=== PATIENT | female | born 1945 | race Caucasian/White ===

== ENCOUNTER 2016-03-15 15:33 | Emergency (ER) | payer MEDICARE, BC, OTHER ==
--- NOTE | 2016-03-15 16:30 | ER Document Report ---
ED Medical Screen (RME) - General Stated Complaint: DIZZY Notes: 70 yo female c/o flu like symptoms x last week, fever, cant walk, feels dizzy. + mid back pain. no chest pain or shortness of breath. + vomiting. Pt was seen by Dr Keller today and sent to ED TRAVEL OUTSIDE OF THE [place] IN LAST 30 DAYS: No - Related Data Allergies/Adverse Reactions: No Known Allergies Allergy (Verified 07/09/12 14:23) Past Medical History - Past Medical History Cardiac Medical History: Reports: Hx Congestive Heart Failure - secondary to "double pneumonia", Hx Hypercholesterolemia, Hx Hypertension Pulmonary Medical History: Reports: Hx Pneumonia - "Double" Musculoskeltal Medical History: Reports Hx Arthritis Past Surgical History: Reports: Hx Breast Surgery - reconstruction, Hx Cholecystectomy, Hx Mastectomy - left, Hx Tubal Ligation - Immunizations Hx Diphtheria, Pertussis, Tetanus Vaccination: No Physical Exam - Vital signs Vitals: Temp Pulse Resp BP Pulse Ox 100.7 F H 99 20 115/69 93 03/15/16 15:56 03/15/16 15:56 03/15/16 15:56 03/15/16 15:56 03/15/16 15:56 Course - Vital Signs Vital signs: Temp Pulse Resp BP Pulse Ox 100.7 F H 99 20 115/69 93 03/15/16 15:56 03/15/16 15:56 03/15/16 15:56 03/15/16 15:56 03/15/16 15:56
[2016-03-15] MEDS ORDERED: ONDANSETRON 4 MG TAB.RAPDIS PO ONE (16:31)
[2016-03-15 17:09] LABS: HEMATOCRIT 43.2 % (36.0-47.0); HEMOGLOBIN 14.8 g/dL (12.0-15.5); HGB HCT DIFFERENCE 1.2; MEAN CORPUSCULAR HEMOGLOBIN 31.5 pg (27.0-33.4); MEAN CORPUSCULAR HGB CONC 34.3 g/dL (32.0-36.0); MEAN CORPUSCULAR VOLUME 92 fl (80-97); RED BLOOD COUNT 4.71 10^6/uL (3.72-5.28); RED CELL DISTRIBUTION WIDTH 14.5 % (11.5-14.0); WHITE BLOOD COUNT 7.7 10^3/uL (4.0-10.5)
[2016-03-15 17:26] LABS: ALANINE AMINOTRANSFERASE 38 U/L (9-52); ALBUMIN 3.8 g/dL (3.5-5.0); ALKALINE PHOSPHATASE 101 U/L (38-126); ANION GAP 12 (5-19); ASPARTATE AMINO TRANSFERASE 31 U/L (14-36); BILIRUBIN,TOTAL 1.1 mg/dL (0.2-1.3); BLOOD UREA NITROGEN 12 mg/dL (7-20); CALCIUM 9.3 mg/dL (8.4-10.2); CARBON DIOXIDE 28 mmol/L (22-30); CHLORIDE 95 mmol/L (98-107); GLUCOSE 126 mg/dL (75-110); POTASSIUM 3.5 mmol/L (3.6-5.0); SODIUM 135.2 mmol/L (137-145); TOTAL PROTEIN 7.2 g/dL (6.3-8.2)
[2016-03-15 17:36] LABS: APPEARANCE,URINE SLIGHTLY-CLOUDY; BILIRUBIN,URINE NEGATIVE (NEGATIVE); GLUCOSE, URINE NEGATIVE (NEGATIVE); KETONES,URINE NEGATIVE (NEGATIVE); LEUKOCYTE ESTERASE,URINE SMALL (NEGATIVE); NITRITE,URINE NEGATIVE (NEGATIVE); PROTEIN,URINE 30 mg/dL (NEGATIVE); URINE SPECIFIC GRAVITY 1.017; UROBILINOGEN,URINE NEGATIVE mg/dL (<2.0)
[2016-03-15 17:39] LABS: BASOPHILS % (MANUAL) 0 % (0-2); EOSINOPHILS % (MANUAL) 1 % (0-6); LYMPHOCYTES % (MANUAL) 4 % (13-45); TOTAL CELLS COUNTED 100
[2016-03-15 17:40] LABS: ANISOCYTOSIS SLIGHT; TOXIC GRANULATION SLIGHT
[2016-03-15] MEDS ORDERED: IBUPROFEN 600 MG TABLET PO ONE (19:34)
[2016-03-15] MEDS ORDERED: NORMAL SALINE 1000 ML 1,000 ML IV ONE (20:10)
[2016-03-15] MEDS ORDERED: DOXYCYCLINE HYCLATE 100 MG TABLET PO ONE (20:40)
[2016-03-15] MEDS ORDERED: LEVOFLOXACIN 750 MG TABLET PO ONE (20:42)
[2016-03-15] MEDS ORDERED: IPRATROPIUM/ALBUTEROL 0.5-2.5 MG/3 ML AMPUL NEB ONE (20:42)
--- NOTE | 2016-03-15 20:43 | ER Document Report ---
ED General - General Chief Complaint: Fever Stated Complaint: DIZZY Notes: Patient is a 70-year-old female, currently active smoker with a history of asthma, who presents with fever, dizziness and cough. States that the symptoms started 2 days ago and have been getting progressively worsen since onset. She was seen by her primary care physician and referred to the emergency department for further evaluation. Denies a history of similar symptoms in the past. No known sick contacts. Nothing improves or worsens or symptoms. She has been able to tolerate oral fluids and has not had any vomiting. Denies any lethargy , dyspnea, chest pain, headache or neck pain. TRAVEL OUTSIDE OF THE [place] IN LAST 30 DAYS: No - Related Data Allergies/Adverse Reactions: No Known Allergies Allergy (Verified 03/15/16 16:26) Past Medical History - General Information source: Patient - Social History Smoking Status: Current Every Day Smoker Chew tobacco use (# tins/day): No Frequency of alcohol use: None Drug Abuse: None Lives with: Family Family History: Reviewed & Not Pertinent, Other Patient has suicidal ideation: No Patient has homicidal ideation: No - Past Medical History Cardiac Medical History: Reports: Hx Congestive Heart Failure - secondary to "double pneumonia", Hx Hypercholesterolemia, Hx Hypertension Pulmonary Medical History: Reports: Hx Pneumonia - "Double" Renal/ Medical History: Denies: Hx Peritoneal Dialysis Musculoskeltal Medical History: Reports Hx Arthritis Past Surgical History: Reports: Hx Breast Surgery - reconstruction, Hx Cholecystectomy, Hx Mastectomy - left, Hx Tubal Ligation - Immunizations Hx Diphtheria, Pertussis, Tetanus Vaccination: No Review of Systems - Review of Systems Notes: Constitutional: Positive for fever. HENT: Negative for sore throat. Eyes: Negative for visual changes. Cardiovascular: Negative for chest pain. Respiratory: Negative for shortness of breath. Positive for cough Gastrointestinal: Negative for abdominal pain, vomiting or diarrhea. Genitourinary: Negative for dysuria. Musculoskeletal: Negative for back pain. Skin: Negative for rash. Neurological: Negative for headaches, weakness or numbness. 10 point ROS negative except as marked above and in HPI. Physical Exam - Vital signs Vitals: Temp Pulse Resp BP Pulse Ox 100.7 F H 99 20 115/69 93 03/15/16 15:56 03/15/16 15:56 03/15/16 15:56 03/15/16 15:56 03/15/16 15:56 Interpretation: Febrile Notes: PHYSICAL EXAMINATION: GENERAL: Well-appearing, well-nourished and in no acute distress. HEAD: Atraumatic, normocephalic. EYES: Pupils equal round and reactive to light, extraocular movements intact, sclera anicteric, conjunctiva are normal. ENT: nares patent, oropharynx clear without exudates. Moist mucous membranes. NECK: Normal range of motion, supple without lymphadenopathy LUNGS: Diminished at the bilateral bases, worse on the left HEART: Regular rate and rhythm without murmurs ABDOMEN: Soft, nontender, normoactive bowel sounds. No guarding, no rebound. No masses appreciated. EXTREMITIES: Normal range of motion, no pitting or edema. No cyanosis. NEUROLOGICAL: No focal neurological deficits. Moves all extremities spontaneously and on command. PSYCH: Normal mood, normal affect. SKIN: Warm, Dry, normal turgor, no rashes or lesions noted. Course - Re-evaluation Re-evalutation: 03/15/16 20:47 Patient presents with symptoms most consistent with a left lower lobe pneumonia. Mild hypoxemia and time of presentation at 93% on room air. Patient is in no acute distress. No respiratory distress. She has mildly diminished breath sounds at the right and left base more prominent than the left. Trace wheezing bilaterally. Patient's initial vital showed a fever with mild tachycardia. She has been given IV fluids, ibuprofen, and started on oral levofloxacin. An ambulatory pulse ox check was within acceptable limits. Her curb 65 score is 1. At this time will discharge with return precautions and follow-up recommendations. Verbal discharge instructions given a the bedside and opportunity for questions given. Medication warnings reviewed. Patient is in agreement with this plan and has verbalized understanding of return precautions and the need for primary care follow-up in the next 24-72 hours. - Vital Signs Vital signs: Temp Pulse Resp BP Pulse Ox 98.5 F 69 69 H 109/62 95 03/15/16 22:26 03/15/16 22:26 03/15/16 22:26 03/15/16 22:26 03/15/16 22:26 - Laboratory Result Diagrams: 03/15/16 16:43 03/15/16 16:43 Laboratory results interpreted by me: 03/15/16 03/15/16 03/15/16 16:43 16:43 16:43 RDW 14.5 H Seg Neuts % (Manual) 87 H Lymphocytes % (Manual) 4 L Abs Lymphs (Manual) 0.3 L Sodium 135.2 L Potassium 3.5 L Chloride 95 L Glucose 126 H Urine Protein 30 H Ur Leukocyte Esterase SMALL H - Diagnostic Test Radiology reviewed: Image reviewed, Reports reviewed Radiology results interpreted by me: 03/15/16 20:47 Patchy infiltrates at the bilateral bases left more than right Discharge - Discharge Clinical Impression: Pneumonia Qualifiers: Pneumonia type: due to unspecified organism Laterality: left Lung location: lower lobe of lung Qualified Code(s): J18.1 - Lobar pneumonia, unspecified organism Condition: Good Disposition: HOME, SELF-CARE Additional Instructions: You have been diagnosed with pneumonia. You need to take the antibiotic exactly as directed. Please avoid smoking. Take ibuprofen or Tylenol per box instructions as needed for fever. Continue to drink plenty of fluids. Take the Zofran that you have been sent home with as needed for nausea or vomiting. Return to the emergency room immediately if you have increasing shortness of breath, become unable to walk the appropriate distances in your house to get from your bedroom to the bathroom or kitchen, pass out, becomes unable to tolerate fluids or your medications for more than 12 hours, become confused, lethargic, or have any other symptoms that are concerning to you. Please follow -up with your primary care physician in the next 1-2 days. Prescriptions: Levofloxacin 750 mg PO DAILY #6 tablet Referrals: LESLY TEJADA MD [Primary Care Provider] - Follow up tomorrow
[2016-03-15 22:48] VITALS: BP 109/62
== END 2016-03-15 22:30 | disposition home or self-care (01) ==
LOC: ER 15:33
DX: J18.1 Lobar pneumonia, unspecified organism (principal); F17.200 Nicotine dependence, unspecified, uncomplicated; J45.909 Unspecified asthma, uncomplicated; R50.9 Fever, unspecified; R00.0 Tachycardia, unspecified; R42 Dizziness and giddiness; R05 Cough; I10 Essential (primary) hypertension; R09.02 Hypoxemia
CPT/HCPCS: 94640; 99284; 96360; 36415; 85025; 80053; 81001; 87804; 71020; A9270 ×4; J7030; J7620; S0119

== ENCOUNTER → 2016-10-13 | Outpatient (CLI) | payer MEDICARE, BC, OTHER ==
[2016-10-13 09:25] LABS: ABSOLUTE EOSINOPHILS # (AUTO) 0.1 10^3/uL (0.0-0.6); ABSOLUTE LYMPHOCYTES (AUTO) 1.5 10^3/uL (0.5-4.7); ABSOLUTE MONOCYTES (AUTO) 0.5 10^3/uL (0.1-1.4); ABSOLUTE NEUT (AUTO) 4.1 10^3/uL (1.7-8.2); BASOPHILS % (AUTO) 0.5 % (0-2); EOSINOPHILS % (AUTO) 1.7 % (0-6); HEMATOCRIT 42.4 % (36.0-47.0); HEMOGLOBIN 14.9 g/dL (12.0-15.5); HGB HCT DIFFERENCE 2.3; LYMPHOCYTES % (AUTO) 24.3 % (13-45); MEAN CORPUSCULAR HEMOGLOBIN 33.1 pg (27.0-33.4); MEAN CORPUSCULAR HGB CONC 35.1 g/dL (32.0-36.0); MEAN CORPUSCULAR VOLUME 94 fl (80-97); MONOCYTES % (AUTO) 7.5 % (3-13); RED CELL DISTRIBUTION WIDTH 14.5 % (11.5-14.0); WHITE BLOOD COUNT 6.2 10^3/uL (4.0-10.5)
[2016-10-13 09:53] LABS: ALANINE AMINOTRANSFERASE 28 U/L (9-52); ALBUMIN 4.2 g/dL (3.5-5.0); ALKALINE PHOSPHATASE 88 U/L (38-126); ANION GAP 9 (5-19); ASPARTATE AMINO TRANSFERASE 18 U/L (14-36); BILIRUBIN,DIRECT 0.4 mg/dL (0.0-0.4); BILIRUBIN,TOTAL 0.9 mg/dL (0.2-1.3); BLOOD UREA NITROGEN 13 mg/dL (7-20); CALCIUM 10.5 mg/dL (8.4-10.2); CARBON DIOXIDE 33 mmol/L (22-30); CHLORIDE 101 mmol/L (98-107); CHOLESTEROL 184.91 mg/dL (0-200); CREATININE RESULT 0.79 mg/dL (0.52-1.25); Direct HDL 49 mg/dL (>40); GLUCOSE 105 mg/dL (75-110); POTASSIUM 4.4 mmol/L (3.6-5.0); SODIUM 143.1 mmol/L (137-145); TOTAL PROTEIN 7.1 g/dL (6.3-8.2); TRIGLYCERIDES 182 mg/dL (<150)
[2016-10-13 10:04] LABS: DIRECT LDL 95 mg/dL (<100)
[2016-10-13 10:09] LABS: FREE T3 4.45 pg/mL (2.77-5.27)
[2016-10-13 10:12] LABS: VLDL CHOLESTEROL 36.4 mg/dL (10-31)
[2016-10-13 10:22] LABS: THYROID STIMULATING HORMONE 2.76 uIU/mL (0.47-4.68)
== END ==
LOC: LAB 09:10
PROVIDERS: ATTEND Internal Medicine
DX: R53.83 Other fatigue (principal); I10 Essential (primary) hypertension; E78.5 Hyperlipidemia, unspecified; K21.9 Gastro-esophageal reflux disease without esophagitis; J44.9 Chronic obstructive pulmonary disease, unspecified
CPT/HCPCS: 36415; 80053; 80061; 84439; 84443; 84481; 85025

== ENCOUNTER → 2016-11-20 | Outpatient (CLI) | payer MEDICARE, BC, OTHER ==
--- NOTE | 2016-11-20 12:36 | RADIOLOGY REPORT (SQ) ---
EXAM DESCRIPTION: CHEST PA/LAT COMPLETED DATE/TIME: 11/20/2016 10:51 am REASON FOR STUDY: PNEUMONIA RLL COMPARISON: 03/15/2016 EXAM PARAMETERS: NUMBER OF VIEWS: two views TECHNIQUE: Digital Frontal and Lateral radiographic views of the chest acquired. RADIATION DOSE: NA LIMITATIONS: none FINDINGS: LUNGS AND PLEURA: There is an 18 mm nodule projected over the left base. This may be seen on the lateral view posteriorly overlying the spine. This is not present on the earlier study. No acute infiltrate or effusion is seen. MEDIASTINUM AND HILAR STRUCTURES: No masses or contour abnormalities. HEART AND VASCULAR STRUCTURES: Heart normal size. No evidence for failure. BONES: No acute findings. HARDWARE: None in the chest. OTHER: No other significant finding. IMPRESSION: No acute pulmonary infiltrate is present. Left pulmonary nodule. This could conceivabl y represent a nipple shadow. TECHNICAL DOCUMENTATION: JOB ID: [id number] [employer]- All Rights Reserved
== END ==
LOC: RAD 10:08
PROVIDERS: ATTEND Internal Medicine
DX: J18.9 Pneumonia, unspecified organism (principal)
CPT/HCPCS: 71020

== ENCOUNTER → 2016-11-24 | Outpatient (CLI) | payer MEDICARE, BC, OTHER ==
[2016-11-24 12:14] LABS: BLOOD UREA NITROGEN 10 mg/dL (7-20); CREATININE RESULT 0.68 mg/dL (0.52-1.25)
== END ==
LOC: OD 10:21
PROVIDERS: ATTEND Internal Medicine
DX: Z01.812 Encounter for preprocedural laboratory examination (principal); R91.8 Other nonspecific abnormal finding of lung field
CPT/HCPCS: 36415; 82565; 84520

== ENCOUNTER → 2016-11-27 | Outpatient (CLI) | payer MEDICARE, BC, OTHER ==
--- NOTE | 2016-11-27 16:51 | RADIOLOGY REPORT (SQ) ---
EXAM DESCRIPTION: CT CHEST WITHOUT COMPLETED DATE/TIME: 11/27/2016 2:33 pm REASON FOR STUDY: LEFT LUNG NODULE (R91.1) R91.1 SOLITARY PULMONARY NODULE COMPARISON: None. TECHNIQUE: CT scan performed of the chest without intravenous contrast. Images reviewed with lung, soft tissue and bone windows. Reconstructed coronal and sagittal MPR images reviewed. All images st ored on PACS. All CT scanners at this facility use dose modulation, iterative reconstruction, and/or weight based d osing when appropriate to reduce radiation dose to as low as reasonably achievable (ALARA). [facility]: Dose Right [facility]: CareDose [facility]: Dose Right [facility]: Teradose 4D [facility]: Smart Solaris Solar Heating RADIATION DOSE: Up-to-date CT equipment and radiation dose reduction techniques were employed. CTDIv ol: 7.2 mGy. DLP: 260 mGy-cm. mGy. LIMITATIONS: No technical limitations. FINDINGS: LUNGS AND PLEURA: Left hilar mass measuring about 3.6 cm in diameter. Collapse of the lef t lower lobe with bronchial cut off sign. Small dependent gas bubble in the left lower lobe. Trace pleural effusions, left greater than right. HILAR AND MEDIASTINAL STRUCTURES: No pathologically enlarged mediastinal nodes. HEART AND VASCULAR STRUCTURES: Cardiomegaly. No aneurysm. No pericardial effusion. UPPER ABDOMEN: Atrophic left kidney. 1 cm left adrenal nodule. THYROID AND OTHER SOFT TISSUES: Breast implants. Status post left mastectomy and axillary node disse ction. BONES: No acute findings. HARDWARE: None in the chest. OTHER: No other significant findings. IMPRESSION: Left hilar mass. Collapse of the left lower lobe. TECHNICAL DOCUMENTATION: JOB ID: [id number] Quality ID # [id number]: Final reports with documentation of one or more dose reduction techniques (e.g., Au tomated exposure control, adjustment of the mA and/or kV according to patient size, use of iterative reconstruction technique) 2010 [employer]- All Rights Reserved
== END ==
LOC: RAD 13:28
PROVIDERS: ATTEND Internal Medicine
DX: R91.1 Solitary pulmonary nodule (principal)
CPT/HCPCS: 71250

== ENCOUNTER → 2016-12-14 | Outpatient (CLI) | payer MEDICARE, BC, OTHER ==
[2016-12-14 09:58] LABS: PARTIAL THROMBOPLASTIN TIME 29.2 SEC (23.5-35.8); PROTHROMBIN TIME 12.5 SEC (11.4-15.4)
[2016-12-14 10:03] LABS: ABSOLUTE LYMPHOCYTES (AUTO) 1.2 10^3/uL (0.5-4.7); ABSOLUTE MONOCYTES (AUTO) 0.5 10^3/uL (0.1-1.4); ABSOLUTE NEUT (AUTO) 5.2 10^3/uL (1.7-8.2); BASOPHILS % (AUTO) 0.2 % (0-2); EOSINOPHILS % (AUTO) 0.6 % (0-6); HEMATOCRIT 43.9 % (36.0-47.0); HEMOGLOBIN 15.5 g/dL (12.0-15.5); HGB HCT DIFFERENCE 2.6; LYMPHOCYTES % (AUTO) 17.1 % (13-45); MEAN CORPUSCULAR HEMOGLOBIN 32.6 pg (27.0-33.4); MEAN CORPUSCULAR HGB CONC 35.3 g/dL (32.0-36.0); MEAN CORPUSCULAR VOLUME 92 fl (80-97); MONOCYTES % (AUTO) 7.6 % (3-13); RED BLOOD COUNT 4.75 10^6/uL (3.72-5.28); RED CELL DISTRIBUTION WIDTH 14.2 % (11.5-14.0); SEGMENTED NEUTROPHILS % (AUTO) 74.5 % (42-78)
[2016-12-14 10:16] LABS: ANION GAP 13 (5-19); BLOOD UREA NITROGEN 10 mg/dL (7-20); CALCIUM 9.7 mg/dL (8.4-10.2); CARBON DIOXIDE 32 mmol/L (22-30); CHLORIDE 97 mmol/L (98-107); CREATININE RESULT 0.73 mg/dL (0.52-1.25); GLUCOSE 116 mg/dL (75-110); POTASSIUM 3.8 mmol/L (3.6-5.0); SODIUM 141.8 mmol/L (137-145)
== END ==
LOC: OD 08:55
PROVIDERS: ATTEND Internal Medicine Pulmonary Disease
DX: J98.4 Other disorders of lung (principal); Z79.01 Long term (current) use of anticoagulants
CPT/HCPCS: 36415; 80048; 85025; 85610; 85730

== ENCOUNTER 2016-12-21 10:02 | Day surgery (SDC) | payer MEDICARE, BC, OTHER ==
--- NOTE | 2016-12-19 15:29 | EKG REPORT ---
SEVERITY:- NORMAL ECG - SINUS RHYTHM : Confirmed by: Miguel Harmon 19-Dec-2016 15:29:10
[~2016-12-21 10:02] MED LIST: ALBUTEROL SULFATE 0.083% NEB 2.5 MG/3 ML AMPUL NEB PRN; LACTATED RINGERS 1000 ML IV PRN; LIDOCAINE 0.5% INJ-PF (5 MG/ML) 50 ML SDV SUBCUT PRN; LIDOCAINE 4% INJ/PF (40 MG/ML) 5 ML AMPUL NEB PRN
[2016-12-21] MEDS ORDERED: FENTANYL CITRATE INJ/PF 100 MCG/2 ML AMPUL ONE (11:21)
[2016-12-21] MEDS ORDERED: PROPOFOL INJ 200 MG/20 ML VIAL IV ONE (11:21)
[2016-12-21] MEDS ORDERED: LIDOCAINE 2% INJ-PF (20 MG/ML) 10 ML AMPUL ONE (11:21)
[2016-12-21] MEDS ORDERED: EPHEDRINE SULFATE INJ 50 MG/1 ML AMPULE ONE (12:10)
[2016-12-21] MEDS ORDERED: LIDOCAINE 2% INJ (20 MG/ML) 20 ML MDV ONE (12:12)
[2016-12-21] MEDS ORDERED: MIDAZOLAM 2 MG/2 ML INJ ONE (12:14)
[2016-12-21] MEDS ORDERED: EPINEPHRINE INJ 1 MG/10 ML DISP.SYRIN ONE (12:39)
[2016-12-21] MEDS ORDERED: ACETAMINOPHEN 325 MG TABLET PO SCH (14:00)
--- NOTE | 2016-12-21 14:01 | Operative Report ---
Operative Report DATE OF SURGERY: 12/21/16 - Left lung mass Operative Report: Patient N.p.o.12 hours prior to procedure came to the preoperative area where given bronchodilator therapy and IV was established. consents were reviewed. patient was taken to the bronchoscopy suite;she was intubated by anesthesiology then using a T size scope tracheobronchial tree was explored and there were no problems with her trachea distally and no splaying of the marcos there were no problems with the right mainstem bronchus right bronchus intermedius right right middle lower lobe or right middle lobe. There was some mucosal swelling in the right upper lobe and multiple a needle biopsies were taken. Then the left main mainstem bronchus was explored at the distal left mainstem bronchus there was a 90-95% occlusion including mass there multiple transbronchial biopsies were taken of this area patient tolerated procedure well post- procedure SaO2 was 99% and post-procedure chest x-ray is in progress at this time. PREOPERATIVE DIAGNOSIS: Left lung mass POSTOPERATIVE DIAGNOSIS: Same OPERATION: Fiberoptic bronchoscopy transbronchial biopsies and Krishnamurthy needle biopsies SURGEON: LEV ANDRADE ANESTHESIA: GA TISSUE REMOVED OR ALTERED: Transbronchial biopsies left upper lobe. right needle biopsies right upper lobe COMPLICATIONS: none ESTIMATED BLOOD LOSS: 0cc
--- NOTE | 2016-12-21 14:06 | RADIOLOGY REPORT (SQ) ---
EXAM DESCRIPTION: CHEST SINGLE VIEW COMPLETED DATE/TIME: 12/21/2016 1:50 pm REASON FOR STUDY: post bronchoscopy COMPARISON: CT chest 11/27/2016 PET-CT 12/10/2016 CT chest 11/20/2016 EXAM PARAMETERS: NUMBER OF VIEWS: One view. TECHNIQUE: Single frontal radiographic view of the chest acquired. RADIATION DOSE: NA LIMITATIONS: None. FINDINGS: LUNGS AND PLEURA: Persistent left hilar mass with left lower lobe collapse, unchanged from PET-CT 12/10/2016 There is minimal airspace disease in the right lower lobe just above the hemidiaphragm, atelectasis f avored over pneumonia. No pleural effusions. No pneumothorax. MEDIASTINUM AND HILAR STRUCTURES: Enlarged left hilum, with a 4 cm lower hilar mass. HEART AND VASCULAR STRUCTURES: Heart normal in size. Normal vasculature. BONES: No acute findings. HARDWARE: Surgical clips left axilla. Left breast implant post mastectomy OTHER: No other significant finding. IMPRESSION: Persistent left hilar mass with postobstructive left lower lobe pneumonia. Minimal right basilar airspace disease atelectasis favored over pneumonia TECHNICAL DOCUMENTATION: JOB ID: [id number]- All Rights Reserved
[2016-12-21] MEDS ORDERED: PHENYLEPHRINE HCL INJ/PF 10 MG/1 ML SDV ONE (14:21)
[2016-12-21] MEDS ORDERED: VECURONIUM BROMIDE INJ 10 MG VIAL IV ONE (14:21)
[2016-12-21] MEDS ORDERED: SUCCINYLCHOLINE CHLORIDE INJ 200 MG/10 ML VIAL ONE (14:21)
[2016-12-21 16:04] VITALS: BP 151/92
--- NOTE | 2016-12-21 16:32 | RADIOLOGY REPORT (SQ) ---
EXAM DESCRIPTION: NO CHG FLUORO; CHEST SINGLE VIEW COMPLETED DATE/TIME: 12/21/2016 3:27 pm REASON FOR STUDY: BRONCHOSCOPY BOTH LUNGS ASSISTED W/ FLUORO IN OR R91.8 OTHER NONSPECIFIC ABNORMA L FINDING OF LUNG FIELD J98.4 OTHER DISORDERS OF LUNG COMPARISON: PET-CT 12/10/2016 CT chest 11/20/2016 FLUOROSCOPY TIME: 0.3 minutes 5 digital C-arm images saved to PACS. TECHNIQUE: Intra-operative images acquired during surgical procedure to evaluate progress. NUMBER OF IMAGES: Cine fluoroscopic images. LIMITATIONS: None. FINDINGS: Intra procedural imaging and fluoro during bronchoscopy performed by Dr. Donaldson. Please see the operative report for further details IMPRESSION: Intra procedural imaging and fluoro COMMENT: Quality ID [id number]: Final reports for procedures using fluoroscopy that document radiation exp osure indices, or exposure time and number of fluorographic images (if radiation exposure indices are not available) Please consult full operative report of the attending physician for description of the procedure. TECHNICAL DOCUMENTATION: JOB ID: [id number] [employer]- All Rights Reserved
== END 2016-12-21 15:30 | disposition home or self-care (01) ==
LOC: OROUT 10:02
PROVIDERS: ATTEND Internal Medicine Pulmonary Disease
PROC: 0BB48ZX Excision of Right Upper Lobe Bronchus, Via Natural or Artificial Opening Endoscopic, Diagnostic (ICD-10-PCS; principal; 2016-12-21 12:00)
PROC: 0BBG8ZX Excision of Left Upper Lung Lobe, Via Natural or Artificial Opening Endoscopic, Diagnostic (ICD-10-PCS; 2016-12-21 12:00)
DX: R91.8 Other nonspecific abnormal finding of lung field (principal); J98.4 Other disorders of lung; J44.9 Chronic obstructive pulmonary disease, unspecified; I10 Essential (primary) hypertension; E78.5 Hyperlipidemia, unspecified; D64.9 Anemia, unspecified; K21.9 Gastro-esophageal reflux disease without esophagitis; G47.33 Obstructive sleep apnea (adult) (pediatric); F17.210 Nicotine dependence, cigarettes, uncomplicated; Z91.040 Latex allergy status; Z79.899 Other long term (current) drug therapy; Z79.82 Long term (current) use of aspirin; Z79.51 Long term (current) use of inhaled steroids; Z85.21 Personal history of malignant neoplasm of larynx; Z79.01 Long term (current) use of anticoagulants
CPT/HCPCS: 31625; 31629; 93005; 36415 ×2; 84132; 88305 ×2; 71010; 93010; 94640; A9270 ×2; J2250; J3490 ×5; J3010; J2370; J0330; J2704; 520; J0171

== ENCOUNTER 2016-12-28 20:24 | Inpatient (IN) | payer MEDICARE, BC, OTHER ==
[2016-12-28 20:53] LABS: ABSOLUTE EOSINOPHILS # (AUTO) 0.1 10^3/uL (0.0-0.6); ABSOLUTE LYMPHOCYTES (AUTO) 2.3 10^3/uL (0.5-4.7); ABSOLUTE MONOCYTES (AUTO) 0.6 10^3/uL (0.1-1.4); ABSOLUTE NEUT (AUTO) 3.2 10^3/uL (1.7-8.2); BASOPHILS % (AUTO) 0.6 % (0-2); EOSINOPHILS % (AUTO) 1.3 % (0-6); HEMATOCRIT 44.6 % (36.0-47.0); HEMOGLOBIN 15.6 g/dL (12.0-15.5); HGB HCT DIFFERENCE 2.2; LYMPHOCYTES % (AUTO) 36.9 % (13-45); MEAN CORPUSCULAR HEMOGLOBIN 31.9 pg (27.0-33.4); MEAN CORPUSCULAR VOLUME 91 fl (80-97); MONOCYTES % (AUTO) 10.3 % (3-13); RED BLOOD COUNT 4.89 10^6/uL (3.72-5.28); RED CELL DISTRIBUTION WIDTH 13.9 % (11.5-14.0); SEGMENTED NEUTROPHILS % (AUTO) 50.9 % (42-78); WHITE BLOOD COUNT 6.2 10^3/uL (4.0-10.5)
[2016-12-28] MEDS: NORMAL SALINE 1000 ML 1,000 ML IV PRN (20:53)
[2016-12-28 20:57] LABS: ALANINE AMINOTRANSFERASE 33 U/L (9-52); ALBUMIN 3.7 g/dL (3.5-5.0); ALKALINE PHOSPHATASE 80 U/L (38-126); ANION GAP 12 (5-19); ASPARTATE AMINO TRANSFERASE 16 U/L (14-36); BILIRUBIN,DIRECT 0.3 mg/dL (0.0-0.4); BILIRUBIN,TOTAL 1.5 mg/dL (0.2-1.3); BLOOD UREA NITROGEN 9 mg/dL (7-20); CALCIUM 9.3 mg/dL (8.4-10.2); CARBON DIOXIDE 27 mmol/L (22-30); CHLORIDE 105 mmol/L (98-107); CREATININE RESULT 0.87 mg/dL (0.52-1.25); GLUCOSE 94 mg/dL (75-110); POTASSIUM 3.5 mmol/L (3.6-5.0); SODIUM 143.5 mmol/L (137-145); TOTAL PROTEIN 6.2 g/dL (6.3-8.2)
[2016-12-28] MEDS ORDERED: MECLIZINE HCL 25 MG TABLET PO ONE (21:06)
[2016-12-28] MEDS ORDERED: AZITHROMYCIN 250 MG TABLET PO ONE (21:06)
--- NOTE | 2016-12-28 21:39 | ER Document Report ---
ED General - General Chief Complaint: Nausea/Vomiting/Diarrhea Stated Complaint: DIZZINESS Time Seen by Provider: 12/28/16 20:27 Mode of Arrival: Ambulatory Information source: Patient Notes: 71-year-old female presents with complaints of nausea vomiting diarrhea dizziness of approximately one half week duration ever since patient had biopsy performed on lung nodule by coffee maker. Patient has had a history of pneumonia in the past denies any fevers or chills admits to shortness of breath , patient was found satting 88% by EMS. Patient is not normally on oxygen TRAVEL OUTSIDE OF THE [place] IN LAST 30 DAYS: No - HPI Onset: Last week Onset/Duration: Persistent Severity: Mild Pain Level: 1 Associated symptoms: Nausea, Vomiting Exacerbated by: Denies Relieved by: Denies Similar symptoms previously: Yes Recently seen / treated by doctor: Yes - Related Data Allergies/Adverse Reactions: No Known Allergies Allergy (Verified 12/15/16 16:00) Past Medical History - Social History Smoking Status: Unknown if Ever Smoked Cigarette use (# per day): No Chew tobacco use (# tins/day): No Smoking Education Provided: No Frequency of alcohol use: None Drug Abuse: None Family History: Reviewed & Not Pertinent, Other Patient has suicidal ideation: No Patient has homicidal ideation: No - Past Medical History Cardiac Medical History: Reports: Hx Congestive Heart Failure - secondary to "double pneumonia", Hx Hypercholesterolemia, Hx Hypertension Denies: Hx Coronary Artery Disease, Hx Heart Attack Pulmonary Medical History: Reports: Hx Asthma - BRONCHIAL ASTHMA, Hx Pneumonia Denies: Hx Bronchitis, Hx COPD Neurological Medical History: Denies: Hx Cerebrovascular Accident, Hx Seizures Renal/ Medical History: Denies: Hx Peritoneal Dialysis Musculoskeltal Medical History: Denies Hx Arthritis Past Surgical History: Reports: Hx Breast Surgery - reconstruction, Hx Cholecystectomy, Hx Mastectomy - left, Hx Tubal Ligation - Immunizations Hx Diphtheria, Pertussis, Tetanus Vaccination: Yes Review of Systems - Review of Systems Notes: REVIEW OF SYSTEMS: CONSTITUTIONAL : Denies fever, chills, or sweats. Denies recent illness. EENT: Admits to ear pain CARDIOVASCULAR: Denies chest pain. Denies palpitations or racing or irregular heart beat. Denies ankle edema. RESPIRATORY: Denies cough, cold, or chest congestion. Denies shortness of breath, difficulty breathing, or wheezing. GASTROINTESTINAL: Admits to nausea vomiting diarrhea GENITOURINARY: Denies difficulty urinating, painful urination, burning, frequency, blood in urine, or discharge. FEMALE GENITOURINARY: Denies vaginal bleeding, heavy or abnormal periods, irregular periods. Denies vaginal discharge or odor. MUSCULOSKELETAL: Denies back or neck pain or stiffness. Denies joint pain or swelling. SKIN: Denies rash, lesions or sores. HEMATOLOGIC : Denies easy bruising or bleeding. LYMPHATIC: Denies swollen, enlarged glands. NEUROLOGICAL: Admits to dizziness PSYCHIATRIC: Denies anxiety or stress. Denies depression, suicidal ideation, or homicidal ideation. ALL OTHER SYSTEMS REVIEWED AND NEGATIVE. PHYSICAL EXAMINATION: GENERAL: Well-appearing, well-nourished and in no acute distress. HEAD: Atraumatic, normocephalic. EYES: Pupils equal round and reactive to light, extraocular movements intact, conjunctiva are normal. ENT: Right otitis media NECK: Normal range of motion, supple without lymphadenopathy LUNGS: Crackles at the bases bilateral HEART: A. fib ABDOMEN: Soft, nontender, nondistended abdomen. No guarding, no rebound. No masses appreciated. Female : deferred Musculoskeletal: Normal range of motion, no pitting or edema. No cyanosis. NEUROLOGICAL: Cranial nerves grossly intact. Normal speech, normal gait. Normal sensory, motor exams PSYCH: Normal mood, normal affect. SKIN: Warm, Dry, normal turgor, no rashes or lesions noted. Dictation was performed using [employer] voice recognition software Physical Exam - Vital signs Vitals: Pulse Ox 95 12/28/16 20:30 Course - Re-evaluation Re-evalutation: 12/28/16 23:33 X-rays consistent with pneumonia, patient was initially treated with oral antibiotics for otitis media given presentation patient has required supplemental oxygen and was admitted to the hospitalist service. She does note that her dizziness has improved significantly - Vital Signs Vital signs: Temp Pulse Resp BP Pulse Ox 21 H 143/100 H 97 12/28/16 21:03 12/28/16 21:03 12/28/16 21:03 - Laboratory Result Diagrams: 12/28/16 20:35 12/28/16 20:35 Laboratory results interpreted by me: 12/28/16 12/28/16 20:35 20:35 Hgb 15.6 H Potassium 3.5 L Total Bilirubin 1.5 H Total Protein 6.2 L - Diagnostic Test Radiology reviewed: Image reviewed, Reports reviewed - EKG Interpretation by Me EKG shows normal: Sinus rhythm, [place], Intervals, QRS Complexes Discharge - Discharge Clinical Impression: Hypoxemia, Vertigo Pneumonia Qualifiers: Pneumonia type: due to unspecified organism Laterality: left Lung location: lower lobe of lung Qualified Code(s): J18.1 - Lobar pneumonia, unspecified organism Condition: Stable Disposition: ADMITTED INPATIENT Admitting Provider: Hospitalist Unit Admitted: Telemetry Referrals: LESLY TEJADA MD [Primary Care Provider] - Follow up as needed
--- NOTE | 2016-12-28 22:48 | RADIOLOGY REPORT (SQ) ---
EXAM DESCRIPTION: CHEST PA/LAT COMPLETED DATE/TIME: 12/28/2016 10:33 pm REASON FOR STUDY: recent biopsy COMPARISON: CT, 11/27/2016. CR, 11/20/2016. EXAM PARAMETERS: NUMBER OF VIEWS: two views TECHNIQUE: Digital Frontal and Lateral radiographic views of the chest acquired. RADIATION DOSE: NA LIMITATIONS: none FINDINGS: LUNGS AND PLEURA: Moderate left lower lobar/ retrocardiac opacity. Moderate left lung vol ume. MEDIASTINUM AND HILAR STRUCTURES: No masses or contour abnormalities. HEART AND VASCULAR STRUCTURES: Heart normal size. No evidence for failure. BONES: No acute findings. HARDWARE: Left axillary clips. OTHER: No other significant finding. IMPRESSION: Moderate left lower lobar pneumonia/atelectasis worsened compared with prior abnormal CT , 11/27/2016. TECHNICAL DOCUMENTATION: JOB ID: [id number] [employer]- All Rights Reserved
[2016-12-28] MEDS ORDERED: CEFTRIAXONE 1 GM/D5W RTU 1 GM/50 ML RTUPB IV ONE (23:04)
[2016-12-28] MEDS ORDERED: SODIUM CHLORIDE NASAL SPRAY 44 ML NAREB PRN (23:07)
[2016-12-28] MEDS ORDERED: IPRATROPIUM/ALBUTEROL 0.5-2.5 MG/3 ML AMPUL NEB PRN (23:09)
[2016-12-28] MEDS ORDERED: ACETAMINOPHEN 325 MG TABLET PO PRN (23:09)
[2016-12-28] MEDS ORDERED: GUAIFENESIN SYRP 200 MG/10 ML UDC PO PRN (23:09)
[2016-12-29] MEDS: NORMAL SALINE 1000 ML 1,000 ML IV PRN (00:24)
--- NOTE | 2016-12-29 02:32 | PDOC H&P ---
History of Present Illness Admission Date/PCP: 12/28/16 23:38 LESLY TEJADA, Patient complains of: Nausea vomiting shortness of breath History of Present Illness: EVE GUILLERMO is a 71 year old female with a past medical history of left- sided breast cancer status post mastectomy, COPD, chronic bronchitis, hypertension, ongoing tobacco dependence and left-sided lung mass. Who presents with progressive shortness of breath following bronchoscopy and biopsy 4 days ago. EMS documents tachypnea and hypoxia of 88% on arrival. She denies recent antibiotics, chest or abdominal pain, infectious contacts, arthralgia or fever. In the emergency room a chest x-ray reveals a left lower lobe infiltrate. She is started on empiric antibiotics and referred to the hospitalist for admission. Past Medical History Cardiac Medical History: Reports: Congestive Heart Failure - secondary to "double pneumonia", Hyperlipidema, Hypertension Denies: Coronary Artery Disease, Myocardial Infarction Pulmonary Medical History: Reports: Asthma - BRONCHIAL ASTHMA, Chronic Obstructive Pulmonary Disease (COPD), Pneumonia Denies: Bronchitis Neurological Medical History: Denies: Seizures Musculoskeltal Medical History: Denies: Arthritis Psychiatric Medical History: Reports: Tobacco Dependency Hematology: Denies: Anemia Past Surgical History Past Surgical History: Reports: Cholecystectomy, Mastectomy - left, Tubal Ligation Social History Smoking Status: Current Every Day Smoker Cigarettes Packs Per Day: 0.5 Number of Years Smokin Last Time Smoked: 67 pack years total Frequency of Alcohol Use: None Hx Recreational Drug Use: No Drugs: None Hx Prescription Drug Abuse: No - Advance Directive Resuscitation Status: Full Code Family History Family History: CAD, Malignancy - Mother with lung cancer Parental Family History Reviewed: Yes Children Family History Reviewed: Yes Sibling(s) Family History Reviewed.: Yes Medication/Allergy Home Medications: Aspirin [Aspirin 81 mg Chewable Tablet] 1 tab PO DAILY 12/19/16 Budesonide/Formoterol Fumarate [Symbicort 160-4.5 Mcg Inhaler] 2 puff PO BID Carvedilol [Coreg 25 mg Tablet] 1 tab PO BID 12/19/16 Cetirizine HCl 1 tab PO DAILY 12/19/16 Cyanocobalamin (Vitamin B-12) [Vitamin B12] 1,000 mcg PO BID 12/19/16 Ferrous Sulfate 1 tab PO DAILY 12/19/16 Fluticasone Propionate [Flovent Diskus] 1 spray NAREB DAILY 12/19/16 Folic Acid 1 tab PO DAILY 12/19/16 Hydrochlorothiazide 1 tab PO DAILY 12/19/16 Ipratropium/Albuterol Sulfate [Combivent Respimat 4 gm Mdi] 1 puff PO QID Montelukast Sodium [Singulair 10 mg Tablet] 1 tab PO QPM 12/19/16 Pantoprazole Sodium [Protonix] 1 tab PO DAILY 12/19/16 Potassium Chloride [Klor-Con 10] 1 tab PO BID 12/19/16 Simvastatin 1 tab PO QPM 12/19/16 Sodium Chloride [[place] Nasal [place] 44 ml Bottle] 1 spray NAREB QID PRN 12/19/16 Solifenacin Succinate [Vesicare] 1 tab PO DAILY 12/19/16 Alprazolam [Alprazolam] 0.25 mg PO TID 12/29/16 Allergies/Adverse Reactions: No Known Allergies Allergy (Verified 12/15/16 16:00) Review of Systems Constitutional: ABSENT: chills, fever(s), headache(s), weight gain, weight loss Eyes: ABSENT: visual disturbances Ears: ABSENT: hearing changes Cardiovascular: ABSENT: chest pain, dyspnea on exertion, edema, orthropnea, palpitations Respiratory: ABSENT: cough, hemoptysis Gastrointestinal: ABSENT: abdominal pain, constipation, diarrhea, hematemesis, hematochezia, nausea, vomiting Genitourinary: ABSENT: dysuria, hematuria Musculoskeletal: ABSENT: joint swelling Integumentary: ABSENT: rash, wounds Neurological: ABSENT: abnormal gait, abnormal speech, confusion, dizziness, focal weakness, syncope Psychiatric: ABSENT: anxiety, depression, homidical ideation, suicidal ideation Endocrine: ABSENT: cold intolerance, heat intolerance, polydipsia, polyuria Hematologic/Lymphatic: ABSENT: easy bleeding, easy bruising Physical Exam Vital Signs: Temp Pulse Resp BP Pulse Ox 19 119/82 96 12/29/16 01:01 12/29/16 01:01 12/29/16 01:01 General appearance: PRESENT: cooperative, mild distress. ABSENT: disheveled, hard of hearing Head exam: PRESENT: atraumatic, normocephalic Eye exam: PRESENT: conjunctiva pink, EOMI, PERRLA. ABSENT: scleral icterus Ear exam: PRESENT: normal external ear exam Mouth exam: PRESENT: moist, tongue midline Neck exam: ABSENT: carotid bruit, JVD, lymphadenopathy, thyromegaly Respiratory exam: PRESENT: accessory muscle use, prolonged expiratory phas, rhonchi, tachypnea. ABSENT: chest wall tenderness, rales, stridor, wheezes Cardiovascular exam: PRESENT: RRR. ABSENT: diastolic murmur, rubs, systolic murmur Pulses: PRESENT: normal dorsalis pedis pul Vascular exam: PRESENT: normal capillary refill GI/Abdominal exam: PRESENT: normal bowel sounds, soft. ABSENT: distended, guarding, mass, organolmegaly, rebound, tenderness Rectal exam: PRESENT: deferred Extremities exam: PRESENT: full ROM. ABSENT: calf tenderness, clubbing, pedal edema Neurological exam: PRESENT: alert, awake, oriented to person, oriented to place , oriented to time, oriented to situation, CN II-XII grossly intact. ABSENT: motor sensory deficit Psychiatric exam: PRESENT: appropriate affect, normal mood. ABSENT: homicidal ideation, suicidal ideation Skin exam: PRESENT: dry, intact, warm. ABSENT: cyanosis, rash Results Impressions: Chest X-Ray 12/28/16 21:07 IMPRESSION: Moderate left lower lobar pneumonia/atelectasis worsened compared with prior abnormal CT, 11/27/2016. Assessment & Plan - Diagnosis (1) Pneumonia Qualifiers: Pneumonia type: due to unspecified organism Laterality: left Lung location: lower lobe of lung Qualified Code(s): J18.1 - Lobar pneumonia, unspecified organism Is this a current diagnosis for this admission?: Yes Plan: Telemetry admission pneumonia care set, postobstructive pneumonia left lower lobe recent bronchoscopy in the same region. Pulmonology consult Dr. Donaldson. (2) Lung mass Is this a current diagnosis for this admission?: Yes Plan: Initial bronchoscopy biopsy is nondiagnostic pulmonology Dr. Donaldson consulted and consideration inpatient bronchoscopy. (3) Tobacco abuse Is this a current diagnosis for this admission?: Yes Plan: Tobacco Dependence patient received tobacco cessation counseling and offered nicotine replacement options (4) Hypoxemia Is this a current diagnosis for this admission?: Yes Plan: Secondary to #1 supplemental oxygen. (5) Acute sinusitis Is this a current diagnosis for this admission?: Yes Plan: Patient complains of several days of facial fullness and pain as well as nasal quality to voice with postnasal drip. Flonase, chlorpheniramine and symptomatic management. - Time Time Spent: 50 to 70 Minutes - Inpatient Certification Medical Necessity: Need Close Monitoring Due to Risk of Patient Decompensation
[2016-12-29] MEDS: HEPARIN SOD (PORCINE) 5,000 UNIT/ML 1 ML SYRINGE SUBCUT SCH ×3 (05:23→22:12)
[2016-12-29] MEDS: LANSOPRAZOLE 15 MG TAB.RAP.DR PO SCH (05:34)
[2016-12-29 06:46] LABS: ABSOLUTE EOSINOPHILS # (AUTO) 0.1 10^3/uL (0.0-0.6); ABSOLUTE LYMPHOCYTES (AUTO) 1.9 10^3/uL (0.5-4.7); ABSOLUTE MONOCYTES (AUTO) 0.6 10^3/uL (0.1-1.4); ABSOLUTE NEUT (AUTO) 3.6 10^3/uL (1.7-8.2); BASOPHILS % (AUTO) 0.4 % (0-2); EOSINOPHILS % (AUTO) 1.5 % (0-6); HEMOGLOBIN 14.6 g/dL (12.0-15.5); HGB HCT DIFFERENCE 1.8; LYMPHOCYTES % (AUTO) 30.9 % (13-45); MEAN CORPUSCULAR HGB CONC 34.9 g/dL (32.0-36.0); MEAN CORPUSCULAR VOLUME 92 fl (80-97); MONOCYTES % (AUTO) 9.9 % (3-13); RED BLOOD COUNT 4.58 10^6/uL (3.72-5.28); RED CELL DISTRIBUTION WIDTH 14.3 % (11.5-14.0); SEGMENTED NEUTROPHILS % (AUTO) 57.3 % (42-78); WHITE BLOOD COUNT 6.3 10^3/uL (4.0-10.5)
[2016-12-29 07:05] LABS: ANION GAP 12 (5-19); BLOOD UREA NITROGEN 9 mg/dL (7-20); CALCIUM 9.3 mg/dL (8.4-10.2); CARBON DIOXIDE 30 mmol/L (22-30); CHLORIDE 102 mmol/L (98-107); CREATININE RESULT 0.89 mg/dL (0.52-1.25); GLUCOSE 88 mg/dL (75-110); POTASSIUM 3.6 mmol/L (3.6-5.0); SODIUM 144.2 mmol/L (137-145)
[2016-12-29] MEDS: HYDROCHLOROTHIAZIDE 25 MG TABLET PO SCH (09:40)
[2016-12-29] MEDS: CARVEDILOL 12.5 MG TABLET PO SCH ×2 (09:41→17:38)
[2016-12-29] MEDS: GUAIFENESIN 600 MG TABLET.SA PO SCH ×2 (09:42→22:12)
[2016-12-29] MEDS: ASPIRIN 81 MG TABLET, CHEWABLE PO SCH (09:42)
[2016-12-29] MEDS: CYANOCOBALAMIN (VITAMIN B-12) 1,000 MCG TABLET PO SCH ×2 (09:43→17:38)
[2016-12-29] MEDS: LORATADINE 10 MG TABLET PO SCH (09:43)
[2016-12-29] MEDS: AZITHROMYCIN 500 MG in DEXTROSE 5%-WATER 250 ML IV SCH (09:44)
[2016-12-29] MEDS: CEFTRIAXONE 1 GM/D5W RTU 1 GM/50 ML RTUPB IV SCH (09:44)
[2016-12-29] MEDS: BUDESONIDE/FORMOTEROL 160-4.5 MCG 60 PUFF/6 GM MDI IH SCH ×2 (09:45→17:37)
[2016-12-29] MEDS: IPRATROPIUM/ALBUTEROL 120 PUFF/4 GM MDI IH SCH ×4 (09:46→22:12)
[2016-12-29] MEDS ORDERED: CETIRIZINE HCL PO SCH (10:00)
[2016-12-29] MEDS ORDERED: (PENDING PHARMACY ID) (Cyanocobalamin (Vitamin B-12) [Vitamin B12] 1,000 MCG) PO SCH (10:00)
[2016-12-29] MEDS ORDERED: (PENDING PHARMACY ID) (Fluticasone Propionate [Flovent Diskus] 1 SPRAY) NAREB SCH (10:00)
[2016-12-29] MEDS ORDERED: (PENDING PHARMACY ID) (Pantoprazole Sodium [Protonix] 1 TAB) PO SCH (10:00)
[2016-12-29] MEDS ORDERED: (PENDING PHARMACY ID) (Carvedilol [Coreg 25 Mg Tablet] 1 TAB) PO SCH (10:00)
--- NOTE | 2016-12-29 12:22 | PDOC CONSULTATION ---
Consultation Consult Date: 12/29/16 Attending physician:: ELISABETH SAENZ Consult reason:: dyspnea/L lung mass History of Present Illness Admission Date/PCP: 12/28/16 23:38 LESLY TEJADA, History of Present Illness: 71-year-old female presented to the emergency room increasing shortness of breath reported borderline SaO2 this patient's had extended history of emphysema breast cancer thyroid cancer and was recently underwent fiberoptic bronchoscopy with bronchoalveolar lavage transbronchial biopsies needle biopsies upon examination in the bronchoscopy patient had a significant sized endobronchial lesion however subsequent biopsies were only positive for necrotic tissue and the patient is scheduled for A repeat bronchoscopy on Monday, January 02, 2017. Patient states on the day of admission she was getting progressively weak weaker and having difficulty getting out of bed she complained of large amounts of dizziness as well as a poor p.o. intake had nothing to eat on Thanksgiving she denies fevers chills runny nose sore throat constipation chest pain or edema she subsequently developed some diarrhea since her hospitalization. Portions of this note were dictated during [employer] natural speaking voice recognition software. Variations in spelling and tvocabulary are possible and unintentional. Please notify the author if any discrepancies are noted. Past Medical History Cardiac Medical History: Reports: Congestive Heart Failure - secondary to "double pneumonia", Hyperlipidema, Hypertension Denies: Coronary Artery Disease, Myocardial Infarction Pulmonary Medical History: Reports: Asthma - BRONCHIAL ASTHMA, Chronic Obstructive Pulmonary Disease (COPD), Pneumonia Denies: Bronchitis Neurological Medical History: Denies: Seizures Musculoskeltal Medical History: Denies: Arthritis Psychiatric Medical History: Reports: Tobacco Dependency Hematology: Denies: Anemia Past Surgical History Past Surgical History: Reports: Cholecystectomy, Mastectomy - left, Tubal Ligation Social History Information Source: Patient, DrMinoo Cheung, [facility] Records Lives with: Family Smoking Status: Current Every Day Smoker Cigarettes Packs Per Day: 0.5 Number of Years Smokin Last Time Smoked: 67 pack years total Passive smoke exposure as: Both Frequency of Alcohol Use: None Hx Recreational Drug Use: No Drugs: None Hx Prescription Drug Abuse: No Do you have pets?: Yes Have you had any respiratory illnesses as a child?: No Have you been exposed to any sick contacts recently?: No - Advance Directive Resuscitation Status: Full Code Family History Family History: CAD, Malignancy - Mother with lung cancer Parental Family History Reviewed: Yes Children Family History Reviewed: Yes Sibling(s) Family History Reviewed.: Yes Medication/Allergy Home Medications: Aspirin [Aspirin 81 mg Chewable Tablet] 81 mg PO DAILY 12/19/16 Budesonide/Formoterol Fumarate [Symbicort 160-4.5 Mcg Inhaler] 2 puff PO Q12 Carvedilol [Coreg 25 mg Tablet] 25 tab PO Q12 12/19/16 Cetirizine HCl 10 mg PO DAILY 12/19/16 Cyanocobalamin (Vitamin B-12) [Vitamin B12] 1,000 mcg PO BID 12/19/16 Ferrous Sulfate 325 mg PO DAILY 12/19/16 Fluticasone Propionate [Flovent Diskus] 1 spray IH DAILY 12/19/16 Folic Acid 1 mg PO DAILY 12/19/16 Hydrochlorothiazide 25 mg PO DAILY 12/19/16 Ipratropium/Albuterol Sulfate [Combivent Respimat 4 gm Mdi] 1 puff PO QID Montelukast Sodium [Singulair 10 mg Tablet] 10 mg PO QPM 12/19/16 Pantoprazole Sodium [Protonix] 20 mg PO DAILY 12/19/16 Potassium Chloride [Klor-Con 10] 10 meq PO BID 12/19/16 Simvastatin 20 mg PO QPM 12/19/16 Sodium Chloride [[place] Nasal [place] 44 ml Bottle] 1 spray NAREB QIDP PRN Solifenacin Succinate [Vesicare] 10 mg PO DAILY 12/19/16 Alprazolam [Alprazolam] 0.25 mg PO Q8HP PRN 12/29/16 Allergies/Adverse Reactions: No Known Allergies Allergy (Verified 12/15/16 16:00) Review of Systems Constitutional: PRESENT: fatigue, weakness. ABSENT: anorexia, night sweats Eyes: ABSENT: visual disturbances Ears: ABSENT: hearing changes Nose, Mouth, and Throat: PRESENT: vertigo. ABSENT: mouth pain, sore throat Cardiovascular: PRESENT: dyspnea on exertion, orthropnea. ABSENT: chest pain, palpitations Respiratory: PRESENT: cough, dyspnea, sputum. ABSENT: hemoptysis Gastrointestinal: PRESENT: nausea. ABSENT: abdominal pain, bloating, coffee ground emesis, hematemesis, hematochezia, melena, vomiting Genitourinary: ABSENT: difficulty urinating, dysuria, hematuria Musculoskeletal: ABSENT: deformity, joint swelling Integumentary: ABSENT: pruritus, rash, wounds Neurological: ABSENT: abnormal gait, abnormal movements, abnormal speech, confusion, convulsions, dizziness, focal weakness, lack of coordination, memory loss, numbness, paresthesias Psychiatric: PRESENT: anxiety, depression. ABSENT: hallucinations, homidical ideation, suicidal ideation Endocrine: ABSENT: cold intolerance, heat intolerance, menstrual abnormalities, polydipsia, polyuria Hematologic/Lymphatic: ABSENT: easy bruising Physical Exam Vital Signs: Temp Pulse Resp BP Pulse Ox 98.7 F 63 16 131/77 H 93 12/29/16 08:06 12/29/16 08:35 12/29/16 08:35 12/29/16 08:06 12/29/16 09:21 Intake & Output 12/28/16 12/29/16 12/30/16 06:59 06:59 06:59 Weight 77.2 kg 77.2 kg General appearance: PRESENT: no acute distress, cooperative, disheveled, well- developed Head exam: PRESENT: atraumatic, normocephalic Eye exam: PRESENT: conjunctiva pale, PERRLA Mouth exam: PRESENT: dry mucosa, neck supple, tongue midline Neck exam: ABSENT: carotid bruit, JVD, lymphadenopathy, thyromegaly Respiratory exam: PRESENT: decreased breath sounds, prolonged expiratory phas, rhonchi, symmetrical, unlabored. ABSENT: accessory muscle use, chest wall tenderness, clear to auscultation stacia, crackles, rales, retraction, stridor, tachypnea Cardiovascular exam: PRESENT: RRR, +S1, +S2. ABSENT: clicks, gallop, irregular rhythm Pulses: PRESENT: normal radial pulses GI/Abdominal exam: PRESENT: normal bowel sounds, soft. ABSENT: distended, guarding, mass, organolmegaly, rebound, tenderness Extremities exam: ABSENT: clubbing, joint swelling, pedal edema Musculoskeletal exam: ABSENT: deformity, dislocation, tenderness Neurological exam: PRESENT: alert, awake Psychiatric exam: PRESENT: normal mood Skin exam: PRESENT: dry, pallor, warm Results Laboratory Results: 12/29/16 06:05 12/29/16 06:05 12/29/16 12/29/16 06:05 06:05 WBC 6.3 RBC 4.58 Hgb 14.6 Hct 42.0 MCV 92 MCH 32.0 MCHC 34.9 RDW 14.3 H Plt Count 151 Seg Neutrophils % 57.3 Lymphocytes % 30.9 Monocytes % 9.9 Eosinophils % 1.5 Basophils % 0.4 Absolute Neutrophils 3.6 Absolute Lymphocytes 1.9 Absolute Monocytes 0.6 Absolute Eosinophils 0.1 Absolute Basophils 0.0 Sodium 144.2 Potassium 3.6 Chloride 102 Carbon Dioxide 30 Anion Gap 12 BUN 9 Creatinine 0.89 Est GFR ( Amer) > 60 Est GFR (Non-Af Amer) > 60 Glucose 88 Calcium 9.3 Impressions: Chest X-Ray 12/28/16 21:07 IMPRESSION: Moderate left lower lobar pneumonia/atelectasis worsened compared with prior abnormal CT, 11/27/2016. Assessment & Plan - Diagnosis (1) Lung mass Is this a current diagnosis for this admission?: Yes Plan: Endobronchial lesion visualized awaiting for repeat bronchoscopy which will be done with [employer] available (2) Pneumonia Qualifiers: Pneumonia type: due to unspecified organism Laterality: left Lung location: lower lobe of lung Qualified Code(s): J18.1 - Lobar pneumonia, unspecified organism Is this a current diagnosis for this admission?: Yes Plan: Postobstructive (3) Tobacco abuse Is this a current diagnosis for this admission?: Yes Plan: Stop smoking consider transdermal nicotine Generic Name Dose Route Start Last Admin Trade Name Freq PRN Reason Stop Dose Admin Budesonide/Formoterol Fumarate 2 puff 12/29/16 10:00 12/29/16 09:45 Symbicort Hfa 160-4.5 Mcg Inhaler 6 Gm 01/28/17 09:59 2 puff BID KYLEIGH Patient Own Medication 1 spray 12/29/16 10:00 Fluticasone Propionate [Flovent Diskus] NAREB 01/28/17 09:59 DAILY KYLEIGH Albuterol/Ipratropium 1 puff 12/29/16 10:00 12/29/16 09:46 Combivent Respimat 4 Gm Mdi 01/28/17 09:59 1 puff QID KYLEIGH Guaifenesin 1,200 mg 12/29/16 10:00 12/29/16 09:42 Mucinex Sr 600 Mg Tablet.Sa PO 01/28/17 09:59 1,200 mg Q12 KYLEIGH Montelukast Sodium 10 mg 12/29/16 18:00 Singulair 10 Mg Tablet PO 01/28/17 17:59 QPM KYLEIGH Loratadine 10 mg 12/29/16 10:00 12/29/16 09:43 Claritin 10 Mg Tablet PO 01/28/17 09:59 10 mg DAILY KYLEIGH - Time Time Spent with patient: 50 minutes
--- NOTE | 2016-12-29 12:29 | PDOC PROGRESS REPORT ---
Subjective Progress Note for:: 12/29/16 Subjective:: Complains of a nonproductive cough. Physical Exam Vital Signs: Temp Pulse Resp BP Pulse Ox 98.7 F 66 16 96/59 L 93 12/29/16 11:05 12/29/16 11:05 12/29/16 11:05 12/29/16 11:05 12/29/16 11:05 Intake & Output 12/28/16 12/29/16 12/30/16 06:59 06:59 06:59 Weight 77.2 kg 77.2 kg General appearance: PRESENT: no acute distress Eye exam: PRESENT: conjunctiva pink. ABSENT: scleral icterus Mouth exam: PRESENT: moist, tongue midline Neck exam: ABSENT: JVD Respiratory exam: PRESENT: rhonchi - Bilateral rhonchi. ABSENT: rales, wheezes Cardiovascular exam: PRESENT: RRR. ABSENT: diastolic murmur, rubs, systolic murmur Vascular exam: PRESENT: normal capillary refill GI/Abdominal exam: PRESENT: normal bowel sounds, soft. ABSENT: distended, guarding, mass, organolmegaly, rebound, tenderness Extremities exam: ABSENT: calf tenderness, clubbing, pedal edema Neurological exam: PRESENT: alert, awake, oriented to person, oriented to place , oriented to time, oriented to situation, CN II-XII grossly intact. ABSENT: motor sensory deficit Psychiatric exam: PRESENT: appropriate affect Skin exam: PRESENT: dry, intact, warm. ABSENT: cyanosis, rash Results Laboratory Results: 12/29/16 06:05 12/29/16 06:05 12/29/16 12/29/16 06:05 06:05 WBC 6.3 RBC 4.58 Hgb 14.6 Hct 42.0 MCV 92 MCH 32.0 MCHC 34.9 RDW 14.3 H Plt Count 151 Seg Neutrophils % 57.3 Lymphocytes % 30.9 Monocytes % 9.9 Eosinophils % 1.5 Basophils % 0.4 Absolute Neutrophils 3.6 Absolute Lymphocytes 1.9 Absolute Monocytes 0.6 Absolute Eosinophils 0.1 Absolute Basophils 0.0 Sodium 144.2 Potassium 3.6 Chloride 102 Carbon Dioxide 30 Anion Gap 12 BUN 9 Creatinine 0.89 Est GFR ( Amer) > 60 Est GFR (Non-Af Amer) > 60 Glucose 88 Calcium 9.3 Impressions: Chest X-Ray 12/28/16 21:07 IMPRESSION: Moderate left lower lobar pneumonia/atelectasis worsened compared with prior abnormal CT, 11/27/2016. Assessment & Plan - Diagnosis (1) Pneumonia Qualifiers: Pneumonia type: due to unspecified organism Laterality: left Lung location: lower lobe of lung Qualified Code(s): J18.1 - Lobar pneumonia, unspecified organism Is this a current diagnosis for this admission?: Yes Plan: Patient has a pneumonia. Will continue with Rocephin and Zithromax. (2) Lung mass Is this a current diagnosis for this admission?: Yes Plan: Patient had a recent bronchoscopy done by pulmonary medicine. They have been consulted. (3) COPD (chronic obstructive pulmonary disease) Is this a current diagnosis for this admission?: Yes Plan: Continue with nebulizers as needed. (4) Hypertension Is this a current diagnosis for this admission?: Yes (5) Acute sinusitis Is this a current diagnosis for this admission?: Yes Plan: Continue with antibiotics as per above. (6) Hypoxemia Is this a current diagnosis for this admission?: Yes Plan: Most likely secondary to the pneumonia. (7) Tobacco abuse Is this a current diagnosis for this admission?: Yes Plan: She is encouraged to quit - Time Time Spent with patient: 25-34 minutes - Inpatient Certification Medical Necessity: Need for IV Antibiotics
[2016-12-29] MEDS: ONDANSETRON HCL INJ/PF 4 MG/2 ML SDV IV PRN (13:32)
--- NOTE | 2016-12-29 14:37 | EKG REPORT ---
SEVERITY:- ABNORMAL ECG - ATRIAL FIBRILLATION PROLONGED QT INTERVAL : Confirmed by: Antionette Aguilera MD 29-Dec-2016 14:37:16
[2016-12-29] MEDS: MONTELUKAST SODIUM 10 MG TABLET PO SCH (17:38)
[2016-12-29] MEDS ORDERED: SIMVASTATIN PO SCH (18:00)
[2016-12-29] MEDS: SIMVASTATIN 10 MG TABLET PO SCH (22:12)
[2016-12-30] MEDS: LANSOPRAZOLE 15 MG TAB.RAP.DR PO SCH (05:07)
[2016-12-30] MEDS: HEPARIN SOD (PORCINE) 5,000 UNIT/ML 1 ML SYRINGE SUBCUT SCH ×3 (05:07→22:53)
[2016-12-30] MEDS: LORATADINE 10 MG TABLET PO SCH (09:53)
[2016-12-30] MEDS: CARVEDILOL 12.5 MG TABLET PO SCH ×2 (09:53→17:29)
[2016-12-30] MEDS: HYDROCHLOROTHIAZIDE 25 MG TABLET PO SCH (09:53)
[2016-12-30] MEDS: BUDESONIDE/FORMOTEROL 160-4.5 MCG 60 PUFF/6 GM MDI IH SCH ×2 (09:53→17:30)
[2016-12-30] MEDS: ASPIRIN 81 MG TABLET, CHEWABLE PO SCH (09:53)
[2016-12-30] MEDS: CYANOCOBALAMIN (VITAMIN B-12) 1,000 MCG TABLET PO SCH ×2 (09:53→17:29)
[2016-12-30] MEDS: GUAIFENESIN 600 MG TABLET.SA PO SCH ×2 (09:53→22:53)
[2016-12-30] MEDS: IPRATROPIUM/ALBUTEROL 120 PUFF/4 GM MDI IH SCH ×4 (09:54→22:53)
[2016-12-30] MEDS: CEFTRIAXONE 1 GM/D5W RTU 1 GM/50 ML RTUPB IV SCH (10:04)
[2016-12-30] MEDS: AZITHROMYCIN 500 MG in DEXTROSE 5%-WATER 250 ML IV SCH (10:48)
--- NOTE | 2016-12-30 11:42 | PDOC PROGRESS REPORT ---
Subjective Progress Note for:: 12/30/16 Subjective:: Denies any complaints Physical Exam Vital Signs: Temp Pulse Resp BP Pulse Ox 98.4 F 63 18 130/86 H 95 12/30/16 08:00 12/30/16 09:27 12/30/16 09:27 12/30/16 08:00 12/30/16 09:27 Intake & Output 12/29/16 12/30/16 12/31/16 06:59 06:59 06:59 Intake Total 1900 Output Total 100 Balance 1800 Weight 77.2 kg 77.7 kg General appearance: PRESENT: no acute distress Eye exam: PRESENT: conjunctiva pink. ABSENT: scleral icterus Mouth exam: PRESENT: moist, tongue midline Neck exam: ABSENT: JVD Respiratory exam: PRESENT: clear to auscultation stacia. ABSENT: rales, rhonchi, wheezes Cardiovascular exam: PRESENT: RRR. ABSENT: diastolic murmur, rubs, systolic murmur GI/Abdominal exam: PRESENT: normal bowel sounds, soft. ABSENT: distended, guarding, mass, organolmegaly, rebound, tenderness Extremities exam: ABSENT: calf tenderness, clubbing, pedal edema Neurological exam: PRESENT: alert, awake, oriented to person, oriented to place , oriented to time, oriented to situation, CN II-XII grossly intact. ABSENT: motor sensory deficit Psychiatric exam: PRESENT: appropriate affect Skin exam: PRESENT: dry, intact, warm. ABSENT: cyanosis, rash Results Laboratory Results: 12/29/16 06:05 12/29/16 06:05 Impressions: Chest X-Ray 12/28/16 21:07 IMPRESSION: Moderate left lower lobar pneumonia/atelectasis worsened compared with prior abnormal CT, 11/27/2016. Assessment & Plan - Diagnosis (1) Pneumonia Qualifiers: Pneumonia type: due to unspecified organism Laterality: left Lung location: lower lobe of lung Qualified Code(s): J18.1 - Lobar pneumonia, unspecified organism Is this a current diagnosis for this admission?: Yes Plan: Patient has a pneumonia. Will continue with Rocephin and Zithromax. (2) Lung mass Is this a current diagnosis for this admission?: Yes Plan: pulmonary medicine has evaluated the patient and her recommending bronchoscopy at the first of the week. (3) COPD (chronic obstructive pulmonary disease) Is this a current diagnosis for this admission?: Yes Plan: Continue with nebulizers as needed. (4) Hypertension Is this a current diagnosis for this admission?: Yes (5) Acute sinusitis Is this a current diagnosis for this admission?: Yes Plan: Continue with antibiotics as per above. (6) Hypoxemia Is this a current diagnosis for this admission?: Yes Plan: Most likely secondary to the pneumonia. (7) Tobacco abuse Is this a current diagnosis for this admission?: Yes Plan: She is encouraged to quit - Time Time Spent with patient: 15-24 minutes - Inpatient Certification Medical Necessity: Need for IV Antibiotics
--- NOTE | 2016-12-30 12:01 | PDOC PROGRESS REPORT ---
Subjective Progress Note for:: 12/30/16 - hypoxia/lung mass Subjective:: I would like to take a shower Physical Exam Vital Signs: Temp Pulse Resp BP Pulse Ox 98.4 F 63 18 130/86 H 95 12/30/16 08:00 12/30/16 09:27 12/30/16 09:27 12/30/16 08:00 12/30/16 09:27 Intake & Output 12/29/16 12/30/16 12/31/16 06:59 06:59 06:59 Intake Total 1900 Output Total 100 Balance 1800 Weight 77.2 kg 77.7 kg General appearance: PRESENT: no acute distress, cooperative, well-developed, well-nourished. ABSENT: mild distress, morbidly obese, severe distress Head exam: PRESENT: atraumatic, normocephalic Eye exam: PRESENT: conjunctiva pale, EOMI. ABSENT: conjunctival injection, nystagmus, periorbital swelling, scleral icterus Mouth exam: PRESENT: dry mucosa, neck supple, tongue midline. ABSENT: laceration Neck exam: ABSENT: carotid bruit, JVD, lymphadenopathy, thyromegaly, tracheostomy Respiratory exam: PRESENT: decreased breath sounds, prolonged expiratory phas, rhonchi, symmetrical, unlabored, wheezes. ABSENT: accessory muscle use, chest wall tenderness, clear to auscultation stacia, crackles, rales, retraction, stridor , tachypnea Cardiovascular exam: PRESENT: RRR, +S1, +S2. ABSENT: clicks, gallop, irregular rhythm, rubs Pulses: PRESENT: normal radial pulses GI/Abdominal exam: PRESENT: normal bowel sounds, soft. ABSENT: distended, guarding, mass, organolmegaly, rebound, tenderness Extremities exam: ABSENT: calf tenderness, clubbing, joint swelling, pedal edema , tenderness Musculoskeletal exam: ABSENT: deformity, dislocation, tenderness Neurological exam: PRESENT: alert, awake Psychiatric exam: PRESENT: normal mood Skin exam: PRESENT: dry, pallor, warm Results Laboratory Results: 12/29/16 06:05 12/29/16 06:05 Impressions: Chest X-Ray 12/28/16 21:07 IMPRESSION: Moderate left lower lobar pneumonia/atelectasis worsened compared with prior abnormal CT, 11/27/2016. Assessment & Plan - Diagnosis (1) Lung mass Is this a current diagnosis for this admission?: Yes Plan: Endobronchial lesion visualized awaiting for repeat bronchoscopy which will be done with [employer] available (2) Pneumonia Qualifiers: Pneumonia type: due to unspecified organism Laterality: left Lung location: lower lobe of lung Qualified Code(s): J18.1 - Lobar pneumonia, unspecified organism Is this a current diagnosis for this admission?: Yes Plan: Postobstructive (3) Tobacco abuse Is this a current diagnosis for this admission?: Yes Plan: Stop smoking consider transdermal nicotine Generic Name Dose Route Start Last Admin Trade Name Freq PRN Reason Stop Dose Admin Budesonide/Formoterol Fumarate 2 puff 12/29/16 10:00 12/29/16 09:45 Symbicort Hfa 160-4.5 Mcg Inhaler 6 Gm IH 01/28/17 09:59 2 puff BID KYLEIGH Patient Own Medication 1 spray 12/29/16 10:00 Fluticasone Propionate [Flovent Diskus] NAREB 01/28/17 09:59 DAILY [facility] Albuterol/Ipratropium 1 puff 12/29/16 10:00 12/29/16 09:46 Combivent Respimat 4 Gm Mdi IH 01/28/17 09:59 1 puff QID KYLEIGH Guaifenesin 1,200 mg 12/29/16 10:00 12/29/16 09:42 Mucinex Sr 600 Mg Tablet.Sa PO 01/28/17 09:59 1,200 mg Q12 KYLEIGH Montelukast Sodium 10 mg 12/29/16 18:00 Singulair 10 Mg Tablet PO 01/28/17 17:59 QPM KYLEIGH Loratadine 10 mg 12/29/16 10:00 12/29/16 09:43 Claritin 10 Mg Tablet PO 01/28/17 09:59 10 mg DAILY KYLEIGH
[2016-12-30] MEDS: MONTELUKAST SODIUM 10 MG TABLET PO SCH (17:29)
[2016-12-30] MEDS: SIMVASTATIN 10 MG TABLET PO SCH (22:53)
[2016-12-31] MEDS: LANSOPRAZOLE 15 MG TAB.RAP.DR PO SCH (05:24)
[2016-12-31] MEDS: HEPARIN SOD (PORCINE) 5,000 UNIT/ML 1 ML SYRINGE SUBCUT SCH ×3 (05:24→22:12)
[2016-12-31] MEDS: CARVEDILOL 12.5 MG TABLET PO SCH ×2 (10:32→17:22)
[2016-12-31] MEDS: GUAIFENESIN 600 MG TABLET.SA PO SCH ×2 (10:32→22:09)
[2016-12-31] MEDS: LORATADINE 10 MG TABLET PO SCH (10:32)
[2016-12-31] MEDS: ASPIRIN 81 MG TABLET, CHEWABLE PO SCH (10:32)
[2016-12-31] MEDS: CYANOCOBALAMIN (VITAMIN B-12) 1,000 MCG TABLET PO SCH ×2 (10:32→17:23)
[2016-12-31] MEDS: AZITHROMYCIN 500 MG in DEXTROSE 5%-WATER 250 ML IV SCH (10:32)
[2016-12-31] MEDS: BUDESONIDE/FORMOTEROL 160-4.5 MCG 60 PUFF/6 GM MDI IH SCH ×2 (10:33→17:23)
[2016-12-31] MEDS: IPRATROPIUM/ALBUTEROL 120 PUFF/4 GM MDI IH SCH ×4 (10:33→22:09)
[2016-12-31] MEDS: HYDROCHLOROTHIAZIDE 25 MG TABLET PO SCH (10:33)
[2016-12-31] MEDS: CEFTRIAXONE 1 GM/D5W RTU 1 GM/50 ML RTUPB IV SCH (10:34)
--- NOTE | 2016-12-31 12:08 | PDOC PROGRESS REPORT ---
Subjective Progress Note for:: 12/31/16 Subjective:: Denies any complaints Physical Exam Vital Signs: Temp Pulse Resp BP Pulse Ox 97.7 F 58 L 16 147/83 H 97 12/31/16 07:56 12/31/16 09:00 12/31/16 09:00 12/31/16 07:56 12/31/16 09:00 Intake & Output 12/30/16 12/31/16 01/01/17 06:59 06:59 06:59 Intake Total 1900 1930 Output Total 100 Balance 1800 193 Weight 77.7 kg 76.8 kg General appearance: PRESENT: no acute distress Eye exam: PRESENT: conjunctiva pink. ABSENT: scleral icterus Mouth exam: PRESENT: moist, tongue midline Neck exam: ABSENT: JVD Respiratory exam: PRESENT: clear to auscultation stacia. ABSENT: rales, rhonchi, wheezes Cardiovascular exam: PRESENT: RRR. ABSENT: diastolic murmur, rubs, systolic murmur GI/Abdominal exam: PRESENT: normal bowel sounds, soft. ABSENT: distended, guarding, mass, organolmegaly, rebound, tenderness Extremities exam: ABSENT: calf tenderness, clubbing, pedal edema Neurological exam: PRESENT: alert, awake, oriented to person, oriented to place , oriented to time, oriented to situation, CN II-XII grossly intact. ABSENT: motor sensory deficit Psychiatric exam: PRESENT: appropriate affect Skin exam: PRESENT: dry, intact, warm. ABSENT: cyanosis, rash Results Laboratory Results: 12/29/16 06:05 12/29/16 06:05 Impressions: Chest X-Ray 12/28/16 21:07 IMPRESSION: Moderate left lower lobar pneumonia/atelectasis worsened compared with prior abnormal CT, 11/27/2016. Assessment & Plan - Diagnosis (1) Pneumonia Qualifiers: Pneumonia type: due to unspecified organism Laterality: left Lung location: lower lobe of lung Qualified Code(s): J18.1 - Lobar pneumonia, unspecified organism Is this a current diagnosis for this admission?: Yes Plan: Patient has a pneumonia. Will continue with Rocephin and Zithromax. (2) Lung mass Is this a current diagnosis for this admission?: Yes Plan: pulmonary medicine has evaluated the patient and her recommending bronchoscopy at the first of the week. (3) COPD (chronic obstructive pulmonary disease) Is this a current diagnosis for this admission?: Yes Plan: Continue with nebulizers as needed. (4) Hypertension Is this a current diagnosis for this admission?: Yes (5) Acute sinusitis Is this a current diagnosis for this admission?: Yes Plan: Continue with antibiotics as per above. (6) Hypoxemia Is this a current diagnosis for this admission?: Yes Plan: Most likely secondary to the pneumonia. (7) Tobacco abuse Is this a current diagnosis for this admission?: Yes Plan: She is encouraged to quit - Time Time Spent with patient: 25-34 minutes - Inpatient Certification Medical Necessity: Need for IV Antibiotics
[2016-12-31] MEDS: MONTELUKAST SODIUM 10 MG TABLET PO SCH (17:22)
[2016-12-31] MEDS: SIMVASTATIN 10 MG TABLET PO SCH (22:10)
[2017-01-01] MEDS: CALCIUM CARBONATE 500 MG TAB.CHEW PO PRN ×2 (02:36→08:16)
[2017-01-01] MEDS: LANSOPRAZOLE 15 MG TAB.RAP.DR PO SCH (05:05)
[2017-01-01] MEDS: HEPARIN SOD (PORCINE) 5,000 UNIT/ML 1 ML SYRINGE SUBCUT SCH ×3 (05:06→21:13)
[2017-01-01] MEDS: ONDANSETRON HCL INJ/PF 4 MG/2 ML SDV IV PRN ×2 (07:36→13:35)
[2017-01-01] MEDS ORDERED: GLYCOPYRROLATE INJ 0.4 MG/2 ML VIAL ONE (07:42)
[2017-01-01] MEDS ORDERED: PHENYLEPHRINE HCL INJ/PF 10 MG/1 ML SDV ONE (07:42)
[2017-01-01] MEDS ORDERED: SUCCINYLCHOLINE CHLORIDE INJ 200 MG/10 ML VIAL ONE (07:42)
[2017-01-01] MEDS ORDERED: ROCURONIUM BROMIDE INJ 50 MG/5 ML VIAL IV ONE (07:42)
[2017-01-01] MEDS ORDERED: NEOSTIGMINE METHYLSULFATE 10 MG/10 ML VIAL ONE (07:42)
[2017-01-01 07:46] LABS: ABSOLUTE EOSINOPHILS # (AUTO) 0.1 10^3/uL (0.0-0.6); ABSOLUTE LYMPHOCYTES (AUTO) 1.6 10^3/uL (0.5-4.7); ABSOLUTE MONOCYTES (AUTO) 0.6 10^3/uL (0.1-1.4); ABSOLUTE NEUT (AUTO) 5.5 10^3/uL (1.7-8.2); BASOPHILS % (AUTO) 0.3 % (0-2); EOSINOPHILS % (AUTO) 1.7 % (0-6); HEMATOCRIT 42.6 % (36.0-47.0); HEMOGLOBIN 14.9 g/dL (12.0-15.5); HGB HCT DIFFERENCE 2.1; LYMPHOCYTES % (AUTO) 20.4 % (13-45); MEAN CORPUSCULAR HEMOGLOBIN 32.2 pg (27.0-33.4); MEAN CORPUSCULAR VOLUME 92 fl (80-97); MONOCYTES % (AUTO) 7.1 % (3-13); RED BLOOD COUNT 4.64 10^6/uL (3.72-5.28); RED CELL DISTRIBUTION WIDTH 14.2 % (11.5-14.0); SEGMENTED NEUTROPHILS % (AUTO) 70.5 % (42-78); WHITE BLOOD COUNT 7.8 10^3/uL (4.0-10.5)
[2017-01-01 07:58] LABS: ANION GAP 14 (5-19); BLOOD UREA NITROGEN 12 mg/dL (7-20); CARBON DIOXIDE 31 mmol/L (22-30); CHLORIDE 96 mmol/L (98-107); CREATININE RESULT 0.78 mg/dL (0.52-1.25); GLUCOSE 101 mg/dL (75-110); POTASSIUM 3.3 mmol/L (3.6-5.0); SODIUM 140.9 mmol/L (137-145)
[2017-01-01] MEDS ORDERED: SODIUM CHLORIDE NASAL SPRAY 44 ML NAREB PRN (08:00)
--- NOTE | 2017-01-01 08:52 | PDOC PROGRESS REPORT ---
Subjective Progress Note for:: 01/01/17 Subjective:: The patient is complaining of severe heartburn. She does not know if it is something that she has eaten last night. She has not slept very well. She does have some cough and sputum. Physical Exam Vital Signs: Temp Pulse Resp BP Pulse Ox 97.7 F 60 19 165/89 H 94 01/01/17 04:39 01/01/17 04:39 01/01/17 04:39 01/01/17 04:39 01/01/17 04:39 Intake & Output 12/31/16 01/01/17 01/02/17 06:59 06:59 06:59 Intake Total 1930 1060 Balance 1930 1060 Weight 76.8 kg 78.9 kg General appearance: PRESENT: mild distress Head exam: PRESENT: atraumatic Eye exam: PRESENT: conjunctiva pink Neck exam: ABSENT: carotid bruit, JVD Respiratory exam: PRESENT: rhonchi, tachypnea Cardiovascular exam: PRESENT: RRR, +S1, +S2 Pulses: PRESENT: +1 pedal pulses bilateral GI/Abdominal exam: PRESENT: soft, tenderness. ABSENT: guarding, rebound Extremities exam: PRESENT: full ROM Neurological exam: PRESENT: alert, awake Results Laboratory Results: 01/01/17 07:07 01/01/17 07:07 01/01/17 01/01/17 07:07 07:07 WBC 7.8 RBC 4.64 Hgb 14.9 Hct 42.6 MCV 92 MCH 32.2 MCHC 35.0 RDW 14.2 H Plt Count 152 Seg Neutrophils % 70.5 Lymphocytes % 20.4 Monocytes % 7.1 Eosinophils % 1.7 Basophils % 0.3 Absolute Neutrophils 5.5 Absolute Lymphocytes 1.6 Absolute Monocytes 0.6 Absolute Eosinophils 0.1 Absolute Basophils 0.0 Sodium 140.9 Potassium 3.3 L Chloride 96 L Carbon Dioxide 31 H Anion Gap 14 BUN 12 Creatinine 0.78 Est GFR ( Amer) > 60 Est GFR (Non-Af Amer) > 60 Glucose 101 Calcium 10.0 Impressions: Chest X-Ray 12/28/16 21:07 IMPRESSION: Moderate left lower lobar pneumonia/atelectasis worsened compared with prior abnormal CT, 11/27/2016. Assessment & Plan - Diagnosis (1) Gastroesophageal reflux Is this a current diagnosis for this admission?: Yes Plan: We will start the GI cocktail (2) Retrosternal discomfort Is this a current diagnosis for this admission?: Yes Plan: We will order cardiac enzymes and an EKG. (3) COPD (chronic obstructive pulmonary disease) Is this a current diagnosis for this admission?: Yes Plan: Continue current treatment (4) Lung mass Is this a current diagnosis for this admission?: Yes Plan: Status post biopsy. Will await pulmonary for possible bronchoscopy (5) Pneumonia Qualifiers: Pneumonia type: due to unspecified organism Laterality: left Lung location: lower lobe of lung Qualified Code(s): J18.1 - Lobar pneumonia, unspecified organism Is this a current diagnosis for this admission?: Yes Plan: Continue current antibiotics
[2017-01-01] MEDS ORDERED: DEXTROSE 40% GEL 15 GM TUBE PO PRN ×2 (09:15)
[2017-01-01] MEDS ORDERED: DEXTROSE 50%-WATER 25 GM/50 ML DISP.SYRIN IV PRN ×2 (09:15)
[2017-01-01] MEDS ORDERED: GLUCAGON,HUMAN RECOMB 1 MG INJ SUBCUT PRN (09:15)
[2017-01-01] MEDS: HYDROCHLOROTHIAZIDE 25 MG TABLET PO SCH (09:21)
[2017-01-01] MEDS: CARVEDILOL 12.5 MG TABLET PO SCH ×2 (09:23→21:09)
[2017-01-01] MEDS: GUAIFENESIN 600 MG TABLET.SA PO SCH ×2 (09:23→21:08)
[2017-01-01] MEDS: ASPIRIN 81 MG TABLET, CHEWABLE PO SCH (09:23)
[2017-01-01] MEDS: LORATADINE 10 MG TABLET PO SCH (09:23)
[2017-01-01] MEDS: CEFTRIAXONE 1 GM/D5W RTU 1 GM/50 ML RTUPB IV SCH (09:24)
[2017-01-01] MEDS: CYANOCOBALAMIN (VITAMIN B-12) 1,000 MCG TABLET PO SCH ×2 (09:24→17:20)
[2017-01-01] MEDS: IPRATROPIUM/ALBUTEROL 120 PUFF/4 GM MDI IH SCH ×4 (09:25→21:08)
[2017-01-01] MEDS: BUDESONIDE/FORMOTEROL 160-4.5 MCG 60 PUFF/6 GM MDI IH SCH ×2 (09:25→17:21)
[2017-01-01] MEDS ORDERED: MAG HYDROX/AL HYDROX/SIMETH SUSP 30 ML UDCUP PO ONE (10:00)
[2017-01-01] MEDS ORDERED: METOCLOPRAMIDE HCL ORAL SOLN 10 MG/10 ML UDCUP PO ONE (10:00)
[2017-01-01] MEDS ORDERED: LIDOCAINE 2% VISCOUS SOLN 20 ML UDCUP PO ONE (10:00)
[2017-01-01 10:12] LABS: CREATINE KINASE MB 0.26 ng/mL (<4.55); TROPONIN I 0.037 ng/mL
[2017-01-01] MEDS: AZITHROMYCIN 500 MG in DEXTROSE 5%-WATER 250 ML IV SCH (10:30)
--- NOTE | 2017-01-01 12:53 | PDOC PROGRESS REPORT ---
Subjective Progress Note for:: 01/01/17 - lung mass/cough Subjective:: C/o heartburn nausea Physical Exam Vital Signs: Temp Pulse Resp BP Pulse Ox 97.7 F 60 19 165/89 H 94 01/01/17 04:39 01/01/17 04:39 01/01/17 04:39 01/01/17 04:39 01/01/17 04:39 Intake & Output 12/31/16 01/01/17 01/02/17 06:59 06:59 06:59 Intake Total 1929 1060 Balance 193 1060 Weight 76.8 kg 78.9 kg General appearance: PRESENT: cooperative, disheveled, mild distress, well- developed. ABSENT: no acute distress, severe distress Head exam: PRESENT: atraumatic, normocephalic Eye exam: PRESENT: conjunctiva pale, EOMI. ABSENT: conjunctival injection, conjunctiva pink, nystagmus, periorbital swelling, scleral icterus Mouth exam: PRESENT: dry mucosa, neck supple, tongue midline Neck exam: ABSENT: carotid bruit, JVD, lymphadenopathy, thyromegaly, tracheal deviation, tracheostomy Respiratory exam: PRESENT: decreased breath sounds, prolonged expiratory phas, rhonchi, symmetrical, unlabored, wheezes. ABSENT: accessory muscle use, chest wall tenderness, clear to auscultation stacia, crackles, rales, retraction, stridor , tachypnea Cardiovascular exam: PRESENT: RRR, +S1, +S2. ABSENT: clicks, gallop, irregular rhythm, rubs GI/Abdominal exam: PRESENT: normal bowel sounds, soft. ABSENT: distended, guarding, mass, organolmegaly, rebound, tenderness Extremities exam: PRESENT: full ROM. ABSENT: clubbing, joint swelling, pedal edema Musculoskeletal exam: PRESENT: ambulatory. ABSENT: deformity, dislocation Neurological exam: PRESENT: alert, awake Psychiatric exam: PRESENT: normal mood Skin exam: PRESENT: dry, warm Results Laboratory Results: 01/01/17 07:07 01/01/17 07:07 01/01/17 01/01/17 07:07 07:07 WBC 7.8 RBC 4.64 Hgb 14.9 Hct 42.6 MCV 92 MCH 32.2 MCHC 35.0 RDW 14.2 H Plt Count 152 Seg Neutrophils % 70.5 Lymphocytes % 20.4 Monocytes % 7.1 Eosinophils % 1.7 Basophils % 0.3 Absolute Neutrophils 5.5 Absolute Lymphocytes 1.6 Absolute Monocytes 0.6 Absolute Eosinophils 0.1 Absolute Basophils 0.0 Sodium 140.9 Potassium 3.3 L Chloride 96 L Carbon Dioxide 31 H Anion Gap 14 BUN 12 Creatinine 0.78 Est GFR ( Amer) > 60 Est GFR (Non-Af Amer) > 60 Glucose 101 Calcium 10.0 Impressions: Chest X-Ray 12/28/16 21:07 IMPRESSION: Moderate left lower lobar pneumonia/atelectasis worsened compared with prior abnormal CT, 11/27/2016. Assessment & Plan - Diagnosis (1) Lung mass Is this a current diagnosis for this admission?: Yes Plan: Fiberoptic bronchoscopy with bronchoalveolar lavage and transbronchial biopsy for Monday, January 02, 2017 (2) Pneumonia Qualifiers: Pneumonia type: due to unspecified organism Laterality: left Lung location: lower lobe of lung Qualified Code(s): J18.1 - Lobar pneumonia, unspecified organism Is this a current diagnosis for this admission?: Yes (3) Tobacco abuse Is this a current diagnosis for this admission?: Yes Plan: Stop smoking consider transdermal nicotine Generic Name Dose Route Start Last Admin Trade Name Freq PRN Reason Stop Dose Admin Budesonide/Formoterol Fumarate 2 puff 12/29/16 10:00 12/29/16 09:45 Symbicort Hfa 160-4.5 Mcg Inhaler 6 Gm 01/28/17 09:59 2 puff BID KYLEIGH Patient Own Medication 1 spray 12/29/16 10:00 Fluticasone Propionate [Flovent Diskus] NAREB 01/28/17 09:59 DAILY [facility] Albuterol/Ipratropium 1 puff 12/29/16 10:00 12/29/16 09:46 Combivent Respimat 4 Gm Mdi IH 01/28/17 09:59 1 puff QID KYLEIGH Guaifenesin 1,200 mg 12/29/16 10:00 12/29/16 09:42 Mucinex Sr 600 Mg Tablet.Sa PO 01/28/17 09:59 1,200 mg Q12 KYLEIGH Montelukast Sodium 10 mg 12/29/16 18:00 Singulair 10 Mg Tablet PO 01/28/17 17:59 QPM KYLEIGH Loratadine 10 mg 12/29/16 10:00 12/29/16 09:43 Claritin 10 Mg Tablet PO 01/28/17 09:59 10 mg DAILY KYLEIGH
--- NOTE | 2017-01-01 13:10 | EKG REPORT ---
SEVERITY:- BORDERLINE ECG - SINUS RHYTHM BORDERLINE PROLONGED QT INTERVAL : Confirmed by: Mirza Mejia MD 01-Jan-2017 13:09:21
[2017-01-01] MEDS ORDERED: METOCLOPRAMIDE HCL ORAL SOLN 10 MG/10 ML UDCUP PO PRN (14:01)
[2017-01-01] MEDS ORDERED: LIDOCAINE 2% VISCOUS SOLN 20 ML UDCUP PO PRN (14:01)
[2017-01-01] MEDS ORDERED: MAG HYDROX/AL HYDROX/SIMETH SUSP 30 ML UDCUP PO PRN (14:01)
[2017-01-01] MEDS ORDERED: LORAZEPAM 1 MG TABLET PO PRN (15:03)
[2017-01-01 15:57] LABS: TROPONIN I 0.026 ng/mL
[2017-01-01 16:02] LABS: CREATINE KINASE MB < 0.22 ng/mL (<4.55)
[2017-01-01] MEDS: SIMVASTATIN 10 MG TABLET PO SCH (21:09)
[2017-01-01 21:39] LABS: CREATINE KINASE MB 0.29 ng/mL (<4.55); TROPONIN I 0.04 ng/mL
[2017-01-02] MEDS: HEPARIN SOD (PORCINE) 5,000 UNIT/ML 1 ML SYRINGE SUBCUT SCH ×3 (05:11→22:53)
[2017-01-02] MEDS: LANSOPRAZOLE 15 MG TAB.RAP.DR PO SCH (05:11)
[2017-01-02 05:30] LABS: ABSOLUTE EOSINOPHILS # (AUTO) 0.1 10^3/uL (0.0-0.6); ABSOLUTE LYMPHOCYTES (AUTO) 1.7 10^3/uL (0.5-4.7); ABSOLUTE MONOCYTES (AUTO) 0.6 10^3/uL (0.1-1.4); ABSOLUTE NEUT (AUTO) 4.3 10^3/uL (1.7-8.2); BASOPHILS % (AUTO) 0.5 % (0-2); EOSINOPHILS % (AUTO) 1.6 % (0-6); HEMOGLOBIN 14.9 g/dL (12.0-15.5); HGB HCT DIFFERENCE 1.7; LYMPHOCYTES % (AUTO) 25.3 % (13-45); MEAN CORPUSCULAR HEMOGLOBIN 31.9 pg (27.0-33.4); MEAN CORPUSCULAR HGB CONC 34.6 g/dL (32.0-36.0); MEAN CORPUSCULAR VOLUME 92 fl (80-97); MONOCYTES % (AUTO) 8.7 % (3-13); RED BLOOD COUNT 4.66 10^6/uL (3.72-5.28); RED CELL DISTRIBUTION WIDTH 13.9 % (11.5-14.0); SEGMENTED NEUTROPHILS % (AUTO) 63.9 % (42-78); WHITE BLOOD COUNT 6.7 10^3/uL (4.0-10.5)
[2017-01-02 05:51] LABS: ALANINE AMINOTRANSFERASE 30 U/L (9-52); ALBUMIN 4.1 g/dL (3.5-5.0); ALKALINE PHOSPHATASE 96 U/L (38-126); ANION GAP 15 (5-19); ASPARTATE AMINO TRANSFERASE 21 U/L (14-36); BILIRUBIN,DIRECT 0.5 mg/dL (0.0-0.4); BILIRUBIN,TOTAL 1.6 mg/dL (0.2-1.3); BLOOD UREA NITROGEN 11 mg/dL (7-20); CALCIUM 9.7 mg/dL (8.4-10.2); CARBON DIOXIDE 30 mmol/L (22-30); CHLORIDE 94 mmol/L (98-107); CREATININE RESULT 0.79 mg/dL (0.52-1.25); GLUCOSE 103 mg/dL (75-110); POTASSIUM 3.3 mmol/L (3.6-5.0); SODIUM 138.6 mmol/L (137-145); TOTAL PROTEIN 6.8 g/dL (6.3-8.2)
--- NOTE | 2017-01-02 08:27 | PDOC PROGRESS REPORT ---
Subjective Progress Note for:: 01/02/17 Subjective:: The patient states to feel better. Her heartburn and retrosternal discomfort has resolved. She had a good night sleep. She denies any shortness of breath. Her cough has improved. She is presently scheduled for a bronchoscopy. Reason For Visit: LLL PNA Physical Exam Vital Signs: Temp Pulse Resp BP Pulse Ox 98.1 F 56 L 17 165/87 H 95 01/01/17 20:23 01/02/17 02:00 01/01/17 20:23 01/01/17 20:23 01/02/17 00:53 Intake & Output 01/01/17 01/02/17 01/03/17 06:59 06:59 06:59 Intake Total 1060 972 Balance 1060 972 Weight 78.9 kg General appearance: PRESENT: mild distress Head exam: PRESENT: atraumatic Eye exam: PRESENT: conjunctiva pink Neck exam: ABSENT: carotid bruit, JVD Respiratory exam: PRESENT: rhonchi. ABSENT: rales, wheezes Cardiovascular exam: PRESENT: RRR, +S1, +S2 Pulses: PRESENT: +1 pedal pulses bilateral GI/Abdominal exam: PRESENT: normal bowel sounds, soft Extremities exam: PRESENT: full ROM Musculoskeletal exam: PRESENT: ambulatory Neurological exam: PRESENT: alert, awake Results Laboratory Results: 01/02/17 04:24 01/02/17 04:24 01/02/17 01/02/17 04:24 04:24 WBC 6.7 RBC 4.66 Hgb 14.9 Hct 43.0 MCV 92 MCH 31.9 MCHC 34.6 RDW 13.9 Plt Count 163 Seg Neutrophils % 63.9 Lymphocytes % 25.3 Monocytes % 8.7 Eosinophils % 1.6 Basophils % 0.5 Absolute Neutrophils 4.3 Absolute Lymphocytes 1.7 Absolute Monocytes 0.6 Absolute Eosinophils 0.1 Absolute Basophils 0.0 Sodium 138.6 Potassium 3.3 L Chloride 94 L Carbon Dioxide 30 Anion Gap 15 BUN 11 Creatinine 0.79 Est GFR ( Amer) > 60 Est GFR (Non-Af Amer) > 60 Glucose 103 Calcium 9.7 Total Bilirubin 1.6 H AST 21 ALT 30 Alkaline Phosphatase 96 Total Protein 6.8 Albumin 4.1 01/01/17 01/01/17 01/01/17 09:33 09:33 15:07 Creatine Kinase 27 L 21 L CK-MB (CK-2) 0.26 Troponin I 0.037 01/01/17 01/01/17 01/01/17 15:07 20:49 20:49 Creatine Kinase 20 L CK-MB (CK-2) < 0.22 0.29 Troponin I 0.026 0.040 Impressions: Chest X-Ray 12/28/16 21:07 IMPRESSION: Moderate left lower lobar pneumonia/atelectasis worsened compared with prior abnormal CT, 11/27/2016. Assessment & Plan - Diagnosis (1) Gastroesophageal reflux Is this a current diagnosis for this admission?: Yes Plan: Improved. We will continue with current treatment (2) Retrosternal discomfort Is this a current diagnosis for this admission?: Yes Plan: Resolved. No acute ST-T changes noted on EKG. Borderline troponins most probably due to pneumonia and COPD exacerbation (3) COPD (chronic obstructive pulmonary disease) Is this a current diagnosis for this admission?: Yes Plan: Continue current treatment (4) Lung mass Is this a current diagnosis for this admission?: Yes Plan: Bronchoscopy with biopsy today (5) Pneumonia Qualifiers: Pneumonia type: due to unspecified organism Laterality: left Lung location: lower lobe of lung Qualified Code(s): J18.1 - Lobar pneumonia, unspecified organism Is this a current diagnosis for this admission?: Yes Plan: Continue current antibiotics
[2017-01-02] MEDS ORDERED: LANSOPRAZOLE 30 MG TAB.RAP.DR PO ONE (09:00)
[2017-01-02] MEDS: CARVEDILOL 12.5 MG TABLET PO SCH ×2 (09:12→22:52)
[2017-01-02] MEDS: HYDROCHLOROTHIAZIDE 25 MG TABLET PO SCH (09:13)
[2017-01-02] MEDS: ASPIRIN 81 MG TABLET, CHEWABLE PO SCH (09:13)
[2017-01-02] MEDS: LORATADINE 10 MG TABLET PO SCH (09:13)
[2017-01-02] MEDS: GUAIFENESIN 600 MG TABLET.SA PO SCH ×2 (09:13→22:53)
[2017-01-02] MEDS: IPRATROPIUM/ALBUTEROL 120 PUFF/4 GM MDI IH SCH ×4 (09:14→23:21)
[2017-01-02] MEDS: CYANOCOBALAMIN (VITAMIN B-12) 1,000 MCG TABLET PO SCH ×2 (09:14→17:18)
[2017-01-02] MEDS: BUDESONIDE/FORMOTEROL 160-4.5 MCG 60 PUFF/6 GM MDI IH SCH ×3 (09:14→23:08)
[2017-01-02] MEDS: CEFTRIAXONE 1 GM/D5W RTU 1 GM/50 ML RTUPB IV SCH (09:15)
[2017-01-02] MEDS: AZITHROMYCIN 250 MG TABLET PO SCH (10:18)
[2017-01-02] MEDS ORDERED: LIDOCAINE 4% INJ/PF (40 MG/ML) 5 ML AMPUL ONE (12:09)
[2017-01-02] MEDS ORDERED: FENTANYL CITRATE INJ/PF 100 MCG/2 ML AMPUL ONE (12:15)
[2017-01-02] MEDS ORDERED: MIDAZOLAM 2 MG/2 ML INJ ONE (12:16)
[2017-01-02] MEDS ORDERED: PROPOFOL INJ 200 MG/20 ML VIAL IV ONE (12:16)
[2017-01-02] MEDS ORDERED: DEXAMETHASONE SOD PHOSPHATE INJ 4 MG/1 ML VIAL ONE (12:16)
[2017-01-02] MEDS ORDERED: ONDANSETRON HCL INJ/PF 4 MG/2 ML SDV ONE (12:16)
[2017-01-02] MEDS ORDERED: EPINEPHRINE INJ 1 MG/10 ML DISP.SYRIN ONE (13:06)
[2017-01-02] MEDS ORDERED: EPHEDRINE SULFATE INJ 50 MG/1 ML AMPULE ONE (13:11)
[2017-01-02] MEDS ORDERED: IPRATROPIUM/ALBUTEROL 0.5-2.5 MG/3 ML AMPUL NEB ONE (13:30)
--- NOTE | 2017-01-02 14:16 | RADIOLOGY REPORT (SQ) ---
EXAM DESCRIPTION: CHEST SINGLE VIEW COMPLETED DATE/TIME: 01/02/2017 2:03 pm REASON FOR STUDY: S/P Lung Biospy COMPARISON: PET-CT 12/10/2016 Fluoro from bronchoscopy 12/21/2016 Chest films 12/21/2016, 12/28/2016 EXAM PARAMETERS: NUMBER OF VIEWS: One view. TECHNIQUE: Single frontal radiographic view of the chest acquired. RADIATION DOSE: NA LIMITATIONS: None. FINDINGS: LUNGS AND PLEURA: Since the prior films, patient has developed left upper lobe collapse. There is complete collapse left lower lobe. Near complete opacification of the left hemithorax. Suzette ft of mediastinal structures into the left hemithorax. No gross pneumothorax. Right lung clear. This result was discussed with Dr. Donaldson MEDIASTINUM AND HILAR STRUCTURES: Left hilar mass not apparent due to adjacent lung collapse HEART AND VASCULAR STRUCTURES: Mediastinal structures shifted into the left chest. Heart border diff icult to visualize BONES: No acute findings. HARDWARE: Left axillary clips post mastectomy. OTHER: No other significant finding. IMPRESSION: Complete collapse of the left lung with shift of mediastinal structures into the left he mithorax. Results called to the patient's social work coordinator TECHNICAL DOCUMENTATION: JOB ID: [id number] [employer]- All Rights Reserved
[2017-01-02] MEDS ORDERED: FENTANYL CITRATE INJ/PF 100 MCG/2 ML AMPUL IV PRN ×3 (14:49)
[2017-01-02] MEDS ORDERED: MORPHINE SULFATE 10 MG/ML INJ IV PRN (14:49)
[2017-01-02] MEDS ORDERED: DIPHENHYDRAMINE HCL 50 MG/ML VIAL IV PRN (14:49)
[2017-01-02] MEDS ORDERED: MEPERIDINE HCL/PF INJ 25 MG/1 ML DISP.SYRIN IV PRN (14:49)
[2017-01-02] MEDS ORDERED: OXYCODONE-ACETAMINOPHEN 5-325 MG TABLET PO PRN ×2 (14:49)
--- NOTE | 2017-01-02 15:04 | RADIOLOGY REPORT (SQ) ---
EXAM DESCRIPTION: CHEST SINGLE VIEW; NO CHG FLUORO COMPLETED DATE/TIME: 01/02/2017 2:51 pm REASON FOR STUDY: LUNG BX COMPARISON: Two-view chest 12/28/2016 FLUOROSCOPY TIME: Less than 10 seconds 1 digital C-arm image saved to PACS. TECHNIQUE: Intra-operative images acquired during surgical procedure to evaluate progress. NUMBER OF IMAGES: 1 digital C-arm image LIMITATIONS: None. FINDINGS: Intra procedural fluoro and C-arm imaging during bronchoscopy. Please see the procedure n ote for further details IMPRESSION: Intra procedural imaging fluoro COMMENT: Quality ID [id number]: Final reports for procedures using fluoroscopy that document radiation exp osure indices, or exposure time and number of fluorographic images (if radiation exposure indices are not available) Please consult full operative report of the attending physician for description of the procedure. TECHNICAL DOCUMENTATION: JOB ID: [id number] [employer]- All Rights Reserved
--- NOTE | 2017-01-02 15:04 | RADIOLOGY REPORT (SQ) ---
EXAM DESCRIPTION: CHEST SINGLE VIEW; NO CHG FLUORO COMPLETED DATE/TIME: 01/02/2017 2:51 pm REASON FOR STUDY: LUNG BX COMPARISON: Two-view chest 12/28/2016 FLUOROSCOPY TIME: Less than 10 seconds 1 digital C-arm image saved to PACS. TECHNIQUE: Intra-operative images acquired during surgical procedure to evaluate progress. NUMBER OF IMAGES: 1 digital C-arm image LIMITATIONS: None. FINDINGS: Intra procedural fluoro and C-arm imaging during bronchoscopy. Please see the procedure n ote for further details IMPRESSION: Intra procedural imaging fluoro COMMENT: Quality ID [id number]: Final reports for procedures using fluoroscopy that document radiation exp osure indices, or exposure time and number of fluorographic images (if radiation exposure indices are not available) Please consult full operative report of the attending physician for description of the procedure. TECHNICAL DOCUMENTATION: JOB ID: [id number] [employer]- All Rights Reserved
[2017-01-02] MEDS: LANSOPRAZOLE 30 MG TAB.RAP.DR PO SCH (16:02)
--- NOTE | 2017-01-02 18:15 | Operative Report ---
Operative Report DATE OF SURGERY: 01/02/17 Operative Report: Patient was n.p.o. approximately 12 hours prior to procedure.She was taken to the preop area and consents were reviewed. she was subsequently taken to the bronchoscopy suite.Upon arrival rapid induction and intubation was performed by anesthesiology. Then using a T size [employer] bronchoscope her tracheobronchial tree was explored. Her distal trachea was within normal limits and there was no splaying of the Cassia. there were no abnormalities of the right mainstem bronchus, right upper lobe, right bronchus intermedius,right middle lobe or right lower lobe. The proximal left mainstem bronchus was within normal limits but at the junction of the left mainstem bronchus and left lower lobe there was a large obstructing lesion 85-95% obstructing the airway. this lesion was oozing some blood from both caudal and cephalad aspects. Several 2 cc aliquots of epinephrine were administered to the area in question. Then using transbronchial biopsy multiple biopsies taken.Several were given to [employer] who advises that we did have samples that were adequate for interpretation. The patient tolerated the procedure fairly well and postprocedure SaO2 was 94% on 2 L it had been 95% on 2 L prior to the procedure. Postprocedure chest x- ray showed significant amount of atelectasis in the left hemithorax. The left lower lobe had been atelectatic prior to the procedure but additional areas of the left lung now were atelectatic. I discussed this with Saul Perales MD using an abundance of caution the patient was placed in ICU to be observed overnight PREOPERATIVE DIAGNOSIS: LUNG MASS POSTOPERATIVE DIAGNOSIS: SAME OPERATION: Fiberoptic bronchoscopy with bronchoalveolar lavage and transbronchial biopsy SURGEON: LEV ANDRADE ANESTHESIA: GA COMPLICATIONS: Postprocedure chest x-ray shows a large amount of atelectasis in the left hemithorax considering size of the lesion with subsequent oozing of blood did not find this particularly surprising but we will follow very closely ESTIMATED BLOOD LOSS: 10 CC INTRAOPERATIVE FINDINGS: Large lesion 85-95% obstructing at the distal left main near the left lower lobe
[2017-01-02] MEDS: SIMVASTATIN 10 MG TABLET PO SCH (22:52)
[2017-01-03 04:37] LABS: ANION GAP 13 (5-19); BLOOD UREA NITROGEN 15 mg/dL (7-20); CALCIUM 9.6 mg/dL (8.4-10.2); CARBON DIOXIDE 28 mmol/L (22-30); CHLORIDE 97 mmol/L (98-107); CREATININE RESULT 0.72 mg/dL (0.52-1.25); GLUCOSE 109 mg/dL (75-110); MAGNESIUM 1.8 mg/dL (1.6-2.3); POTASSIUM 3.9 mmol/L (3.6-5.0); SODIUM 137.5 mmol/L (137-145)
[2017-01-03 05:00] LABS: ABSOLUTE LYMPHOCYTES (AUTO) 1.2 10^3/uL (0.5-4.7); ABSOLUTE MONOCYTES (AUTO) 0.3 10^3/uL (0.1-1.4); ABSOLUTE NEUT (AUTO) 5.3 10^3/uL (1.7-8.2); BASOPHILS % (AUTO) 0.1 % (0-2); HEMATOCRIT 40.8 % (36.0-47.0); HEMOGLOBIN 14.4 g/dL (12.0-15.5); HGB HCT DIFFERENCE 2.4; LYMPHOCYTES % (AUTO) 17.5 % (13-45); MEAN CORPUSCULAR HGB CONC 35.2 g/dL (32.0-36.0); MEAN CORPUSCULAR VOLUME 91 fl (80-97); MONOCYTES % (AUTO) 4.5 % (3-13); RED BLOOD COUNT 4.49 10^6/uL (3.72-5.28); RED CELL DISTRIBUTION WIDTH 13.9 % (11.5-14.0); SEGMENTED NEUTROPHILS % (AUTO) 77.9 % (42-78); WHITE BLOOD COUNT 6.8 10^3/uL (4.0-10.5)
[2017-01-03] MEDS: HEPARIN SOD (PORCINE) 5,000 UNIT/ML 1 ML SYRINGE SUBCUT SCH ×3 (05:50→21:14)
[2017-01-03] MEDS: LANSOPRAZOLE 30 MG TAB.RAP.DR PO SCH ×2 (05:50→17:36)
[2017-01-03 05:52] LABS: ARTERIAL BLOOD BASE EXCESS 5.2 mmol/L; ARTERIAL BLOOD O2 SATURATION 94.4 % (94-98)
--- NOTE | 2017-01-03 06:51 | RADIOLOGY REPORT (SQ) ---
EXAM DESCRIPTION: CHEST SINGLE VIEW COMPLETED DATE/TIME: 01/03/2017 6:13 am REASON FOR STUDY: l lung atelectasias COMPARISON: Chest x-ray 01/02/2017. EXAM PARAMETERS: NUMBER OF VIEWS: One view. TECHNIQUE: Single frontal radiographic view of the chest acquired. RADIATION DOSE: NA LIMITATIONS: None. FINDINGS: LUNGS AND PLEURA: Persistent opacification of the left hemithorax with a small area of aer ation at the left lung apex. The right lung is clear. MEDIASTINUM AND HILAR STRUCTURES: There is mediastinal shift to the left. HEART AND VASCULAR STRUCTURES: The cardiac silhouette is obscured. No overt vascular congestion in t he right lung. BONES: No acute findings. HARDWARE: Multiple surgical clips at the left axilla. IMPRESSION: Persistent opacification of the left hemithorax with a small area of aeration at the lef t lung apex, may represent a combination of pleural effusion and collapse of the left lung. There is mediastinal shift to the left. TECHNICAL DOCUMENTATION: JOB ID: [id number] [employer]- All Rights Reserved
--- NOTE | 2017-01-03 07:55 | PDOC PROGRESS REPORT ---
Subjective Progress Note for:: 01/03/17 Subjective:: The patient states to feel better. She denies any shortness of breath or cough. Unfortunately her saturation has dropped when she got out of bed to use the bedside commode without oxygen Reason For Visit: LLL PNA Physical Exam Vital Signs: Temp Pulse Resp BP Pulse Ox 97.8 F 62 17 122/75 94 01/02/17 18:00 01/03/17 02:00 01/03/17 06:00 01/03/17 05:20 01/03/17 06:00 Intake & Output 01/02/17 01/03/17 01/04/17 06:59 06:59 06:59 Intake Total 972 1300 Output Total 675 Balance 972 625 Weight 75.1 kg General appearance: PRESENT: mild distress Head exam: PRESENT: atraumatic Eye exam: PRESENT: conjunctiva pink Neck exam: ABSENT: carotid bruit, JVD Respiratory exam: PRESENT: decreased breath sounds, rhonchi Additional comments: Decreased breath sounds and decreased air movement on the left Cardiovascular exam: PRESENT: RRR, +S2 Pulses: PRESENT: +1 pedal pulses bilateral GI/Abdominal exam: PRESENT: normal bowel sounds, soft Extremities exam: PRESENT: full ROM Musculoskeletal exam: PRESENT: ambulatory Results Laboratory Results: 01/03/17 03:35 01/03/17 03:35 01/03/17 01/03/17 01/03/17 03:35 03:35 05:35 WBC 6.8 RBC 4.49 Hgb 14.4 Hct 40.8 MCV 91 MCH 32.0 MCHC 35.2 RDW 13.9 Plt Count 175 Seg Neutrophils % 77.9 Lymphocytes % 17.5 Monocytes % 4.5 Eosinophils % 0.0 Basophils % 0.1 Absolute Neutrophils 5.3 Absolute Lymphocytes 1.2 Absolute Monocytes 0.3 Absolute Eosinophils 0.0 Absolute Basophils 0.0 Carbonic Acid 1.28 HCO3/H2CO3 Ratio 23:1 ABG pH 7.46 H ABG pCO2 42.4 ABG pO2 67.7 L ABG HCO3 29.6 H ABG O2 Saturation 94.4 ABG Base Excess 5.2 FiO2 2L Sodium 137.5 Potassium 3.9 Chloride 97 L Carbon Dioxide 28 Anion Gap 13 BUN 15 Creatinine 0.72 Est GFR ( Amer) > 60 Est GFR (Non-Af Amer) > 60 Glucose 109 Calcium 9.6 Magnesium 1.8 12/29/16 00:32 Blood Blood Culture - Final NO GROWTH IN 5 DAYS 01/01/17 01/01/17 01/01/17 09:33 09:33 15:07 Creatine Kinase 27 L 21 L CK-MB (CK-2) 0.26 Troponin I 0.037 01/01/17 01/01/17 01/01/17 15:07 20:49 20:49 Creatine Kinase 20 L CK-MB (CK-2) < 0.22 0.29 Troponin I 0.026 0.040 Impressions: Fluoroscopy 01/02/17 00:00 IMPRESSION: Intra procedural imaging fluoro Chest X-Ray 01/03/17 06:00 IMPRESSION: Persistent opacification of the left hemithorax with a small area of aeration at the left lung apex, may represent a combination of pleural effusion and collapse of the left lung. There is mediastinal shift to the left. Assessment & Plan - Diagnosis (1) Gastroesophageal reflux Is this a current diagnosis for this admission?: Yes (2) Retrosternal discomfort Is this a current diagnosis for this admission?: Yes (3) COPD (chronic obstructive pulmonary disease) Is this a current diagnosis for this admission?: Yes Plan: Continue nebulization treatments and incentive spirometry (4) Lung mass Is this a current diagnosis for this admission?: Yes Plan: Status post bronchoscopy and biopsy with lavage (5) Pneumonia Qualifiers: Pneumonia type: due to unspecified organism Laterality: left Lung location: lower lobe of lung Qualified Code(s): J18.1 - Lobar pneumonia, unspecified organism Is this a current diagnosis for this admission?: Yes Plan: Continue current antibiotics
[2017-01-03] MEDS: ASPIRIN 81 MG TABLET, CHEWABLE PO SCH (10:52)
[2017-01-03] MEDS: HYDROCHLOROTHIAZIDE 25 MG TABLET PO SCH (10:53)
[2017-01-03] MEDS: AZITHROMYCIN 250 MG TABLET PO SCH (10:53)
[2017-01-03] MEDS: CARVEDILOL 12.5 MG TABLET PO SCH ×2 (10:54→21:15)
[2017-01-03] MEDS: CEFTRIAXONE 1 GM/D5W RTU 1 GM/50 ML RTUPB IV SCH (10:54)
[2017-01-03] MEDS: LORATADINE 10 MG TABLET PO SCH (10:55)
[2017-01-03] MEDS: CYANOCOBALAMIN (VITAMIN B-12) 1,000 MCG TABLET PO SCH ×2 (10:55→17:36)
[2017-01-03] MEDS: GUAIFENESIN 600 MG TABLET.SA PO SCH ×2 (10:55→21:14)
[2017-01-03] MEDS: IPRATROPIUM/ALBUTEROL 120 PUFF/4 GM MDI IH SCH ×4 (10:56→21:17)
[2017-01-03] MEDS: BUDESONIDE/FORMOTEROL 160-4.5 MCG 60 PUFF/6 GM MDI IH SCH (17:37)
[2017-01-03] MEDS: HYDROCODONE/ACETAMINOPHEN 5-325 MG TABLET PO PRN (21:12)
[2017-01-03] MEDS: SIMVASTATIN 10 MG TABLET PO SCH (21:12)
[2017-01-03] MEDS: CALCIUM CARBONATE 500 MG TAB.CHEW PO PRN (21:14)
[2017-01-04] MEDS: HYDROCODONE/ACETAMINOPHEN 5-325 MG TABLET PO PRN ×2 (00:58→21:51)
[2017-01-04 05:22] LABS: ABSOLUTE EOSINOPHILS # (AUTO) 0.1 10^3/uL (0.0-0.6); ABSOLUTE LYMPHOCYTES (AUTO) 2.1 10^3/uL (0.5-4.7); ABSOLUTE MONOCYTES (AUTO) 0.6 10^3/uL (0.1-1.4); ABSOLUTE NEUT (AUTO) 4.3 10^3/uL (1.7-8.2); BASOPHILS % (AUTO) 0.6 % (0-2); EOSINOPHILS % (AUTO) 1.2 % (0-6); HEMATOCRIT 39.9 % (36.0-47.0); HEMOGLOBIN 14.1 g/dL (12.0-15.5); HGB HCT DIFFERENCE 2.4; MEAN CORPUSCULAR HEMOGLOBIN 31.8 pg (27.0-33.4); MEAN CORPUSCULAR HGB CONC 35.4 g/dL (32.0-36.0); MEAN CORPUSCULAR VOLUME 90 fl (80-97); MONOCYTES % (AUTO) 8.7 % (3-13); RED BLOOD COUNT 4.44 10^6/uL (3.72-5.28); SEGMENTED NEUTROPHILS % (AUTO) 59.5 % (42-78); WHITE BLOOD COUNT 7.1 10^3/uL (4.0-10.5)
[2017-01-04 05:41] LABS: ANION GAP 10 (5-19); BLOOD UREA NITROGEN 20 mg/dL (7-20); CALCIUM 9.5 mg/dL (8.4-10.2); CARBON DIOXIDE 30 mmol/L (22-30); CHLORIDE 99 mmol/L (98-107); CREATININE RESULT 0.78 mg/dL (0.52-1.25); GLUCOSE 85 mg/dL (75-110); POTASSIUM 3.4 mmol/L (3.6-5.0); SODIUM 138.5 mmol/L (137-145)
[2017-01-04 05:54] LABS: ARTERIAL BLOOD BASE EXCESS 7.1 mmol/L; ARTERIAL BLOOD O2 SATURATION 92.6 % (94-98)
[2017-01-04] MEDS: HEPARIN SOD (PORCINE) 5,000 UNIT/ML 1 ML SYRINGE SUBCUT SCH ×3 (06:31→21:51)
[2017-01-04] MEDS: LANSOPRAZOLE 30 MG TAB.RAP.DR PO SCH ×2 (06:31→17:42)
[2017-01-04] MEDS: ONDANSETRON HCL INJ/PF 4 MG/2 ML SDV IV PRN (06:32)
--- NOTE | 2017-01-04 06:36 | PDOC PROGRESS REPORT ---
Subjective Progress Note for:: 01/03/17 Subjective:: c/o heartburn nausea Reason For Visit: LLL PNA Physical Exam Vital Signs: Temp Pulse Resp BP Pulse Ox 97.8 F 62 19 150/91 H 94 01/02/17 18:00 01/03/17 02:00 01/03/17 07:20 01/03/17 07:20 01/03/17 07:20 Intake & Output 01/02/17 01/03/17 01/04/17 06:59 06:59 06:59 Intake Total 972 1300 Output Total 675 Balance 972 625 Weight 75.1 kg General appearance: PRESENT: no acute distress, cooperative, disheveled, severe distress, well-developed, well-nourished. ABSENT: mild distress, morbidly obese , obese Head exam: PRESENT: atraumatic, normocephalic Eye exam: PRESENT: conjunctiva pale, EOMI. ABSENT: conjunctival injection, conjunctiva pink, nystagmus, periorbital swelling, scleral icterus Mouth exam: PRESENT: dry mucosa, neck supple, tongue midline. ABSENT: laceration Neck exam: PRESENT: tracheal deviation. ABSENT: carotid bruit, JVD, lymphadenopathy, thyromegaly, tracheostomy Respiratory exam: PRESENT: crackles, decreased breath sounds, prolonged expiratory phas, rhonchi, unlabored, wheezes. ABSENT: accessory muscle use, chest wall tenderness, clear to auscultation stacia, rales, retraction, stridor, symmetrical - L lateral and post chest figueroa, tachypnea Cardiovascular exam: PRESENT: RRR, +S1, +S2. ABSENT: rubs Pulses: PRESENT: normal radial pulses GI/Abdominal exam: PRESENT: normal bowel sounds, soft. ABSENT: distended, guarding, mass, organolmegaly, rebound, tenderness Gentrourinary exam: PRESENT: indwelling catheter Extremities exam: ABSENT: calf tenderness, clubbing, joint swelling Musculoskeletal exam: ABSENT: deformity, dislocation, tenderness Neurological exam: PRESENT: alert, awake Psychiatric exam: PRESENT: normal mood Skin exam: PRESENT: dry, warm Results Laboratory Results: 01/03/17 03:35 01/03/17 03:35 01/03/17 01/03/17 01/03/17 03:35 03:35 05:35 WBC 6.8 RBC 4.49 Hgb 14.4 Hct 40.8 MCV 91 MCH 32.0 MCHC 35.2 RDW 13.9 Plt Count 175 Seg Neutrophils % 77.9 Lymphocytes % 17.5 Monocytes % 4.5 Eosinophils % 0.0 Basophils % 0.1 Absolute Neutrophils 5.3 Absolute Lymphocytes 1.2 Absolute Monocytes 0.3 Absolute Eosinophils 0.0 Absolute Basophils 0.0 Carbonic Acid 1.28 HCO3/H2CO3 Ratio 23:1 ABG pH 7.46 H ABG pCO2 42.4 ABG pO2 67.7 L ABG HCO3 29.6 H ABG O2 Saturation 94.4 ABG Base Excess 5.2 FiO2 2L Sodium 137.5 Potassium 3.9 Chloride 97 L Carbon Dioxide 28 Anion Gap 13 BUN 15 Creatinine 0.72 Est GFR ( Amer) > 60 Est GFR (Non-Af Amer) > 60 Glucose 109 Calcium 9.6 Magnesium 1.8 12/29/16 00:32 Blood Blood Culture - Final NO GROWTH IN 5 DAYS 01/01/17 01/01/17 01/01/17 09:33 09:33 15:07 Creatine Kinase 27 L 21 L CK-MB (CK-2) 0.26 Troponin I 0.037 01/01/17 01/01/17 01/01/17 15:07 20:49 20:49 Creatine Kinase 20 L CK-MB (CK-2) < 0.22 0.29 Troponin I 0.026 0.040 Impressions: Fluoroscopy 01/02/17 00:00 IMPRESSION: Intra procedural imaging fluoro Chest X-Ray 01/03/17 06:00 IMPRESSION: Persistent opacification of the left hemithorax with a small area of aeration at the left lung apex, may represent a combination of pleural effusion and collapse of the left lung. There is mediastinal shift to the left. Assessment & Plan - Diagnosis (1) Lung mass Is this a current diagnosis for this admission?: Yes Plan: awaiting pathology postproceedur L lung atelectasis as lesion distal L main near occlusive (2) Pneumonia Qualifiers: Pneumonia type: due to unspecified organism Laterality: left Lung location: lower lobe of lung Qualified Code(s): J18.1 - Lobar pneumonia, unspecified organism Is this a current diagnosis for this admission?: Yes Plan: post obstuctive (3) Tobacco abuse Is this a current diagnosis for this admission?: Yes - Time Total Critical Time (Minutes): 40
--- NOTE | 2017-01-04 08:59 | PDOC PROGRESS REPORT ---
Subjective Progress Note for:: 01/04/17 Subjective:: The patient states to feel slightly better. Her breathing has improved. He was seen by the oncology. Reason For Visit: LLL PNA Physical Exam Vital Signs: Temp Pulse Resp BP Pulse Ox 97.8 F 46 L 18 118/74 97 01/04/17 08:05 01/04/17 08:05 01/04/17 08:05 01/04/17 08:05 01/04/17 08:05 Intake & Output 01/03/17 01/04/17 01/05/17 06:59 06:59 06:59 Intake Total 1300 360 Output Total 675 Balance 625 360 Weight 75.1 kg 75 kg General appearance: PRESENT: mild distress Head exam: PRESENT: atraumatic Eye exam: PRESENT: conjunctiva pink Neck exam: ABSENT: carotid bruit, JVD Respiratory exam: PRESENT: decreased breath sounds Cardiovascular exam: PRESENT: RRR, +S1, +S2 Pulses: PRESENT: +1 pedal pulses bilateral GI/Abdominal exam: PRESENT: normal bowel sounds, soft Extremities exam: PRESENT: full ROM Musculoskeletal exam: PRESENT: ambulatory Neurological exam: PRESENT: alert, awake Results Laboratory Results: 01/04/17 04:31 01/04/17 04:31 01/04/17 01/04/17 01/04/17 04:31 04:31 05:35 WBC 7.1 RBC 4.44 Hgb 14.1 Hct 39.9 MCV 90 MCH 31.8 MCHC 35.4 RDW 14.0 Plt Count 164 Seg Neutrophils % 59.5 Lymphocytes % 30.0 Monocytes % 8.7 Eosinophils % 1.2 Basophils % 0.6 Absolute Neutrophils 4.3 Absolute Lymphocytes 2.1 Absolute Monocytes 0.6 Absolute Eosinophils 0.1 Absolute Basophils 0.0 Carbonic Acid 1.05 HCO3/H2CO3 Ratio 28:1 ABG pH 7.55 H ABG pCO2 34.9 L ABG pO2 55.9 L ABG HCO3 29.6 H ABG O2 Saturation 92.6 L ABG Base Excess 7.1 FiO2 21% Sodium 138.5 Potassium 3.4 L Chloride 99 Carbon Dioxide 30 Anion Gap 10 BUN 20 Creatinine 0.78 Est GFR ( Amer) > 60 Est GFR (Non-Af Amer) > 60 Glucose 85 Calcium 9.5 01/01/17 01/01/17 01/01/17 09:33 09:33 15:07 Creatine Kinase 27 L 21 L CK-MB (CK-2) 0.26 Troponin I 0.037 01/01/17 01/01/17 01/01/17 15:07 20:49 20:49 Creatine Kinase 20 L CK-MB (CK-2) < 0.22 0.29 Troponin I 0.026 0.040 Impressions: Fluoroscopy 01/02/17 00:00 IMPRESSION: Intra procedural imaging fluoro Assessment & Plan - Diagnosis (1) Gastroesophageal reflux Is this a current diagnosis for this admission?: Yes Plan: Improved. We will continue with current treatment (2) Retrosternal discomfort Is this a current diagnosis for this admission?: Yes (3) COPD (chronic obstructive pulmonary disease) Is this a current diagnosis for this admission?: Yes Plan: Continue nebulization treatments and incentive spirometry (4) Lung mass Is this a current diagnosis for this admission?: Yes Plan: Awaiting pathology report after the bronchoscopy and BAL (5) Pneumonia Qualifiers: Pneumonia type: due to unspecified organism Laterality: left Lung location: lower lobe of lung Qualified Code(s): J18.1 - Lobar pneumonia, unspecified organism Is this a current diagnosis for this admission?: Yes Plan: Continue current antibiotics
--- NOTE | 2017-01-04 09:14 | PDOC CONSULTATION ---
Consultation Consult Date: 01/04/17 Attending physician:: LESLY TEJADA Consult reason:: L hilar mass, likely LLL lung lesion also History of Present Illness Admission Date/PCP: 12/28/16 23:38 LESLY TEJADA, Patient complains of: SOB History of Present Illness: 71-year-old female with previous known history of breast cancer as well as larynx cancer, presents with a 3-4 month history of increasing shortness of breath, recently was found to have a 3.7 cm left hilar mass, as well as left lower lobe collapse, ultimately she had evaluation by pulmonology, PET/CT was done earlier this month, that indicated a 3.7 cm mass at the left hilum with SUV in the 8 range, and there was also within the left lower lobe collapsed area , a 2 cm focus with an SUV of 11. That was concerning for the primary lesion. There was no other uptake anywhere else. She is a lifelong smoker continues to smoke until coming in, [id number] history of tobacco, she also has history of [place] water exposure. 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 She also had laryngeal cancer diagnosed in 1997, she was treated at [facility] for that, was followed closely for over 5 years. From both of these issues she has been disease free until now. Past Medical History Cardiac Medical History: Reports: Congestive Heart Failure - secondary to "double pneumonia", Hyperlipidema, Hypertension Denies: Coronary Artery Disease, Myocardial Infarction Pulmonary Medical History: Reports: Asthma - BRONCHIAL ASTHMA, Chronic Obstructive Pulmonary Disease (COPD), Pneumonia Denies: Bronchitis Neurological Medical History: Denies: Seizures Malignancy Medical History: Reports: Other - Other cancers as above Musculoskeltal Medical History: Denies: Arthritis Psychiatric Medical History: Reports: Tobacco Dependency Hematology: Denies: Anemia Past Surgical History Past Surgical History: Reports: Cholecystectomy, Mastectomy - left, Tubal Ligation Social History Lives with: Family Smoking Status: Current Every Day Smoker Cigarettes Packs Per Day: 0.5 Number of Years Smokin Last Time Smoked: 67 pack years total Frequency of Alcohol Use: None Hx Recreational Drug Use: No Drugs: None Hx Prescription Drug Abuse: No - Advance Directive Resuscitation Status: Full Code Family History Family History: CAD, Malignancy - Mother with lung cancer Parental Family History Reviewed: Yes Children Family History Reviewed: Yes Sibling(s) Family History Reviewed.: Yes Medication/Allergy Home Medications: Aspirin [Aspirin 81 mg Chewable Tablet] 81 mg PO DAILY 12/19/16 Budesonide/Formoterol Fumarate [Symbicort 160-4.5 Mcg Inhaler] 2 puff PO Q12 Carvedilol [Coreg 25 mg Tablet] 25 tab PO Q12 12/19/16 Cetirizine HCl 10 mg PO DAILY 12/19/16 Cyanocobalamin (Vitamin B-12) [Vitamin B12] 1,000 mcg PO BID 12/19/16 Ferrous Sulfate 325 mg PO DAILY 12/19/16 Fluticasone Propionate [Flovent Diskus] 1 spray IH DAILY 12/19/16 Folic Acid 1 mg PO DAILY 12/19/16 Hydrochlorothiazide 25 mg PO DAILY 12/19/16 Ipratropium/Albuterol Sulfate [Combivent Respimat 4 gm Mdi] 1 puff PO QID Montelukast Sodium [Singulair 10 mg Tablet] 10 mg PO QPM 12/19/16 Pantoprazole Sodium [Protonix] 20 mg PO DAILY 12/19/16 Potassium Chloride [Klor-Con 10] 10 meq PO BID 12/19/16 Simvastatin 20 mg PO QPM 12/19/16 Sodium Chloride [Center Nasal [place] 44 ml Bottle] 1 spray NAREB QIDP PRN Solifenacin Succinate [Vesicare] 10 mg PO DAILY 12/19/16 Alprazolam [Alprazolam] 0.25 mg PO Q8HP PRN 12/29/16 Allergies/Adverse Reactions: No Known Allergies Allergy (Verified 12/15/16 16:00) Review of Systems Constitutional: ABSENT: chills, fever(s), headache(s), weight gain, weight loss Eyes: ABSENT: visual disturbances Ears: ABSENT: hearing changes Cardiovascular: ABSENT: chest pain, dyspnea on exertion, edema, orthropnea, palpitations Respiratory: ABSENT: cough, hemoptysis Gastrointestinal: ABSENT: abdominal pain, constipation, diarrhea, hematemesis, hematochezia, nausea, vomiting Genitourinary: ABSENT: dysuria, hematuria Musculoskeletal: ABSENT: joint swelling Integumentary: ABSENT: rash, wounds Neurological: ABSENT: abnormal gait, abnormal speech, confusion, dizziness, focal weakness, syncope Psychiatric: ABSENT: anxiety, depression, homidical ideation, suicidal ideation Endocrine: ABSENT: cold intolerance, heat intolerance, polydipsia, polyuria Hematologic/Lymphatic: ABSENT: easy bleeding, easy bruising Physical Exam Vital Signs: Temp Pulse Resp BP Pulse Ox 97.8 F 46 L 18 118/74 97 01/04/17 08:05 01/04/17 08:05 01/04/17 08:05 01/04/17 08:05 01/04/17 08:05 Intake & Output 01/03/17 01/04/17 01/05/17 06:59 06:59 06:59 Intake Total 1300 360 Output Total 675 Balance 625 360 Weight 75.1 kg 75 kg General appearance: PRESENT: no acute distress, well-developed, well-nourished Head exam: PRESENT: atraumatic, normocephalic Eye exam: PRESENT: conjunctiva pink, EOMI, PERRLA. ABSENT: scleral icterus Ear exam: PRESENT: normal external ear exam Mouth exam: PRESENT: moist, tongue midline Neck exam: ABSENT: carotid bruit, JVD, lymphadenopathy, thyromegaly Respiratory exam: PRESENT: clear to auscultation stacia. ABSENT: rales, rhonchi, wheezes Cardiovascular exam: PRESENT: RRR. ABSENT: diastolic murmur, rubs, systolic murmur Pulses: PRESENT: normal dorsalis pedis pul Vascular exam: PRESENT: normal capillary refill GI/Abdominal exam: PRESENT: normal bowel sounds, soft. ABSENT: distended, guarding, mass, organolmegaly, rebound, tenderness Rectal exam: PRESENT: deferred Extremities exam: PRESENT: full ROM. ABSENT: calf tenderness, clubbing, pedal edema Neurological exam: PRESENT: alert, awake, oriented to person, oriented to place , oriented to time, oriented to situation, CN II-XII grossly intact. ABSENT: motor sensory deficit Psychiatric exam: PRESENT: appropriate affect, normal mood. ABSENT: homicidal ideation, suicidal ideation Skin exam: PRESENT: dry, intact, warm. ABSENT: cyanosis, rash Results Laboratory Results: 01/04/17 04:31 01/04/17 04:31 01/04/17 01/04/1701/04/17 04:31 04:31 05:35 WBC 7.1 RBC 4.44 Hgb 14.1 Hct 39.9 MCV 90 MCH 31.8 MCHC 35.4 RDW 14.0 Plt Count 164 Seg Neutrophils % 59.5 Lymphocytes % 30.0 Monocytes % 8.7 Eosinophils % 1.2 Basophils % 0.6 Absolute Neutrophils 4.3 Absolute Lymphocytes 2.1 Absolute Monocytes 0.6 Absolute Eosinophils 0.1 Absolute Basophils 0.0 Carbonic Acid 1.05 HCO3/H2CO3 Ratio 28:1 ABG pH 7.55 H ABG pCO2 34.9 L ABG pO2 55.9 L ABG HCO3 29.6 H ABG O2 Saturation 92.6 L ABG Base Excess 7.1 FiO2 21% Sodium 138.5 Potassium 3.4 L Chloride 99 Carbon Dioxide 30 Anion Gap 10 BUN 20 Creatinine 0.78 Est GFR ( Amer) > 60 Est GFR (Non-Af Amer) > 60 Glucose 85 Calcium 9.5 01/01/17 01/01/17 01/01/17 09:33 09:33 15:07 Creatine Kinase 27 L 21 L CK-MB (CK-2) 0.26 Troponin I 0.037 01/01/17 01/01/17 01/01/17 15:07 20:49 20:49 Creatine Kinase 20 L CK-MB (CK-2) < 0.22 0.29 Troponin I 0.026 0.040 Impressions: Fluoroscopy 01/02/17 00:00 IMPRESSION: Intra procedural imaging fluoro Status: Image reviewed by me - And reviewed with patient Assessment & Plan - Diagnosis (1) Lung mass Is this a current diagnosis for this admission?: Yes Plan: 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 I will also let pathology know that there is a previous breast specimen here from 1999, so there is staining patterns consistent with breast, that is a possibility, although much less likely. Also will plan for MRI of the brain - Time Time Spent: Greater than 70 Minutes - Inpatient Certification Based on my medical assessment, after consideration of the patient's comorbidities, presenting symptoms, or acuity I expect that the services needed warrant INPATIENT care.: Yes I certify that my determination is in accordance with my understanding of Medicare's requirements for reasonable and necessary INPATIENT services [42 CFR 412.3e].: Yes Medical Necessity: Need Close Monitoring Due to Risk of Patient Decompensation, Need For Continuous Telemetry Monitoring
--- NOTE | 2017-01-04 09:24 | RADIOLOGY REPORT (SQ) ---
EXAM DESCRIPTION: CHEST SINGLE VIEW COMPLETED DATE/TIME: 01/04/2017 8:36 am REASON FOR STUDY: L lung mass/atelectasis COMPARISON: CT chest 11/27/2016, PET-CT 11/09/2016 Fluoro for bronchoscopy 12/21/2016, 01/02/2017 Chest films 12/21/2016, 12/28/2016, 01/02/2017 EXAM PARAMETERS: NUMBER OF VIEWS: One view. TECHNIQUE: Single frontal radiographic view of the chest acquired. RADIATION DOSE: NA LIMITATIONS: None. FINDINGS: LUNGS AND PLEURA: Since the prior film 12/28/2016, the patient has developed complete jimmie apse of the left lower lobe and partial collapse of left upper lobe. Only a small amount of aerated left lung apex is seen. Suspect a small left pleural effusion. Right lung is hyperinflated and hyperlucent. No right-sided infiltrates. No right pleural effusion or pneumothorax. MEDIASTINUM AND HILAR STRUCTURES: Shifted into the left hemithorax HEART AND VASCULAR STRUCTURES: Not well seen due to diffuse and lower lobe and partial upper lobe col lapse left lung BONES: No acute findings. HARDWARE: None in the chest. OTHER: No other significant finding. IMPRESSION: Volume loss and consolidation left lung, increased compared to 12/28/2016. TECHNICAL DOCUMENTATION: JOB ID: [id number] [employer]- All Rights Reserved
[2017-01-04] MEDS: IPRATROPIUM/ALBUTEROL 120 PUFF/4 GM MDI IH SCH ×3 (11:31→17:42)
[2017-01-04] MEDS: BUDESONIDE/FORMOTEROL 160-4.5 MCG 60 PUFF/6 GM MDI IH SCH ×2 (11:32→17:41)
[2017-01-04] MEDS: AZITHROMYCIN 250 MG TABLET PO SCH (11:33)
[2017-01-04] MEDS: HYDROCHLOROTHIAZIDE 25 MG TABLET PO SCH (11:35)
[2017-01-04] MEDS: GUAIFENESIN 600 MG TABLET.SA PO SCH ×2 (11:35→21:52)
[2017-01-04] MEDS: CYANOCOBALAMIN (VITAMIN B-12) 1,000 MCG TABLET PO SCH ×2 (11:35→17:42)
[2017-01-04] MEDS: LORATADINE 10 MG TABLET PO SCH (11:36)
[2017-01-04] MEDS: ASPIRIN 81 MG TABLET, CHEWABLE PO SCH (11:36)
[2017-01-04] MEDS: CEFTRIAXONE 1 GM/D5W RTU 1 GM/50 ML RTUPB IV SCH (11:37)
[2017-01-04] MEDS: CARVEDILOL 12.5 MG TABLET PO SCH (11:40)
--- NOTE | 2017-01-04 13:30 | RADIOLOGY REPORT (SQ) ---
EXAM DESCRIPTION: MRI HEAD COMBO COMPLETED DATE/TIME: 01/04/2017 1:04 pm REASON FOR STUDY: Lung Cancer COMPARISON: PET-CT 12/10/2016, CT chest 11/27/2016 TECHNIQUE: Multiplanar imaging includes noncontrasted T1, T2, FLAIR, diffusion with ADC map and post gadolinium contrast T1 sequences. Images stored on PACS. CONTRAST TYPE AND DOSE: 10 mL Multihance. RENAL FUNCTION: Creatinine 0.78 LIMITATIONS: None. FINDINGS: ANATOMY: No congenital anomalies. Normal vascular flow voids. Pituitary fossa normal. CSF SPACES: Normal in size and contour. No hemorrhage. CEREBRUM: Sulci and gyri normal in size and contour. Moderate spotty increased white matter signal o n FLAIR imaging from chronic small vessel disease. No evidence of hemorrhage, mass, or extraaxial flu id collection. No abnormal enhancement post contrast. POSTERIOR FOSSA: Mild pontine increased T2/FLAIR signal from chronic small vessel ischemic change. No hemorrhage. No edema, masses, or mass effect. Internal auditory canals, cerebellopontine angles, mas toids normal. No enhancing lesions. No abnormal enhancement post contrast. DIFFUSION IMAGING: Negative for acute or subacute infarction. ORBITS: No masses. Globes normal. PARANASAL SINUSES: No fluid levels. Mucosa normal. OTHER: Decreased marrow fat content in the calvarium and clivus. Question red marrow conversion from anemia or flow. Patient passing marrow space lesions worrisome for bony metastatic disease IMPRESSION: No MRI evidence of brain parenchymal metastatic disease EVIDENCE OF ACUTE STROKE: NO. TECHNICAL DOCUMENTATION: JOB ID: [id number]- All Rights Reserved
--- NOTE | 2017-01-04 15:01 | PDOC PROGRESS REPORT ---
Subjective Progress Note for:: 01/04/17 Subjective:: c/o heartburn nausea Reason For Visit: LLL PNA Physical Exam Vital Signs: Temp Pulse Resp BP Pulse Ox 97.8 F 46 L 18 118/74 97 01/04/17 08:05 01/04/17 08:05 01/04/17 08:05 01/04/17 08:05 01/04/17 08:05 Intake & Output 01/03/17 01/04/17 01/05/17 06:59 06:59 06:59 Intake Total 1300 360 Output Total 675 Balance 625 360 Weight 75.1 kg 75 kg General appearance: PRESENT: no acute distress, cooperative, disheveled, well- developed, well-nourished. ABSENT: hard of hearing, mild distress, morbidly obese, obese, severe distress Head exam: PRESENT: atraumatic, normocephalic Eye exam: PRESENT: conjunctiva pale, EOMI. ABSENT: conjunctival injection, conjunctiva pink, nystagmus, periorbital swelling Mouth exam: PRESENT: dry mucosa, neck supple, tongue midline Neck exam: ABSENT: carotid bruit, JVD, lymphadenopathy, thyromegaly Respiratory exam: PRESENT: decreased breath sounds, prolonged expiratory phas, rales, rhonchi, symmetrical, unlabored, wheezes. ABSENT: accessory muscle use, chest wall tenderness, clear to auscultation stacia, crackles, stridor, tachypnea Cardiovascular exam: PRESENT: RRR, +S1, +S2. ABSENT: rubs Pulses: PRESENT: normal radial pulses GI/Abdominal exam: PRESENT: normal bowel sounds, soft. ABSENT: distended, guarding, mass, organolmegaly, rebound, tenderness Extremities exam: ABSENT: clubbing, joint swelling, pedal edema, +1 edema, +2 edema Musculoskeletal exam: ABSENT: deformity, dislocation, tenderness Neurological exam: PRESENT: alert, awake Psychiatric exam: PRESENT: normal mood Skin exam: PRESENT: dry, warm Results Laboratory Results: 01/04/17 04:31 01/04/17 04:31 01/04/17 01/04/17 01/04/17 04:31 04:31 05:35 WBC 7.1 RBC 4.44 Hgb 14.1 Hct 39.9 MCV 90 MCH 31.8 MCHC 35.4 RDW 14.0 Plt Count 164 Seg Neutrophils % 59.5 Lymphocytes % 30.0 Monocytes % 8.7 Eosinophils % 1.2 Basophils % 0.6 Absolute Neutrophils 4.3 Absolute Lymphocytes 2.1 Absolute Monocytes 0.6 Absolute Eosinophils 0.1 Absolute Basophils 0.0 Carbonic Acid 1.05 HCO3/H2CO3 Ratio 28:1 ABG pH 7.55 H ABG pCO2 34.9 L ABG pO2 55.9 L ABG HCO3 29.6 H ABG O2 Saturation 92.6 L ABG Base Excess 7.1 FiO2 21% Sodium 138.5 Potassium 3.4 L Chloride 99 Carbon Dioxide 30 Anion Gap 10 BUN 20 Creatinine 0.78 Est GFR ( Amer) > 60 Est GFR (Non-Af Amer) > 60 Glucose 85 Calcium 9.5 01/01/17 01/01/17 01/01/17 09:33 09:33 15:07 Creatine Kinase 27 L 21 L CK-MB (CK-2) 0.26 Troponin I 0.037 01/01/17 01/01/17 01/01/17 15:07 20:49 20:49 Creatine Kinase 20 L CK-MB (CK-2) < 0.22 0.29 Troponin I 0.026 0.040 Impressions: Fluoroscopy 01/02/17 00:00 IMPRESSION: Intra procedural imaging fluoro Chest X-Ray 01/04/17 06:00 IMPRESSION: Volume loss and consolidation left lung, increased compared to . Assessment & Plan - Diagnosis (1) Lung mass Is this a current diagnosis for this admission?: Yes Plan: per path malignacy cell type neuroendocrine (2) Pneumonia Qualifiers: Pneumonia type: due to unspecified organism Laterality: left Lung location: lower lobe of lung Qualified Code(s): J18.1 - Lobar pneumonia, unspecified organism Is this a current diagnosis for this admission?: Yes Plan: post obstuctive (3) Tobacco abuse Is this a current diagnosis for this admission?: Yes Plan: Stop smoking consider transdermal nicotine Generic Name Dose Route Start Last Admin Trade Name Freq PRN Reason Stop Dose Admin Budesonide/Formoterol Fumarate 2 puff 12/29/16 10:00 12/29/16 09:45 Symbicort Hfa 160-4.5 Mcg Inhaler 6 Gm IH 01/28/17 09:59 2 puff BID KYLEIGH Patient Own Medication 1 spray 12/29/16 10:00 Fluticasone Propionate [Flovent Diskus] NAREB 01/28/17 09:59 DAILY KYLEIGH Albuterol/Ipratropium 1 puff 12/29/16 10:00 12/29/16 09:46 Combivent Respimat 4 Gm Mdi IH 01/28/17 09:59 1 puff QID KYLEIGH Guaifenesin 1,200 mg 12/29/16 10:00 12/29/16 09:42 Mucinex Sr 600 Mg Tablet.Sa PO 01/28/17 09:59 1,200 mg Q12 KYLEIGH Montelukast Sodium 10 mg 12/29/16 18:00 Singulair 10 Mg Tablet PO 01/28/17 17:59 QPM KYLEIGH Loratadine 10 mg 12/29/16 10:00 12/29/16 09:43 Claritin 10 Mg Tablet PO 01/28/17 09:59 10 mg DAILY KYLEIGH
[2017-01-04] MEDS: CALCIUM CARBONATE 500 MG TAB.CHEW PO PRN (21:51)
[2017-01-04] MEDS: SIMVASTATIN 10 MG TABLET PO SCH (21:52)
[2017-01-05] MEDS: CARVEDILOL 12.5 MG TABLET PO SCH (00:06)
[2017-01-05] MEDS: IPRATROPIUM/ALBUTEROL 120 PUFF/4 GM MDI IH SCH (00:08)
[2017-01-05 05:29] LABS: ABSOLUTE EOSINOPHILS # (AUTO) 0.1 10^3/uL (0.0-0.6); ABSOLUTE LYMPHOCYTES (AUTO) 2.1 10^3/uL (0.5-4.7); ABSOLUTE MONOCYTES (AUTO) 0.6 10^3/uL (0.1-1.4); ABSOLUTE NEUT (AUTO) 2.6 10^3/uL (1.7-8.2); BASOPHILS % (AUTO) 0.8 % (0-2); EOSINOPHILS % (AUTO) 1.9 % (0-6); HEMATOCRIT 41.3 % (36.0-47.0); HEMOGLOBIN 14.5 g/dL (12.0-15.5); HGB HCT DIFFERENCE 2.2; LYMPHOCYTES % (AUTO) 39.1 % (13-45); MEAN CORPUSCULAR HEMOGLOBIN 32.1 pg (27.0-33.4); MEAN CORPUSCULAR HGB CONC 35.2 g/dL (32.0-36.0); MEAN CORPUSCULAR VOLUME 91 fl (80-97); MONOCYTES % (AUTO) 10.3 % (3-13); RED BLOOD COUNT 4.53 10^6/uL (3.72-5.28); RED CELL DISTRIBUTION WIDTH 14.2 % (11.5-14.0); SEGMENTED NEUTROPHILS % (AUTO) 47.9 % (42-78); WHITE BLOOD COUNT 5.4 10^3/uL (4.0-10.5)
[2017-01-05 05:52] LABS: ANION GAP 13 (5-19); BLOOD UREA NITROGEN 18 mg/dL (7-20); CALCIUM 9.3 mg/dL (8.4-10.2); CARBON DIOXIDE 30 mmol/L (22-30); CHLORIDE 95 mmol/L (98-107); CREATININE RESULT 0.81 mg/dL (0.52-1.25); GLUCOSE 82 mg/dL (75-110); POTASSIUM 3.1 mmol/L (3.6-5.0); SODIUM 137.9 mmol/L (137-145)
[2017-01-05] MEDS: LANSOPRAZOLE 30 MG TAB.RAP.DR PO SCH (06:50)
[2017-01-05] MEDS: HEPARIN SOD (PORCINE) 5,000 UNIT/ML 1 ML SYRINGE SUBCUT SCH (06:50)
[2017-01-05] MEDS ORDERED: POTASSIUM CHLORIDE 10 MEQ TABLET.SA PO ONE (07:30)
[2017-01-05] MEDS: ONDANSETRON HCL INJ/PF 4 MG/2 ML SDV IV PRN (08:06)
--- NOTE | 2017-01-05 08:10 | PDOC DISCHARGE SUMMARY ---
General - Admit/Disc Date/PCP Admission Date/Primary Care Provider: 12/28/16 23:38 LESYL TEJADA, Discharge Date: 01/05/17 - Discharge Diagnosis (1) Gastroesophageal reflux Is this a current diagnosis for this admission?: Yes Summary: Continue current medications (2) Retrosternal discomfort Is this a current diagnosis for this admission?: Yes (3) COPD (chronic obstructive pulmonary disease) Is this a current diagnosis for this admission?: Yes (4) Lung mass Is this a current diagnosis for this admission?: Yes Summary: Status post bronchoscopy. 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 (5) Pneumonia Is this a current diagnosis for this admission?: Yes Summary: Continue antibiotics for 5 more days. - Additional Information Resuscitation Status: Full Code Home Medications: Budesonide/Formoterol Fumarate [Symbicort 160-4.5 Mcg Inhaler] 2 puff PO Q12 Carvedilol [Coreg 25 mg Tablet] 25 tab PO Q12 12/19/16 Cetirizine HCl 10 mg PO DAILY 12/19/16 Cyanocobalamin (Vitamin B-12) [Vitamin B12] 1,000 mcg PO BID 12/19/16 Ferrous Sulfate 325 mg PO DAILY 12/19/16 Fluticasone Propionate [Flovent Diskus] 1 spray IH DAILY 12/19/16 Folic Acid 1 mg PO DAILY 12/19/16 Hydrochlorothiazide 25 mg PO DAILY 12/19/16 Ipratropium/Albuterol Sulfate [Combivent Respimat 4 gm Mdi] 1 puff PO QID Montelukast Sodium [Singulair 10 mg Tablet] 10 mg PO QPM 12/19/16 Pantoprazole Sodium [Protonix] 20 mg PO DAILY 12/19/16 Potassium Chloride [Klor-Con 10] 10 meq PO BID 12/19/16 Simvastatin 20 mg PO QPM 12/19/16 Sodium Chloride [[place] Nasal [place] 44 ml Bottle] 1 spray NAREB QIDP PRN Solifenacin Succinate [Vesicare] 10 mg PO DAILY 12/19/16 Alprazolam 0.25 mg PO Q8HP PRN 12/29/16 Acetaminophen [Tylenol 325 mg Tablet] 650 mg PO Q4HP PRN tablet 12/01/17 Levofloxacin [Levaquin 500 mg Tablet] 500 mg PO DAILY #5 tablet 01/05/17 History of Present Illness History of Present Illness: EVE GUILLERMO is a 71 year old female Hospital Course Hospital Course: The patient was admitted because of upper respiratory tract symptoms. She underwent bronchoscopy with BAL and biopsy. The diagnosis of small cell lung cancer has been established. She did have some white out of her left long at the site of where the mass is but it was improving after couple of days post bronchoscopy most probably secondary to BAL and lavage Physical Exam Vital Signs: Temp Pulse Resp BP Pulse Ox 97.7 F 62 12 122/63 95 01/05/17 01:00 01/05/17 02:00 01/05/17 01:00 01/05/17 01:00 01/05/17 01:00 Intake & Output 01/04/17 01/05/17 01/06/17 06:59 06:59 06:59 Intake Total 360 1360 Balance 360 1360 Weight 75 kg 75.2 kg General appearance: PRESENT: no acute distress Head exam: PRESENT: atraumatic Eye exam: PRESENT: conjunctival injection Neck exam: ABSENT: carotid bruit, JVD Respiratory exam: PRESENT: decreased breath sounds, rhonchi Cardiovascular exam: PRESENT: RRR, +S1, +S2 Pulses: PRESENT: +1 pedal pulses bilateral GI/Abdominal exam: PRESENT: normal bowel sounds, soft Extremities exam: PRESENT: full ROM Musculoskeletal exam: PRESENT: ambulatory Neurological exam: PRESENT: alert, awake Results Laboratory Results: 01/05/17 04:28 01/05/17 04:28 01/05/17 01/05/17 04:28 04:28 WBC 5.4 RBC 4.53 Hgb 14.5 Hct 41.3 MCV 91 MCH 32.1 MCHC 35.2 RDW 14.2 H Plt Count 169 Seg Neutrophils % 47.9 Lymphocytes % 39.1 Monocytes % 10.3 Eosinophils % 1.9 Basophils % 0.8 Absolute Neutrophils 2.6 Absolute Lymphocytes 2.1 Absolute Monocytes 0.6 Absolute Eosinophils 0.1 Absolute Basophils 0.0 Sodium 137.9 Potassium 3.1 L Chloride 95 L Carbon Dioxide 30 Anion Gap 13 BUN 18 Creatinine 0.81 Est GFR ( Amer) > 60 Est GFR (Non-Af Amer) > 60 Glucose 82 Calcium 9.3 01/01/17 01/01/17 01/01/17 09:33 09:33 15:07 Creatine Kinase 27 L 21 L CK-MB (CK-2) 0.26 Troponin I 0.037 01/01/17 01/01/17 01/01/17 15:07 20:49 20:49 Creatine Kinase 20 L CK-MB (CK-2) < 0.22 0.29 Troponin I 0.026 0.040 Impressions: Fluoroscopy 01/02/17 00:00 IMPRESSION: Intra procedural imaging fluoro Chest X-Ray 01/04/17 06:00 IMPRESSION: Volume loss and consolidation left lung, increased compared to . Head MRI 01/04/17 10:37 IMPRESSION: No MRI evidence of brain parenchymal metastatic disease EVIDENCE OF ACUTE STROKE: NO.
[2017-01-05 09:18] VITALS: BP 117/63
[2017-01-05] MEDS ORDERED: LEVOFLOXACIN 500 MG TABLET PO SCH (10:00)
--- NOTE | 2017-01-05 11:34 | PDOC PROGRESS REPORT ---
Subjective Progress Note for:: 01/05/17 Subjective:: Doing better this am. Today had long discussion w/ pt, path back as small cell ca, thus far limited stage, will need to start chemo/rx next week if possible, discussed prognosis and next steps of care, 2 daughters at bedside w/ pt, spent 45 min in discussion w/ family Reason For Visit: LLL PNA Physical Exam Vital Signs: Temp Pulse Resp BP Pulse Ox 97.8 F 71 18 117/63 92 01/05/17 09:16 01/05/17 09:16 01/05/17 09:16 01/05/17 09:16 01/05/17 09:16 Intake & Output 01/04/17 01/05/17 01/06/17 06:59 06:59 06:59 Intake Total 360 1360 Balance 360 1360 Weight 75 kg 75.2 kg General appearance: PRESENT: no acute distress, well-developed, well-nourished Head exam: PRESENT: atraumatic, normocephalic Eye exam: PRESENT: conjunctiva pink, EOMI, PERRLA. ABSENT: scleral icterus Ear exam: PRESENT: normal external ear exam Mouth exam: PRESENT: moist, tongue midline Neck exam: ABSENT: carotid bruit, JVD, lymphadenopathy, thyromegaly Respiratory exam: PRESENT: clear to auscultation stacia. ABSENT: rales, rhonchi, wheezes Cardiovascular exam: PRESENT: RRR. ABSENT: diastolic murmur, rubs, systolic murmur Pulses: PRESENT: normal dorsalis pedis pul Vascular exam: PRESENT: normal capillary refill GI/Abdominal exam: PRESENT: normal bowel sounds, soft. ABSENT: distended, guarding, mass, organolmegaly, rebound, tenderness Rectal exam: PRESENT: deferred Extremities exam: PRESENT: full ROM. ABSENT: calf tenderness, clubbing, pedal edema Neurological exam: PRESENT: alert, awake, oriented to person, oriented to place , oriented to time, oriented to situation, CN II-XII grossly intact. ABSENT: motor sensory deficit Psychiatric exam: PRESENT: appropriate affect, normal mood. ABSENT: homicidal ideation, suicidal ideation Skin exam: PRESENT: dry, intact, warm. ABSENT: cyanosis, rash Results Laboratory Results: 01/05/17 04:28 01/05/17 04:28 01/05/17 01/05/17 04:28 04:28 WBC 5.4 RBC 4.53 Hgb 14.5 Hct 41.3 MCV 91 MCH 32.1 MCHC 35.2 RDW 14.2 H Plt Count 169 Seg Neutrophils % 47.9 Lymphocytes % 39.1 Monocytes % 10.3 Eosinophils % 1.9 Basophils % 0.8 Absolute Neutrophils 2.6 Absolute Lymphocytes 2.1 Absolute Monocytes 0.6 Absolute Eosinophils 0.1 Absolute Basophils 0.0 Sodium 137.9 Potassium 3.1 L Chloride 95 L Carbon Dioxide 30 Anion Gap 13 BUN 18 Creatinine 0.81 Est GFR ( Amer) > 60 Est GFR (Non-Af Amer) > 60 Glucose 82 Calcium 9.3 01/01/17 01/01/17 01/01/17 09:33 09:33 15:07 Creatine Kinase 27 L 21 L CK-MB (CK-2) 0.26 Troponin I 0.037 01/01/17 01/01/17 01/01/17 15:07 20:49 20:49 Creatine Kinase 20 L CK-MB (CK-2) < 0.22 0.29 Troponin I 0.026 0.040 Impressions: Fluoroscopy 01/02/17 00:00 IMPRESSION: Intra procedural imaging fluoro Chest X-Ray 01/04/17 06:00 IMPRESSION: Volume loss and consolidation left lung, increased compared to . Head MRI 01/04/17 10:37 IMPRESSION: No MRI evidence of brain parenchymal metastatic disease EVIDENCE OF ACUTE STROKE: NO. Assessment & Plan - Diagnosis (1) Lung mass Is this a current diagnosis for this admission?: Yes Plan: Lung ca confirmed, d/c home today, f/u in office - Time Time Spent with patient: 35 or more minutes Anticipated discharge: Home
== END 2017-01-05 09:57 | disposition home or self-care (01) | DRG 166 ==
LOC: ER 20:24 → OBSVTOIN 23:38 → INTOOBSV 23:38 → EH 23:38 → 5 12-29 01:35 → ICU 01-02 15:41 → 3W 01-03 20:06
PROVIDERS: ADMIT Internal Medicine; ATTEND Internal Medicine
PROC: 0BBJ8ZX Excision of Left Lower Lung Lobe, Via Natural or Artificial Opening Endoscopic, Diagnostic (ICD-10-PCS; 2017-01-02)
PROC: 0B9J8ZX Drainage of Left Lower Lung Lobe, Via Natural or Artificial Opening Endoscopic, Diagnostic (ICD-10-PCS; principal; 2017-01-02 12:30)
DX: C34.32 Malignant neoplasm of lower lobe, left bronchus or lung (principal); J18.1 Lobar pneumonia, unspecified organism; J44.0 Chronic obstructive pulmonary disease with (acute) lower respiratory infection; K21.9 Gastro-esophageal reflux disease without esophagitis; E78.5 Hyperlipidemia, unspecified; I10 Essential (primary) hypertension; R19.7 Diarrhea, unspecified; Z79.82 Long term (current) use of aspirin; Z79.899 Other long term (current) drug therapy; Z85.3 Personal history of malignant neoplasm of breast; Z85.21 Personal history of malignant neoplasm of larynx; F17.210 Nicotine dependence, cigarettes, uncomplicated; Z90.12 Acquired absence of left breast and nipple; Z90.49 Acquired absence of other specified parts of digestive tract; Z80.1 Family history of malignant neoplasm of trachea, bronchus and lung; Z77.111 Contact with and (suspected) exposure to water pollution
CPT/HCPCS: 31628; 36415; 520; 70553; 71010; 71020; 80048; 80053; 82550; 82553; 82803; 83735; 84443; 84484; 85025; 87040; 87804; 88305; 88341; 88342; 93005; 93010; 94667; 94668; 94799; 99285; A9577; G0378; J0171; J0330; J0456; J0696; J1100; J1644; J2250; J2370; J2405; J2704; J3010; J3490; J7060

== ENCOUNTER 2017-01-10 12:13 | Outpatient (CLI) | payer MEDICARE, BC, OTHER ==
[~2017-01-10 12:13] MED LIST changes: -ALBUTEROL SULFATE 0.083% NEB 2.5 MG/3 ML AMPUL NEB PRN; -LACTATED RINGERS 1000 ML IV PRN; -LIDOCAINE 0.5% INJ-PF (5 MG/ML) 50 ML SDV SUBCUT PRN; -LIDOCAINE 4% INJ/PF (40 MG/ML) 5 ML AMPUL NEB PRN; +NORMAL SALINE 1000 ML 1,000 ML IV PRN
[2017-01-10 14:03] VITALS: BP 120/66
== END 2017-01-10 14:31 | disposition home or self-care (01) ==
LOC: II 12:13 → 5TH 12:16 → II 14:31
PROVIDERS: ATTEND Internal Medicine
PROC: 3E0337Z Introduction of Electrolytic and Water Balance Substance into Peripheral Vein, Percutaneous Approach (ICD-10-PCS; principal; 2017-01-10)
DX: E86.0 Dehydration (principal); C34.12 Malignant neoplasm of upper lobe, left bronchus or lung
CPT/HCPCS: 96360

== ENCOUNTER 2017-01-12 10:58 | Outpatient (CLI) | payer MEDICARE, BC, OTHER ==
[2017-01-12 11:16] VITALS: BP 120/83
[2017-01-12] MEDS ORDERED: NORMAL SALINE 1000 ML 1,000 ML IV PRN (11:27)
== END 2017-01-12 12:39 | disposition home or self-care (01) ==
LOC: II 10:58 → 5TH 10:59 → II 12:39
PROVIDERS: ATTEND Internal Medicine
PROC: 3E0337Z Introduction of Electrolytic and Water Balance Substance into Peripheral Vein, Percutaneous Approach (ICD-10-PCS; principal; 2017-01-12)
DX: E86.0 Dehydration (principal); C34.12 Malignant neoplasm of upper lobe, left bronchus or lung
CPT/HCPCS: 96360

== ENCOUNTER 2017-01-16 10:01 | Day surgery (SDC) | payer MEDICARE, BC, OTHER ==
[~2017-01-16 10:01] MED LIST changes: +CEFAZOLIN 1 GM/D5W RTU 1 GM/50 ML RTUPB IV PRN; +DEXTROSE 5%-1/2 NORMAL SALINE 500 ML IV PRN; +DIAZEPAM 5 MG TABLET PO PRN; -NORMAL SALINE 1000 ML 1,000 ML IV PRN; +OXYCODONE-ACETAMINOPHEN 5-325 MG TABLET PO PRN
[2017-01-16 10:59] LABS: HEMATOCRIT 40.2 % (36.0-47.0); HGB HCT DIFFERENCE 1.8; MEAN CORPUSCULAR HEMOGLOBIN 31.7 pg (27.0-33.4); MEAN CORPUSCULAR HGB CONC 34.8 g/dL (32.0-36.0); MEAN CORPUSCULAR VOLUME 91 fl (80-97); RED CELL DISTRIBUTION WIDTH 14.3 % (11.5-14.0); WHITE BLOOD COUNT 7.8 10^3/uL (4.0-10.5)
--- NOTE | 2017-01-16 11:08 | RADIOLOGY REPORT (SQ) ---
EXAM DESCRIPTION: CHEST SINGLE VIEW COMPLETED DATE/TIME: 01/16/2017 10:54 am REASON FOR STUDY: PREOP COMPARISON: 01/04/2017 EXAM PARAMETERS: NUMBER OF VIEWS: One view. TECHNIQUE: Single frontal radiographic view of the chest acquired. RADIATION DOSE: NA LIMITATIONS: None. FINDINGS: LUNGS AND PLEURA: There is complete opacification of the left hemithorax with shift of mid line structures to the left. The left hemidiaphragm is elevated. MEDIASTINUM AND HILAR STRUCTURES: No masses. Contour normal. HEART AND VASCULAR STRUCTURES: Heart size is indeterminate. BONES: No acute findings. HARDWARE: None in the chest. OTHER: No other significant finding. IMPRESSION: There appear to be pneumonectomy changes on the left. The right lung is clear and free of infiltrates. TECHNICAL DOCUMENTATION: JOB ID: [id number] [employer]- All Rights Reserved
[2017-01-16 11:28] LABS: ANION GAP 11 (5-19); BLOOD UREA NITROGEN 8 mg/dL (7-20); CALCIUM 9.5 mg/dL (8.4-10.2); CARBON DIOXIDE 30 mmol/L (22-30); CHLORIDE 99 mmol/L (98-107); CREATININE RESULT 0.86 mg/dL (0.52-1.25); GLUCOSE 113 mg/dL (75-110); POTASSIUM 3.8 mmol/L (3.6-5.0); SODIUM 140.4 mmol/L (137-145)
[2017-01-16] MEDS ORDERED: LIDOCAINE 0.5% INJ-PF (5 MG/ML) 50 ML SDV ONE (12:44)
[2017-01-16] MEDS ORDERED: MIDAZOLAM 2 MG/2 ML INJ ONE (12:44)
[2017-01-16] MEDS ORDERED: FENTANYL CITRATE INJ/PF 100 MCG/2 ML AMPUL ONE (12:44)
[2017-01-16] MEDS ORDERED: BACITRACIN INJ 50,000 UNIT VIAL ONE (12:46)
--- NOTE | 2017-01-16 13:51 | PDOC DISCHARGE SUMMARY ---
Discharge Summary (SDC) - Discharge Final Diagnosis: 1. Lung cancer. 2. Tobacco use. 3. History of cancer. 4. Hypertension Date of Surgery: 01/16/17 Discharge Date: 01/16/17 Condition: Fair Treatment or Instructions: Discharge home [after recovery per ASU criteria]. Diet ,,as tolerated, when fully awake advance as tolerated. Activities within moderation encouraged. Follow up in my office by appointment in about [1 week]. Call for appointment. Leave wounds [covered], [keep clean and dry, until office visit in 1 week]. Hold of on school/work [until evaluation in office]. Meds per med rec. Percocet May shower [in 48 hrs], [try to keep operated area as dry as possible]. Prescriptions: Oxycodone HCl/Acetaminophen [Percocet 5-325 mg Tablet] 1 tab PO ASDIR PRN #15 tab PRN Reason: Referrals: LESLY TEJADA MD [Primary Care Provider] - Discharge Diet: As Tolerated Respiratory Treatments at Home: Deep Breathing/Coughing Discharge Activity: Activity As Tolerated Report the Following to Your Physician Immediately: Shortness of Breath, Unusual Bleeding
--- NOTE | 2017-01-16 13:54 | Operative Report ---
Operative Report DATE OF SURGERY: 01/16/17 PREOPERATIVE DIAGNOSIS: 1. Lung cancer. 2. Tobacco use. 3. History of cancer. 4. Hypertension POSTOPERATIVE DIAGNOSIS: 1. Lung cancer. Post Port-A-Cath insertion. 2. Tobacco use. 3. History of cancer. 4. Hypertension OPERATION: 1. Ultrasound evaluation of right internal jugular vein. 2. Insertion of Port-A-Cath via real-time ultrasound-guided access in the right internal jugular vein. 3. Angiogram and interpretation. SURGEON: [employer]: None ANESTHESIA: Moderate Sedation TISSUE REMOVED OR ALTERED: Not applicable. COMPLICATIONS: None. ESTIMATED BLOOD LOSS: 5 mL. INTRAOPERATIVE FINDINGS: Of a satisfactory right internal jugular vein to support catheter. Somewhat deeply placed, ultrasound of considerable value. Satisfactory position of the catheter with the tip just down in the right atrium. Easy egress of blood and ingress of heparinized solution. Contrast study showed smooth flow through the right atrium, ventricle and pulmonary outflow tract. PROCEDURE: After obtaining informed consent, the patient was taken to the [operating room] and positioned supine. The [right] neck and chest were prepared with chlorhexidine and draped out with sterile linen. After the " universal timeout ", in which it was verified that the patient continued to receive antibiotic, the procedure commenced. A steriley sheathed ultrasound probe was used to evaluate the [right] internal jugular vein. Local anesthesia was infiltrated adjacent to the probe. Access into the [right] internal jugular vein was obtained using a micropuncture needle, followed by micropuncture wire and then a micropuncture catheter. This was followed by introduction of a 0.035 guidewire the tip of which was placed down into the inferior vena cava . The port sites was marked , locally anesthetized and incision made. Dissection now proceeded to the deep subcutaneous subcutaneous tissues so that a pocket for the port was made. Meticulous hemostasis was secured and the catheter was tunneled between the 2 incisions. Proximally, the catheter was now positioned using a peel-away sheath. Distally the catheter was tailored to an appropriate length and then mated to the port using the contained fixating device. The port was now placed in the pocket and the catheter optimally positioned. The port was accessed with a Hook needle and an angiogram done under digital subtraction. The findings as dictated. With adequate and satisfactory positioning, both lumens of the chamber were irrigated with heparinized solution. The wounds were now closed using interrupted 3-0 PDS to the subcutaneous tissues and a continuous subcuticular suture of 4-0 Monocryl to the skin. These are reinforced with Steri-Strips over benzoin and then dressings applied. Time: 0.1 minute. Dose: 12.25 m Gy Contrast: 5 mls. Isovue 300. Copies of the dictated operative report for Dr. Val Byrd MD.
[2017-01-16 15:12] VITALS: BP 137/73
--- NOTE | 2017-01-16 16:21 | RADIOLOGY REPORT (SQ) ---
EXAM DESCRIPTION: PORTACATH INSERTION COMPLETED DATE/TIME: 01/16/2017 2:22 pm REASON FOR STUDY: C34.12 LUNG CA C34.12 MALIGNANT NEOPLASM OF UPPER LOBE, LEFT BRONCHUS OR ANTONIA COMPARISON: None. FLUOROSCOPY TIME: 0.1 minute 5 images saved to PACS. TECHNIQUE: Intra-operative images acquired during surgical procedure to evaluate progress. NUMBER OF IMAGES: 5 LIMITATIONS: None. FINDINGS: Selected images from right Port-A-Cath placement. Tip overlies the SVC. IMPRESSION: IMAGE(S) OBTAINED DURING PROCEDURE. COMMENT: Quality ID [id number]: Final reports for procedures using fluoroscopy that document radiation exp osure indices, or exposure time and number of fluorographic images (if radiation exposure indices are not available) Please consult full operative report of the attending physician for description of the procedure. TECHNICAL DOCUMENTATION: JOB ID: [id number] [employer]- All Rights Reserved
== END 2017-01-16 15:12 | disposition home or self-care (01) ==
LOC: CCL 10:01
PROVIDERS: ATTEND Surgery
PROC: 05HM33Z Insertion of Infusion Device into Right Internal Jugular Vein, Percutaneous Approach (ICD-10-PCS; principal; 2017-01-16)
DX: C34.12 Malignant neoplasm of upper lobe, left bronchus or lung (principal); E78.00 Pure hypercholesterolemia, unspecified; I10 Essential (primary) hypertension; M19.90 Unspecified osteoarthritis, unspecified site; Z86.79 Personal history of other diseases of the circulatory system; Z85.3 Personal history of malignant neoplasm of breast; Z85.828 Personal history of other malignant neoplasm of skin; Z87.891 Personal history of nicotine dependence; Z79.899 Other long term (current) drug therapy; Z79.82 Long term (current) use of aspirin
CPT/HCPCS: 36415; 85027; 80048; 36561; 76937; 77001; 71010; C1752; C1788; J2250; J3490 ×2; J0690; A9270 ×2; J3010; J1644

== ENCOUNTER 2017-01-24 00:53 | Inpatient (IN) | payer MEDICARE, BC, OTHER ==
[2017-01-24] MEDS ORDERED: ONDANSETRON HCL INJ/PF 4 MG/2 ML SDV IV ONE (01:46)
[2017-01-24] MEDS ORDERED: NORMAL SALINE 1000 ML 1,000 ML IV ONE (01:46)
--- NOTE | 2017-01-24 01:59 | ER Document Report ---
ED General <MAYLIN VILCHIS - Last Filed: 01/24/17 05:48> <JENNIFER MELTON - Last Filed: 01/24/17 07:07> - General TRAVEL OUTSIDE OF THE [place] IN LAST 30 DAYS: No <MAYLIN HAMEED - Last Filed: 01/25/17 04:25> - General Chief Complaint: Abdominal Pain Stated Complaint: ABDOMINAL PAIN Time Seen by Provider: 01/24/17 01:02 Notes: Patient is a 71-year-old female with a past medical history of stage III small cell lung cancer currently on chemotherapy who received induction therapy on Sunday through Sunday of last week who presents with generalized abdominal pain, nausea, dry heaving, diarrhea, and per the family altered mental status and repeated episodes of syncope. The history provided by the patient is very difficult to obtain as she does seem somewhat confused although is alert and oriented. The family reports that since receiving chemotherapy patient has been complaining of a generalized, constant abdominal pain. Nothing seemed to improve or worsen her symptoms. She has had dry heaving but no vomiting is. They had not noticed diarrhea at all but the patient herself had initially reported to me that she had diarrhea since this morning. The family states that tonight the patient had 2 episodes of syncope and it seemed like for. Time she had almost stopped breathing. History is otherwise unable to be obtained as the patient has difficulty characterizing what is going on, spends most the time moaning (MAYLIN HAMEED) - Related Data Allergies/Adverse Reactions: No Known Allergies Allergy (Verified 12/15/16 16:00) Home Medications: Current Home Medications Budesonide/Formoterol Fumarate [Symbicort HFA 160-4.5 mcg Inhaler 6 gm] 2 puff IH Q12 01/24/17 [History] Lorazepam [Ativan 0.5 mg Tablet] 0.5 mg PO Q8HP PRN 01/24/17 [History] Metoclopramide HCl [Reglan 10 mg Tablet] 10 mg PO Q4HP PRN 01/24/17 [History] Ondansetron HCl [Zofran 8 mg Tablet] 8 mg PO Q8HP PRN 01/24/17 [History] Promethazine HCl [Phenergan 25 mg Tablet] 25 mg PO Q4HP PRN 01/24/17 [History] Past Medical History - General Information source: Patient, Relative - Social History Smoking Status: Former Smoker Frequency of alcohol use: None Drug Abuse: None Lives with: Family Family History: CAD, Malignancy - Mother with lung cancer Patient has suicidal ideation: No Patient has homicidal ideation: No - Past Medical History Cardiac Medical History: Reports: Hx Congestive Heart Failure - secondary to "double pneumonia", Hx Coronary Artery Disease, Hx Hypercholesterolemia, Hx Hypertension Denies: Hx Heart Attack Pulmonary Medical History: Reports: Hx COPD, Hx Pneumonia Denies: Hx Asthma, Hx Bronchitis Neurological Medical History: Denies: Hx Cerebrovascular Accident, Hx Seizures Renal/ Medical History: Denies: Hx Peritoneal Dialysis Musculoskeltal Medical History: Denies Hx Arthritis Past Surgical History: Reports: Hx Breast Surgery - reconstruction, Hx Cholecystectomy, Hx Mastectomy - left, Hx Tubal Ligation - Immunizations Hx Diphtheria, Pertussis, Tetanus Vaccination: No <MAYLIN HAMEED - Last Filed: 01/25/17 04:25> Review of Systems <MAYLIN VILCHIS - Last Filed: 01/24/17 05:48> <JENNIFER MELTON - Last Filed: 01/24/17 07:07> <MAYLIN HAMEED - Last Filed: 01/25/17 04:25> - Review of Systems Notes: Constitutional: Negative for fever. HENT: Negative for sore throat. Eyes: Negative for visual changes. Cardiovascular: Negative for chest pain. Respiratory: Negative for shortness of breath. Gastrointestinal: Positive for abdominal pain, nausea, diarrhea Genitourinary: Negative for dysuria. Musculoskeletal: Negative for back pain. Skin: Negative for rash. Neurological: Negative for headaches, weakness or numbness. 10 point ROS negative except as marked above and in HPI. (MAYLIN HAMEED) Physical Exam <MAYLIN VILCHIS - Last Filed: 01/24/17 05:48> <JENNIFER MELTON - Last Filed: 01/24/17 07:07> - Vital signs Interpretation: Normal <MAYLIN HAMEED - Last Filed: 01/25/17 04:25> - Vital signs Vitals: Pulse Resp BP Pulse Ox 87 22 H 110/67 97 01/24/17 00:58 01/24/17 00:58 01/24/17 00:58 01/24/17 00:58 Notes: PHYSICAL EXAMINATION: GENERAL: Appears pale, uncomfortable but no acute distress HEAD: Atraumatic, normocephalic. EYES: Pupils equal round and reactive to light, extraocular movements intact, sclera anicteric, conjunctiva are normal. ENT: nares patent, oropharynx clear without exudates. Dry mucous membranes. NECK: Normal range of motion, supple without lymphadenopathy LUNGS: Breath sounds clear to auscultation bilaterally and equal. No wheezes rales or rhonchi. HEART: Regular rate and rhythm without murmurs ABDOMEN: Soft, no focal abdominal tenderness. Bowel sounds present. No rebound or guarding. EXTREMITIES: no pitting or edema. No cyanosis. NEUROLOGICAL: No focal neurological deficits. Moves all extremities spontaneously and on command. PSYCH: Somewhat lethargic, slow to respond to questions but alert and oriented SKIN: Warm, Dry, normal turgor, there is a 2 x 2 circular area of erythema on the right tricep area (MAYLIN HAMEED) Course - Laboratory Result Diagrams: 01/24/17 03:15 01/24/17 01:35 <MAYLIN VILCHIS - Last Filed: 01/24/17 05:48> - Laboratory Result Diagrams: 01/24/17 03:15 01/24/17 01:35 <JENNIFER MELTON - Last Filed: 01/24/17 07:07> - Laboratory Result Diagrams: 01/24/17 03:15 01/24/17 01:35 - Diagnostic Test Radiology reviewed: Image reviewed, Reports reviewed <MAYLIN HAMEED - Last Filed: 01/25/17 04:25> - Re-evaluation Re-evalutation: 01/24/17 05:50 Mrs. Brown was checked out to me to follow-up on a troponin and then call back hospitalist with results. Troponin remains stable. I did speak with the hospitalist, Dr. Padgett, agrees to accept the patient. He recommends that we also give the patient vancomycin. I have ordered the vancomycin. Patient will be admitted. Dictation of this chart was performed using voice recognition software; therefore, there may be some unintended grammatical errors. 01/24/17 05:51 (MAYLIN VILCHIS) 01/24/17 01:57 Patient presents with vomiting, diarrhea, and generalized abdominal cramping for the past 24 hours. Her last dose of chemotherapy for metastatic lung cancer was 3 days ago. Patient reports he has had similar symptoms with prior to the chemotherapy but never to this degree of severity. On examination she has no focal abdominal tenderness, but is clutching her abdomen and moaning. No rebound or guarding. She does appear clinically somewhat dehydrated and does appear quite uncomfortable. She also appears somewhat confused although is alert and oriented. Given her age, generalized nature of her symptoms, and patient's very difficult historian status, will proceed with a more aggressive workup including labs and CT abdomen pelvis to evaluate for any acute intra- abdominal pathology including an acute appendicitis, bowel obstruction, less likely mesenteric ischemia, or bowel perforation. 01/24/17 02:39 Continues to be ill in appearance and family is not at the bedside and provides a much more helpful history. They report the patient actually had 2 episodes of syncope prior to arrival today and has been lethargic over the weekend. They state that she has been complaining of abdominal pain actually for 3 days and having repeat dry heaving but has not had diarrhea as reported. Patient has an elevated troponin at 0.110 of which she does not have a history based on prior medical review. Her EKG does not show any ST changes. She denies chest pain. However the context of syncope this is certainly a worrisome finding. Patient is also noted on reexamination to have a cellulitis of her right upper extremity where an erythropoietin injection was given. Vitals continue to show no distinct abnormalities. I spent an additional 25-30 minutes at the bedside with the family going over the care plan. I anticipate the patient may require transfer to an alternative facility given her elevated troponin although it does remain below our AMI cut off. 01/24/17 03:33 I have reviewed the CT scan and very worried the patient is having an aortic dissection based on my review of the CT may also have pneumoperitoneum. It took approximately 10 minutes to get a hold of the radiologist and he states he has not yet received the CT images. I have asked him for an emergent read given my concerns awaiting a call back 01/24/17 03:42 I have spoke with radiologist on-call Dr. Pop regarding CT findings. He notes that she has an aortic aneurysm that is increased from 4-4.6 cm but there is no active dissection. He notes that there is a localized colitis to the left transverse colon going into the descending colon with associated colonic distention which may account for the patient's symptoms and is likely secondary to her recent chemotherapy given clinical history. However I have also empirically initiated IV Zosyn for coverage of the colitis as well as her cellulitis on the right upper extremity. Patient's vitals at this point remain within normal limits. Head CT is unremarkable. Chest x-ray without any evidence of a recurrent pneumonia. Will discuss with hospitalist for admission (MAYLIN HAMEED) - Vital Signs Vital signs: Temp Pulse Resp BP Pulse Ox 98.3 F 72 18 128/73 H 93 01/25/17 00:19 01/25/17 02:00 01/25/17 00:19 01/25/17 00:19 01/25/17 00:19 - Laboratory Laboratory results interpreted by me: 01/24/17 01/24/17 01/24/17 01:35 01:35 03:15 WBC 3.3 L Hct 34.6 L RDW 14.1 H Plt Count 59 L Monocytes % (Manual) 0 L Abs Monocytes (Manual) 0.0 L Sodium 136.4 L Chloride 95 L BUN 29 H Est GFR (Non-Af Amer) 55 L Glucose 148 H Total Bilirubin 3.2 H Urine Protein 30 H - Diagnostic Test Radiology results interpreted by me: 01/24/17 03:43 CT head: No acute intracranial bleed or mass (MAYLIN HAMEED) - EKG Interpretation by Me Additional EKG results interpreted by me: 01/24/17 03:44 Normal sinus rhythm. Rate 76. No ST elevations or depressions. QTC is 439. ( MAYLIN HAMEED) Critical Care Note <MAYLIN VILCHIS - Last Filed: 01/24/17 05:48> <JENNIFER MELTON - Last Filed: 01/24/17 07:07> - Critical Care Note Total time excluding time spent on procedures (mins): 40 <MAYLIN HAMEED - Last Filed: 01/25/17 04:25> - Critical Care Note Comments: Critical care time spent obtaining history from patient or surrogate, discussions with consultants, development of treatment plan with patient or surrogate, evaluation of patient's response to treatment, examination of patient , ordering and performing treatments and interventions, ordering and review of laboratory studies, re-evaluation of patient's condition, ordering and review of radiographic studies and review of old charts (MAYLIN HAMEED) Discharge <MAYLIN VILCHIS - Last Filed: 01/24/17 05:48> - Discharge Admitting Provider: Hospitalist Unit Admitted: IMCU <JENNIFER MELTON - Last Filed: 01/24/17 07:07> <MAYLIN HAMEED - Last Filed: 01/25/17 04:25> - Discharge Clinical Impression: Colitis, History of breast cancer Abdominal pain Qualifiers: Abdominal location: unspecified location Qualified Code(s): R10.9 - Unspecified abdominal pain Cellulitis Qualifiers: Site of cellulitis: unspecified site Qualified Code(s): L03.90 - Cellulitis, unspecified Lung cancer Qualifiers: Laterality: unspecified laterality Lung location: unspecified part of lung Qualified Code(s): C34.90 - Malignant neoplasm of unspecified part of unspecified bronchus or lung Condition: Stable Disposition: ADMITTED INPATIENT
[2017-01-24 02:01] LABS: ALANINE AMINOTRANSFERASE 34 U/L (9-52); ALBUMIN 3.8 g/dL (3.5-5.0); ALKALINE PHOSPHATASE 94 U/L (38-126); ANION GAP 14 (5-19); ASPARTATE AMINO TRANSFERASE 21 U/L (14-36); BILIRUBIN,DIRECT 0.1 mg/dL (0.0-0.4); BILIRUBIN,TOTAL 3.2 mg/dL (0.2-1.3); BLOOD UREA NITROGEN 29 mg/dL (7-20); CALCIUM 8.9 mg/dL (8.4-10.2); CARBON DIOXIDE 27 mmol/L (22-30); CHLORIDE 95 mmol/L (98-107); GLUCOSE 148 mg/dL (75-110); LIPASE 105.8 U/L (23-300); POTASSIUM 3.7 mmol/L (3.6-5.0); SODIUM 136.4 mmol/L (137-145); TOTAL PROTEIN 6.3 g/dL (6.3-8.2)
[2017-01-24 02:28] LABS: APPEARANCE,URINE CLEAR; BILIRUBIN,URINE NEGATIVE (NEGATIVE); COLOR,URINE YELLOW; GLUCOSE, URINE NEGATIVE (NEGATIVE); KETONES,URINE NEGATIVE (NEGATIVE); LEUKOCYTE ESTERASE,URINE NEGATIVE (NEGATIVE); NITRITE,URINE NEGATIVE (NEGATIVE); PROTEIN,URINE 30 mg/dL (NEGATIVE); URINE SPECIFIC GRAVITY 1.011; UROBILINOGEN,URINE NEGATIVE mg/dL (<2.0)
[2017-01-24] MEDS ORDERED: PIPERACILLIN/TAZOBACTAM 3.375 GM VIAL IV ONE (03:25)
--- NOTE | 2017-01-24 03:29 | RADIOLOGY REPORT (SQ) ---
EXAM DESCRIPTION: CT HEAD WITHOUT CLINICAL HISTORY: 71 years Female, ams COMPARISON: 05/31/2010. TECHNIQUE: This exam was performed according to our departmental dose-optimization program, which includes automated exposure control, adjustment of the mA and/or kV according to patient size and/or use of iterative reconstruction technique. FINDINGS: Mild white matter microangiopathy. No hemorrhage or infarct. No mass, mass effect, or midline shift. Extra-axial structures appear grossly intact. IMPRESSION: No acute findings.
[2017-01-24 03:37] LABS: HEMATOCRIT 34.6 % (36.0-47.0); HEMOGLOBIN 12.2 g/dL (12.0-15.5); MEAN CORPUSCULAR HEMOGLOBIN 32.2 pg (27.0-33.4); MEAN CORPUSCULAR HGB CONC 35.3 g/dL (32.0-36.0); MEAN CORPUSCULAR VOLUME 91 fl (80-97); RED BLOOD COUNT 3.79 10^6/uL (3.72-5.28); RED CELL DISTRIBUTION WIDTH 14.1 % (11.5-14.0); WHITE BLOOD COUNT 3.3 10^3/uL (4.0-10.5)
[2017-01-24] MEDS ORDERED: MORPHINE SULFATE 10 MG/ML INJ IV PRN (03:42)
--- NOTE | 2017-01-24 03:48 | RADIOLOGY REPORT (SQ) ---
EXAM DESCRIPTION: CT ABD/PELVIS WITH IV ONLY CLINICAL HISTORY: 71 years Female, abdominal pain COMPARISON: 02/12/2014. TECHNIQUE: IV contrast. This exam was performed according to our departmental dose-optimization program, which includes automated exposure control, adjustment of the mA and/or kV according to patient size and/or use of iterative reconstruction technique. FINDINGS: 4.7 x 4.5 cm infrarenal abdominal aortic aneurysm with peripheral hyperdensity anteriorly likely related to calcification of the anterior wall; increased compared with prior exam from February 12, 2014. Moderate diffuse bowel wall thickening of the transverse colon and left colon. Moderate consolidation of the left lower lobe and small moderate left pleural effusion. Bilateral mammary prostheses. Atrophic left kidney. Liver, spleen, right kidney including a small cyst/calyceal diverticulum, adrenals, pancreas, and pelvic organs appear otherwise unremarkable. Small L5-S1 disc bulge. IMPRESSION: 1. Increased 4.7 cm abdominal aortic aneurysm. Vascular surgery consultation and CT surveillance every six months recommended. 2. Left lower lobar pneumonia. 3. Moderate nonspecific colitis pattern. Critical results reporting: The results of the examination have been personally discussed with the referring health care provider, MAYLIN HAMEED, immediately following interpretation of the examination on 01/24/2017 2:34 AM [facility].
--- NOTE | 2017-01-24 04:10 | RADIOLOGY REPORT (SQ) ---
EXAM DESCRIPTION: CHEST SINGLE VIEW CLINICAL HISTORY: 71 years, Female, ams, sob COMPARISON: 01/16/2017. NUMBER OF VIEWS: 1 LIMITATIONS: None. FINDINGS: Moderate left lower lobar opacity, moderate haziness layered effusion of the left lower hemithorax, moderate lung volumes, surgical clips of the left lateral thorax, right internal jugular miniport tip at the cavoatrial junction, normal cardiac silhouette, and intact bony thorax. IMPRESSION: Moderate left lower lobar opacity-layered effusion. Interval improvement. 2010 [employer]- All Rights Reserved
[2017-01-24 04:14] LABS: PLATELET COUNT 59 10^3/uL (150-450)
[2017-01-24 04:15] LABS: ABSOLUTE LYMPHOCYTES# (MANUAL) 0.8 10^3/uL (0.5-4.7); ABSOLUTE NEUTROPHILS# (MANUAL) 2.5 10^3/uL (1.7-8.2); BAND NEUTROPHILS % (MANUAL) 3 % (3-5); BASOPHILS % (MANUAL) 1 % (0-2); EOSINOPHILS % (MANUAL) 0 % (0-6); LYMPHOCYTES % (MANUAL) 23 % (13-45); MONOCYTES % (MANUAL) 0 % (3-13); SEGMENTED NEUTROPHILS % (MAN) 73 % (42-78); TOTAL CELLS COUNTED 100; TOXIC GRANULATION SLIGHT; TOXIC VACUOLATION PRESENT
[2017-01-24 04:16] LABS: ANISOCYTOSIS SLIGHT; PLATELET COMMENT DECREASED; PLATELET LARGE PRESENT; POIKILOCYTOSIS SLIGHT; ROULEAUX SLIGHT
[2017-01-24] MEDS ORDERED: VANCOMYCIN HCL INJ 1000 MG VIAL IV ONE (05:47)
--- NOTE | 2017-01-24 06:45 | PDOC H&P ---
History of Present Illness Admission Date/PCP: LESLY TEJADA, Patient complains of: Generalized weakness History of Present Illness: EVE GUILLERMO is a 71 year old female with a past medical history of left- sided breast cancer, status post mastectomy, COPD tobacco dependence, chronic bronchitis, hypertension and recently diagnosed left-sided small cell lung cancer with postobstructive pneumonia 3 weeks ago. Patient has subsequently undergone unknown chemotherapy and has subsequently developed severe generalized weakness, confusion, constipation, nonproductive cough and right upper extremity erythema and induration. In the emergency room she is found to have; indeterminate troponin, a left lower lobe infiltrate suggestive of pneumonia, CT abdomen pelvis suggestive of colitis, and a physical exam notable for right upper extremity cellulitis. She started on empiric antibiotics of vancomycin and Zosyn and referred to the hospitalist for admission. She denies fever chills or palpitations. She does abdominal pain and nausea following severe constipation resolved with Dulcolax. The area of induration and erythema is the site of recent intramuscular injection. Past Medical History Cardiac Medical History: Reports: Congestive Heart Failure - secondary to "double pneumonia", Coronary Artery Disease, Hyperlipidema, Hypertension Denies: Myocardial Infarction Pulmonary Medical History: Reports: Chronic Obstructive Pulmonary Disease (COPD) , Pneumonia Denies: Asthma, Bronchitis Neurological Medical History: Denies: Seizures Malignancy Medical History: Reports: Breast Cancer, Lung Cancer Musculoskeltal Medical History: Denies: Arthritis Hematology: Reports: Anemia Past Surgical History Past Surgical History: Reports: Cholecystectomy, Mastectomy - left, Tubal Ligation Social History Information Source: Patient, Relative, [facility] Records Lives with: Family Smoking Status: Former Smoker Frequency of Alcohol Use: None Hx Recreational Drug Use: No Drugs: None Hx Prescription Drug Abuse: No - Advance Directive Resuscitation Status: Full Code Family History Family History: CAD, Malignancy - Mother with lung cancer Parental Family History Reviewed: Yes Children Family History Reviewed: Yes Sibling(s) Family History Reviewed.: Yes Medication/Allergy Home Medications: Budesonide/Formoterol Fumarate [Symbicort 160-4.5 Mcg Inhaler] 2 puff PO Q12 Carvedilol [Coreg 25 mg Tablet] 25 tab PO Q12 12/19/16 Cetirizine HCl 10 mg PO DAILY 12/19/16 Cyanocobalamin (Vitamin B-12) [Vitamin B12] 1,000 mcg PO BID 12/19/16 Ferrous Sulfate 325 mg PO DAILY 12/19/16 Fluticasone Propionate [Flovent Diskus] 1 spray IH DAILY 12/19/16 Folic Acid 1 mg PO DAILY 12/19/16 Hydrochlorothiazide 25 mg PO DAILY 12/19/16 Ipratropium/Albuterol Sulfate [Combivent Respimat 4 gm Mdi] 1 puff PO QID Montelukast Sodium [Singulair 10 mg Tablet] 10 mg PO QPM 12/19/16 Pantoprazole Sodium [Protonix] 20 mg PO DAILY 12/19/16 Potassium Chloride [Klor-Con 10] 10 meq PO BID 12/19/16 Simvastatin 20 mg PO QPM 12/19/16 Sodium Chloride [Walker Nasal [place] 44 ml Bottle] 1 spray NAREB QIDP PRN Solifenacin Succinate [Vesicare] 10 mg PO DAILY 12/19/16 Acetaminophen [Tylenol 325 mg Tablet] 650 mg PO Q4HP PRN tablet 01/05/17 Oxycodone HCl/Acetaminophen [Percocet 5-325 mg Tablet] 1 tab PO ASDIR PRN #15 tab 01/16/17 Allergies/Adverse Reactions: No Known Allergies Allergy (Verified 12/15/16 16:00) Review of Systems Constitutional: PRESENT: as per HPI, anorexia, fatigue, weakness. ABSENT: fever (s), night sweats Eyes: ABSENT: visual disturbances Ears: ABSENT: hearing changes Cardiovascular: ABSENT: chest pain, dyspnea on exertion, edema, orthropnea, palpitations Respiratory: PRESENT: as per HPI, cough, dyspnea. ABSENT: hemoptysis, sputum Gastrointestinal: PRESENT: as per HPI, bloating, constipation, nausea. ABSENT: vomiting Genitourinary: ABSENT: dysuria, hematuria Musculoskeletal: ABSENT: joint swelling Integumentary: ABSENT: rash, wounds Neurological: ABSENT: abnormal gait, abnormal speech, confusion, dizziness, focal weakness, syncope Psychiatric: ABSENT: anxiety, depression, homidical ideation, suicidal ideation Endocrine: ABSENT: cold intolerance, heat intolerance, polydipsia, polyuria Hematologic/Lymphatic: ABSENT: easy bleeding, easy bruising Physical Exam Vital Signs: Temp Pulse Resp BP Pulse Ox 87 11 L 106/75 94 01/24/17 00:58 01/24/17 05:16 01/24/17 05:16 01/24/17 05:16 Intake & Output 01/22/17 01/23/17 01/24/17 11:59 11:59 11:59 Weight 74 kg General appearance: PRESENT: cooperative, mild distress Head exam: PRESENT: atraumatic, normocephalic Eye exam: PRESENT: conjunctiva pink, EOMI, PERRLA. ABSENT: scleral icterus Ear exam: PRESENT: normal external ear exam Mouth exam: PRESENT: moist, tongue midline Neck exam: ABSENT: carotid bruit, JVD, lymphadenopathy, thyromegaly Respiratory exam: PRESENT: crackles, decreased breath sounds, prolonged expiratory phas, tachypnea. ABSENT: rhonchi Cardiovascular exam: PRESENT: RRR. ABSENT: diastolic murmur, rubs, systolic murmur Pulses: PRESENT: normal dorsalis pedis pul Vascular exam: PRESENT: normal capillary refill GI/Abdominal exam: PRESENT: distended, hyperactive bowel sounds, soft, tenderness. ABSENT: ascites, firm, guarding, rebound Rectal exam: PRESENT: deferred Extremities exam: PRESENT: full ROM, other - Posterior right upper extremity with 3 x 3 cm erythema, induration and tenderness. No open ulcer or exudate. ABSENT: calf tenderness, clubbing, pedal edema Neurological exam: PRESENT: alert, altered, oriented to person, oriented to place, CN II-XII grossly intact Psychiatric exam: PRESENT: appropriate affect, normal mood. ABSENT: homicidal ideation, suicidal ideation Skin exam: PRESENT: dry, intact, warm. ABSENT: cyanosis, rash Results Laboratory Results: 01/24/17 03:15 01/24/17 01:35 01/24/17 01/24/17 01/24/17 01:35 01:35 01:35 WBC Cancelled RBC Cancelled Hgb Cancelled Hct Cancelled MCV Cancelled MCH Cancelled MCHC Cancelled RDW Cancelled Plt Count Cancelled Seg Neutrophils % Cancelled Lymphocytes % Cancelled Monocytes % Cancelled Eosinophils % Cancelled Basophils % Cancelled Absolute Neutrophils Cancelled Absolute Lymphocytes Cancelled Absolute Monocytes Cancelled Absolute Eosinophils Cancelled Absolute Basophils Cancelled Sodium 136.4 L Potassium 3.7 Chloride 95 L Carbon Dioxide 27 Anion Gap 14 BUN 29 H Creatinine 0.99 Est GFR ( Amer) > 60 Est GFR (Non-Af Amer) 55 L Glucose 148 H Lactic Acid Calcium 8.9 Total Bilirubin 3.2 H AST 21 ALT 34 Alkaline Phosphatase 94 Total Protein 6.3 Albumin 3.8 Lipase 105.8 Urine Color YELLOW Urine Appearance CLEAR Urine pH 7.0 Ur Specific [place] 1.011 Urine Protein 30 H Urine Glucose (UA) NEGATIVE Urine Ketones NEGATIVE Urine Blood NEGATIVE Urine Nitrite NEGATIVE Ur Leukocyte Esterase NEGATIVE Urine WBC (Auto) 2 Urine RBC (Auto) 0 01/24/17 01/24/17 03:15 04:04 WBC 3.3 L RBC 3.79 Hgb 12.2 Hct 34.6 L MCV 91 MCH 32.2 MCHC 35.3 RDW 14.1 H Plt Count 59 L Seg Neutrophils % Not Reportable Lymphocytes % Not Reportable Monocytes % Not Reportable Eosinophils % Not Reportable Basophils % Not Reportable Absolute Neutrophils Not Reportable Absolute Lymphocytes Not Reportable Absolute Monocytes Not Reportable Absolute Eosinophils Not Reportable Absolute Basophils Not Reportable Sodium Potassium Chloride Carbon Dioxide Anion Gap BUN Creatinine Est GFR ( Amer) Est GFR (Non-Af Amer) Glucose Lactic Acid 1.9 Calcium Total Bilirubin AST ALT Alkaline Phosphatase Total Protein Albumin Lipase Urine Color Urine Appearance Urine pH Ur Specific [place] Urine Protein Urine Glucose (UA) Urine Ketones Urine Blood Urine Nitrite Ur Leukocyte Esterase Urine WBC (Auto) Urine RBC (Auto) 01/24/17 01/24/17 01:35 04:50 Troponin I 0.110 0.106 Impressions: Abdomen/Pelvis CT 01/24/17 01:11 IMPRESSION: 1. Increased 4.7 cm abdominal aortic aneurysm. Vascular surgery consultation and CT surveillance every six months recommended. 2. Left lower lobar pneumonia. 3. Moderate nonspecific colitis pattern. Critical results reporting: The results of the examination have been personally discussed with the referring health care provider, MAYLIN HAMEED, immediately following interpretation of the examination on 01/24/2017 2:34 AM [facility]. Chest X-Ray 01/24/17 02:38 IMPRESSION: Moderate left lower lobar opacity-layered effusion. Interval improvement. 2010 [employer]- All Rights Reserved Head CT 01/24/17 02:38 IMPRESSION: No acute findings. Assessment & Plan - Diagnosis (1) Pneumonia Qualifiers: Pneumonia type: due to unspecified organism Laterality: left Lung location: lower lobe of lung Qualified Code(s): J18.1 - Lobar pneumonia, unspecified organism Is this a current diagnosis for this admission?: Yes Plan: Complicated by small cell lung cancer, no evidence of atelectasis, empiric antibiotics, albuterol and Atrovent, incentive spirometry, follow-up CBC and consider additional imaging (2) Lung cancer Qualifiers: Laterality: unspecified laterality Lung location: unspecified part of lung Qualified Code(s): C34.90 - Malignant neoplasm of unspecified part of unspecified bronchus or lung Is this a current diagnosis for this admission?: Yes Plan: Patient considering discontinuation of chemotherapy, oncology consult as needed (3) Cellulitis Qualifiers: Site of cellulitis: unspecified site Qualified Code(s): L03.90 - Cellulitis , unspecified Is this a current diagnosis for this admission?: Yes Plan: Cellulitis versus hypersensitivity reaction from Neupogen, symptomatic management, vancomycin and Zosyn ordered follow-up CBC (4) Colitis Is this a current diagnosis for this admission?: Yes Plan: Patient gives history of severe constipation just resolved with Dulcolax. Resume clear liquid diet reevaluate with physical exam. - Time Time Spent: 50 to 70 Minutes - Inpatient Certification Medical Necessity: Need Close Monitoring Due to Risk of Patient Decompensation
--- NOTE | 2017-01-24 07:57 | EKG REPORT ---
SEVERITY:- ABNORMAL ECG - SINUS TACHYCARDIA NONSPECIFIC T ABNORMALITIES, LATERAL LEADS : Confirmed by: Mirza Mejia MD 24-Jan-2017 07:56:15
[2017-01-24] MEDS ORDERED: IPRATROPIUM/ALBUTEROL 0.5-2.5 MG/3 ML AMPUL NEB PRN (09:20)
[2017-01-24] MEDS ORDERED: ENOXAPARIN SODIUM INJ 40 MG/0.4 ML DISP.SYRIN SUBCUT SCH (10:00)
[2017-01-24] MEDS: NORMAL SALINE 1000 ML 1,000 ML IV PRN ×2 (10:35→22:27)
[2017-01-24] MEDS: CEFEPIME 2 GM/D5W RTU 2 GM/50 ML RTUPB IV SCH ×2 (10:39→22:27)
[2017-01-24] MEDS ORDERED: METOCLOPRAMIDE HCL 10 MG TABLET PO PRN (11:14)
[2017-01-24] MEDS ORDERED: LORAZEPAM 0.5 MG TABLET PO PRN (11:14)
[2017-01-24] MEDS: LEVOFLOXACIN 500 MG/D5W RTU 500 MG/100 ML RTUPB IV SCH (11:40)
[2017-01-24] MEDS ORDERED: ACETAMINOPHEN 325 MG TABLET PO PRN (12:04)
[2017-01-24] MEDS ORDERED: LANSOPRAZOLE 30 MG TAB.RAP.DR PO ONE (13:00)
[2017-01-24] MEDS: LANSOPRAZOLE 30 MG TAB.RAP.DR PO SCH (17:22)
[2017-01-24] MEDS: BUDESONIDE/FORMOTEROL 160-4.5 MCG 60 PUFF/6 GM MDI IH SCH (22:24)
[2017-01-25] MEDS: LANSOPRAZOLE 30 MG TAB.RAP.DR PO SCH ×2 (05:24→17:21)
[2017-01-25 06:42] LABS: HEMATOCRIT 31.2 % (36.0-47.0); HEMOGLOBIN 11.3 g/dL (12.0-15.5); MEAN CORPUSCULAR HEMOGLOBIN 32.3 pg (27.0-33.4); MEAN CORPUSCULAR HGB CONC 36.1 g/dL (32.0-36.0); MEAN CORPUSCULAR VOLUME 90 fl (80-97); RED BLOOD COUNT 3.48 10^6/uL (3.72-5.28); RED CELL DISTRIBUTION WIDTH 13.9 % (11.5-14.0)
[2017-01-25 06:47] LABS: ALANINE AMINOTRANSFERASE 26 U/L (9-52); ALKALINE PHOSPHATASE 70 U/L (38-126); ANION GAP 7 (5-19); ASPARTATE AMINO TRANSFERASE 17 U/L (14-36); BILIRUBIN,DIRECT 0.2 mg/dL (0.0-0.4); BILIRUBIN,TOTAL 1.4 mg/dL (0.2-1.3); BLOOD UREA NITROGEN 14 mg/dL (7-20); CALCIUM 8.5 mg/dL (8.4-10.2); CARBON DIOXIDE 28 mmol/L (22-30); CHLORIDE 103 mmol/L (98-107); GLUCOSE 90 mg/dL (75-110); SODIUM 138.1 mmol/L (137-145); TOTAL PROTEIN 5.6 g/dL (6.3-8.2)
[2017-01-25 06:50] LABS: POTASSIUM 2.8 mmol/L (3.6-5.0)
[2017-01-25] MEDS ORDERED: POTASSIUM CHLORIDE 10 MEQ TABLET.SA PO ONE (07:20)
[2017-01-25 07:21] LABS: ABSOLUTE LYMPHOCYTES# (MANUAL) 0.8 10^3/uL (0.5-4.7); ABSOLUTE MONOCYTES # (MANUAL) 0.1 10^3/uL (0.1-1.4); ABSOLUTE NEUTROPHILS# (MANUAL) 0.4 10^3/uL (1.7-8.2); BAND NEUTROPHILS % (MANUAL) 2 % (3-5); BASOPHILS % (MANUAL) 0 % (0-2); EOSINOPHILS % (MANUAL) 2 % (0-6); LYMPHOCYTES % (MANUAL) 58 % (13-45); MONOCYTES % (MANUAL) 8 % (3-13); SEGMENTED NEUTROPHILS % (MAN) 30 % (42-78); TOTAL CELLS COUNTED 50
[2017-01-25 07:25] LABS: OVALOCYTES SLIGHT; PLATELET COMMENT DECREASED; POIKILOCYTOSIS SLIGHT; ROULEAUX SLIGHT; TEAR DROP CELLS SLIGHT; TOXIC VACUOLATION PRESENT
[2017-01-25 07:28] LABS: PLATELET COUNT 40 10^3/uL (150-450); WHITE BLOOD COUNT 1.3 10^3/uL (4.0-10.5)
[2017-01-25] MEDS ORDERED: IPRATROPIUM/ALBUTEROL 0.5-2.5 MG/3 ML AMPUL NEB PRN (07:30)
[2017-01-25] MEDS ORDERED: ACETAMINOPHEN 325 MG TABLET PO PRN (07:30)
--- NOTE | 2017-01-25 08:45 | PDOC PROGRESS REPORT ---
Subjective Progress Note for:: 01/25/17 Subjective:: The patient states to feel better. She denies any further nausea vomiting or diarrhea. She is still short of breath. The right arm erythema seem to be improving Reason For Visit: PNEUMONIA Physical Exam Vital Signs: Temp Pulse Resp BP Pulse Ox 98.3 F 68 18 135/77 H 97 01/25/17 07:34 01/25/17 07:34 01/25/17 07:34 01/25/17 07:34 01/25/17 07:34 Intake & Output 01/24/17 01/25/17 01/26/17 06:59 06:59 06:59 Intake Total 3074 Balance 3074 Weight 73.7 kg General appearance: PRESENT: mild distress Head exam: PRESENT: atraumatic Eye exam: PRESENT: conjunctiva pink Neck exam: ABSENT: carotid bruit, JVD Respiratory exam: PRESENT: rhonchi. ABSENT: rales Cardiovascular exam: PRESENT: RRR, +S1, +S2 Pulses: PRESENT: +1 pedal pulses bilateral GI/Abdominal exam: PRESENT: normal bowel sounds, soft Extremities exam: PRESENT: tenderness Musculoskeletal exam: PRESENT: ambulatory Results Laboratory Results: 01/25/17 06:09 01/25/17 06:09 01/25/17 01/25/17 06:09 06:09 WBC 1.3 L* D RBC 3.48 L Hgb 11.3 L Hct 31.2 L MCV 90 MCH 32.3 MCHC 36.1 H RDW 13.9 Plt Count 40 L Seg Neutrophils % Not Reportable Lymphocytes % Not Reportable Monocytes % Not Reportable Eosinophils % Not Reportable Basophils % Not Reportable Absolute Neutrophils Not Reportable Absolute Lymphocytes Not Reportable Absolute Monocytes Not Reportable Absolute Eosinophils Not Reportable Absolute Basophils Not Reportable Sodium 138.1 Potassium 2.8 L* Chloride 103 Carbon Dioxide 28 Anion Gap 7 BUN 14 Creatinine 0.70 Est GFR ( Amer) > 60 Est GFR (Non-Af Amer) > 60 Glucose 90 Calcium 8.5 Total Bilirubin 1.4 H AST 17 ALT 26 Alkaline Phosphatase 70 Total Protein 5.6 L Albumin 3.0 L Impressions: Abdomen/Pelvis CT 01/24/17 01:11 IMPRESSION: 1. Increased 4.7 cm abdominal aortic aneurysm. Vascular surgery consultation and CT surveillance every six months recommended. 2. Left lower lobar pneumonia. 3. Moderate nonspecific colitis pattern. Critical results reporting: The results of the examination have been personally discussed with the referring health care provider, MAYLIN HAMEED, immediately following interpretation of the examination on 01/24/2017 2:34 AM DRIVER EXAMINER. Chest X-Ray 01/24/17 02:38 IMPRESSION: Moderate left lower lobar opacity-layered effusion. Interval improvement. 2010 [employer]- All Rights Reserved Head CT 01/24/17 02:38 IMPRESSION: No acute findings. Assessment & Plan - Diagnosis (1) Hypokalemia Is this a current diagnosis for this admission?: Yes Plan: We will supplement with p.o. potassium (2) Abdominal pain Qualifiers: Abdominal location: unspecified location Qualified Code(s): R10.9 - Unspecified abdominal pain Plan: Resolved we will advance the diet (3) Cellulitis Qualifiers: Site of cellulitis: unspecified site Qualified Code(s): L03.90 - Cellulitis , unspecified Is this a current diagnosis for this admission?: Yes Plan: Continue antibiotics (4) Lung cancer Qualifiers: Laterality: unspecified laterality Lung location: unspecified part of lung Qualified Code(s): C34.90 - Malignant neoplasm of unspecified part of unspecified bronchus or lung Is this a current diagnosis for this admission?: Yes Plan: Continue current treatment follow-up with oncology (5) COPD (chronic obstructive pulmonary disease) Is this a current diagnosis for this admission?: Yes Plan: Continue inhaled steroids and nebulization treatments (6) Pneumonia Qualifiers: Pneumonia type: due to unspecified organism Laterality: left Lung location: lower lobe of lung Qualified Code(s): J18.1 - Lobar pneumonia, unspecified organism Is this a current diagnosis for this admission?: Yes Plan: Continue antibiotics (7) Tobacco abuse Is this a current diagnosis for this admission?: Yes Plan: Smoking cessation provided (8) Leukopenia due to antineoplastic chemotherapy Is this a current diagnosis for this admission?: Yes Plan: Continue with reverse isolation and antibiotics
[2017-01-25] MEDS: POTASSIUM CHLORIDE 10 MEQ TABLET.SA PO SCH ×4 (09:30→21:49)
[2017-01-25] MEDS: BUDESONIDE/FORMOTEROL 160-4.5 MCG 60 PUFF/6 GM MDI IH SCH ×2 (09:31→22:34)
--- NOTE | 2017-01-25 09:31 | PDOC CONSULTATION ---
Consultation Consult Date: 01/25/17 Consult reason:: Hematology [place] Consultation was requested for Lung Cancer History of Present Illness Admission Date/PCP: 01/24/17 07:11 LESLY TEJADA, History of Present Illness: EVE GUILLERMO is a 71 year old female with a past medical history of left- sided breast cancer, status post mastectomy, COPD tobacco dependence, chronic bronchitis, hypertension and recently diagnosed left-sided small cell lung cancer with postobstructive pneumonia 3 weeks ago. She was started on her first cycle of chemotherapy with Carboplatin and Etoposide from - with Neulasta Onpro . Patient states that since the Neulasta injection was given, she started feeling sick. She has had nausea, bone pain, diarrhea. No dyspnea or chest pain. No fever. In the emergency room she is found to have indeterminate troponin, a left lower lobe infiltrate suggestive of pneumonia, CT abdomen pelvis suggestive of colitis, and a physical exam notable for right upper extremity cellulitis. She started on empiric antibiotics of vancomycin and Zosyn. Today, she states that she is feeling much better. Past Medical History Cardiac Medical History: Reports: Congestive Heart Failure - secondary to "double pneumonia", Coronary Artery Disease, Hyperlipidema, Hypertension Denies: Myocardial Infarction Pulmonary Medical History: Reports: Chronic Obstructive Pulmonary Disease (COPD) , Pneumonia Denies: Asthma, Bronchitis Neurological Medical History: Denies: Seizures Malignancy Medical History: Reports: Breast Cancer, Lung Cancer, Other - Laryngeal cancer 1997. Breast cancer was in 2000. Musculoskeltal Medical History: Denies: Arthritis Hematology: Reports: Anemia Past Surgical History Past Surgical History: Reports: Cholecystectomy, Mastectomy - left, Tubal Ligation Social History Information Source: Patient Lives with: Family Smoking Status: Current Every Day Smoker Number of Years Smokin Last Time Smoked: 01/23/17 Frequency of Alcohol Use: None Hx Recreational Drug Use: No Drugs: None Hx Prescription Drug Abuse: No Past Social History Note: She has 3 daughters and 12 grandchildren. - Advance Directive Resuscitation Status: Full Code Family History Family History: CAD, Malignancy - Mother from CAD. Father from Lung cancer. Brother who from lung cancer. Sister living with breast cancer. Parental Family History Reviewed: Yes Children Family History Reviewed: Yes Sibling(s) Family History Reviewed.: Yes Medication/Allergy Home Medications: Budesonide/Formoterol Fumarate [Symbicort HFA 160-4.5 mcg Inhaler 6 gm] 2 puff IH Q12 01/24/17 Lorazepam [Ativan 0.5 mg Tablet] 0.5 mg PO Q8HP PRN 01/24/17 Metoclopramide HCl [Reglan 10 mg Tablet] 10 mg PO Q4HP PRN 01/24/17 Ondansetron HCl [Zofran 8 mg Tablet] 8 mg PO Q8HP PRN 01/24/17 Promethazine HCl [Phenergan 25 mg Tablet] 25 mg PO Q4HP PRN 01/24/17 Allergies/Adverse Reactions: No Known Allergies Allergy (Verified 12/15/16 16:00) Review of Systems Constitutional: ABSENT: fever(s), headache(s) Eyes: ABSENT: visual disturbances Ears: ABSENT: hearing changes Nose, Mouth, and Throat: ABSENT: sore throat Cardiovascular: ABSENT: chest pain Respiratory: ABSENT: dyspnea Gastrointestinal: PRESENT: constipation, diarrhea, nausea Musculoskeletal: PRESENT: other - Bone pain Integumentary: PRESENT: pruritus, rash Neurological: PRESENT: confusion Physical Exam Vital Signs: Temp Pulse Resp BP Pulse Ox 98.3 F 68 18 135/77 H 97 01/25/17 07:34 01/25/17 07:34 01/25/17 07:34 01/25/17 07:34 01/25/17 07:34 Intake & Output 01/24/17 01/25/17 01/26/17 06:59 06:59 06:59 Intake Total 3074 Balance 3074 Weight 73.7 kg General appearance: PRESENT: no acute distress, well-developed, well-nourished Head exam: PRESENT: atraumatic Eye exam: PRESENT: EOMI, PERRLA Mouth exam: PRESENT: moist, tongue midline Neck exam: ABSENT: lymphadenopathy, tenderness Respiratory exam: PRESENT: clear to auscultation stacia, unlabored Cardiovascular exam: PRESENT: RRR. ABSENT: systolic murmur Pulses: PRESENT: normal dorsalis pedis pul GI/Abdominal exam: PRESENT: soft. ABSENT: tenderness Extremities exam: ABSENT: pedal edema Neurological exam: PRESENT: alert, awake, oriented to person, oriented to place , oriented to time, oriented to situation Psychiatric exam: PRESENT: appropriate affect Skin exam: PRESENT: rash - Erythema at ONPRO site with edema as well. Results Laboratory Results: 01/25/17 06:09 01/25/17 06:09 01/25/17 01/25/17 06:09 06:09 WBC 1.3 L* D RBC 3.48 L Hgb 11.3 L Hct 31.2 L MCV 90 MCH 32.3 MCHC 36.1 H RDW 13.9 Plt Count 40 L Seg Neutrophils % Not Reportable Lymphocytes % Not Reportable Monocytes % Not Reportable Eosinophils % Not Reportable Basophils % Not Reportable Absolute Neutrophils Not Reportable Absolute Lymphocytes Not Reportable Absolute Monocytes Not Reportable Absolute Eosinophils Not Reportable Absolute Basophils Not Reportable Sodium 138.1 Potassium 2.8 L* Chloride 103 Carbon Dioxide 28 Anion Gap 7 BUN 14 Creatinine 0.70 Est GFR ( Amer) > 60 Est GFR (Non-Af Amer) > 60 Glucose 90 Calcium 8.5 Total Bilirubin 1.4 H AST 17 ALT 26 Alkaline Phosphatase 70 Total Protein 5.6 L Albumin 3.0 L Impressions: Abdomen/Pelvis CT 01/24/17 01:11 IMPRESSION: 1. Increased 4.7 cm abdominal aortic aneurysm. Vascular surgery consultation and CT surveillance every six months recommended. 2. Left lower lobar pneumonia. 3. Moderate nonspecific colitis pattern. Critical results reporting: The results of the examination have been personally discussed with the referring health care provider, MAYLIN HAMEED, immediately following interpretation of the examination on 01/24/2017 2:34 AM MICROWAVE REMOTE SENSING SCIENTIST. Chest X-Ray 01/24/17 02:38 IMPRESSION: Moderate left lower lobar opacity-layered effusion. Interval improvement. 2010 [employer]- All Rights Reserved Head CT 01/24/17 02:38 IMPRESSION: No acute findings. Assessment & Plan - Diagnosis (1) Lung cancer Qualifiers: Laterality: unspecified laterality Lung location: unspecified part of lung Qualified Code(s): C34.90 - Malignant neoplasm of unspecified part of unspecified bronchus or lung Is this a current diagnosis for this admission?: Yes Plan: She is currently 8 days into her first cycle of chemotherapy. She did receive Neulasta, but her counts have still nadered in the neutropenic range. Expect all her blood counts to improve over the next 7 days. Further treatment to be determined in the future, after she has recovered from her immediate illness. (2) Pneumonia Qualifiers: Pneumonia type: due to unspecified organism Laterality: left Lung location: lower lobe of lung Qualified Code(s): J18.1 - Lobar pneumonia, unspecified organism Is this a current diagnosis for this admission?: Yes Plan: Currently receiving antibiotics. Difficult to say how much of the lung abnormality is cancer and how much is acute infection. No clinical symptoms of pneumonia. (3) Cellulitis Qualifiers: Site of cellulitis: unspecified site Qualified Code(s): L03.90 - Cellulitis , unspecified Is this a current diagnosis for this admission?: Yes Plan: Reaction may be cellulitis but may also be an acute allergic reaction to the ONPRO system injector. This is improving. I will recommend that she not receive this in the future. (4) Colitis Is this a current diagnosis for this admission?: Yes Plan: Continue antibiotics and conservative treatment. Will follow closely. Currently improving. Advancing diet today. - Plan Summary Plan Summary: Thank you for the consultation. I will continue to follow her with you. Please feel free to call with any questions or concerns.
[2017-01-25] MEDS: LEVOFLOXACIN 500 MG/D5W RTU 500 MG/100 ML RTUPB IV SCH (09:45)
[2017-01-25 09:52] LABS: PATH REVIEW PATHOLOGIST REVIEWED
[2017-01-25] MEDS: MORPHINE SULFATE 10 MG/ML INJ IV PRN (13:54)
[2017-01-25] MEDS: ONDANSETRON HCL 8 MG TABLET PO PRN (13:57)
[2017-01-25] MEDS: PROMETHAZINE HCL 25 MG TABLET PO PRN (18:10)
[2017-01-25] MEDS: CEFEPIME 2 GM/D5W RTU 2 GM/50 ML RTUPB IV SCH (21:48)
[2017-01-26 05:04] LABS: HEMOGLOBIN 10.8 g/dL (12.0-15.5); MEAN CORPUSCULAR HEMOGLOBIN 32.2 pg (27.0-33.4); MEAN CORPUSCULAR VOLUME 90 fl (80-97); RED BLOOD COUNT 3.35 10^6/uL (3.72-5.28); RED CELL DISTRIBUTION WIDTH 13.8 % (11.5-14.0)
[2017-01-26 05:21] LABS: ANION GAP 8 (5-19); BLOOD UREA NITROGEN 10 mg/dL (7-20); CARBON DIOXIDE 27 mmol/L (22-30); CHLORIDE 106 mmol/L (98-107); GLUCOSE 78 mg/dL (75-110); PLATELET COUNT 41 10^3/uL (150-450); SODIUM 141.2 mmol/L (137-145)
[2017-01-26 05:33] LABS: POTASSIUM 4.3 mmol/L (3.6-5.0)
[2017-01-26 05:42] LABS: ABSOLUTE LYMPHOCYTES# (MANUAL) 0.9 10^3/uL (0.5-4.7); ABSOLUTE MONOCYTES # (MANUAL) 0.2 10^3/uL (0.1-1.4); ABSOLUTE NEUTROPHILS# (MANUAL) 0.3 10^3/uL (1.7-8.2); BAND NEUTROPHILS % (MANUAL) 2 % (3-5); BASOPHILS % (MANUAL) 0 % (0-2); EOSINOPHILS % (MANUAL) 4 % (0-6); LYMPHOCYTES % (MANUAL) 62 % (13-45); MONOCYTES % (MANUAL) 12 % (3-13); SEGMENTED NEUTROPHILS % (MAN) 16 % (42-78); TOTAL CELLS COUNTED 50
[2017-01-26 05:44] LABS: PLATELET COMMENT DECREASED; RBC MORPHOLOGY COMMENT NORMO-CYTIC/CHROMIC
[2017-01-26 05:46] LABS: WHITE BLOOD COUNT 1.4 10^3/uL (4.0-10.5)
[2017-01-26] MEDS: LANSOPRAZOLE 30 MG TAB.RAP.DR PO SCH ×2 (06:40→17:28)
--- NOTE | 2017-01-26 08:24 | PDOC PROGRESS REPORT ---
Subjective Progress Note for:: 01/26/17 Subjective:: Patient feels much better and is anxious to go home. She has not been out of her room to walk. is at bedside and reports that her arm is increasing in redness. ROS: No nausea/diarrhea/dyspnea. Still fatigued. Reason For Visit: PNEUMONIA Physical Exam Vital Signs: Temp Pulse Resp BP Pulse Ox 98.2 F 79 16 135/85 H 98 01/26/17 07:18 01/26/17 07:18 01/26/17 07:18 01/26/17 07:18 01/26/17 07:18 Intake & Output 01/25/17 01/26/17 01/27/17 06:59 06:59 06:59 Intake Total 3074 1669 Balance 3074 1669 Weight 73.7 kg 73.5 kg General appearance: PRESENT: no acute distress Head exam: PRESENT: atraumatic Respiratory exam: PRESENT: clear to auscultation stacia Cardiovascular exam: PRESENT: RRR Pulses: PRESENT: normal dorsalis pedis pul Extremities exam: ABSENT: pedal edema Neurological exam: PRESENT: alert, awake, oriented to person, oriented to place , oriented to time, oriented to situation Psychiatric exam: PRESENT: appropriate affect Results Laboratory Results: 01/26/17 04:07 01/26/17 04:07 01/26/17 01/26/17 04:07 04:07 WBC 1.4 L* RBC 3.35 L Hgb 10.8 L Hct 30.0 L MCV 90 MCH 32.2 MCHC 36.0 RDW 13.8 Plt Count 41 L Seg Neutrophils % Not Reportable Lymphocytes % Not Reportable Monocytes % Not Reportable Eosinophils % Not Reportable Basophils % Not Reportable Absolute Neutrophils Not Reportable Absolute Lymphocytes Not Reportable Absolute Monocytes Not Reportable Absolute Eosinophils Not Reportable Absolute Basophils Not Reportable Sodium 141.2 Potassium 4.3 D Chloride 106 Carbon Dioxide 27 Anion Gap 8 BUN 10 Creatinine 0.69 Est GFR ( Amer) > 60 Est GFR (Non-Af Amer) > 60 Glucose 78 Calcium 9.0 Impressions: Abdomen/Pelvis CT 01/24/17 01:11 IMPRESSION: 1. Increased 4.7 cm abdominal aortic aneurysm. Vascular surgery consultation and CT surveillance every six months recommended. 2. Left lower lobar pneumonia. 3. Moderate nonspecific colitis pattern. Critical results reporting: The results of the examination have been personally discussed with the referring health care provider, MAYLIN HAMEED, immediately following interpretation of the examination on 01/24/2017 2:34 AM SALES CONTRACTOR. Chest X-Ray 01/24/17 02:38 IMPRESSION: Moderate left lower lobar opacity-layered effusion. Interval improvement. 2010 [employer]- All Rights Reserved Head CT 01/24/17 02:38 IMPRESSION: No acute findings. Assessment & Plan - Diagnosis (1) Lung cancer Qualifiers: Laterality: unspecified laterality Lung location: unspecified part of lung Qualified Code(s): C34.90 - Malignant neoplasm of unspecified part of unspecified bronchus or lung Is this a current diagnosis for this admission?: Yes (2) Pneumonia Qualifiers: Pneumonia type: due to unspecified organism Laterality: left Lung location: lower lobe of lung Qualified Code(s): J18.1 - Lobar pneumonia, unspecified organism Is this a current diagnosis for this admission?: Yes Plan: She has remained afebrile x 48 hours. No clinical evidence of pneumonia. Consider repeat CXR in AM. Continue antibiotics for now, although cultures have remained negative. (3) Cellulitis Qualifiers: Site of cellulitis: unspecified site Qualified Code(s): L03.90 - Cellulitis , unspecified Is this a current diagnosis for this admission?: Yes Plan: Again, difficult to say if this is cellulitis vs. acute allergic type reaction to the ONPRO system. I will add zyrtec q 24 hours to see if this helps. (4) Colitis Is this a current diagnosis for this admission?: Yes Plan: Appears to have resolved. (5) Leukopenia due to antineoplastic chemotherapy Is this a current diagnosis for this admission?: Yes Plan: Although patient would like to go home, I believe it would be safer to wait until ANC >1.0. Today it is 0.3. I have explained this to patient and . - Plan Summary Plan Summary: I have encouraged her to walk in the hallway with a mask on and to continue good nutrition. I will be available over the weekend if needed. Please feel free to call.
[2017-01-26] MEDS: CEFEPIME 2 GM/D5W RTU 2 GM/50 ML RTUPB IV SCH ×2 (08:36→21:46)
[2017-01-26] MEDS: LEVOFLOXACIN 500 MG TABLET PO SCH (08:37)
[2017-01-26] MEDS: ONDANSETRON HCL 8 MG TABLET PO PRN (08:38)
[2017-01-26] MEDS: CETIRIZINE 10 MG TABLET PO SCH (08:39)
[2017-01-26] MEDS: BUDESONIDE/FORMOTEROL 160-4.5 MCG 60 PUFF/6 GM MDI IH SCH ×2 (08:40→21:46)
--- NOTE | 2017-01-26 09:20 | PDOC PROGRESS REPORT ---
Subjective Progress Note for:: 01/26/17 Subjective:: The patient states to feel better. She denies any cough or shortness of breath. Her right triceps area seems to be stable. The oncologist believe that it might be an allergic reaction to the injection for her chemotherapy. Reason For Visit: PNEUMONIA Physical Exam Vital Signs: Temp Pulse Resp BP Pulse Ox 98.2 F 79 16 135/85 H 98 01/26/17 07:18 01/26/17 07:18 01/26/17 07:18 01/26/17 07:18 01/26/17 07:18 Intake & Output 01/25/17 01/26/17 01/27/17 06:59 06:59 06:59 Intake Total 3074 1669 Balance 3074 1669 Weight 73.7 kg 73.5 kg General appearance: PRESENT: mild distress Head exam: PRESENT: atraumatic Eye exam: PRESENT: conjunctiva pink Neck exam: ABSENT: carotid bruit, JVD Respiratory exam: PRESENT: decreased breath sounds, rhonchi Additional comments: Decreased breath sounds at the left base Cardiovascular exam: PRESENT: RRR, +S1, +S2 Pulses: PRESENT: +1 pedal pulses bilateral GI/Abdominal exam: PRESENT: normal bowel sounds, soft Extremities exam: PRESENT: full ROM Musculoskeletal exam: PRESENT: ambulatory Results Laboratory Results: 01/26/17 04:07 01/26/17 04:07 01/26/17 01/26/17 04:07 04:07 WBC 1.4 L* RBC 3.35 L Hgb 10.8 L Hct 30.0 L MCV 90 MCH 32.2 MCHC 36.0 RDW 13.8 Plt Count 41 L Seg Neutrophils % Not Reportable Lymphocytes % Not Reportable Monocytes % Not Reportable Eosinophils % Not Reportable Basophils % Not Reportable Absolute Neutrophils Not Reportable Absolute Lymphocytes Not Reportable Absolute Monocytes Not Reportable Absolute Eosinophils Not Reportable Absolute Basophils Not Reportable Sodium 141.2 Potassium 4.3 D Chloride 106 Carbon Dioxide 27 Anion Gap 8 BUN 10 Creatinine 0.69 Est GFR ( Amer) > 60 Est GFR (Non-Af Amer) > 60 Glucose 78 Calcium 9.0 Impressions: Abdomen/Pelvis CT 01/24/17 01:11 IMPRESSION: 1. Increased 4.7 cm abdominal aortic aneurysm. Vascular surgery consultation and CT surveillance every six months recommended. 2. Left lower lobar pneumonia. 3. Moderate nonspecific colitis pattern. 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 Chest X-Ray 01/24/17 02:38 IMPRESSION: Moderate left lower lobar opacity-layered effusion. Interval improvement. 2010 [employer]- All Rights Reserved Head CT 01/24/17 02:38 IMPRESSION: No acute findings. Assessment & Plan - Diagnosis (1) Hypokalemia Is this a current diagnosis for this admission?: Yes (2) Abdominal pain Qualifiers: Abdominal location: unspecified location Qualified Code(s): R10.9 - Unspecified abdominal pain (3) Cellulitis Qualifiers: Site of cellulitis: unspecified site Qualified Code(s): L03.90 - Cellulitis , unspecified Is this a current diagnosis for this admission?: Yes Plan: Slight improvement right tricep. We can we will continue with the antibiotics. The oncologist has added Zyrtec as a possible allergic reaction to the chemotherapy injections (4) Lung cancer Qualifiers: Laterality: unspecified laterality Lung location: unspecified part of lung Qualified Code(s): C34.90 - Malignant neoplasm of unspecified part of unspecified bronchus or lung Is this a current diagnosis for this admission?: Yes Plan: We will continue with chemotherapy. Unfortunately the patient is presently in the severe neutropenic state. Her absolute neutrophils are 0.3. The oncologist would like to see at least 1.0 before she wants to discharge her home. (5) COPD (chronic obstructive pulmonary disease) Is this a current diagnosis for this admission?: Yes Plan: Continue inhaled steroids and nebulization treatments (6) Pneumonia Qualifiers: Pneumonia type: due to unspecified organism Laterality: left Lung location: lower lobe of lung Qualified Code(s): J18.1 - Lobar pneumonia, unspecified organism Is this a current diagnosis for this admission?: Yes Plan: Continue antibiotics (7) Tobacco abuse Is this a current diagnosis for this admission?: Yes (8) Leukopenia due to antineoplastic chemotherapy Is this a current diagnosis for this admission?: Yes Plan: We will continue to monitor leukopenia due to antineoplastic chemotherapy.
--- NOTE | 2017-01-26 11:31 | PDOC CONSULTATION ---
Consultation Consult Date: 01/25/17 Attending physician:: LESLY TEJADA Consult reason:: dyspnea History of Present Illness Admission Date/PCP: 01/24/17 07:11 LESLY TEJADA, History of Present Illness: EVE GUILLERMO is a 71 year old female with a past medical history of left- sided breast cancer, status post mastectomy, COPD tobacco dependence, chronic bronchitis, hypertension and recently diagnosed left-sided small cell lung cancer with postobstructive pneumonia 3 weeks ago. She presented to emergency room with cough weakness shortness of breath some inspiratory chest pain she denied any hemoptysis admits to some nausea but no vomiting no diarrhea, no rhinorrhea or sore throat. Past Medical History Cardiac Medical History: Reports: Congestive Heart Failure - secondary to "double pneumonia", Coronary Artery Disease, Hyperlipidema, Hypertension Denies: Myocardial Infarction Pulmonary Medical History: Reports: Chronic Obstructive Pulmonary Disease (COPD) , Pneumonia Denies: Asthma, Bronchitis Neurological Medical History: Denies: Seizures Malignancy Medical History: Reports: Breast Cancer, Lung Cancer, Other - Laryngeal cancer 1997. Breast cancer was in 2000. Musculoskeltal Medical History: Denies: Arthritis Hematology: Reports: Anemia Past Surgical History Past Surgical History: Reports: Cholecystectomy, Mastectomy - left, Tubal Ligation Social History Information Source: Patient, [facility] Records Lives with: Family Smoking Status: Current Every Day Smoker Number of Years Smokin Last Time Smoked: 01/23/17 Frequency of Alcohol Use: None Hx Recreational Drug Use: No Drugs: None Hx Prescription Drug Abuse: No Have you had any respiratory illnesses as a child?: No Have you been exposed to any sick contacts recently?: No Have you had any recent respiratory illnesses?: No Have you travelled outside of [place] in the past 12 months?: No - Advance Directive Resuscitation Status: Full Code Family History Family History: CAD, Malignancy - Mother from CAD. Father from Lung cancer. Brother who from lung cancer. Sister living with breast cancer. Parental Family History Reviewed: Yes Children Family History Reviewed: Yes Sibling(s) Family History Reviewed.: Yes Medication/Allergy Home Medications: Budesonide/Formoterol Fumarate [Symbicort HFA 160-4.5 mcg Inhaler 6 gm] 2 puff IH Q12 01/24/17 Lorazepam [Ativan 0.5 mg Tablet] 0.5 mg PO Q8HP PRN 01/24/17 Metoclopramide HCl [Reglan 10 mg Tablet] 10 mg PO Q4HP PRN 01/24/17 Ondansetron HCl [Zofran 8 mg Tablet] 8 mg PO Q8HP PRN 01/24/17 Promethazine HCl [Phenergan 25 mg Tablet] 25 mg PO Q4HP PRN 01/24/17 Allergies/Adverse Reactions: No Known Allergies Allergy (Verified 12/15/16 16:00) Review of Systems Constitutional: PRESENT: chills, fatigue. ABSENT: night sweats Eyes: ABSENT: visual disturbances Ears: ABSENT: hearing changes Nose, Mouth, and Throat: PRESENT: mouth pain. ABSENT: sore throat Gastrointestinal: PRESENT: abdominal pain, bloating. ABSENT: dysphagia, hematemesis, hematochezia, melena Genitourinary: ABSENT: dysuria, hematuria Integumentary: ABSENT: pruritus, rash Neurological: ABSENT: abnormal speech, confusion, convulsions, lack of coordination, memory loss Psychiatric: PRESENT: anxiety Endocrine: ABSENT: cold intolerance, heat intolerance, menstrual abnormalities Hematologic/Lymphatic: PRESENT: easy bruising Physical Exam Vital Signs: Temp Pulse Resp BP Pulse Ox 98.2 F 79 16 135/85 H 98 01/26/17 07:18 01/26/17 07:18 01/26/17 07:18 01/26/17 07:18 01/26/17 07:18 Intake & Output 01/25/17 01/26/17 01/27/17 06:59 06:59 06:59 Intake Total 3074 1669 Balance 3074 1669 Weight 73.7 kg 73.5 kg General appearance: PRESENT: no acute distress, cooperative, mild distress, morbidly obese, obese, severe distress, well-developed. ABSENT: disheveled, hard of hearing Head exam: PRESENT: atraumatic, normocephalic Eye exam: PRESENT: conjunctiva pale, EOMI. ABSENT: conjunctival injection, conjunctiva pink, nystagmus, periorbital swelling, scleral icterus Mouth exam: PRESENT: dry mucosa Neck exam: PRESENT: full ROM. ABSENT: carotid bruit, lymphadenopathy, thyromegaly, tracheal deviation, tracheostomy Respiratory exam: PRESENT: decreased breath sounds, prolonged expiratory phas, rhonchi, symmetrical, unlabored. ABSENT: accessory muscle use, chest wall tenderness, clear to auscultation stacia, crackles, rales, retraction, stridor, tachypnea Cardiovascular exam: PRESENT: RRR, +S1, +S2. ABSENT: irregular rhythm, rubs Pulses: PRESENT: normal radial pulses GI/Abdominal exam: PRESENT: normal bowel sounds, soft. ABSENT: distended, guarding, mass, organolmegaly, rebound, tenderness Extremities exam: ABSENT: clubbing, joint swelling Musculoskeletal exam: ABSENT: deformity, dislocation Neurological exam: PRESENT: alert, awake Skin exam: PRESENT: dry, warm Results Laboratory Results: 01/26/17 04:07 01/26/17 04:07 01/26/17 01/26/17 04:07 04:07 WBC 1.4 L* RBC 3.35 L Hgb 10.8 L Hct 30.0 L MCV 90 MCH 32.2 MCHC 36.0 RDW 13.8 Plt Count 41 L Seg Neutrophils % Not Reportable Lymphocytes % Not Reportable Monocytes % Not Reportable Eosinophils % Not Reportable Basophils % Not Reportable Absolute Neutrophils Not Reportable Absolute Lymphocytes Not Reportable Absolute Monocytes Not Reportable Absolute Eosinophils Not Reportable Absolute Basophils Not Reportable Sodium 141.2 Potassium 4.3 D Chloride 106 Carbon Dioxide 27 Anion Gap 8 BUN 10 Creatinine 0.69 Est GFR ( Amer) > 60 Est GFR (Non-Af Amer) > 60 Glucose 78 Calcium 9.0 Impressions: Abdomen/Pelvis CT 01/24/17 01:11 IMPRESSION: 1. Increased 4.7 cm abdominal aortic aneurysm. Vascular surgery consultation and CT surveillance every six months recommended. 2. Left lower lobar pneumonia. 3. Moderate nonspecific colitis pattern. Critical results reporting: The results of the examination have been personally discussed with the referring health care provider, MAYLIN HAMEED, immediately following interpretation of the examination on 01/24/2017 2:34 AM ANESTHETIC ASSISTANT. Chest X-Ray 01/24/17 02:38 IMPRESSION: Moderate left lower lobar opacity-layered effusion. Interval improvement. 2010 [employer]- All Rights Reserved Head CT 01/24/17 02:38 IMPRESSION: No acute findings. Assessment & Plan - Diagnosis (1) History of breast cancer Is this a current diagnosis for this admission?: Yes Plan: History of does not currently appear to be issue (2) Leukopenia due to antineoplastic chemotherapy Is this a current diagnosis for this admission?: Yes Plan: chemo therapy (3) Lung cancer Qualifiers: Laterality: unspecified laterality Lung location: unspecified part of lung Qualified Code(s): C34.90 - Malignant neoplasm of unspecified part of unspecified bronchus or lung Is this a current diagnosis for this admission?: Yes Plan: Chemotherapy per oncology (4) COPD (chronic obstructive pulmonary disease) Qualifiers: Emphysema type: centrilobular Is this a current diagnosis for this admission?: Yes Plan: Generic Name Dose Route Start Last Admin Trade Name Freq PRN Reason Stop Dose Admin Budesonide/Formoterol Fumarate 2 puff 01/24/17 22:00 01/26/17 08:40 Symbicort Hfa 160-4.5 Mcg Inhaler 6 Gm IH 02/23/17 21:59 2 puff Q12 KYLEIGH Albuterol/Ipratropium 3 ml 01/25/17 07:30 Duoneb 3 Ml Ampul NEB 02/23/17 09:19 RTQ4HP PRN WHEEZING/DYSPNEA
[2017-01-26] MEDS: PROMETHAZINE HCL 25 MG TABLET PO PRN (21:45)
[2017-01-27 05:14] LABS: MEAN CORPUSCULAR HEMOGLOBIN 31.5 pg (27.0-33.4); MEAN CORPUSCULAR HGB CONC 35.4 g/dL (32.0-36.0); MEAN CORPUSCULAR VOLUME 89 fl (80-97); RED BLOOD COUNT 3.48 10^6/uL (3.72-5.28); RED CELL DISTRIBUTION WIDTH 14.1 % (11.5-14.0); WHITE BLOOD COUNT 1.9 10^3/uL (4.0-10.5)
[2017-01-27 05:26] LABS: ANION GAP 9 (5-19); BLOOD UREA NITROGEN 9 mg/dL (7-20); CALCIUM 8.9 mg/dL (8.4-10.2); CARBON DIOXIDE 27 mmol/L (22-30); CHLORIDE 103 mmol/L (98-107); GLUCOSE 86 mg/dL (75-110); POTASSIUM 3.4 mmol/L (3.6-5.0); SODIUM 139.4 mmol/L (137-145)
[2017-01-27 05:36] LABS: PLATELET COUNT 38 10^3/uL (150-450)
[2017-01-27 06:22] LABS: ABSOLUTE MONOCYTES # (MANUAL) 0.2 10^3/uL (0.1-1.4); ABSOLUTE NEUTROPHILS# (MANUAL) 0.6 10^3/uL (1.7-8.2); BAND NEUTROPHILS % (MANUAL) 9 % (3-5); BASOPHILS % (MANUAL) 0 % (0-2); EOSINOPHILS % (MANUAL) 1 % (0-6); LYMPHOCYTES % (MANUAL) 52 % (13-45); MONOCYTES % (MANUAL) 13 % (3-13); SEGMENTED NEUTROPHILS % (MAN) 25 % (42-78); TOTAL CELLS COUNTED 100
[2017-01-27 06:23] LABS: ANISOCYTOSIS SLIGHT; PLATELET COMMENT ADEQUATE
[2017-01-27] MEDS: LANSOPRAZOLE 30 MG TAB.RAP.DR PO SCH ×2 (06:29→18:13)
[2017-01-27] MEDS: MORPHINE SULFATE 10 MG/ML INJ IV PRN ×2 (06:29→20:46)
[2017-01-27] MEDS: CEFEPIME 2 GM/D5W RTU 2 GM/50 ML RTUPB IV SCH ×2 (09:48→21:33)
[2017-01-27] MEDS: CETIRIZINE 10 MG TABLET PO SCH (09:51)
[2017-01-27] MEDS: BUDESONIDE/FORMOTEROL 160-4.5 MCG 60 PUFF/6 GM MDI IH SCH ×2 (09:51→21:33)
[2017-01-27] MEDS: PROMETHAZINE HCL 25 MG TABLET PO PRN ×2 (09:51→20:46)
[2017-01-27] MEDS: LEVOFLOXACIN 500 MG TABLET PO SCH (09:51)
--- NOTE | 2017-01-27 10:45 | PDOC PROGRESS REPORT ---
Subjective Progress Note for:: 01/27/17 Subjective:: Complains of nausea this morning. Reason For Visit: PNEUMONIA Physical Exam Vital Signs: Temp Pulse Resp BP Pulse Ox 97.3 F 73 12 135/76 H 98 01/27/17 08:26 01/27/17 08:26 01/27/17 08:26 01/27/17 08:26 01/27/17 08:26 Intake & Output 01/26/17 01/27/17 01/28/17 06:59 06:59 06:59 Intake Total 1669 1149 Balance 1669 1149 Weight 73.5 kg 72.1 kg General appearance: PRESENT: no acute distress Eye exam: PRESENT: conjunctiva pink. ABSENT: scleral icterus Mouth exam: PRESENT: moist, tongue midline Neck exam: ABSENT: JVD Respiratory exam: PRESENT: clear to auscultation stacia. ABSENT: rales, rhonchi, wheezes Cardiovascular exam: PRESENT: RRR. ABSENT: diastolic murmur, rubs, systolic murmur GI/Abdominal exam: PRESENT: normal bowel sounds, soft. ABSENT: distended, guarding, mass, organolmegaly, rebound, tenderness Extremities exam: ABSENT: calf tenderness, clubbing, pedal edema Neurological exam: PRESENT: alert, awake, oriented to person, oriented to place , oriented to time, oriented to situation, CN II-XII grossly intact. ABSENT: motor sensory deficit Psychiatric exam: PRESENT: appropriate affect Skin exam: PRESENT: other - Erythematous area on the right triceps. Slightly improved from yesterday in regards to the inked lines from yesterday Results Laboratory Results: 01/27/17 04:22 01/27/17 04:22 01/27/17 01/27/17 04:22 04:22 WBC 1.9 L RBC 3.48 L Hgb 11.0 L Hct 31.0 L MCV 89 MCH 31.5 MCHC 35.4 RDW 14.1 H Plt Count 38 L Seg Neutrophils % Not Reportable Lymphocytes % Not Reportable Monocytes % Not Reportable Eosinophils % Not Reportable Basophils % Not Reportable Absolute Neutrophils Not Reportable Absolute Lymphocytes Not Reportable Absolute Monocytes Not Reportable Absolute Eosinophils Not Reportable Absolute Basophils Not Reportable Sodium 139.4 Potassium 3.4 L Chloride 103 Carbon Dioxide 27 Anion Gap 9 BUN 9 Creatinine 0.65 Est GFR ( Amer) > 60 Est GFR (Non-Af Amer) > 60 Glucose 86 Calcium 8.9 Impressions: Abdomen/Pelvis CT 01/24/17 01:11 IMPRESSION: 1. Increased 4.7 cm abdominal aortic aneurysm. Vascular surgery consultation and CT surveillance every six months recommended. 2. Left lower lobar pneumonia. 3. Moderate nonspecific colitis pattern. 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 Chest X-Ray 01/24/17 02:38 IMPRESSION: Moderate left lower lobar opacity-layered effusion. Interval improvement. 2010 [employer]- All Rights Reserved Head CT 01/24/17 02:38 IMPRESSION: No acute findings. Assessment & Plan - Diagnosis (1) Cellulitis Qualifiers: Site of cellulitis: unspecified site Qualified Code(s): L03.90 - Cellulitis , unspecified Is this a current diagnosis for this admission?: Yes Plan: Is not clear whether this is cellulitis or whether this is allergic reaction to chemotherapy injection. Will continue with antibiotics and antihistamines. (2) Hypokalemia Is this a current diagnosis for this admission?: Yes Plan: We will continue to replace and monitor. (3) Leukopenia due to antineoplastic chemotherapy Is this a current diagnosis for this admission?: Yes Plan: Patient is in neutropenic precautions. Continue with meropenem and Levaquin. (4) Lung cancer Qualifiers: Laterality: unspecified laterality Lung location: unspecified part of lung Qualified Code(s): C34.90 - Malignant neoplasm of unspecified part of unspecified bronchus or lung Is this a current diagnosis for this admission?: Yes Plan: Patient is being followed by oncology. (5) COPD (chronic obstructive pulmonary disease) Qualifiers: Emphysema type: centrilobular Is this a current diagnosis for this admission?: Yes Plan: No evidence for wheezing on exam today. (6) Gastroesophageal reflux Is this a current diagnosis for this admission?: Yes (7) Hypertension Is this a current diagnosis for this admission?: Yes Plan: Blood pressures are stable. (8) Pneumonia Qualifiers: Pneumonia type: due to unspecified organism Laterality: left Lung location: lower lobe of lung Qualified Code(s): J18.1 - Lobar pneumonia, unspecified organism Is this a current diagnosis for this admission?: Yes Plan: Continue with Levaquin and meropenem (9) Tobacco abuse Is this a current diagnosis for this admission?: Yes - Time Time Spent with patient: 25-34 minutes - Inpatient Certification Medical Necessity: Need Close Monitoring Due to Risk of Patient Decompensation, Need for IV Antibiotics
[2017-01-27] MEDS: ONDANSETRON HCL INJ/PF 4 MG/2 ML SDV IV PRN (18:13)
[2017-01-27] MEDS: KETOROLAC TROMETHAMINE INJ/PF 30 MG/1 ML SDV IV PRN (21:33)
[2017-01-27] MEDS: POTASSIUM CHLORIDE 10 MEQ TABLET.SA PO SCH (21:33)
[2017-01-28] MEDS: LANSOPRAZOLE 30 MG TAB.RAP.DR PO SCH ×2 (05:12→17:03)
[2017-01-28] MEDS: KETOROLAC TROMETHAMINE INJ/PF 30 MG/1 ML SDV IV PRN (05:12)
[2017-01-28 06:47] LABS: HEMOGLOBIN 11.6 g/dL (12.0-15.5); MEAN CORPUSCULAR HEMOGLOBIN 31.5 pg (27.0-33.4); MEAN CORPUSCULAR HGB CONC 35.1 g/dL (32.0-36.0); MEAN CORPUSCULAR VOLUME 90 fl (80-97); RED BLOOD COUNT 3.68 10^6/uL (3.72-5.28); RED CELL DISTRIBUTION WIDTH 14.1 % (11.5-14.0)
[2017-01-28 07:12] LABS: ANION GAP 10 (5-19); BLOOD UREA NITROGEN 8 mg/dL (7-20); CALCIUM 8.8 mg/dL (8.4-10.2); CARBON DIOXIDE 27 mmol/L (22-30); CHLORIDE 101 mmol/L (98-107); GLUCOSE 79 mg/dL (75-110); POTASSIUM 3.5 mmol/L (3.6-5.0)
[2017-01-28 07:42] LABS: PLATELET COUNT 39 10^3/uL (150-450); WHITE BLOOD COUNT 4.4 10^3/uL (4.0-10.5)
[2017-01-28 07:52] LABS: ABSOLUTE LYMPHOCYTES# (MANUAL) 1.7 10^3/uL (0.5-4.7); ABSOLUTE MONOCYTES # (MANUAL) 0.5 10^3/uL (0.1-1.4); ABSOLUTE NEUTROPHILS# (MANUAL) 2.2 10^3/uL (1.7-8.2); BAND NEUTROPHILS % (MANUAL) 10 % (3-5); BASOPHILS % (MANUAL) 0 % (0-2); EOSINOPHILS % (MANUAL) 0 % (0-6); LYMPHOCYTES % (MANUAL) 39 % (13-45); MONOCYTES % (MANUAL) 11 % (3-13); NUCLEATED RED BLOOD CELLS 1 /100 WBC (0); SEGMENTED NEUTROPHILS % (MAN) 40 % (42-78); TOTAL CELLS COUNTED 100
[2017-01-28 08:01] LABS: ANISOCYTOSIS SLIGHT; PLATELET COMMENT DECREASED; TOXIC GRANULATION SLIGHT
[2017-01-28] MEDS: ONDANSETRON HCL INJ/PF 4 MG/2 ML SDV IV PRN ×2 (08:26→16:49)
[2017-01-28] MEDS: LEVOFLOXACIN 500 MG TABLET PO SCH (10:43)
[2017-01-28] MEDS: POTASSIUM CHLORIDE 10 MEQ TABLET.SA PO SCH ×2 (10:43→21:17)
[2017-01-28] MEDS: CEFEPIME 2 GM/D5W RTU 2 GM/50 ML RTUPB IV SCH ×2 (10:44→21:17)
[2017-01-28] MEDS: BUDESONIDE/FORMOTEROL 160-4.5 MCG 60 PUFF/6 GM MDI IH SCH ×2 (10:44→21:17)
[2017-01-28] MEDS: CETIRIZINE 10 MG TABLET PO SCH (10:44)
[2017-01-28] MEDS: BUTALB/ACETAMINOPHEN/CAFFEINE 1 TAB EACH PO PRN (17:04)
[2017-01-28] MEDS: ONDANSETRON HCL 8 MG TABLET PO PRN (22:10)
[2017-01-29] MEDS: ONDANSETRON HCL INJ/PF 4 MG/2 ML SDV IV PRN ×2 (01:00→07:29)
[2017-01-29] MEDS: LANSOPRAZOLE 30 MG TAB.RAP.DR PO SCH ×2 (05:03→16:09)
[2017-01-29] MEDS: PROMETHAZINE HCL 25 MG TABLET PO PRN (05:18)
[2017-01-29] MEDS: BUTALB/ACETAMINOPHEN/CAFFEINE 1 TAB EACH PO PRN (05:18)
[2017-01-29] MEDS ORDERED: DILTIAZEM HCL INJ 25 MG/5 ML VIAL ONE (07:47)
[2017-01-29] MEDS ORDERED: DILTIAZEM HCL/D5W 125 MG/125 ML RTUINJ IV ONE (07:48)
[2017-01-29] MEDS ORDERED: DILTIAZEM HCL/D5W 125 MG/125 ML RTUINJ IV PRN (07:49)
[2017-01-29] MEDS ORDERED: DILTIAZEM HCL INJ 25 MG/5 ML VIAL IV ONE (08:00)
[2017-01-29 09:04] LABS: MEAN CORPUSCULAR HEMOGLOBIN 31.6 pg (27.0-33.4); MEAN CORPUSCULAR HGB CONC 35.2 g/dL (32.0-36.0); MEAN CORPUSCULAR VOLUME 90 fl (80-97); RED BLOOD COUNT 3.79 10^6/uL (3.72-5.28); RED CELL DISTRIBUTION WIDTH 14.2 % (11.5-14.0)
[2017-01-29] MEDS: LEVOFLOXACIN 500 MG TABLET PO SCH (09:17)
[2017-01-29] MEDS: POTASSIUM CHLORIDE 10 MEQ TABLET.SA PO SCH ×2 (09:17→21:36)
[2017-01-29] MEDS: CETIRIZINE 10 MG TABLET PO SCH (09:17)
[2017-01-29] MEDS: BUDESONIDE/FORMOTEROL 160-4.5 MCG 60 PUFF/6 GM MDI IH SCH ×2 (09:18→21:36)
[2017-01-29 09:30] LABS: ABSOLUTE LYMPHOCYTES# (MANUAL) 2.4 10^3/uL (0.5-4.7); ABSOLUTE MONOCYTES # (MANUAL) 0.6 10^3/uL (0.1-1.4); ABSOLUTE NEUTROPHILS# (MANUAL) 7.7 10^3/uL (1.7-8.2); BAND NEUTROPHILS % (MANUAL) 6 % (3-5); BASOPHILS % (MANUAL) 0 % (0-2); EOSINOPHILS % (MANUAL) 1 % (0-6); LYMPHOCYTES % (MANUAL) 20 % (13-45); MONOCYTES % (MANUAL) 6 % (3-13); SEGMENTED NEUTROPHILS % (MAN) 54 % (42-78); TOTAL CELLS COUNTED 100
[2017-01-29 09:32] LABS: METAMYELOCYTES % (MANUAL) 4 % (0); MYELOCYTES % (MANUAL) 4 % (0); PROMYELOCYTES % (MANUAL) 3 % (0)
[2017-01-29 09:33] LABS: ANISOCYTOSIS SLIGHT; PLATELET COMMENT DECREASED; TOXIC GRANULATION 1+; WHITE BLOOD COUNT 10.8 10^3/uL (4.0-10.5)
[2017-01-29 09:34] LABS: PLATELET COUNT 35 10^3/uL (150-450)
--- NOTE | 2017-01-29 10:17 | EKG REPORT ---
SEVERITY:- ABNORMAL ECG - A-FIB VENTRICULAR PREMATURE COMPLEX ST DEPRESSION, PROBABLY RATE RELATED BORDERLINE PROLONGED QT INTERVAL : Confirmed by: Miguel Harmon 29-Jan-2017 10:16:56
--- NOTE | 2017-01-29 10:38 | PDOC PROGRESS REPORT ---
Subjective Progress Note for:: 01/29/17 Subjective:: 71-year-old female who has a history of breast cancer in the past who was recently diagnosed with lung cancer. She was recently treated with chemotherapy and a Neulasta injection. Patient presented with swelling and erythema on her right arm where she had her Neulasta injection and neutropenic fevers. Patient was found to have a pneumonia and was started on cefepime and Levaquin. Her neutropenia has resolved, And would have been ready for discharge today however this morning she developed atrial fibrillation with a rapid ventricular rate. She was instructed on diltiazem drip but has since converted to normal sinus rhythm. We will restart her on her outpatient dose of Coreg and then DC the diltiazem drip. If she remains in a normal sinus rhythm she can hopefully be discharged home tomorrow. Reason For Visit: PNEUMONIA Physical Exam Vital Signs: Temp Pulse Resp BP Pulse Ox 98.0 F 141 H 16 117/76 98 01/29/17 07:09 01/29/17 08:12 01/29/17 07:09 01/29/17 08:12 01/29/17 07:09 Intake & Output 01/28/17 01/29/17 01/30/17 06:59 06:59 06:59 Intake Total 310 1293 Balance 310 1293 Weight 74.9 kg 63.6 kg Results Laboratory Results: 01/29/17 08:23 01/28/17 05:00 01/29/17 08:23 WBC 10.8 H D RBC 3.79 Hgb 12.0 Hct 34.0 L MCV 90 MCH 31.6 MCHC 35.2 RDW 14.2 H Plt Count 35 L Seg Neutrophils % Not Reportable Lymphocytes % Not Reportable Monocytes % Not Reportable Eosinophils % Not Reportable Basophils % Not Reportable Absolute Neutrophils Not Reportable Absolute Lymphocytes Not Reportable Absolute Monocytes Not Reportable Absolute Eosinophils Not Reportable Absolute Basophils Not Reportable Impressions: Abdomen/Pelvis CT 01/24/17 01:11 IMPRESSION: 1. Increased 4.7 cm abdominal aortic aneurysm. Vascular surgery consultation and CT surveillance every six months recommended. 2. Left lower lobar pneumonia. 3. Moderate nonspecific colitis pattern. Critical results reporting: The results of the examination have been personally discussed with the referring health care provider, MAYLIN HAMEED, immediately following interpretation of the examination on 01/24/2017 2:34 AM TOWEL SORTER. Chest X-Ray 01/24/17 02:38 IMPRESSION: Moderate left lower lobar opacity-layered effusion. Interval improvement. 2010 [employer]- All Rights Reserved Head CT 01/24/17 02:38 IMPRESSION: No acute findings. Assessment & Plan - Diagnosis (1) Cellulitis Qualifiers: Site of cellulitis: unspecified site Qualified Code(s): L03.90 - Cellulitis , unspecified Is this a current diagnosis for this admission?: Yes Plan: Is not clear whether this is cellulitis or whether this is allergic reaction to chemotherapy injection. Will continue with antibiotics and antihistamines. (2) Hypokalemia Is this a current diagnosis for this admission?: Yes Plan: We will continue to replace and monitor. (3) Leukopenia due to antineoplastic chemotherapy Is this a current diagnosis for this admission?: Yes Plan: will dc the cefepime and continue levaquin. (4) Lung cancer Qualifiers: Laterality: unspecified laterality Lung location: unspecified part of lung Qualified Code(s): C34.90 - Malignant neoplasm of unspecified part of unspecified bronchus or lung Is this a current diagnosis for this admission?: Yes Plan: Patient is being followed by oncology. (5) COPD (chronic obstructive pulmonary disease) Qualifiers: Emphysema type: centrilobular Is this a current diagnosis for this admission?: Yes Plan: No evidence for wheezing on exam today. (6) Gastroesophageal reflux Is this a current diagnosis for this admission?: Yes (7) Hypertension Is this a current diagnosis for this admission?: Yes Plan: Blood pressures are stable. (8) Pneumonia Qualifiers: Pneumonia type: due to unspecified organism Laterality: left Lung location: lower lobe of lung Qualified Code(s): J18.1 - Lobar pneumonia, unspecified organism Is this a current diagnosis for this admission?: Yes Plan: Continue with Levaquin (9) Tobacco abuse Is this a current diagnosis for this admission?: Yes (10) Atrial fibrillation Is this a current diagnosis for this admission?: Yes Plan: has converted to normal sinus. Will restart her home dose of Coreg and then DC the diltiazem drip. She remains in normal sinus rhythm overnight she could be discharged home tomorrow. - Time Time Spent with patient: 25-34 minutes - Inpatient Certification Medical Necessity: Need Close Monitoring Due to Risk of Patient Decompensation
[2017-01-29] MEDS ORDERED: CARVEDILOL 12.5 MG TABLET PO ONE (12:00)
[2017-01-29] MEDS ORDERED: NORMAL SALINE 500 ML IV ONE (13:45)
[2017-01-29] MEDS ORDERED: NORMAL SALINE 1000 ML 1,000 ML IV ONE (13:45)
--- NOTE | 2017-01-29 14:08 | PDOC PROGRESS REPORT ---
Subjective Progress Note for:: 01/29/17 Subjective:: Today, patient still feels weak, but is feeling better. Over 10 family members are at bedside. Patient is anxious to go home. Reason For Visit: Neutropenia Physical Exam Vital Signs: Temp Pulse Resp BP Pulse Ox 98.0 F 93 20 99/54 L 94 01/29/17 12:00 01/29/17 12:00 01/29/17 12:00 01/29/17 12:00 01/29/17 12:00 Intake & Output 01/28/17 01/29/17 01/30/17 06:59 06:59 06:59 Intake Total 310 1293 459 Balance 310 1293 459 Weight 74.9 kg 63.6 kg General appearance: PRESENT: no acute distress Respiratory exam: PRESENT: unlabored Musculoskeletal exam: PRESENT: full ROM Psychiatric exam: PRESENT: flat affect Skin exam: PRESENT: normal color Results Laboratory Results: 01/29/17 08:23 01/28/17 05:00 01/29/17 08:23 WBC 10.8 H D RBC 3.79 Hgb 12.0 Hct 34.0 L MCV 90 MCH 31.6 MCHC 35.2 RDW 14.2 H Plt Count 35 L Seg Neutrophils % Not Reportable Lymphocytes % Not Reportable Monocytes % Not Reportable Eosinophils % Not Reportable Basophils % Not Reportable Absolute Neutrophils Not Reportable Absolute Lymphocytes Not Reportable Absolute Monocytes Not Reportable Absolute Eosinophils Not Reportable Absolute Basophils Not Reportable Impressions: Abdomen/Pelvis CT 01/24/17 01:11 IMPRESSION: 1. Increased 4.7 cm abdominal aortic aneurysm. Vascular surgery consultation and CT surveillance every six months recommended. 2. Left lower lobar pneumonia. 3. Moderate nonspecific colitis pattern. Critical results reporting: The results of the examination have been personally discussed with the referring health care provider, MAYLIN HAMEED, immediately following interpretation of the examination on 01/24/2017 2:34 AM METAPHYSICIST. Chest X-Ray 01/24/17 02:38 IMPRESSION: Moderate left lower lobar opacity-layered effusion. Interval improvement. 2010 [employer]- All Rights Reserved Head CT 01/24/17 02:38 IMPRESSION: No acute findings. Assessment & Plan - Diagnosis (1) Lung cancer Qualifiers: Laterality: unspecified laterality Lung location: unspecified part of lung Qualified Code(s): C34.90 - Malignant neoplasm of unspecified part of unspecified bronchus or lung Is this a current diagnosis for this admission?: Yes (2) Pneumonia Qualifiers: Pneumonia type: due to unspecified organism Laterality: left Lung location: lower lobe of lung Qualified Code(s): J18.1 - Lobar pneumonia, unspecified organism Is this a current diagnosis for this admission?: Yes (3) Cellulitis Qualifiers: Site of cellulitis: unspecified site Qualified Code(s): L03.90 - Cellulitis , unspecified Is this a current diagnosis for this admission?: Yes (4) Colitis Is this a current diagnosis for this admission?: Yes (5) Leukopenia due to antineoplastic chemotherapy Is this a current diagnosis for this admission?: Yes Plan: Now resolved. OK for discharge from our standpoint. Will follow-up as outpatient.
[2017-01-29] MEDS: KETOROLAC TROMETHAMINE INJ/PF 30 MG/1 ML SDV IV PRN (16:09)
[2017-01-29] MEDS: NORMAL SALINE 1000 ML 1,000 ML IV PRN ×2 (16:10→22:25)
[2017-01-29] MEDS: CARVEDILOL 12.5 MG TABLET PO SCH (21:37)
[2017-01-30 05:02] LABS: HEMATOCRIT 27.4 % (36.0-47.0); MEAN CORPUSCULAR HEMOGLOBIN 31.8 pg (27.0-33.4); MEAN CORPUSCULAR HGB CONC 35.4 g/dL (32.0-36.0); MEAN CORPUSCULAR VOLUME 90 fl (80-97); RED BLOOD COUNT 3.05 10^6/uL (3.72-5.28); RED CELL DISTRIBUTION WIDTH 14.2 % (11.5-14.0); WHITE BLOOD COUNT 12.4 10^3/uL (4.0-10.5)
[2017-01-30 05:16] LABS: PLATELET COUNT 33 10^3/uL (150-450)
[2017-01-30 05:17] LABS: ANION GAP 9 (5-19); BLOOD UREA NITROGEN 8 mg/dL (7-20); CARBON DIOXIDE 25 mmol/L (22-30); CHLORIDE 109 mmol/L (98-107); GLUCOSE 78 mg/dL (75-110); HEMOGLOBIN 9.7 g/dL (12.0-15.5); POTASSIUM 3.2 mmol/L (3.6-5.0); SODIUM 142.6 mmol/L (137-145)
[2017-01-30 05:48] LABS: ABSOLUTE LYMPHOCYTES# (MANUAL) 3.7 10^3/uL (0.5-4.7); ABSOLUTE NEUTROPHILS# (MANUAL) 7.7 10^3/uL (1.7-8.2); BAND NEUTROPHILS % (MANUAL) 5 % (3-5); BASOPHILS % (MANUAL) 0 % (0-2); EOSINOPHILS % (MANUAL) 0 % (0-6); LYMPHOCYTES % (MANUAL) 27 % (13-45); METAMYELOCYTES % (MANUAL) 5 % (0); MONOCYTES % (MANUAL) 8 % (3-13); MYELOCYTES % (MANUAL) 3 % (0); PROMYELOCYTES % (MANUAL) 2 % (0); SEGMENTED NEUTROPHILS % (MAN) 47 % (42-78); TOTAL CELLS COUNTED 100
[2017-01-30 05:49] LABS: TOXIC GRANULATION 1+
[2017-01-30 05:52] LABS: ANISOCYTOSIS SLIGHT; PLATELET COMMENT DECREASED; PLATELET LARGE PRESENT; POLYCHROMASIA SLIGHT
[2017-01-30] MEDS: NORMAL SALINE 1000 ML 1,000 ML IV PRN (06:25)
[2017-01-30] MEDS: LANSOPRAZOLE 30 MG TAB.RAP.DR PO SCH (06:26)
--- NOTE | 2017-01-30 08:16 | PDOC PROGRESS REPORT ---
Subjective Progress Note for:: 01/30/17 Subjective:: The patient states to feel much better. She denies any recent palpitations. She is anxious about going home. Discussed the need to stop the IV and get her up and get him moving so we can see what her heart rate does when she is exercising. Reason For Visit: PNEUMONIA Physical Exam Vital Signs: Temp Pulse Resp BP Pulse Ox 97.9 F 87 20 125/70 94 01/30/17 03:51 01/30/17 07:00 01/30/17 03:51 01/30/17 03:51 01/30/17 03:51 Intake & Output 01/29/17 01/30/17 01/31/17 06:59 06:59 06:59 Intake Total 1293 4097 Balance 1293 4097 Weight 63.6 kg 75.7 kg General appearance: PRESENT: mild distress Head exam: PRESENT: atraumatic Eye exam: PRESENT: conjunctiva pink Neck exam: ABSENT: carotid bruit, JVD Respiratory exam: PRESENT: rhonchi Cardiovascular exam: PRESENT: RRR, +S1, +S2 Pulses: PRESENT: +1 pedal pulses bilateral GI/Abdominal exam: PRESENT: normal bowel sounds, soft Extremities exam: PRESENT: full ROM Musculoskeletal exam: PRESENT: ambulatory Results Laboratory Results: 01/30/17 04:07 01/30/17 04:07 01/29/17 01/30/17 01/30/17 08:23 04:07 04:07 WBC 10.8 H D 12.4 H RBC 3.79 3.05 L Hgb 12.0 9.7 L D Hct 34.0 L 27.4 L MCV 90 90 MCH 31.6 31.8 MCHC 35.2 35.4 RDW 14.2 H 14.2 H Plt Count 35 L 33 L Seg Neutrophils % Not Reportable Not Reportable Lymphocytes % Not Reportable Not Reportable Monocytes % Not Reportable Not Reportable Eosinophils % Not Reportable Not Reportable Basophils % Not Reportable Not Reportable Absolute Neutrophils Not Reportable Not Reportable Absolute Lymphocytes Not Reportable Not Reportable Absolute Monocytes Not Reportable Not Reportable Absolute Eosinophils Not Reportable Not Reportable Absolute Basophils Not Reportable Not Reportable Sodium 142.6 Potassium 3.2 L Chloride 109 H Carbon Dioxide 25 Anion Gap 9 BUN 8 Creatinine 0.82 Est GFR ( Amer) > 60 Est GFR (Non-Af Amer) > 60 Glucose 78 Calcium 8.0 L 01/24/17 16:45 Blood Blood Culture - Final NO GROWTH IN 5 DAYS Impressions: Abdomen/Pelvis CT 01/24/17 01:11 IMPRESSION: 1. Increased 4.7 cm abdominal aortic aneurysm. Vascular surgery consultation and CT surveillance every six months recommended. 2. Left lower lobar pneumonia. 3. Moderate nonspecific colitis pattern. 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 Chest X-Ray 01/24/17 02:38 IMPRESSION: Moderate left lower lobar opacity-layered effusion. Interval improvement. 2010 [employer]- All Rights Reserved Head CT 01/24/17 02:38 IMPRESSION: No acute findings. Assessment & Plan - Diagnosis (1) Hypokalemia Is this a current diagnosis for this admission?: Yes Plan: We will increase potassium to 20 every 12 (2) Abdominal pain Qualifiers: Abdominal location: unspecified location Qualified Code(s): R10.9 - Unspecified abdominal pain (3) Cellulitis Qualifiers: Site of cellulitis: unspecified site Qualified Code(s): L03.90 - Cellulitis , unspecified Is this a current diagnosis for this admission?: Yes (4) Lung cancer Qualifiers: Laterality: unspecified laterality Lung location: unspecified part of lung Qualified Code(s): C34.90 - Malignant neoplasm of unspecified part of unspecified bronchus or lung Is this a current diagnosis for this admission?: Yes Plan: We will continue with chemotherapy. Unfortunately the patient is presently in the severe neutropenic state. Her absolute neutrophils are 0.3. The oncologist would like to see at least 1.0 before she wants to discharge her home. (5) COPD (chronic obstructive pulmonary disease) Qualifiers: Emphysema type: centrilobular Is this a current diagnosis for this admission?: Yes Plan: Continue inhaled steroids and nebulization treatments (6) Pneumonia Qualifiers: Pneumonia type: due to unspecified organism Laterality: left Lung location: lower lobe of lung Qualified Code(s): J18.1 - Lobar pneumonia, unspecified organism Is this a current diagnosis for this admission?: Yes Plan: Presently on antibiotic (7) Tobacco abuse Is this a current diagnosis for this admission?: Yes (8) Leukopenia due to antineoplastic chemotherapy Is this a current diagnosis for this admission?: Yes Plan: Postchemotherapy. The leukopenia has resolved (9) Atrial fibrillation Is this a current diagnosis for this admission?: Yes Plan: Presently normal sinus rhythm. Will DC the IV and evaluate what the heart rate does when she patient's up and ambulating postchemotherapy
--- NOTE | 2017-01-30 08:30 | PDOC PROGRESS REPORT ---
Subjective Progress Note for:: 01/30/17 Subjective:: Pt did well overnight, did not go back into AFIB, was getting around yesterday, eating a bit more over last 24 hours Reason For Visit: PNEUMONIA Physical Exam Vital Signs: Temp Pulse Resp BP Pulse Ox 98.0 F 77 22 H 131/75 H 97 01/30/17 07:38 01/30/17 07:38 01/30/17 07:38 01/30/17 07:38 01/30/17 07:38 Intake & Output 01/29/17 01/30/17 01/31/17 06:59 06:59 06:59 Intake Total 1293 4097 Balance 1293 4097 Weight 63.6 kg 75.7 kg General appearance: PRESENT: no acute distress, well-developed, well-nourished Head exam: PRESENT: atraumatic, normocephalic Eye exam: PRESENT: conjunctiva pink, EOMI, PERRLA. ABSENT: scleral icterus Ear exam: PRESENT: normal external ear exam Mouth exam: PRESENT: moist, tongue midline Neck exam: ABSENT: carotid bruit, JVD, lymphadenopathy, thyromegaly Respiratory exam: PRESENT: clear to auscultation stacia. ABSENT: rales, rhonchi, wheezes Cardiovascular exam: PRESENT: RRR. ABSENT: diastolic murmur, rubs, systolic murmur Pulses: PRESENT: normal dorsalis pedis pul Vascular exam: PRESENT: normal capillary refill GI/Abdominal exam: PRESENT: normal bowel sounds, soft. ABSENT: distended, guarding, mass, organolmegaly, rebound, tenderness Rectal exam: PRESENT: deferred Extremities exam: PRESENT: full ROM. ABSENT: calf tenderness, clubbing, pedal edema Neurological exam: PRESENT: alert, awake, oriented to person, oriented to place , oriented to time, oriented to situation, CN II-XII grossly intact. ABSENT: motor sensory deficit Psychiatric exam: PRESENT: appropriate affect, normal mood. ABSENT: homicidal ideation, suicidal ideation Skin exam: PRESENT: dry, intact, warm. ABSENT: cyanosis, rash Results Laboratory Results: 01/30/17 04:07 01/30/17 04:07 01/29/17 01/30/17 01/30/17 08:23 04:07 04:07 WBC 10.8 H D 12.4 H RBC 3.79 3.05 L Hgb 12.0 9.7 L D Hct 34.0 L 27.4 L MCV 90 90 MCH 31.6 31.8 MCHC 35.2 35.4 RDW 14.2 H 14.2 H Plt Count 35 L 33 L Seg Neutrophils % Not Reportable Not Reportable Lymphocytes % Not Reportable Not Reportable Monocytes % Not Reportable Not Reportable Eosinophils % Not Reportable Not Reportable Basophils % Not Reportable Not Reportable Absolute Neutrophils Not Reportable Not Reportable Absolute Lymphocytes Not Reportable Not Reportable Absolute Monocytes Not Reportable Not Reportable Absolute Eosinophils Not Reportable Not Reportable Absolute Basophils Not Reportable Not Reportable Sodium 142.6 Potassium 3.2 L Chloride 109 H Carbon Dioxide 25 Anion Gap 9 BUN 8 Creatinine 0.82 Est GFR ( Amer) > 60 Est GFR (Non-Af Amer) > 60 Glucose 78 Calcium 8.0 L 01/24/17 16:45 Blood Blood Culture - Final NO GROWTH IN 5 DAYS Impressions: Abdomen/Pelvis CT 01/24/17 01:11 IMPRESSION: 1. Increased 4.7 cm abdominal aortic aneurysm. Vascular surgery consultation and CT surveillance every six months recommended. 2. Left lower lobar pneumonia. 3. Moderate nonspecific colitis pattern. 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 Chest X-Ray 01/24/17 02:38 IMPRESSION: Moderate left lower lobar opacity-layered effusion. Interval improvement. 2010 [employer]- All Rights Reserved Head CT 01/24/17 02:38 IMPRESSION: No acute findings. Assessment & Plan - Diagnosis (1) Lung cancer Qualifiers: Laterality: unspecified laterality Lung location: unspecified part of lung Qualified Code(s): C34.90 - Malignant neoplasm of unspecified part of unspecified bronchus or lung Is this a current diagnosis for this admission?: Yes Plan: Ok from onc standpoint to d/c home today but plt ct 30K so will need cbc on to ensure no need for blood products, next chemo planned next week but will hold until all counts fully recover
[2017-01-30] MEDS ORDERED: POTASSIUM CHLORIDE 10 MEQ TABLET.SA PO SCH (10:00)
[2017-01-30] MEDS: LEVOFLOXACIN 500 MG TABLET PO SCH (10:15)
[2017-01-30] MEDS: CETIRIZINE 10 MG TABLET PO SCH (10:15)
[2017-01-30] MEDS: CARVEDILOL 12.5 MG TABLET PO SCH (10:15)
[2017-01-30] MEDS: BUDESONIDE/FORMOTEROL 160-4.5 MCG 60 PUFF/6 GM MDI IH SCH (10:17)
[2017-01-30 11:02] LABS: PATH REVIEW PATHOLOGIST REVIEWED
--- NOTE | 2017-01-30 12:32 | PDOC DISCHARGE SUMMARY ---
General - Admit/Disc Date/PCP Admission Date/Primary Care Provider: 01/24/17 07:11 LESLY TEJADA, Discharge Date: 01/30/17 - Discharge Diagnosis (1) Hypokalemia Is this a current diagnosis for this admission?: Yes (2) Abdominal pain Is this a current diagnosis for this admission?: Yes (3) Cellulitis Is this a current diagnosis for this admission?: Yes (4) Lung cancer Is this a current diagnosis for this admission?: Yes (5) COPD (chronic obstructive pulmonary disease) Is this a current diagnosis for this admission?: Yes (6) Pneumonia Is this a current diagnosis for this admission?: Yes (7) Tobacco abuse Is this a current diagnosis for this admission?: Yes (8) Leukopenia due to antineoplastic chemotherapy Is this a current diagnosis for this admission?: Yes (9) Atrial fibrillation Is this a current diagnosis for this admission?: Yes - Additional Information Resuscitation Status: Full Code Discharge Activity: Activity As Tolerated Prescriptions: Levofloxacin [Levaquin 500 mg Tablet] 500 mg PO DAILY #5 tablet Potassium Chloride [Klor-Con 10 Meq Tablet.sa] 20 meq PO Q12 #60 tablet.sa Home Medications: Budesonide/Formoterol Fumarate [Symbicort HFA 160-4.5 mcg Inhaler 6 gm] 2 puff IH Q12 01/24/17 Lorazepam [Ativan 0.5 mg Tablet] 0.5 mg PO Q8HP PRN 01/24/17 Metoclopramide HCl [Reglan 10 mg Tablet] 10 mg PO Q4HP PRN 01/24/17 Ondansetron HCl [Zofran 8 mg Tablet] 8 mg PO Q8HP PRN 01/24/17 Promethazine HCl [Phenergan 25 mg Tablet] 25 mg PO Q4HP PRN 01/24/17 Carvedilol [Coreg 25 mg Tablet] 25 mg PO Q12 01/29/17 Cetirizine HCl [Zyrtec 10 mg Tablet] 10 mg PO DAILY 01/29/17 Cyanocobalamin (Vitamin B-12) [B-12] 1,000 mcg PO DAILY 01/29/17 Ferrous Sulfate [Feosol 325 mg Tablet] 325 mg PO BID 01/29/17 Folic Acid [Folvite 1 mg Tablet] 1 mg PO DAILY 01/29/17 Hydrochlorothiazide [Hydrodiuril 25 mg Tablet] 25 mg PO DAILY 01/29/17 Montelukast Sodium [Singulair 10 mg Tablet] 10 mg PO QPM 01/29/17 Pantoprazole Sodium [Protonix] 20 mg PO DAILY 01/29/17 Simvastatin [Zocor 20 mg Tablet] 20 mg PO QPM 01/29/17 Solifenacin Succinate [Vesicare] 10 mg PO DAILY 01/29/17 Levofloxacin [Levaquin 500 mg Tablet] 500 mg PO DAILY #5 tablet 01/30/17 Potassium Chloride [Klor-Con 10 Meq Tablet.sa] 20 meq PO Q12 #60 tablet.sa 01/30 History of Present Illness History of Present Illness: EVE GUILLERMO is a 71 year old female Hospital Course Hospital Course: The patient did well during hospitalization she was treated for pneumonia her white count has normalized after the several days post chemotherapy. She had an episode of atrial fibrillation which was controlled with IV fluids and adjustment in medications. On the day of discharge she appeared comfortable in no acute distress no signs of atrial fibrillation. Physical Exam Vital Signs: Temp Pulse Resp BP Pulse Ox 98.0 F 77 22 H 131/75 H 97 01/30/17 07:38 01/30/17 07:38 01/30/17 07:38 01/30/17 07:38 01/30/17 07:38 Intake & Output 01/29/17 01/30/17 01/31/17 06:59 06:59 06:59 Intake Total 1293 4097 Balance 1293 4097 Weight 63.6 kg 75.7 kg General appearance: PRESENT: no acute distress Head exam: PRESENT: atraumatic Eye exam: PRESENT: conjunctiva pink Neck exam: ABSENT: carotid bruit Respiratory exam: PRESENT: rhonchi Cardiovascular exam: PRESENT: RRR, +S1, +S2 Pulses: PRESENT: +1 pedal pulses bilateral GI/Abdominal exam: PRESENT: soft Results Laboratory Results: 01/30/17 04:07 01/30/17 04:07 01/30/17 01/30/17 04:07 04:07 WBC 12.4 H RBC 3.05 L Hgb 9.7 L D Hct 27.4 L MCV 90 MCH 31.8 MCHC 35.4 RDW 14.2 H Plt Count 33 L Seg Neutrophils % Not Reportable Lymphocytes % Not Reportable Monocytes % Not Reportable Eosinophils % Not Reportable Basophils % Not Reportable Absolute Neutrophils Not Reportable Absolute Lymphocytes Not Reportable Absolute Monocytes Not Reportable Absolute Eosinophils Not Reportable Absolute Basophils Not Reportable Sodium 142.6 Potassium 3.2 L Chloride 109 H Carbon Dioxide 25 Anion Gap 9 BUN 8 Creatinine 0.82 Est GFR ( Amer) > 60 Est GFR (Non-Af Amer) > 60 Glucose 78 Calcium 8.0 L 01/24/17 16:45 Blood Blood Culture - Final NO GROWTH IN 5 DAYS Impressions: Abdomen/Pelvis CT 01/24/17 01:11 IMPRESSION: 1. Increased 4.7 cm abdominal aortic aneurysm. Vascular surgery consultation and CT surveillance every six months recommended. 2. Left lower lobar pneumonia. 3. Moderate nonspecific colitis pattern. 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 Chest X-Ray 01/24/17 02:38 IMPRESSION: Moderate left lower lobar opacity-layered effusion. Interval improvement. 2010 [employer]- All Rights Reserved Head CT 01/24/17 02:38 IMPRESSION: No acute findings. Plan Discharge Plan: Discharge home to continue present medications follow-up with Dr. Luna
[2017-01-30 14:04] VITALS: BP 99/54
--- NOTE | 2017-01-30 17:51 | PDOC PROGRESS REPORT ---
Subjective Progress Note for:: 01/26/17 Subjective:: i am ok Reason For Visit: PNEUMONIA Physical Exam Vital Signs: Temp Pulse Resp BP Pulse Ox 97.3 F 73 12 135/76 H 98 01/27/17 08:26 01/27/17 08:26 01/27/17 08:26 01/27/17 08:26 01/27/17 08:26 Intake & Output 01/26/17 01/27/17 01/28/17 06:59 06:59 06:59 Intake Total 1669 1149 Balance 1669 1149 Weight 73.5 kg 72.1 kg General appearance: PRESENT: no acute distress, cooperative, well-developed. ABSENT: disheveled, hard of hearing, mild distress, morbidly obese, obese, severe distress, thin Head exam: PRESENT: atraumatic, normocephalic Eye exam: PRESENT: conjunctiva pale, EOMI. ABSENT: conjunctival injection, conjunctiva pink, nystagmus, periorbital swelling, scleral icterus Mouth exam: PRESENT: moist, neck supple, tongue midline. ABSENT: dry mucosa, laceration Neck exam: ABSENT: carotid bruit, JVD, lymphadenopathy, thyromegaly, tracheal deviation, tracheostomy Respiratory exam: PRESENT: crackles, decreased breath sounds, prolonged expiratory phas, rhonchi, symmetrical, unlabored. ABSENT: accessory muscle use , chest wall tenderness, clear to auscultation stacia, retraction, stridor, tachypnea Cardiovascular exam: PRESENT: RRR, +S1, +S2. ABSENT: irregular rhythm Pulses: PRESENT: normal radial pulses GI/Abdominal exam: PRESENT: normal bowel sounds, soft. ABSENT: distended, guarding, mass, organolmegaly, rebound, tenderness Extremities exam: ABSENT: clubbing, joint swelling Musculoskeletal exam: ABSENT: deformity, dislocation Neurological exam: PRESENT: alert, awake Psychiatric exam: PRESENT: normal mood Focused psych exam: ABSENT: catatonic, delusional, euphoric, flight of ideas, internal stimuli, paranoid, pressured speech, psychomotor agitation, restlessness, other Skin exam: PRESENT: dry, warm Results Laboratory Results: 01/27/17 04:22 01/27/17 04:22 01/27/17 01/27/17 04:22 04:22 WBC 1.9 L RBC 3.48 L Hgb 11.0 L Hct 31.0 L MCV 89 MCH 31.5 MCHC 35.4 RDW 14.1 H Plt Count 38 L Seg Neutrophils % Not Reportable Lymphocytes % Not Reportable Monocytes % Not Reportable Eosinophils % Not Reportable Basophils % Not Reportable Absolute Neutrophils Not Reportable Absolute Lymphocytes Not Reportable Absolute Monocytes Not Reportable Absolute Eosinophils Not Reportable Absolute Basophils Not Reportable Sodium 139.4 Potassium 3.4 L Chloride 103 Carbon Dioxide 27 Anion Gap 9 BUN 9 Creatinine 0.65 Est GFR ( Amer) > 60 Est GFR (Non-Af Amer) > 60 Glucose 86 Calcium 8.9 Impressions: Abdomen/Pelvis CT 01/24/17 01:11 IMPRESSION: 1. Increased 4.7 cm abdominal aortic aneurysm. Vascular surgery consultation and CT surveillance every six months recommended. 2. Left lower lobar pneumonia. 3. Moderate nonspecific colitis pattern. 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 Chest X-Ray 01/24/17 02:38 IMPRESSION: Moderate left lower lobar opacity-layered effusion. Interval improvement. 2010 [employer]- All Rights Reserved Head CT 01/24/17 02:38 IMPRESSION: No acute findings. Assessment & Plan - Diagnosis (1) History of breast cancer Is this a current diagnosis for this admission?: Yes Plan: History of does not currently appear to be issue (2) Leukopenia due to antineoplastic chemotherapy Is this a current diagnosis for this admission?: Yes Plan: Labs- All tests 24 hr 01/25/17 01/30/17 06:09 04:07 WBC 1.3 L* D 12.4 H (3) Lung cancer Qualifiers: Laterality: unspecified laterality Lung location: unspecified part of lung Qualified Code(s): C34.90 - Malignant neoplasm of unspecified part of unspecified bronchus or lung Is this a current diagnosis for this admission?: Yes Plan: Chemotherapy per oncology (4) COPD (chronic obstructive pulmonary disease) Qualifiers: Emphysema type: centrilobular Is this a current diagnosis for this admission?: Yes Plan: Generic Name Dose Route Start Last Admin Trade Name Freq PRN Reason Stop Dose Admin Budesonide/Formoterol Fumarate 2 puff 01/24/17 22:00 01/26/17 08:40 Symbicort Hfa 160-4.5 Mcg Inhaler 6 Gm IH 02/23/17 21:59 2 puff Q12 KYLEIGH Albuterol/Ipratropium 3 ml 01/25/17 07:30 Duoneb 3 Ml Ampul NEB 02/23/17 09:19 [id number] PRN WHEEZING/DYSPNEA continue current tx
--- NOTE | 2017-01-30 17:56 | PDOC PROGRESS REPORT ---
Subjective Progress Note for:: 01/30/17 Subjective:: i am better want to go home Reason For Visit: PNEUMONIA Physical Exam Vital Signs: Temp Pulse Resp BP Pulse Ox 98.0 F 77 22 H 131/75 H 97 01/30/17 07:38 01/30/17 07:38 01/30/17 07:38 01/30/17 07:38 01/30/17 07:38 Intake & Output 01/29/17 01/30/17 01/31/17 06:59 06:59 06:59 Intake Total 1293 4097 Balance 1293 4097 Weight 63.6 kg 75.7 kg General appearance: PRESENT: no acute distress, cooperative, well-developed, well-nourished. ABSENT: disheveled Head exam: PRESENT: atraumatic, normocephalic Eye exam: PRESENT: conjunctiva pale, EOMI. ABSENT: conjunctival injection, conjunctiva pink, nystagmus, periorbital swelling, scleral icterus Mouth exam: PRESENT: moist, neck supple, tongue midline. ABSENT: dry mucosa, laceration Neck exam: ABSENT: carotid bruit, JVD, lymphadenopathy, thyromegaly, tracheal deviation, tracheostomy Respiratory exam: PRESENT: crackles, decreased breath sounds, prolonged expiratory phas, rhonchi, symmetrical, unlabored. ABSENT: accessory muscle use , chest wall tenderness, clear to auscultation stacia, rales, retraction, stridor, tachypnea Cardiovascular exam: PRESENT: RRR, +S1, +S2. ABSENT: irregular rhythm, rubs Pulses: PRESENT: normal radial pulses GI/Abdominal exam: PRESENT: normal bowel sounds, soft. ABSENT: distended, guarding, mass, organolmegaly, rebound, tenderness Extremities exam: ABSENT: clubbing, joint swelling Musculoskeletal exam: ABSENT: deformity, dislocation Neurological exam: PRESENT: alert, awake Psychiatric exam: PRESENT: normal mood Skin exam: PRESENT: dry, warm Results Laboratory Results: 01/30/17 04:07 01/30/17 04:07 01/30/17 01/30/17 04:07 04:07 WBC 12.4 H RBC 3.05 L Hgb 9.7 L D Hct 27.4 L MCV 90 MCH 31.8 MCHC 35.4 RDW 14.2 H Plt Count 33 L Seg Neutrophils % Not Reportable Lymphocytes % Not Reportable Monocytes % Not Reportable Eosinophils % Not Reportable Basophils % Not Reportable Absolute Neutrophils Not Reportable Absolute Lymphocytes Not Reportable Absolute Monocytes Not Reportable Absolute Eosinophils Not Reportable Absolute Basophils Not Reportable Sodium 142.6 Potassium 3.2 L Chloride 109 H Carbon Dioxide 25 Anion Gap 9 BUN 8 Creatinine 0.82 Est GFR ( Amer) > 60 Est GFR (Non-Af Amer) > 60 Glucose 78 Calcium 8.0 L 01/24/17 16:45 Blood Blood Culture - Final NO GROWTH IN 5 DAYS Impressions: Abdomen/Pelvis CT 01/24/17 01:11 IMPRESSION: 1. Increased 4.7 cm abdominal aortic aneurysm. Vascular surgery consultation and CT surveillance every six months recommended. 2. Left lower lobar pneumonia. 3. Moderate nonspecific colitis pattern. 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 Chest X-Ray 01/24/17 02:38 IMPRESSION: Moderate left lower lobar opacity-layered effusion. Interval improvement. 2010 [employer]- All Rights Reserved Head CT 01/24/17 02:38 IMPRESSION: No acute findings. Assessment & Plan - Diagnosis (1) History of breast cancer Is this a current diagnosis for this admission?: Yes Plan: History of does not currently appear to be issue (2) Leukopenia due to antineoplastic chemotherapy Is this a current diagnosis for this admission?: Yes Plan: Labs- All tests 24 hr 01/25/17 01/30/17 06:09 04:07 WBC 1.3 L* D 12.4 H (3) Lung cancer Qualifiers: Laterality: unspecified laterality Lung location: unspecified part of lung Qualified Code(s): C34.90 - Malignant neoplasm of unspecified part of unspecified bronchus or lung Is this a current diagnosis for this admission?: Yes Plan: Chemotherapy per oncology (4) COPD (chronic obstructive pulmonary disease) Qualifiers: Emphysema type: centrilobular Is this a current diagnosis for this admission?: Yes Plan: Generic Name Dose Route Start Last Admin Trade Name Freq PRN Reason Stop Dose Admin Budesonide/Formoterol Fumarate 2 puff 01/24/17 22:00 01/26/17 08:40 Symbicort Hfa 160-4.5 Mcg Inhaler 6 Gm IH 02/23/17 21:59 2 puff Q12 KYLEIGH Albuterol/Ipratropium 3 ml 01/25/17 07:30 Duoneb 3 Ml Ampul NEB 02/23/17 09:19 [id number] PRN WHEEZING/DYSPNEA continue current tx
== END 2017-01-30 14:26 | disposition home or self-care (01) | DRG 194 ==
LOC: ER 00:53 → EH 07:11 → 3N 09:52
PROVIDERS: ADMIT Internal Medicine; ATTEND Internal Medicine
PROC: 3E0F73Z Introduction of Anti-inflammatory into Respiratory Tract, Via Natural or Artificial Opening (ICD-10-PCS; principal; 2017-01-25)
DX: J18.1 Lobar pneumonia, unspecified organism (principal); L03.90 Cellulitis, unspecified; C34.90 Malignant neoplasm of unspecified part of unspecified bronchus or lung; E87.6 Hypokalemia; C80.1 Malignant (primary) neoplasm, unspecified; J44.9 Chronic obstructive pulmonary disease, unspecified; D70.1 Agranulocytosis secondary to cancer chemotherapy; T45.1X5A Adverse effect of antineoplastic and immunosuppressive drugs, initial encounter; I48.91 Unspecified atrial fibrillation; I71.4 Abdominal aortic aneurysm, without rupture; K52.9 Noninfective gastroenteritis and colitis, unspecified; I25.10 Atherosclerotic heart disease of native coronary artery without angina pectoris; E78.5 Hyperlipidemia, unspecified; I10 Essential (primary) hypertension; I50.9 Heart failure, unspecified; D64.9 Anemia, unspecified; J43.2 Centrilobular emphysema; F41.9 Anxiety disorder, unspecified; F17.210 Nicotine dependence, cigarettes, uncomplicated; L29.9 Pruritus, unspecified; Z79.899 Other long term (current) drug therapy; Z85.3 Personal history of malignant neoplasm of breast; Z90.12 Acquired absence of left breast and nipple; Z85.21 Personal history of malignant neoplasm of larynx; Z90.49 Acquired absence of other specified parts of digestive tract; Z82.49 Family history of ischemic heart disease and other diseases of the circulatory system; Z80.1 Family history of malignant neoplasm of trachea, bronchus and lung; Z80.3 Family history of malignant neoplasm of breast
CPT/HCPCS: 36415; 70450; 71010; 74177; 80048; 80053; 81001; 83605; 83690; 84484; 85025; 87040; 93005; 93010; 94761; 96361; 96365; 96367; 96375; 99285; G8978-GP; G8979-GP; J0692; J1885; J1956; J2270; J2405; J2543; J3370; J3490; J7030; J7040; S0119

== ENCOUNTER 2017-01-31 15:39 | Outpatient (CLI) | payer MEDICARE, BC, OTHER ==
[2017-01-31 16:09] VITALS: BP 131/86
[2017-01-31] MEDS ORDERED: NORMAL SALINE 1000 ML 1,000 ML IV ONE (17:00)
== END 2017-01-31 17:23 | disposition home or self-care (01) ==
LOC: II 15:39 → 5TH 15:42 → II 17:23
PROVIDERS: ATTEND Internal Medicine
PROC: 3E0437Z Introduction of Electrolytic and Water Balance Substance into Central Vein, Percutaneous Approach (ICD-10-PCS; principal; 2017-01-31)
DX: E86.0 Dehydration (principal); C34.12 Malignant neoplasm of upper lobe, left bronchus or lung
CPT/HCPCS: 96375; 96360; J1642

== ENCOUNTER 2017-02-06 13:19 | Outpatient (CLI) | payer MEDICARE, BC, OTHER ==
[~2017-02-06 13:19] MED LIST changes: -CEFAZOLIN 1 GM/D5W RTU 1 GM/50 ML RTUPB IV PRN; -DEXTROSE 5%-1/2 NORMAL SALINE 500 ML IV PRN; -DIAZEPAM 5 MG TABLET PO PRN; +NORMAL SALINE 1000 ML 1,000 ML IV PRN; -OXYCODONE-ACETAMINOPHEN 5-325 MG TABLET PO PRN
[2017-02-06 13:41] VITALS: BP 113/70
== END 2017-02-06 14:36 | disposition home or self-care (01) ==
LOC: II 13:19 → 5TH 13:21 → II 14:36
PROVIDERS: ATTEND Internal Medicine
PROC: 3E0437Z Introduction of Electrolytic and Water Balance Substance into Central Vein, Percutaneous Approach (ICD-10-PCS; principal; 2017-02-06)
DX: E86.0 Dehydration (principal); C34.12 Malignant neoplasm of upper lobe, left bronchus or lung
CPT/HCPCS: 96360; 96523

== ENCOUNTER 2017-02-07 10:51 | Outpatient (CLI) | payer MEDICARE, BC, OTHER ==
[2017-02-07 11:05] VITALS: BP 103/61
== END 2017-02-07 12:39 | disposition home or self-care (01) ==
LOC: II 10:51 → 5TH 10:58 → II 12:39
PROVIDERS: ATTEND Internal Medicine
PROC: 3E0437Z Introduction of Electrolytic and Water Balance Substance into Central Vein, Percutaneous Approach (ICD-10-PCS; principal; 2017-02-07)
DX: E86.0 Dehydration (principal); C34.12 Malignant neoplasm of upper lobe, left bronchus or lung
CPT/HCPCS: 96360; 96523

== ENCOUNTER 2017-02-09 10:04 | Outpatient (CLI) | payer MEDICARE, BC, OTHER ==
[2017-02-09 10:20] VITALS: BP 88/59
== END 2017-02-09 11:20 | disposition home or self-care (01) ==
LOC: II 10:04 → 5TH 10:08 → II 11:20
PROVIDERS: ATTEND Internal Medicine
PROC: 3E0437Z Introduction of Electrolytic and Water Balance Substance into Central Vein, Percutaneous Approach (ICD-10-PCS; principal; 2017-02-09)
DX: E86.0 Dehydration (principal); C34.12 Malignant neoplasm of upper lobe, left bronchus or lung
CPT/HCPCS: 96360; 96375

== ENCOUNTER 2017-02-10 11:46 | Inpatient (IN) | payer MEDICARE, BC, OTHER ==
--- NOTE | 2017-02-10 12:29 | RADIOLOGY REPORT (SQ) ---
EXAM DESCRIPTION: CT HEAD WITHOUT COMPLETED DATE/TIME: 02/10/2017 12:16 pm REASON FOR STUDY: confusion, hx brain ca COMPARISON: 01/24/2017 TECHNIQUE: Axial images acquired through the brain without intravenous contrast. Images reviewed wi th bone, brain and subdural windows. Images stored on PACS. All CT scanners at this facility use dose modulation, iterative reconstruction, and/or weight based d osing when appropriate to reduce radiation dose to as low as reasonably achievable (ALARA). [facility]: Dose Right [facility]: CareDose [facility]: Dose Right [facility]: Teradose 4D [facility]: Smart [place] [employer] RADIATION DOSE: CT Rad equipment meets quality standard of care and radiation dose reduction techniq ues were employed. CTDIvol: 64.6 mGy. DLP: 1034 mGy-cm. mGy. LIMITATIONS: None. FINDINGS: VENTRICLES: Prominent. CEREBRUM: No masses. No hemorrhage. No midline shift. Areas of low density in the white matter mos t likely due to chronic micro-vascular ischemic change. No evidence for acute infarction. CEREBELLUM: No masses. No hemorrhage. No alteration of density. No evidence for acute infarction. EXTRAAXIAL SPACES: Mild age-related involutional change. No fluid collections. No masses. ORBITS AND GLOBE: No intra- or extraconal masses. Normal contour of globe without masses. CALVARIUM: No fracture. PARANASAL SINUSES: No fluid or mucosal thickening. SOFT TISSUES: No mass or hematoma. OTHER: No other significant finding. IMPRESSION: NO ACUTE INTRACRANIAL PROCESS. NO SIGNIFICANT CHANGE FROM PRIOR STUDY. EVIDENCE OF ACUTE STROKE: NO. TECHNICAL DOCUMENTATION: JOB ID: [id number] Quality ID # [id number]: Final reports with documentation of one or more dose reduction techniques (e.g., Au tomated exposure control, adjustment of the mA and/or kV according to patient size, use of iterative reconstruction technique) 2010 [employer]- All Rights Reserved
[2017-02-10 12:54] LABS: ABSOLUTE LYMPHOCYTES (AUTO) 1.1 10^3/uL (0.5-4.7); ABSOLUTE MONOCYTES (AUTO) 0.9 10^3/uL (0.1-1.4); ABSOLUTE NEUT (AUTO) 7.1 10^3/uL (1.7-8.2); BASOPHILS % (AUTO) 0.3 % (0-2); EOSINOPHILS % (AUTO) 0.1 % (0-6); HEMATOCRIT 29.7 % (36.0-47.0); HEMOGLOBIN 10.2 g/dL (12.0-15.5); LYMPHOCYTES % (AUTO) 12.6 % (13-45); MEAN CORPUSCULAR HEMOGLOBIN 31.1 pg (27.0-33.4); MEAN CORPUSCULAR HGB CONC 34.2 g/dL (32.0-36.0); MEAN CORPUSCULAR VOLUME 91 fl (80-97); MONOCYTES % (AUTO) 9.7 % (3-13); PLATELET COUNT 261 10^3/uL (150-450); RED BLOOD COUNT 3.26 10^6/uL (3.72-5.28); SEGMENTED NEUTROPHILS % (AUTO) 77.3 % (42-78); TOTAL CELLS COUNTED % (AUTO) 100 %; WHITE BLOOD COUNT 9.1 10^3/uL (4.0-10.5)
[2017-02-10 13:12] LABS: ALANINE AMINOTRANSFERASE 23 U/L (9-52); ALBUMIN 3.6 g/dL (3.5-5.0); ALKALINE PHOSPHATASE 91 U/L (38-126); ANION GAP 9 (5-19); ASPARTATE AMINO TRANSFERASE 16 U/L (14-36); BILIRUBIN,DIRECT 0.1 mg/dL (0.0-0.4); BILIRUBIN,TOTAL 0.6 mg/dL (0.2-1.3); BLOOD UREA NITROGEN 6 mg/dL (7-20); CALCIUM 8.5 mg/dL (8.4-10.2); CARBON DIOXIDE 30 mmol/L (22-30); CHLORIDE 103 mmol/L (98-107); GLUCOSE 99 mg/dL (75-110); POTASSIUM 3.7 mmol/L (3.6-5.0); TOTAL PROTEIN 6.1 g/dL (6.3-8.2)
[2017-02-10] MEDS ORDERED: ACETAMINOPHEN 325 MG TABLET PO ONE (13:17)
[2017-02-10] MEDS ORDERED: DEXAMETHASONE SOD PHOS INJ 10 MG/1 ML VIAL IV ONE (13:20)
[2017-02-10] MEDS ORDERED: LEVETIRACETAM 500 MG TABLET PO ONE (13:21)
--- NOTE | 2017-02-10 13:44 | ER Document Report ---
ED General - General Chief Complaint: possible seizure Stated Complaint: POSSIBLE SEIZURE Time Seen by Provider: 02/10/17 11:52 Mode of Arrival: Ambulatory Information source: Patient, Relative, Dr. Office Notes: 71-year-old female history of lung CA presents with family with concerns of altered mental status over the past few days confusion and then today there was 30 sec episode of seizure generalized tonic-clonic of the right side as well as foaming at the mouth. Family notes the patient over the past few days has been unable to wipe herself has been inappropriately following commands TRAVEL OUTSIDE OF THE [place] IN LAST 30 DAYS: No - HPI Onset: Other - 4 day duration Onset/Duration: Worse Quality of pain: No pain Severity: Moderate Pain Level: Denies Associated symptoms: Weakness, Other Exacerbated by: Denies Relieved by: Denies Similar symptoms previously: No Recently seen / treated by doctor: Yes - Related Data Allergies/Adverse Reactions: No Known Allergies Allergy (Verified 12/15/16 16:00) Home Medications: Current Home Medications Budesonide/Formoterol Fumarate [Symbicort Hfa 160-4.5 Mcg Inhaler 6 gm] 2 puff IH Q12 02/10/17 [History] Carvedilol [Coreg 25 mg Tablet] 1 tab PO Q12 02/10/17 [History] Cetirizine HCl [Zyrtec 10 mg Tablet] 1 tab PO DAILY 02/10/17 [History] Cyanocobalamin (Vitamin B-12) [Vitamin B-12 1000 mcg Tablet] 1,000 mcg PO DAILY 02/10/17 [History] Ferrous Sulfate [Feosol 325 mg Tablet] 325 mg PO DAILY 02/10/17 [History] Folic Acid [Folvite 1 mg Tablet] 1 mg PO DAILY 02/10/17 [History] Hydrochlorothiazide [Hydrodiuril 25 mg Tablet] 25 mg PO QAM 02/10/17 [History] Ipratropium/Albuterol Sulfate [Combivent Respimat 4 gm Mdi] 1 puff IH BID [History] Lorazepam [Ativan 0.5 mg Tablet] 0.5 mg PO BID@0800,1400 02/10/17 [History] Montelukast Sodium [Singulair 10 mg Tablet] 10 mg PO QHS 02/10/17 [History] Ondansetron HCl [Zofran 8 mg Tablet] 8 mg PO Q8HP PRN 02/10/17 [History] Pantoprazole Sodium [Protonix] 20 mg PO Q6AM 02/10/17 [History] Potassium Chloride [K-Tab ER] 20 meq PO Q12 02/10/17 [History] Promethazine HCl [Phenergan 25 mg Tablet] 25 mg PO QHS 02/10/17 [History] Simvastatin [Zocor 20 mg Tablet] 20 mg PO QHS 02/10/17 [History] Solifenacin Succinate [Vesicare] 10 mg PO DAILY 02/10/17 [History] Past Medical History - Social History Smoking Status: Never Smoker Cigarette use (# per day): No Chew tobacco use (# tins/day): No Smoking Education Provided: No Family History: CAD, Malignancy - Mother from CAD. Father from Lung cancer. Brother who from lung cancer. Sister living with breast cancer. - Past Medical History Cardiac Medical History: Reports: Hx Congestive Heart Failure - secondary to "double pneumonia", Hx Coronary Artery Disease, Hx Hypercholesterolemia, Hx Hypertension Denies: Hx Heart Attack Pulmonary Medical History: Reports: Hx COPD, Hx Pneumonia Denies: Hx Asthma, Hx Bronchitis Neurological Medical History: Denies: Hx Cerebrovascular Accident, Hx Seizures Renal/ Medical History: Denies: Hx Peritoneal Dialysis Malignancy Medical History: Reports: Hx Breast Cancer, Hx Lung Cancer Musculoskeltal Medical History: Denies Hx Arthritis Past Surgical History: Reports: Hx Breast Surgery - reconstruction, Hx Cholecystectomy, Hx Mastectomy - left, Hx Tubal Ligation - Immunizations Hx Diphtheria, Pertussis, Tetanus Vaccination: No Review of Systems - Review of Systems Notes: REVIEW OF SYSTEMS: CONSTITUTIONAL : Denies fever, chills, or sweats. Denies recent illness. EENT: Denies eye, ear, throat, or mouth pain or symptoms. Denies nasal or sinus congestion or discharge. Denies throat, tongue, or mouth swelling or difficulty swallowing. CARDIOVASCULAR: Denies chest pain. Denies palpitations or racing or irregular heart beat. Denies ankle edema. RESPIRATORY: Admits to cough GASTROINTESTINAL: Denies abdominal pain or distention. Denies nausea, vomiting , or diarrhea. Denies blood in vomitus, stools, or per rectum. Denies black, tarry stools. Denies constipation. GENITOURINARY: Denies difficulty urinating, painful urination, burning, frequency, blood in urine, or discharge. FEMALE GENITOURINARY: Denies vaginal bleeding, heavy or abnormal periods, irregular periods. Denies vaginal discharge or odor. MUSCULOSKELETAL: Denies back or neck pain or stiffness. Denies joint pain or swelling. SKIN: Denies rash, lesions or sores. HEMATOLOGIC : Denies easy bruising or bleeding. LYMPHATIC: Denies swollen, enlarged glands. NEUROLOGICAL: Confusion per family unable to follow commands appropriately PSYCHIATRIC: Denies anxiety or stress. Denies depression, suicidal ideation, or homicidal ideation. ALL OTHER SYSTEMS REVIEWED AND NEGATIVE. PHYSICAL EXAMINATION: GENERAL: Chronically ill-appearing HEAD: Atraumatic, normocephalic. EYES: Pupils equal round and reactive to light, extraocular movements intact, conjunctiva are normal. ENT: Nares patent, oropharynx clear without exudates. Moist mucous membranes. NECK: Normal range of motion, supple without lymphadenopathy LUNGS: Breath sounds clear to auscultation bilaterally and equal. No wheezes rales or rhonchi. HEART: Regular rate and rhythm without murmurs ABDOMEN: Soft, nontender, nondistended abdomen. No guarding, no rebound. No masses appreciated. Female : deferred Musculoskeletal: Normal range of motion, no pitting or edema. No cyanosis. NEUROLOGICAL: Patient is able to follow most commands appropriately has good strength in her extremities PSYCH: Normal mood, normal affect. SKIN: Warm, Dry, normal turgor, no rashes or lesions noted. 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 The symptoms have been going on for a few days therefore I have very low suspicion for a new onset episode today but I did order an MRI with and without contrast to further evaluate the brain, it is noted on the MRI that the patient does in fact have multiple infarcts which I believe is secondary to her history of cancer. Patient was given full dose aspirin she does not meet criteria for thrombolytics and symptoms have been ongoing for at least 4 days if not longer Patient has been admitted to the hospitalist service - Vital Signs Vital signs: Temp Pulse Resp BP Pulse Ox 98.3 F 72 16 139/73 H 93 02/10/17 12:21 02/10/17 12:21 02/10/17 12:21 02/10/17 12:21 02/10/17 12:21 - Laboratory Result Diagrams: 02/10/17 12:37 02/10/17 12:37 Laboratory results interpreted by me: 02/10/17 02/10/17 02/10/17 12:37 12:37 12:37 RBC 3.26 L Hgb 10.2 L Hct 29.7 L RDW 15.0 H Lymphocytes % 12.6 L BUN 6 L Magnesium 1.0 L* Total Protein 6.1 L - Diagnostic Test Radiology reviewed: Image reviewed, Reports reviewed Critical Care Note - Critical Care Note Total time excluding time spent on procedures (mins): 35 Comments: 35 Discharge - Discharge Clinical Impression: New onset seizure Lung cancer Qualifiers: Laterality: unspecified laterality Lung location: unspecified part of lung Qualified Code(s): C34.90 - Malignant neoplasm of unspecified part of unspecified bronchus or lung CVA (cerebral vascular accident) Qualifiers: CVA mechanism: unspecified Qualified Code(s): I63.9 - Cerebral infarction, unspecified Condition: Fair Disposition: ADMITTED INPATIENT Admitting Provider: Hospitalist Unit Admitted: [facility]
[2017-02-10] MEDS ORDERED: LEVALBUTEROL HCL NEB 1.25 MG/3 ML AMPUL NEB PRN (13:48)
[2017-02-10 13:54] LABS: APPEARANCE,URINE SLIGHTLY-CLOUDY; BILIRUBIN,URINE NEGATIVE (NEGATIVE); COLOR,URINE YELLOW; GLUCOSE, URINE NEGATIVE (NEGATIVE); KETONES,URINE NEGATIVE (NEGATIVE); LEUKOCYTE ESTERASE,URINE NEGATIVE (NEGATIVE); NITRITE,URINE NEGATIVE (NEGATIVE); PROTEIN,URINE NEGATIVE (NEGATIVE); URINE SPECIFIC GRAVITY 1.006; UROBILINOGEN,URINE NEGATIVE mg/dL (<2.0)
--- NOTE | 2017-02-10 13:58 | RADIOLOGY REPORT (SQ) ---
EXAM DESCRIPTION: CHEST PA/LAT COMPLETED DATE/TIME: 02/10/2017 1:50 pm REASON FOR STUDY: cough, altered COMPARISON: 12/28/2016 EXAM PARAMETERS: NUMBER OF VIEWS: two views TECHNIQUE: Digital Frontal and Lateral radiographic views of the chest acquired. RADIATION DOSE: NA LIMITATIONS: none FINDINGS: LUNGS AND PLEURA: Left lower lobe consolidation. Right lung is grossly clear. No pneumot horax. MEDIASTINUM AND HILAR STRUCTURES: No masses or contour abnormalities. HEART AND VASCULAR STRUCTURES: Heart normal size. No evidence for failure. BONES: No acute findings. HARDWARE: Stable. OTHER: No other significant finding. IMPRESSION: LEFT LOWER LOBE CONSOLIDATION PRESUMABLY REPRESENTING PNEUMONIA. RECOMMEND FOLLOWUP RAD IOGRAPHS 4 TO 6 WEEKS TO ENSURE RESOLUTION. TECHNICAL DOCUMENTATION: JOB ID: [id number] [employer]- All Rights Reserved
[2017-02-10] MEDS: ONDANSETRON HCL INJ/PF 4 MG/2 ML SDV IV PRN (14:02)
[2017-02-10 14:15] LABS: PHOSPHORUS 2.6 mg/dL (2.5-4.5)
[2017-02-10] MEDS ORDERED: MAGNESIUM SULFATE 4 GM/100 ML RTUPB IV ONE (15:30)
[2017-02-10] MEDS ORDERED: MAGNESIUM OXIDE 400 MG TABLET PO ONE (15:30)
--- NOTE | 2017-02-10 15:30 | RADIOLOGY REPORT (SQ) ---
EXAM DESCRIPTION: MRI HEAD COMBO COMPLETED DATE/TIME: 02/10/2017 3:09 pm REASON FOR STUDY: hx ca, seizure COMPARISON: Head CT from 02/10/2017 MRI from 01/04/2017 TECHNIQUE: Multiplanar imaging includes noncontrasted T1, T2, FLAIR, Diffusion with ADC map and post gadolinium contrast T1 sequences. Images stored on PACS. CONTRAST TYPE AND DOSE: 15 mL Multihance. RENAL FUNCTION: GFR > 60. LIMITATIONS: None. FINDINGS: ANATOMY: No anomalies. Normal vascular flow voids. Pituitary fossa normal. CSF SPACES: Atrophy-induced prominence of CSF spaces and ventricles. CEREBRUM: High-signal intensity lesions scattered throughout the white matter on FLAIR imaging with d istribution suggesting chronic micro-vascular ischemic change. No evidence of hemorrhage, mass, extra axial fluid collection or acute ischemic change. No enhancing lesions. POSTERIOR FOSSA: No signal alteration. No hemorrhage. No edema, masses, or mass effect. Internal jason tory canals, cerebello-pontine angles, mastoids normal. No enhancing lesions. ORBITS: No masses. Globes normal. PARANASAL SINUSES: No fluid levels. Mucosa normal. DIFFUSION: Ribbon like restricted diffusion involving the subcortical white matter of the left occipi sinai and posterior parietal lobes with additional scattered tiny foci of restricted diffusion involvin g the bilateral post fill frontal lobes compatible an with acute infarction presumably representing w atershed distribution. No large territory infarct identified. OTHER: No other significant finding. IMPRESSION: ACUTE INFARCT INVOLVING THE LEFT POSTERIOR PARIETAL AND OCCIPITAL LOBES WITH ADDITIONAL SCATTERED FOCI OF RESTRICTED DIFFUSION INVOLVING THE BILATERAL FRONTAL LOBES FAVORING WATERSHED TYPE INFARCTION. NO LARGE TERRITORY INFARCTION IDENTIFIED. NO HEMORRHAGE OR ENHANCING LESIONS. EVIDENCE OF ACUTE STROKE: YES. WATERSHED ABOVE. TECHNICAL DOCUMENTATION: JOB ID: [id number] All Rights Reserved
[2017-02-10] MEDS ORDERED: ASPIRIN 325 MG TABLET PO ONE (15:54)
--- NOTE | 2017-02-10 16:39 | ER Document Report ---
ED NIH Stroke Scale - NIH Stroke Scale *: 1. NIH scale should be completed with appropriate accompanying assessment tools. *: 2. The NIH should reflect what the patient is capable of doing and should not be coached by the clinician. 1a. Level of Consciousness: 0=Alert;keenly responsive -: 1=Drowsy -: 2=Obtunded -: 3=Coma/unresponsive or reflex to noxious stimuli. 1a. Responses: 0 1b. Orientation Questions: a. What month is it? -: b. How old are you? -: 0=Answers both questions correctly. -: 1=Answers one question correctly or patient is intubated or has orotracheal trauma. -: 2=Answers neither question correctly. 1b. Responses: 1 1c. Response to commands: a. Open and close eyes? -: b. Director Traffic And Planning and release hand? -: Credit is given despite weakness. Demonstration of task is permitted. Substitute command if hands cannot be used. -: 0=Performs both tasks correctly -: 1=Performs one task correctly -: 2=Performs neither task correctly 1c. Responses: 1 2. Gaze: Establish eye contact and instruct patient to "Follow my finger" -: 0=Normal -: 1=Partial gaze palsy. Gaze is abnormal in one or both eyes, but where forced deviation or total gaze paresis is not present. -: 2=Forced deviation or total gaze paresis. 2. Responses: 0 3. Visual Somers: Sees fingers in all four quadrants. -: 0=No visual loss. -: 1=Partial hemianopsia. -: 2=Complete hemianopsia. -: 3=Bilateral hemianopsia (including Cortical blindness) 3. Responses: 0 4. Facial Movement: Instruct patient to: -: a. Show me your teeth -: b. Raise your eyebrows -: c. Close your eyes -: d. Smile -: 0=Normal symmetrical movement -: 1=Minor paralysis (flattened nasolabial fold, asymmetry on smiling). -: 2=Partial paralysis (total or near total paralysis of lower face). -: 3=Complete paralysis of upper and lower face 4. Responses: 0 5. Motor functions (left arm): Alternate sides and extend each arm with palms down (90 degrees if sitting or 45 degrees for supine). -: 0=No drift;limb holds for full 10 seconds. -: 1=Drift; limb holds but drifts down before full 10 seconds, but does not hit bed. -: 2=Some effort against gravity; limb cannot get to or maintain position. -: 3=No effort against gravity; limb falls. -: 4=No movement. -: UN=Amputation, joint fusion, explain in comments. 5. Responses (left arm): 0 5. Motor Functions (right arm): Alternate sides and extend each arm with palms down (90 degrees if sitting or 45 degrees for supine). -: 0=No drift;limb holds for full 10 seconds. -: 1=Drift; limb holds but drifts down before full 10 seconds, but does not hit bed. -: 2=Some effort against gravity; limb cannot get to or maintain position. -: 3=No effort against gravity; limb falls. -: 4=No movement. -: UN=Amputation, joint fusion, explain in comments. 5. Responses (right arm): 0 6. Motor Functions (left leg): With patient lying supine, alternate sides and extend each leg (30 degrees always while supine). -: 0=No drift, leg holds position for full 5 seconds -: 1=Drift; leg falls before full 5 seconds but does not hit bed. -: 2=Some effort against gravity, leg falls to bed but some effort against gravity. -: 3=No effort against gravity, leg falls to bed immediately. -: 4=No movement. -: UN=Amputation, joint fusion; explain in comments. 6. Responses (left leg): 0 6. Motor Functions (right leg): With patient lying supine, alternate sides and extend each leg (30 degrees always while supine). -: 0=No drift, leg holds position for full 5 seconds -: 1=Drift; leg falls before full 5 seconds but does not hit bed. -: 2=Some effort against gravity, leg falls to bed but some effort against gravity. -: 3=No effort against gravity, leg falls to bed immediately. -: 4=No movement. -: UN=Amputation, joint fusion; explain in comments. 6. Responses (right leg): 0 7. Limb Ataxia: With eyes open instruct patient to: -: a. "Touch your finger to your nose". -: b. "Touch your heel to your chavez" -: 0=Absent -: 1=Present in one limb. -: 2=Present in two limbs. -: UN=Amputation or joint fusion; explain in comments. 7. Responses: 0 8. Sensory: Test sensation using pinprick or noxious stimuli. Test as many body parts as possible. -: 0=Normal;no sensory loss -: 1=Mile to moderate sensory loss (patient feels pin prick but is less sharp on affected side). -: 2=Severe or total sensory loss. 8. Responses: 0 9. Best Language: Instruct patient to: -: a. "Describe what you see in this picture." -: b. "Name the items in this picture." -: c. "Read these sentences." -: 0=No aphasia, normal -: 1=Mild to moderate aphasia. -: 2=Severe aphasia -: 3=Mute, global aphasia, no usable speech or auditory comprehension. 9. Responses: 1 10. Articulation, Dysarthia: Instruct patient to: -: "Read these words" or "Repeat these words" -: 0=Normal -: 1=Mild to moderate; patient may slur some words but can be understood without difficulty. -: 2=Severe; patients speech so slurred as to be unintelligible in the absence of dysphasia. -: UN=Intubated or other physical barrier, explain in comments. 10. Responses: 0 11. Extinction or inattention: 0=No abnormality -: 1= Visual, tactile, auditory, spatial, or personal inattention or extinction to bilateral simulation in one or the sensory modalities. -: 2=Profound rene-inattention or rene-inattention to more than one modality; does not recognize own hand. 11. Responses: 0 Total Score: 3
[2017-02-10] MEDS ORDERED: ONDANSETRON HCL 8 MG TABLET PO PRN (16:59)
--- NOTE | 2017-02-10 17:53 | PDOC H&P ---
History of Present Illness Admission Date/PCP: 02/10/17 LESLY TEJADA, History of Present Illness: EVE GUILLERMO is a 71 year old female with past medical history of Stage III small cell lung cancer diagnosed in December 2016 Anemia History of breast cancer COPD Coronary artery disease Hypertension Hyperlipidemia Atrial fibrillation Outpatient medications Symbicort Lorazepam 0.5 mg every 8 hours as needed Reglan as needed Zofran as needed Phenergan as needed Coreg 25 mg twice a day Zyrtec 10 mg daily Vitamin B12 1000 mcg daily Ferrous sulfate 325 mg twice a day Folic acid 1 mg daily Hydrochlorothiazide 25 mg daily Singulair 10 mg daily Pantoprazole 20 mg daily Simvastatin 20 mg daily Vesicare 10 mg daily Coreg 25 mg PO BID She reports feeling weak and not well for the past 2 days. Family reports 2 episodes of passing out in the past 2 weeks where she was weak and EMS was called and she possibly had a left-sided facial droop which was transient. Her daughter states that her blood pressure has been low recently at home with systolic in the 80s. Her p.o. intake has been poor. Earlier today she felt nauseated and had a headache and there was 30 sec episode of shaking of the right upper extremity with no loss of consciousness. There was no tongue biting or incontinence. Had one episode of vomiting. Denies fevers chills cough shortness of breath chest pain abdominal pain. The emergency room CAT scan of the head was unremarkable. She was loaded with Keppra and was given IV dexamethasone due to concerns for possible metastatic disease to the brain with edema. MRI of the brain with and without contrast showed ribbonlike restricted diffusion involving the subcortical white matter of the left occipital and posterior hips with additional scattered tiny foci of restricted diffusion involving the bilateral posterior frontal lobes compatible with acute infarction presumably watershed distribution. No large territory infarct identified. No hemorrhage or mass lesions identified. The ER physician ordered aspirin. Past Medical History Cardiac Medical History: Reports: Congestive Heart Failure - secondary to "double pneumonia", Coronary Artery Disease, Hyperlipidema, Hypertension Denies: Myocardial Infarction Pulmonary Medical History: Reports: Chronic Obstructive Pulmonary Disease (COPD) , Pneumonia Denies: Asthma, Bronchitis Neurological Medical History: Denies: Seizures Endocrine Medical History: Denies: Diabetes Mellitus Type 2, Hypothyroidism Renal/ Medical History: Denies: Chronic Kidney Disease Malignancy Medical History: Reports: Breast Cancer, Lung Cancer Musculoskeltal Medical History: Denies: Arthritis Hematology: Reports: Anemia Past Surgical History Past Surgical History: Reports: Cholecystectomy, Mastectomy - left, Tubal Ligation Social History Information Source: Relative Lives with: Family Smoking Status: Former Smoker Frequency of Alcohol Use: None Hx Recreational Drug Use: No Drugs: None Hx Prescription Drug Abuse: No - Advance Directive Resuscitation Status: Full Code Family History Family History: CAD, Malignancy - Mother from CAD. Father from Lung cancer. Brother who from lung cancer. Sister living with breast cancer. Parental Family History Reviewed: Yes Children Family History Reviewed: Yes Sibling(s) Family History Reviewed.: Yes Medication/Allergy Home Medications: Budesonide/Formoterol Fumarate [Symbicort Hfa 160-4.5 Mcg Inhaler 6 gm] 2 puff IH Q12 02/10/17 Carvedilol [Coreg 25 mg Tablet] 1 tab PO Q12 02/10/17 Cetirizine HCl [Zyrtec 10 mg Tablet] 1 tab PO DAILY 02/10/17 Cyanocobalamin (Vitamin B-12) [Vitamin B-12 1000 mcg Tablet] 1,000 mcg PO DAILY 02/10/17 Ferrous Sulfate [Feosol 325 mg Tablet] 325 mg PO DAILY 02/10/17 Folic Acid [Folvite 1 mg Tablet] 1 mg PO DAILY 02/10/17 Hydrochlorothiazide [Hydrodiuril 25 mg Tablet] 25 mg PO QAM 02/10/17 Ipratropium/Albuterol Sulfate [Combivent Respimat 4 gm Mdi] 1 puff IH BID Lorazepam [Ativan 0.5 mg Tablet] 0.5 mg PO BID@0800,1400 02/10/17 Montelukast Sodium [Singulair 10 mg Tablet] 10 mg PO QHS 02/10/17 Ondansetron HCl [Zofran 8 mg Tablet] 8 mg PO Q8HP PRN 02/10/17 Pantoprazole Sodium [Protonix] 20 mg PO Q6AM 02/10/17 Potassium Chloride [K-Tab ER] 20 meq PO Q12 02/10/17 Promethazine HCl [Phenergan 25 mg Tablet] 25 mg PO QHS 02/10/17 Simvastatin [Zocor 20 mg Tablet] 20 mg PO QHS 02/10/17 Solifenacin Succinate [Vesicare] 10 mg PO DAILY 02/10/17 Allergies/Adverse Reactions: No Known Allergies Allergy (Verified 12/15/16 16:00) Review of Systems All systems: reviewed and no additional remarkable complaints except as stated Constitutional: PRESENT: anorexia, fatigue, headache(s). ABSENT: fever(s) Ears: ABSENT: hearing changes Nose, Mouth, and Throat: ABSENT: sore throat Cardiovascular: ABSENT: chest pain, dyspnea on exertion, edema, orthropnea, palpitations Respiratory: ABSENT: cough, dyspnea Gastrointestinal: PRESENT: nausea, vomiting. ABSENT: abdominal pain, diarrhea Genitourinary: ABSENT: difficulty urinating, dysuria Integumentary: ABSENT: rash Neurological: PRESENT: abnormal movements, confusion, convulsions. ABSENT: focal weakness Psychiatric: PRESENT: anxiety. ABSENT: hallucinations Hematologic/Lymphatic: ABSENT: easy bleeding Physical Exam Vital Signs: Temp Pulse Resp BP Pulse Ox 98.3 F 72 16 139/73 H 93 02/10/17 12:21 02/10/17 12:21 02/10/17 12:21 02/10/17 12:21 02/10/17 12:21 Additional comments: Elderly female lying in bed. Appears uncomfortable. Not in acute respiratory distress HEENT: Pupils equal reactive to light normal extraocular muscle movements no pallor no icterus no discharge normal external ears and nose No facial droop Awake and alert oriented 3 Motor strength 5+ out of 5 bilateral upper and lower extremities sensation equal and intact bilaterally no tremor no cerebellar signs Cardiac: S1-S2 regular no murmurs heard no peripheral edema no calf tenderness no cyanosis Respiratory: Normal effort, clear to auscultation bilaterally Abdomen: Soft, obese, no focal tenderness, normal bowel sounds Skin: Warm and dry Results Laboratory Results: 02/10/17 12:37 02/10/17 12:37 02/10/17 02/10/17 12:37 12:37 WBC 9.1 RBC 3.26 L Hgb 10.2 L Hct 29.7 L MCV 91 MCH 31.1 MCHC 34.2 RDW 15.0 H Plt Count 261 Seg Neutrophils % 77.3 Lymphocytes % 12.6 L Monocytes % 9.7 Eosinophils % 0.1 Basophils % 0.3 Absolute Neutrophils 7.1 Absolute Lymphocytes 1.1 Absolute Monocytes 0.9 Absolute Eosinophils 0.0 Absolute Basophils 0.0 Sodium 142.0 Potassium 3.7 Chloride 103 Carbon Dioxide 30 Anion Gap 9 BUN 6 L Creatinine 0.72 Est GFR ( Amer) > 60 Est GFR (Non-Af Amer) > 60 Glucose 99 Calcium 8.5 Total Bilirubin 0.6 AST 16 ALT 23 Alkaline Phosphatase 91 Total Protein 6.1 L Albumin 3.6 Impressions: Head CT 02/10/17 11:52 IMPRESSION: NO ACUTE INTRACRANIAL PROCESS. NO SIGNIFICANT CHANGE FROM PRIOR STUDY. EVIDENCE OF ACUTE STROKE: NO. Assessment & Plan - Diagnosis (1) CVA (cerebral vascular accident) Qualifiers: CVA mechanism: unspecified Qualified Code(s): I63.9 - Cerebral infarction, unspecified Is this a current diagnosis for this admission?: Yes Plan: I discussed the case with Dr. Luciano, the Neurologist instructional design consultant at [facility], who recommended CTA head and neck to r/o focal stenosis. If that is normal then there is a higher likelihood of an embolic CVA, and she would need anticoagulation. Continue aspirin and statin. Frequent neuro checks. PT OT and speech therapy evaluation. MRA of the head and neck. Check fasting lipid panel and hemoglobin A1c. To be due to hypotension due to watershed distribution. We will allow for permissive hypertension. (2) Hypomagnesemia Is this a current diagnosis for this admission?: Yes Plan: Replete and monitor (3) Lung cancer Qualifiers: Laterality: unspecified laterality Lung location: unspecified part of lung Qualified Code(s): C34.90 - Malignant neoplasm of unspecified part of unspecified bronchus or lung Is this a current diagnosis for this admission?: Yes Plan: I discussed the case with Dr. Luna who will be seeing her in consultation. (4) New onset seizure Is this a current diagnosis for this admission?: Yes Plan: Secondary to CVA. Dr. Luciano recommended 3 months of Keppra. (5) History of breast cancer Is this a current diagnosis for this admission?: No (6) Hypertension Is this a current diagnosis for this admission?: Yes Plan: Old hydrochlorothiazide and metoprolol. Permissive hypertension. Do not treat unless systolic greater than 210 or diastolic greater than 105. - Time Time Spent: Greater than 70 Minutes - Plan Summary Plan Summary: The patient is a full code.
[2017-02-10] MEDS ORDERED: BUDESONIDE/FORMOTEROL 160-4.5 MCG 60 PUFF/6 GM MDI IH ONE ×2 (18:00→19:43)
[2017-02-10] MEDS ORDERED: LANSOPRAZOLE 15 MG TAB.RAP.DR PO ONE (18:00)
--- NOTE | 2017-02-10 19:40 | RADIOLOGY REPORT (SQ) ---
EXAM DESCRIPTION: CTA NECK COMPLETED DATE/TIME: 02/10/2017 7:14 pm REASON FOR STUDY: CVA COMPARISON: None. TECHNIQUE: Axial dynamic scanning technique with dynamic contrast enhancement through the extra-aircraft metalsmith nial carotid and vertebral arteries. Multiplanar reconstruction. 3-D MIPS and Volume-rendered imag es acquired at the workstation and saved to PACS. Images are reviewed in soft tissue, bone, lung w indows. All CT scanners at this facility use dose modulation, iterative reconstruction, and/or weight based d osing when appropriate to reduce radiation dose to as low as reasonably achievable (ALARA). [facility]: Dose Right [facility]: CareDose [facility]: Dose Right [facility]: Teradose 4D [facility]: [email or web address] CONTRAST TYPE AND DOSE: contrast/concentration: Isovue 370.00 mg/ml; Total Contrast Delivered: 70.0 ml; Total Saline Delivered: 75.1 ml RENAL FUNCTION: BUN 6; creatinine 0.72 LIMITATIONS: None. FINDINGS: AORTIC ARCH: Normal three-vessel origin. Bilateral subclavian arteries are patent. No d issection. RIGHT CAROTIDS: Scattered calcified atherosclerotic plaques. Patent common, internal and external ca rotid arteries without suggestion of significant stenosis or irregular plaque. No dissection. RIGHT VERTEBRAL: Patent. No dissection. LEFT CAROTIDS: Scattered calcified atherosclerotic plaques. Patent common, internal and external car otid arteries without suggestion of significant stenosis or irregular plaque. No dissection. LEFT VERTEBRAL: Patent. No dissection. OTHER: Degenerative changes are seen of the visualized spine. OTHER: 3-D reconstructions confirm findings. IMPRESSION: NORMAL CTA OF THE EXTRA-CRANIAL CAROTID AND VERTEBRAL ARTERIES. COMMENT: Quality ID #[id number]: Measurements of distal internal carotid diameter were used as the denomina tor for stenosis measurement. TECHNICAL DOCUMENTATION: JOB ID: [id number] Quality ID # [id number]: Final reports with documentation of one or more dose reduction techniques (e.g., Au tomated exposure control, adjustment of the mA and/or kV according to patient size, use of iterative reconstruction technique) 2010 [employer]- All Rights Reserved
[2017-02-10] MEDS ORDERED: IPRATROPIUM/ALBUTEROL 120 PUFF/4 GM MDI IH ONE (19:42)
--- NOTE | 2017-02-10 19:43 | RADIOLOGY REPORT (SQ) ---
EXAM DESCRIPTION: CTA HEAD COMPLETED DATE/TIME: 02/10/2017 7:14 pm REASON FOR STUDY: CVA COMPARISON: None. TECHNIQUE: Post IV contrast scanning, thin section axial imaging through the brain to evaluate the a rterial structures. Source and MIP images are saved and reviewed on PACS. Advanced 3D imaging as volume-rendering, MIPs, SSD performed? yes All CT scanners at this facility use dose modulation, iterative reconstruction, and/or weight based d osing when appropriate to reduce radiation dose to as low as reasonably achievable (ALARA). [facility]: Dose Right [facility]: CareDose [facility]: Dose Right [facility]: Teradose 4D [facility]: Smart [employer] RENAL FUNCTION: BUN 6; creatinine 0.72 LIMITATIONS: None. FINDINGS: [place]: The anterior, middle, posterior cerebral arteries are all patent. No ev idence of aneurysm or focal stenosis. POSTERIOR CIRCULATION: The distal vertebral arteries are patent as is the basilar artery. No aneurysm . BRAIN: No gross enhancing lesions as visualized. Background of chronic microvascular ischemic change s. BONES: Intact as visualized. SINUSES: No fluid or mucosal thickening. OTHER: No other significant finding. IMPRESSION: NO CTA EVIDENCE OF STENOSIS OR ANEURYSM OF THE [place]. TECHNICAL DOCUMENTATION: JOB ID: [id number] Quality ID # [id number]: Final reports with documentation of one or more dose reduction techniques (e.g., Au tomated exposure control, adjustment of the mA and/or kV according to patient size, use of iterative reconstruction technique) 2010 [employer]- All Rights Reserved
[2017-02-10] MEDS: BUDESONIDE/FORMOTEROL 160-4.5 MCG 60 PUFF/6 GM MDI IH SCH (20:26)
[2017-02-10] MEDS: IPRATROPIUM/ALBUTEROL 120 PUFF/4 GM MDI IH SCH (20:27)
[2017-02-10] MEDS ORDERED: NORMAL SALINE 1000 ML 1,000 ML IV ONE (22:42)
[2017-02-10] MEDS: LEVETIRACETAM 1000 MG/NACL-ISO 1,000 MG/100 ML RTUPB IV SCH (22:43)
[2017-02-10] MEDS: PROMETHAZINE HCL 25 MG TABLET PO SCH (22:47)
[2017-02-10] MEDS: MAGNESIUM OXIDE 400 MG TABLET PO SCH (22:48)
[2017-02-10] MEDS: MONTELUKAST SODIUM 10 MG TABLET PO SCH (22:48)
[2017-02-11] MEDS ORDERED: MORPHINE SULFATE 10 MG/ML INJ IV PRN (02:03)
[2017-02-11 05:48] LABS: ABSOLUTE LYMPHOCYTES (AUTO) 0.7 10^3/uL (0.5-4.7); ABSOLUTE MONOCYTES (AUTO) 0.3 10^3/uL (0.1-1.4); ABSOLUTE NEUT (AUTO) 5.4 10^3/uL (1.7-8.2); BASOPHILS % (AUTO) 0.1 % (0-2); HEMATOCRIT 29.6 % (36.0-47.0); HEMOGLOBIN 10.5 g/dL (12.0-15.5); LYMPHOCYTES % (AUTO) 11.2 % (13-45); MEAN CORPUSCULAR HEMOGLOBIN 32.2 pg (27.0-33.4); MEAN CORPUSCULAR HGB CONC 35.5 g/dL (32.0-36.0); MEAN CORPUSCULAR VOLUME 91 fl (80-97); MONOCYTES % (AUTO) 4.4 % (3-13); PLATELET COUNT 266 10^3/uL (150-450); RED BLOOD COUNT 3.27 10^6/uL (3.72-5.28); RED CELL DISTRIBUTION WIDTH 15.4 % (11.5-14.0); SEGMENTED NEUTROPHILS % (AUTO) 84.3 % (42-78); TOTAL CELLS COUNTED % (AUTO) 100 %; WHITE BLOOD COUNT 6.5 10^3/uL (4.0-10.5)
[2017-02-11 06:18] LABS: ALANINE AMINOTRANSFERASE 25 U/L (9-52); ALBUMIN 3.3 g/dL (3.5-5.0); ALKALINE PHOSPHATASE 91 U/L (38-126); ANION GAP 8 (5-19); ASPARTATE AMINO TRANSFERASE 17 U/L (14-36); BILIRUBIN,DIRECT 0.2 mg/dL (0.0-0.4); BILIRUBIN,TOTAL 0.6 mg/dL (0.2-1.3); BLOOD UREA NITROGEN 6 mg/dL (7-20); CALCIUM 8.6 mg/dL (8.4-10.2); CARBON DIOXIDE 28 mmol/L (22-30); CHLORIDE 105 mmol/L (98-107); CHOLESTEROL 153.61 mg/dL (0-200); GLUCOSE 111 mg/dL (75-110); PHOSPHORUS 3.6 mg/dL (2.5-4.5); POTASSIUM 3.8 mmol/L (3.6-5.0); SODIUM 140.5 mmol/L (137-145); TOTAL PROTEIN 5.8 g/dL (6.3-8.2); TRIGLYCERIDES 101 mg/dL (<150)
[2017-02-11] MEDS: LANSOPRAZOLE 15 MG TAB.RAP.DR PO SCH (06:27)
[2017-02-11 06:29] LABS: DIRECT LDL 90 mg/dL (<100)
[2017-02-11 07:11] LABS: MAGNESIUM 2.2 mg/dL (1.6-2.3)
[2017-02-11] MEDS: ENOXAPARIN SODIUM INJ 80 MG/0.8 ML DISP.SYRIN SUBCUT SCH ×2 (08:51→20:15)
[2017-02-11] MEDS: LORAZEPAM 0.5 MG TABLET PO SCH ×2 (08:53→14:20)
[2017-02-11] MEDS: NORMAL SALINE 1000 ML 1,000 ML IV PRN ×2 (08:53→18:19)
[2017-02-11] MEDS: DOCUSATE SODIUM 100 MG CAPSULE PO SCH (11:11)
[2017-02-11] MEDS: MAGNESIUM OXIDE 400 MG TABLET PO SCH ×2 (11:16→21:24)
[2017-02-11] MEDS: TOLTERODINE TARTRATE 1 MG TABLET PO SCH ×2 (11:16→21:25)
[2017-02-11] MEDS: FOLIC ACID 1 MG TABLET PO SCH (11:17)
[2017-02-11] MEDS: LEVETIRACETAM 1000 MG/NACL-ISO 1,000 MG/100 ML RTUPB IV SCH ×2 (11:18→21:22)
[2017-02-11] MEDS: IPRATROPIUM/ALBUTEROL 120 PUFF/4 GM MDI IH SCH ×2 (12:20→18:20)
[2017-02-11] MEDS: BUDESONIDE/FORMOTEROL 160-4.5 MCG 60 PUFF/6 GM MDI IH SCH ×2 (12:22→21:24)
[2017-02-11] MEDS ORDERED: ACETAMINOPHEN 325 MG TABLET ONE (16:36)
--- NOTE | 2017-02-11 17:28 | EKG REPORT ---
SEVERITY:- BORDERLINE ECG - SINUS RHYTHM LOW VOLTAGE IN FRONTAL LEADS BORDERLINE PROLONGED QT INTERVAL : Confirmed by: Miguel Harmon 11-Feb-2017 12:10:58
--- NOTE | 2017-02-11 17:28 | HISTORY AND PHYSICAL E ---
History and Physical NAME: EVE GUILLERMO : 1945 AGE: 71Y ADMITTED: 02/10/2017 ROOM: 331 ONCOLOGY CONSULTATION REASON FOR CONSULTATION: Asked by hospitalist team to consult on patient, well known to our Oncology service with extensive stage small cell lung cancer, here with confusion, dehydration, weakness. CHIEF COMPLAINT: Confusion, weakness. HISTORY OF PRESENT ILLNESS: This is a very pleasant 71-year-old female, well known to Oncology Clinic with a history of extensive stage small cell lung cancer. Initially she had a primary lung mass, but she did have some satellite nodules. She had disease that was outside of irradiation field so we decided on initiating systemic chemotherapy. About 4 weeks ago she received cycle #1 of carboplatin plus etoposide. She received a Neulasta shot. About 2 days after receiving the Neulasta shot, she had an acute local reaction with a lot of redness in the arm and she became neutropenic thereafter, and she came into the hospital right around Oniel time with severe weakness, dehydration, nausea and vomiting, and confusion at that time. She was found to be pancytopenic. Her platelet count went as low as 20. Ultimately she improved and her counts recovered and she was discharged home. However, she has been home now for about 2 weeks and she has been having bouts of confusion. We had planned for an MRI this past Sunday but, unfortunately, because of the weather, that could not be done. I was discussing her case with her daughter through the weekend, as she still continued to have bouts of confusion. Ultimately, she appeared to have a small seizure at home, so we instructed her to be brought here to [facility]. She was brought here. Initial CT of the head without contrast was negative. CT of the neck indicated bilateral carotid artery disease with atherosclerotic plaques, and she was able to get an MRI of the brain. MRI of the brain actually indicates a large area of watershed infarct. Unfortunately, because of the medical record system being down, I cannot dictate the actual report into this note, but there definitely was an area in the parietooccipital area of infarct that was new. There is also microvascular disease that seemed chronic. She is currently on stroke protocol now, being fully anticoagulated. She has echocardiogram pending. PAST MEDICAL HISTORY: 1. Hypertension. 2. Hyperlipidemia. 3. Small cell lung cancer as above. PAST SURGICAL HISTORY: 1. Port placement. 2. Lung biopsy. FAMILY HISTORY: No known history of cancer in the family. SOCIAL HISTORY: History of smoking in the past, has about a 99-afkt-itbi history of tobacco but quit. No heavy EtOH, no illicit drugs. Lives here in town. Her also is involved with her care but does have early signs of dementia. Both daughters are at bedside now and are very involved with her care. REVIEW OF SYSTEMS: Unobtainable because of patient's mental status. PHYSICAL EXAMINATION: VITAL SIGNS: Reviewed. GENERAL: Alert and oriented to person and place at times. HEENT: EOM dry. CHEST: Clear to auscultation bilaterally. CARDIOVASCULAR: RRR. No MRG. ABDOMEN: Soft, nontender. EXTREMITIES: No CCE. LABORATORY DATA: Reviewed. Counts are stable. Platelet count is normal. Hemoglobin is stable, above 10. IMAGING: As above, reviewed by myself. ASSESSMENT: This is a 71-year-old female here with acute stroke in the setting of extensive stage small cell lung cancer. PLAN: 1. Acute stroke. She is currently on stroke protocol and full anticoagulation. She has echocardiogram pending and she is being monitored appropriately for this. Physical therapy is going to be seeing her. We will have to see whether she needs to go to a rehab setting or can she do home rehab ultimately. 2. Extensive stage small cell lung cancer. Treatment will have to be on hold until she improves from a functional standpoint and a mental status standpoint, but if she does improve, we would consider further chemotherapy. 3. Will follow. Thank you for the opportunity to participate in patient's care. Please call if there are any questions. DICTATING PHYSICIAN: ROZINA CHOWDHURY M.D. [id number] PHY#: [id number] ID: [id number] JOB#: [id number] ACCT: [id number] cc: > MTDD
--- NOTE | 2017-02-11 20:18 | PROGRESS NOTE E ---
Progress Note NAME: EVE GUILLERMO : 1945 AGE: 71Y DATE: 02/11/2017 ROOM: 331 SUBJECTIVE: The patient is a 71-year-old female who was diagnosed with small cell lung cancer in 12/2016 and has been undergoing chemotherapy with Dr. Luna. She presented with 1 episode of seizures on 02/10. MRI of the brain showed multiple bilateral infarcts. She was started on Lovenox. CT of the head and neck was unremarkable. She was also started on Keppra. No complaints at present. OBJECTIVE: VITAL SIGNS: Stable. LUNGS: Clear to auscultation bilaterally. Normal respiratory effort. CARDIAC: S1, S2 regular. No murmurs heard. No peripheral edema. No cyanosis. No calf tenderness. ABDOMEN: Soft, nontender, nondistended. Bowel sounds heard. NEUROLOGIC: She is awake and alert. She is oriented to self only. She has trouble following some commands. Motor strength is 4+/5 bilateral upper and lower extremities. Sensation is intact and equal bilaterally. No facial droop. Extraocular movement intact. SKIN: Warm and dry. ASSESSMENT AND PLAN: 1. Continue current medical management for stroke. 2. Continue full anticoagulation with Lovenox. Echocardiogram is pending. 3. Continue Keppra for seizures. TIME SPENT: Thirty minutes. DICTATING PHYSICIAN: ANTWON MCKEE M.D. [id number] PHY#: [id number] ID: [id number] JOB#: [id number] ACCT: [id number] cc: >
[2017-02-11] MEDS: LORAZEPAM INJ 2 MG/1 ML VIAL IV PRN (21:24)
[2017-02-11] MEDS: PROMETHAZINE HCL 25 MG TABLET PO SCH (21:25)
[2017-02-11] MEDS: MONTELUKAST SODIUM 10 MG TABLET PO SCH (21:25)
[2017-02-11] MEDS ORDERED: ACETAMINOPHEN 325 MG TABLET PO PRN (23:24)
[2017-02-12 06:26] LABS: HEMATOCRIT 25.3 % (36.0-47.0); HEMOGLOBIN 8.7 g/dL (12.0-15.5); MEAN CORPUSCULAR HEMOGLOBIN 31.9 pg (27.0-33.4); MEAN CORPUSCULAR HGB CONC 34.5 g/dL (32.0-36.0); MEAN CORPUSCULAR VOLUME 92 fl (80-97); PLATELET COUNT 212 10^3/uL (150-450); RED BLOOD COUNT 2.74 10^6/uL (3.72-5.28); RED CELL DISTRIBUTION WIDTH 15.6 % (11.5-14.0); WHITE BLOOD COUNT 5.7 10^3/uL (4.0-10.5)
[2017-02-12] MEDS: ENOXAPARIN SODIUM INJ 80 MG/0.8 ML DISP.SYRIN SUBCUT SCH ×2 (07:37→18:51)
[2017-02-12] MEDS: LANSOPRAZOLE 15 MG TAB.RAP.DR PO SCH (07:37)
--- NOTE | 2017-02-12 08:13 | PDOC PROGRESS REPORT ---
Subjective Progress Note for:: 02/12/17 Subjective:: Patient still with same level of confusion, was able to get up with 1 person assist to the restroom 3 times yesterday, family felt overnight that there may have been seizure activity, apparently one side of the body was shaking more than the other, but this was not witnessed by any medical Staff. Reason For Visit: SEIZURES Physical Exam Vital Signs: Temp Pulse Resp BP Pulse Ox 97.8 F 40 L 18 121/61 97 02/12/17 04:41 02/12/17 04:41 02/12/17 04:41 02/12/17 04:41 02/12/17 04:41 Intake & Output 02/11/17 02/12/17 02/13/17 06:59 06:59 06:59 Intake Total 937 1850 Output Total 800 Balance 137 1850 Weight 67.7 kg 107.2 kg General appearance: PRESENT: no acute distress, well-developed, well-nourished Head exam: PRESENT: atraumatic, normocephalic Eye exam: PRESENT: conjunctiva pink, EOMI, PERRLA. ABSENT: scleral icterus Ear exam: PRESENT: normal external ear exam Mouth exam: PRESENT: moist, tongue midline Neck exam: ABSENT: carotid bruit, JVD, lymphadenopathy, thyromegaly Respiratory exam: PRESENT: clear to auscultation stacia. ABSENT: rales, rhonchi, wheezes Cardiovascular exam: PRESENT: RRR. ABSENT: diastolic murmur, rubs, systolic murmur Pulses: PRESENT: normal dorsalis pedis pul Vascular exam: PRESENT: normal capillary refill GI/Abdominal exam: PRESENT: normal bowel sounds, soft. ABSENT: distended, guarding, mass, organolmegaly, rebound, tenderness Rectal exam: PRESENT: deferred Extremities exam: PRESENT: full ROM. ABSENT: calf tenderness, clubbing, pedal edema Neurological exam: PRESENT: alert, awake, oriented to person, oriented to place , oriented to time, oriented to situation, CN II-XII grossly intact. ABSENT: motor sensory deficit Psychiatric exam: PRESENT: appropriate affect, normal mood. ABSENT: homicidal ideation, suicidal ideation Skin exam: PRESENT: dry, intact, warm. ABSENT: cyanosis, rash Results Laboratory Results: 02/12/17 04:40 02/11/17 05:22 02/12/17 04:40 WBC 5.7 RBC 2.74 L Hgb 8.7 L Hct 25.3 L MCV 92 MCH 31.9 MCHC 34.5 RDW 15.6 H Plt Count 212 Impressions: Head CTA 02/10/17 00:00 IMPRESSION: NO CTA EVIDENCE OF STENOSIS OR ANEURYSM OF THE [place]. Neck CTA 02/10/17 00:00 IMPRESSION: NORMAL CTA OF THE EXTRA-CRANIAL CAROTID AND VERTEBRAL ARTERIES. Head CT 02/10/17 11:52 IMPRESSION: NO ACUTE INTRACRANIAL PROCESS. NO SIGNIFICANT CHANGE FROM PRIOR STUDY. EVIDENCE OF ACUTE STROKE: NO. Chest X-Ray 02/10/17 13:08 IMPRESSION: LEFT LOWER LOBE CONSOLIDATION PRESUMABLY REPRESENTING PNEUMONIA. RECOMMEND FOLLOWUP RADIOGRAPHS 4 TO 6 WEEKS TO ENSURE RESOLUTION. Head MRI 02/10/17 13:21 IMPRESSION: ACUTE INFARCT INVOLVING THE LEFT POSTERIOR PARIETAL AND OCCIPITAL LOBES WITH ADDITIONAL SCATTERED FOCI OF RESTRICTED DIFFUSION INVOLVING THE BILATERAL FRONTAL LOBES FAVORING WATERSHED TYPE INFARCTION. NO LARGE TERRITORY INFARCTION IDENTIFIED. NO HEMORRHAGE OR ENHANCING LESIONS. EVIDENCE OF ACUTE STROKE: YES. WATERSHED ABOVE. Assessment & Plan - Diagnosis (1) CVA (cerebral vascular accident) Qualifiers: CVA mechanism: unspecified Qualified Code(s): I63.9 - Cerebral infarction, unspecified Is this a current diagnosis for this admission?: Yes Plan: Awaiting echocardiogram results, continue anticoagulation current management. (2) Lung cancer Qualifiers: Laterality: left Lung location: hilum of lung Qualified Code(s): C34.02 - Malignant neoplasm of left main bronchus Is this a current diagnosis for this admission?: Yes Plan: Extensive stage small cell lung cancer, 25 we were planning on further therapy as an outpatient, will continue to discuss this with family. - Time Time Spent with patient: 25-34 minutes - Inpatient Certification Based on my medical assessment, after consideration of the patient's comorbidities, presenting symptoms, or acuity I expect that the services needed warrant INPATIENT care.: Yes I certify that my determination is in accordance with my understanding of Medicare's requirements for reasonable and necessary INPATIENT services [42 CFR 412.3e].: Yes Medical Necessity: Failure to Improve With Outpatient Therapy, Need For Continuous Telemetry Monitoring, Risk of Complication if Not Cared For in Hospital
--- NOTE | 2017-02-12 08:55 | PDOC PROGRESS REPORT ---
Subjective Progress Note for:: 02/12/17 Subjective:: The patient appears to be slightly better. She is more awake and alert. She is oriented 2. There is no family members present. Reason For Visit: SEIZURES Physical Exam Vital Signs: Temp Pulse Resp BP Pulse Ox 97.8 F 68 18 121/61 97 02/12/17 04:41 02/12/17 06:55 02/12/17 04:41 02/12/17 04:41 02/12/17 04:41 Intake & Output 02/11/17 02/12/17 02/13/17 06:59 06:59 06:59 Intake Total 937 1850 Output Total 800 Balance 137 1850 Weight 67.7 kg 107.2 kg General appearance: PRESENT: mild distress Head exam: PRESENT: atraumatic Eye exam: PRESENT: conjunctiva pink Respiratory exam: PRESENT: rhonchi Cardiovascular exam: PRESENT: +S1, +S2 Pulses: PRESENT: +1 pedal pulses bilateral Musculoskeletal exam: PRESENT: full ROM Neurological exam: PRESENT: alert, awake, oriented to place, oriented to time. ABSENT: oriented to person Results Laboratory Results: 02/12/17 04:40 02/11/17 05:22 02/12/17 04:40 WBC 5.7 RBC 2.74 L Hgb 8.7 L Hct 25.3 L MCV 92 MCH 31.9 MCHC 34.5 RDW 15.6 H Plt Count 212 Impressions: Head CTA 02/10/17 00:00 IMPRESSION: NO CTA EVIDENCE OF STENOSIS OR ANEURYSM OF THE [place]. Neck CTA 02/10/17 00:00 IMPRESSION: NORMAL CTA OF THE EXTRA-CRANIAL CAROTID AND VERTEBRAL ARTERIES. Head CT 02/10/17 11:52 IMPRESSION: NO ACUTE INTRACRANIAL PROCESS. NO SIGNIFICANT CHANGE FROM PRIOR STUDY. EVIDENCE OF ACUTE STROKE: NO. Chest X-Ray 02/10/17 13:08 IMPRESSION: LEFT LOWER LOBE CONSOLIDATION PRESUMABLY REPRESENTING PNEUMONIA. RECOMMEND FOLLOWUP RADIOGRAPHS 4 TO 6 WEEKS TO ENSURE RESOLUTION. Head MRI 02/10/17 13:21 IMPRESSION: ACUTE INFARCT INVOLVING THE LEFT POSTERIOR PARIETAL AND OCCIPITAL LOBES WITH ADDITIONAL SCATTERED FOCI OF RESTRICTED DIFFUSION INVOLVING THE BILATERAL FRONTAL LOBES FAVORING WATERSHED TYPE INFARCTION. NO LARGE TERRITORY INFARCTION IDENTIFIED. NO HEMORRHAGE OR ENHANCING LESIONS. EVIDENCE OF ACUTE STROKE: YES. WATERSHED ABOVE. Assessment & Plan - Diagnosis (1) CVA (cerebral vascular accident) Qualifiers: CVA mechanism: unspecified Qualified Code(s): I63.9 - Cerebral infarction, unspecified Is this a current diagnosis for this admission?: Yes Plan: Continue current treatment. Awaiting echocardiogram. The patient did have a prior episode of atrial fibrillation which has resolved. I would suspect that it might be the cause for her recurrent CVAs (2) Hypomagnesemia Is this a current diagnosis for this admission?: Yes Plan: Continue with current treatment (3) Lung cancer Qualifiers: Laterality: left Lung location: hilum of lung Qualified Code(s): C34.02 - Malignant neoplasm of left main bronchus Is this a current diagnosis for this admission?: Yes Plan: We will proceed with the recommendations by the oncologist (4) New onset seizure Is this a current diagnosis for this admission?: Yes Plan: Continue Keppra (6) COPD (chronic obstructive pulmonary disease) Qualifiers: Emphysema type: centrilobular Is this a current diagnosis for this admission?: Yes Plan: Continue current treatment
[2017-02-12] MEDS: MAGNESIUM OXIDE 400 MG TABLET PO SCH ×2 (09:16→21:41)
[2017-02-12] MEDS: TOLTERODINE TARTRATE 1 MG TABLET PO SCH ×2 (09:16→21:40)
[2017-02-12] MEDS: FOLIC ACID 1 MG TABLET PO SCH (09:16)
[2017-02-12] MEDS: LORAZEPAM 0.5 MG TABLET PO SCH ×2 (09:16→13:29)
[2017-02-12] MEDS: DOCUSATE SODIUM 100 MG CAPSULE PO SCH (09:16)
[2017-02-12] MEDS: LEVETIRACETAM 1000 MG/NACL-ISO 1,000 MG/100 ML RTUPB IV SCH ×2 (09:17→21:31)
[2017-02-12] MEDS: BUDESONIDE/FORMOTEROL 160-4.5 MCG 60 PUFF/6 GM MDI IH SCH ×2 (09:17→21:39)
[2017-02-12] MEDS: IPRATROPIUM/ALBUTEROL 120 PUFF/4 GM MDI IH SCH ×2 (09:30→18:53)
[2017-02-12] MEDS: DILTIAZEM HCL 120 MG CAP.SR.24H PO SCH (11:13)
--- NOTE | 2017-02-12 11:39 | RADIOLOGY REPORT (SQ) ---
EXAM DESCRIPTION: CT CHEST WITHOUT COMPLETED DATE/TIME: 02/12/2017 11:01 am REASON FOR STUDY: Lung mass COMPARISON: Chest film 02/11/2016, 01/24/2017, 01/16/2017, 12/28/2016 CT chest 11/27/2016, PET-CT 12/10/2016 TECHNIQUE: CT scan performed of the chest without intravenous contrast. Images reviewed with lung, soft tissue and bone windows. Reconstructed coronal and sagittal MPR images reviewed. All images st ored on PACS. All CT scanners at this facility use dose modulation, iterative reconstruction, and/or weight based d osing when appropriate to reduce radiation dose to as low as reasonably achievable (ALARA). [facility]: Dose Right [facility]: CareDose [facility]: Dose Right [facility]: Teradose 4D [facility]: Smart [employer] RADIATION DOSE: CT Rad equipment meets quality standard of care and radiation dose reduction techniq ues were employed. CTDIvol: 15.6 mGy. DLP: 568 mGy-cm. mGy. LIMITATIONS: No technical limitations. FINDINGS: LUNGS AND PLEURA: On the current study, there is occlusion of the left lower lobe segment al airways at the level of the left hilum. Discrete left hilar mass is difficult to measure due to a djacent left lower lobe lung consolidation and lack of IV contrast. A hypermetabolic lesion was in t his area on prior PET-CT 12/10/2016. PET-CT 12/10/2016 demonstrated a small hypermetabolic mass in the left lower lobe within the consolida fred left lower lobe lung parenchyma. This is difficult to measure on today's study due to left lower lobe collapse and lack of IV contrast. Today's study demonstrates that the remainder of the lungs are well inflated and free of focal infilt rates. Upper lobes are hyperlucent from obstructive disease. Trace bilateral pleural effusions. No pneumothorax. HILAR AND MEDIASTINAL STRUCTURES: As above HEART AND VASCULAR STRUCTURES: No aneurysm. Trace pericardial effusion, stable. UPPER ABDOMEN: Post cholecystectomy. Atrophy left kidney. THYROID AND OTHER SOFT TISSUES: Bilateral breast implants are present. BONES: No significant finding. HARDWARE: Right permanent central line tip superior vena cava OTHER: No other significant findings. IMPRESSION: Persistent left lower lobe collapse and consolidation from postobstructive change at the left hilum Trace bilateral pleural effusions, increased compared to previous studies Stable trace pericardial effusion TECHNICAL DOCUMENTATION: JOB ID: [id number] Quality ID # [id number]: Final reports with documentation of one or more dose reduction techniques (e.g., Au tomated exposure control, adjustment of the mA and/or kV according to patient size, use of iterative reconstruction technique) 2010 [employer]- All Rights Reserved
--- NOTE | 2017-02-12 20:51 | XCELERA REPORT ---
[address] [address] Transthoracic Echocardiogram Report Name: EVE GUILLERMO Age: 71 yrs Gender: Female : 1945 Patient Status: Inpatient Patient Location: [address] [place] [address] Study Date: 02/12/2017 11:18 AM Height: 64 in Weight: 236 lb BSA: 2.1 m2 Procedure: A two-dimensional transthoracic echocardiogram with color flow and Doppler was performed. Study Quality: Technically suboptimal. The study was technically difficult with many images being suboptimal in quality. The study was technically limited with all images being suboptimal in quality. Reason For Study: CVA- suspect embolic History: CVA- suspect embolic. Ordering Physician: ANTWON MCKEE Performed By: Felipa Medellin Interpretation Summary There is no obvious cardiac source of embolus noted on this transthoracic echocardiogram. Follow-up with a JOSE ALFREDO is suggested if cardiac source is still suspected. The left ventricle is normal in size. There is normal left ventricular wall thickness. Left ventricular systolic function is low normal. Doppler measurements suggest normal left ventricular diastolic function The left ventricular wall motion is normal. There is no thrombus. Probably normal RA and RV size. There is no evidence of mitral valve prolapse. There is no mitral valve stenosis. There is a severe amount of mitral regurgitation There is no aortic valve stenosis There is no LVOT obstruction. No aortic regurgitation is present. There is no tricuspid stenosis. There is a severe amount of tricuspid regurgitation Moderate to severe pulmonary hypertension.RVP is 58 to 63 mm of Hg , with RA mean of 15 to 20. The inferior vena cava appeared dilated and decreased < 50% with respiration (RAP 15-20 mmHg) There is no pericardial effusion. There is no obvious cardiac source of embolus noted on this transthoracic echocardiogram. Follow-up with a JOSE ALFREDO is suggested if cardiac source is still suspected MMode/2D Measurements & Calculations IVSd: 0.90 cm LVIDd: 5.4 cm FS: 25.2 % Ao root diam: 2.8 cm LVIDs: 4.1 cm EDV(Teich): LVPWd: 0.90 cm 143.6 ml Ao root area: 6.1 cm2 ESV(Teich): LA dimension: 5.6 cm 72.8 ml EF(Teich): 49.3 % LA A2Cs: LA A4Cs: LA length: 6.3 cmLA Vol Index (BP): 27.2 cm2 21.9 cm2 38.6 ml/m2 LA Volume: 81.0 ml Doppler Measurements & Calculations MV E max rayne: MV P1/2t max rayne: Ao V2 max: LV V1 max P.9 cm/sec 131.6 cm/sec 126.5 cm/sec 3.8 mmHg MV A max rayne: MV P1/2t: 55.5 msec Ao max PG: LV V1 max: 121.4 cm/sec 6.4 mmHg 97.2 cm/sec MV E/A: 1.1 MVA(P1/2t): 4.0 cm2 MV dec slope: 694.4 cm/sec2 MV dec time: 0.18 sec PA V2 max: TR max rayne: 60.6 cm/sec 327.9 cm/sec PA max P.6 mmHgTR max P.0 mmHg Left Ventricle The left ventricle is normal in size. There is normal left ventricular wall thickness. LV EF is 55%. Left ventricular systolic function is low normal. Doppler measurements suggest normal left ventricular diastolic function. The left ventricular wall motion is normal. There is no thrombus. Right Ventricle Probably normal RA and RV size. Atria The left atrium is severely dilated. Mitral Valve There is no evidence of mitral valve prolapse. There is no vegetation seen on the mitral valve. There is no mitral valve stenosis. There is a severe amount of mitral regurgitation. Aortic Valve There is no aortic valvular vegetation. There is no aortic valve stenosis. There is no LVOT obstruction. No aortic regurgitation is present. Tricuspid Valve There is no tricuspid stenosis. There is a severe amount of tricuspid regurgitation. Moderate to severe pulmonary hypertension.RVP is 58 to 63 mm of Hg , with RA mean of 15 to 20. Pulmonic Valve There is no pulmonic valvular stenosis. There is no pulmonic valvular regurgitation. Great Vessels The aortic root is not well visualized. The inferior vena cava appeared dilated and decreased < 50% with respiration (RAP 15-20 mmHg). Effusions There is no pericardial effusion. : RYLEE, June Antionette Aguilera
[2017-02-12] MEDS: SIMVASTATIN 10 MG TABLET PO SCH (21:40)
[2017-02-12] MEDS: MONTELUKAST SODIUM 10 MG TABLET PO SCH (21:40)
[2017-02-12] MEDS: PROMETHAZINE HCL 25 MG TABLET PO SCH (21:40)
[2017-02-12 22:45] LABS: APPEARANCE,URINE CLEAR; BILIRUBIN,URINE NEGATIVE (NEGATIVE); COLOR,URINE STRAW; GLUCOSE, URINE NEGATIVE (NEGATIVE); KETONES,URINE NEGATIVE (NEGATIVE); LEUKOCYTE ESTERASE,URINE TRACE (NEGATIVE); NITRITE,URINE NEGATIVE (NEGATIVE); PROTEIN,URINE NEGATIVE (NEGATIVE); URINE SPECIFIC GRAVITY 1.009; UROBILINOGEN,URINE NEGATIVE mg/dL (<2.0)
[2017-02-13 05:11] LABS: ABSOLUTE LYMPHOCYTES (AUTO) 1.5 10^3/uL (0.5-4.7); ABSOLUTE MONOCYTES (AUTO) 0.7 10^3/uL (0.1-1.4); ABSOLUTE NEUT (AUTO) 2.3 10^3/uL (1.7-8.2); BASOPHILS % (AUTO) 0.8 % (0-2); EOSINOPHILS % (AUTO) 0.3 % (0-6); HEMATOCRIT 29.3 % (36.0-47.0); LYMPHOCYTES % (AUTO) 32.7 % (13-45); MEAN CORPUSCULAR HEMOGLOBIN 31.5 pg (27.0-33.4); MEAN CORPUSCULAR HGB CONC 34.2 g/dL (32.0-36.0); MEAN CORPUSCULAR VOLUME 92 fl (80-97); PLATELET COUNT 257 10^3/uL (150-450); RED BLOOD COUNT 3.18 10^6/uL (3.72-5.28); RED CELL DISTRIBUTION WIDTH 15.9 % (11.5-14.0); SEGMENTED NEUTROPHILS % (AUTO) 51.2 % (42-78); TOTAL CELLS COUNTED % (AUTO) 100 %; WHITE BLOOD COUNT 4.5 10^3/uL (4.0-10.5)
[2017-02-13 05:32] LABS: ANION GAP 9 (5-19); BLOOD UREA NITROGEN 7 mg/dL (7-20); CALCIUM 8.8 mg/dL (8.4-10.2); CARBON DIOXIDE 29 mmol/L (22-30); CHLORIDE 103 mmol/L (98-107); GLUCOSE 84 mg/dL (75-110); MAGNESIUM 1.7 mg/dL (1.6-2.3); POTASSIUM 3.3 mmol/L (3.6-5.0); SODIUM 141.3 mmol/L (137-145)
[2017-02-13] MEDS: LANSOPRAZOLE 15 MG TAB.RAP.DR PO SCH (06:54)
[2017-02-13] MEDS: ENOXAPARIN SODIUM INJ 80 MG/0.8 ML DISP.SYRIN SUBCUT SCH ×2 (06:54→19:00)
--- NOTE | 2017-02-13 08:42 | PDOC PROGRESS REPORT ---
Subjective Progress Note for:: 02/13/17 Subjective:: Pt seems a bit better from MS standpoint this am, was able to get up to restroom w. assistance yesterday, reviewed imaging w/ family, the primary tumor seems smaller to me but there is LLL collapse probably from the endobronchial lesion as well as atelectasis, no progression of disease noted, echo reviewed, no vegitations noted Reason For Visit: SEIZURES Physical Exam Vital Signs: Temp Pulse Resp BP Pulse Ox 97.6 F 62 13 153/75 H 98 02/13/17 07:48 02/13/17 07:48 02/13/17 07:48 02/13/17 07:48 02/13/17 07:48 Intake & Output 02/12/17 02/13/17 02/14/17 06:59 06:59 06:59 Intake Total 1850 1260 Balance 1850 1260 Weight 107.2 kg 73.5 kg General appearance: PRESENT: no acute distress, well-developed, well-nourished Head exam: PRESENT: atraumatic, normocephalic Eye exam: PRESENT: conjunctiva pink, EOMI, PERRLA. ABSENT: scleral icterus Ear exam: PRESENT: normal external ear exam Mouth exam: PRESENT: moist, tongue midline Neck exam: ABSENT: carotid bruit, JVD, lymphadenopathy, thyromegaly Respiratory exam: PRESENT: clear to auscultation stacia. ABSENT: rales, rhonchi, wheezes Cardiovascular exam: PRESENT: RRR. ABSENT: diastolic murmur, rubs, systolic murmur Pulses: PRESENT: normal dorsalis pedis pul Vascular exam: PRESENT: normal capillary refill GI/Abdominal exam: PRESENT: normal bowel sounds, soft. ABSENT: distended, guarding, mass, organolmegaly, rebound, tenderness Rectal exam: PRESENT: deferred Extremities exam: PRESENT: full ROM. ABSENT: calf tenderness, clubbing, pedal edema Neurological exam: PRESENT: alert, awake, oriented to person, oriented to place , oriented to time, oriented to situation, CN II-XII grossly intact. ABSENT: motor sensory deficit Psychiatric exam: PRESENT: appropriate affect, normal mood. ABSENT: homicidal ideation, suicidal ideation Skin exam: PRESENT: dry, intact, warm. ABSENT: cyanosis, rash Results Laboratory Results: 02/13/17 04:00 02/13/17 04:00 02/12/17 02/12/17 02/13/17 22:22 22:22 04:00 WBC 4.5 RBC 3.18 L Hgb 10.0 L Hct 29.3 L MCV 92 MCH 31.5 MCHC 34.2 RDW 15.9 H Plt Count 257 Seg Neutrophils % 51.2 Lymphocytes % 32.7 Monocytes % 15.0 H Eosinophils % 0.3 Basophils % 0.8 Absolute Neutrophils 2.3 Absolute Lymphocytes 1.5 Absolute Monocytes 0.7 Absolute Eosinophils 0.0 Absolute Basophils 0.0 Sodium Potassium Chloride Carbon Dioxide Anion Gap BUN Creatinine Est GFR ( Amer) Est GFR (Non-Af Amer) Glucose Calcium Magnesium Urine Color STRAW Urine Appearance CLEAR Urine pH 7.0 Ur Specific [place] 1.009 Urine Protein NEGATIVE Urine Glucose (UA) NEGATIVE Urine Ketones NEGATIVE Urine Blood NEGATIVE Urine Nitrite NEGATIVE Ur Leukocyte Esterase TRACE H Urine WBC (Auto) 16 Urine RBC (Auto) 1 Stool Occult Blood NEGATIVE 02/13/17 04:00 WBC RBC Hgb Hct MCV MCH MCHC RDW Plt Count Seg Neutrophils % Lymphocytes % Monocytes % Eosinophils % Basophils % Absolute Neutrophils Absolute Lymphocytes Absolute Monocytes Absolute Eosinophils Absolute Basophils Sodium 141.3 Potassium 3.3 L Chloride 103 Carbon Dioxide 29 Anion Gap 9 BUN 7 Creatinine 0.64 Est GFR ( Amer) > 60 Est GFR (Non-Af Amer) > 60 Glucose 84 Calcium 8.8 Magnesium 1.7 Urine Color Urine Appearance Urine pH Ur Specific [place] Urine Protein Urine Glucose (UA) Urine Ketones Urine Blood Urine Nitrite Ur Leukocyte Esterase Urine WBC (Auto) Urine RBC (Auto) Stool Occult Blood Impressions: Head CTA 02/10/17 00:00 IMPRESSION: NO CTA EVIDENCE OF STENOSIS OR ANEURYSM OF THE [place]. Neck CTA 02/10/17 00:00 IMPRESSION: NORMAL CTA OF THE EXTRA-CRANIAL CAROTID AND VERTEBRAL ARTERIES. Head CT 02/10/17 11:52 IMPRESSION: NO ACUTE INTRACRANIAL PROCESS. NO SIGNIFICANT CHANGE FROM PRIOR STUDY. EVIDENCE OF ACUTE STROKE: NO. Chest X-Ray 02/10/17 13:08 IMPRESSION: LEFT LOWER LOBE CONSOLIDATION PRESUMABLY REPRESENTING PNEUMONIA. RECOMMEND FOLLOWUP RADIOGRAPHS 4 TO 6 WEEKS TO ENSURE RESOLUTION. Head MRI 02/10/17 13:21 IMPRESSION: ACUTE INFARCT INVOLVING THE LEFT POSTERIOR PARIETAL AND OCCIPITAL LOBES WITH ADDITIONAL SCATTERED FOCI OF RESTRICTED DIFFUSION INVOLVING THE BILATERAL FRONTAL LOBES FAVORING WATERSHED TYPE INFARCTION. NO LARGE TERRITORY INFARCTION IDENTIFIED. NO HEMORRHAGE OR ENHANCING LESIONS. EVIDENCE OF ACUTE STROKE: YES. WATERSHED ABOVE. Chest CT 02/12/17 00:00 IMPRESSION: Persistent left lower lobe collapse and consolidation from postobstructive change at the left hilum Trace bilateral pleural effusions, increased compared to previous studies Stable trace pericardial effusion Assessment & Plan - Diagnosis (1) CVA (cerebral vascular accident) Qualifiers: CVA mechanism: unspecified Qualified Code(s): I63.9 - Cerebral infarction, unspecified Is this a current diagnosis for this admission?: Yes Plan: Seems to be improving, discussed consideration of rehab placement and family seems agreeable, cont anticoag w/ lovenox, may transition to xarelto or eliquis as liver and kidney fxn appears normal (2) Lung cancer Qualifiers: Laterality: left Lung location: hilum of lung Qualified Code(s): C34.02 - Malignant neoplasm of left main bronchus Is this a current diagnosis for this admission?: Yes Plan: No progression, possible slight improvement, would consider more treatment after pt stronger, we would hold any therapy until rehab completed and pt is d'c 'd from rehab setting, family understanding of this. - Time Time Spent with patient: 35 or more minutes - Inpatient Certification Based on my medical assessment, after consideration of the patient's comorbidities, presenting symptoms, or acuity I expect that the services needed warrant INPATIENT care.: Yes I certify that my determination is in accordance with my understanding of Medicare's requirements for reasonable and necessary INPATIENT services [42 CFR 412.3e].: Yes Medical Necessity: Risk of Complication if Not Cared For in Hospital
--- NOTE | 2017-02-13 08:51 | PDOC PROGRESS REPORT ---
Subjective Progress Note for:: 02/13/17 Subjective:: The patient states to feel better. Her older daughter is in the room. She appears to be very angry and frustrated. All the questions answered. The echocardiogram reviewed. Discussed the rehab. Reason For Visit: SEIZURES Physical Exam Vital Signs: Temp Pulse Resp BP Pulse Ox 97.6 F 62 13 153/75 H 98 02/13/17 07:48 02/13/17 07:48 02/13/17 07:48 02/13/17 07:48 02/13/17 07:48 Intake & Output 02/12/17 02/13/17 02/14/17 06:59 06:59 06:59 Intake Total 1850 1260 Balance 1850 1260 Weight 107.2 kg 73.5 kg General appearance: PRESENT: mild distress Head exam: PRESENT: atraumatic Eye exam: PRESENT: conjunctiva pink Neck exam: PRESENT: full ROM. ABSENT: carotid bruit Respiratory exam: PRESENT: rhonchi Cardiovascular exam: PRESENT: RRR, +S1, +S2 Pulses: PRESENT: +1 pedal pulses bilateral Neurological exam: PRESENT: other Additional comments: Mild weakness in the right upper extremity with a mild right sided neglect Results Laboratory Results: 02/13/17 04:00 02/13/17 04:00 02/12/17 02/12/17 02/13/17 22:22 22:22 04:00 WBC 4.5 RBC 3.18 L Hgb 10.0 L Hct 29.3 L MCV 92 MCH 31.5 MCHC 34.2 RDW 15.9 H Plt Count 257 Seg Neutrophils % 51.2 Lymphocytes % 32.7 Monocytes % 15.0 H Eosinophils % 0.3 Basophils % 0.8 Absolute Neutrophils 2.3 Absolute Lymphocytes 1.5 Absolute Monocytes 0.7 Absolute Eosinophils 0.0 Absolute Basophils 0.0 Sodium Potassium Chloride Carbon Dioxide Anion Gap BUN Creatinine Est GFR ( Amer) Est GFR (Non-Af Amer) Glucose Calcium Magnesium Urine Color STRAW Urine Appearance CLEAR Urine pH 7.0 Ur Specific [place] 1.009 Urine Protein NEGATIVE Urine Glucose (UA) NEGATIVE Urine Ketones NEGATIVE Urine Blood NEGATIVE Urine Nitrite NEGATIVE Ur Leukocyte Esterase TRACE H Urine WBC (Auto) 16 Urine RBC (Auto) 1 Stool Occult Blood NEGATIVE 02/13/17 04:00 WBC RBC Hgb Hct MCV MCH MCHC RDW Plt Count Seg Neutrophils % Lymphocytes % Monocytes % Eosinophils % Basophils % Absolute Neutrophils Absolute Lymphocytes Absolute Monocytes Absolute Eosinophils Absolute Basophils Sodium 141.3 Potassium 3.3 L Chloride 103 Carbon Dioxide 29 Anion Gap 9 BUN 7 Creatinine 0.64 Est GFR ( Amer) > 60 Est GFR (Non-Af Amer) > 60 Glucose 84 Calcium 8.8 Magnesium 1.7 Urine Color Urine Appearance Urine pH Ur Specific [place] Urine Protein Urine Glucose (UA) Urine Ketones Urine Blood Urine Nitrite Ur Leukocyte Esterase Urine WBC (Auto) Urine RBC (Auto) Stool Occult Blood Impressions: Head CTA 02/10/17 00:00 IMPRESSION: NO CTA EVIDENCE OF STENOSIS OR ANEURYSM OF THE [place]. Neck CTA 02/10/17 00:00 IMPRESSION: NORMAL CTA OF THE EXTRA-CRANIAL CAROTID AND VERTEBRAL ARTERIES. Head CT 02/10/17 11:52 IMPRESSION: NO ACUTE INTRACRANIAL PROCESS. NO SIGNIFICANT CHANGE FROM PRIOR STUDY. EVIDENCE OF ACUTE STROKE: NO. Chest X-Ray 02/10/17 13:08 IMPRESSION: LEFT LOWER LOBE CONSOLIDATION PRESUMABLY REPRESENTING PNEUMONIA. RECOMMEND FOLLOWUP RADIOGRAPHS 4 TO 6 WEEKS TO ENSURE RESOLUTION. Head MRI 02/10/17 13:21 IMPRESSION: ACUTE INFARCT INVOLVING THE LEFT POSTERIOR PARIETAL AND OCCIPITAL LOBES WITH ADDITIONAL SCATTERED FOCI OF RESTRICTED DIFFUSION INVOLVING THE BILATERAL FRONTAL LOBES FAVORING WATERSHED TYPE INFARCTION. NO LARGE TERRITORY INFARCTION IDENTIFIED. NO HEMORRHAGE OR ENHANCING LESIONS. EVIDENCE OF ACUTE STROKE: YES. WATER[place] ABOVE. Chest CT 02/12/17 00:00 IMPRESSION: Persistent left lower lobe collapse and consolidation from postobstructive change at the left hilum Trace bilateral pleural effusions, increased compared to previous studies Stable trace pericardial effusion Assessment & Plan - Diagnosis (1) CVA (cerebral vascular accident) Qualifiers: CVA mechanism: unspecified Qualified Code(s): I63.9 - Cerebral infarction, unspecified Is this a current diagnosis for this admission?: Yes Plan: We will continue with physical therapy. Will start working on the rehab (2) Hypomagnesemia Is this a current diagnosis for this admission?: Yes Plan: Continue with current treatment (3) Lung cancer Qualifiers: Laterality: left Lung location: hilum of lung Qualified Code(s): C34.02 - Malignant neoplasm of left main bronchus Is this a current diagnosis for this admission?: Yes Plan: We will proceed with the recommendations by the oncologist (4) New onset seizure Is this a current diagnosis for this admission?: Yes Plan: Continue Keppra (5) Atrial fibrillation Is this a current diagnosis for this admission?: Yes Plan: With prior hospitalization the patient did have one episode of paroxysmal atrial fib. Her EKG is in normal sinus rhythm right now and her echocardiogram was unremarkable so the only plausible explanation would be that she is having episodes of paroxysmal A. fib and will need to be treated accordingly. (6) COPD (chronic obstructive pulmonary disease) Qualifiers: Emphysema type: centrilobular Is this a current diagnosis for this admission?: Yes Plan: Continue current treatment
[2017-02-13] MEDS: DOCUSATE SODIUM 100 MG CAPSULE PO SCH (09:54)
[2017-02-13] MEDS: TOLTERODINE TARTRATE 1 MG TABLET PO SCH ×2 (10:01→21:33)
[2017-02-13] MEDS: FOLIC ACID 1 MG TABLET PO SCH (10:01)
[2017-02-13] MEDS: LORAZEPAM 0.5 MG TABLET PO SCH ×2 (10:01→14:48)
[2017-02-13] MEDS: LEVETIRACETAM 500 MG TABLET PO SCH ×2 (10:01→21:33)
[2017-02-13] MEDS: BUDESONIDE/FORMOTEROL 160-4.5 MCG 60 PUFF/6 GM MDI IH SCH ×2 (10:02→21:33)
[2017-02-13] MEDS: IPRATROPIUM/ALBUTEROL 120 PUFF/4 GM MDI IH SCH ×2 (10:02→19:01)
[2017-02-13] MEDS: MAGNESIUM OXIDE 400 MG TABLET PO SCH ×2 (10:02→21:34)
[2017-02-13] MEDS: DILTIAZEM HCL 120 MG CAP.SR.24H PO SCH (10:06)
--- NOTE | 2017-02-13 20:07 | PDOC CONSULTATION ---
Consultation Consult Date: 02/13/17 Attending physician:: SAUL TEJADA Consult reason:: Cerebrovascular accident, paroxysmal atrial fibrillation History of Present Illness Admission Date/PCP: 02/10/17 14:09 SAUL TEJADA, Patient complains of: General debility, recurrent falls and confusion. History of Present Illness: EVE GUILLERMO is a 71 year old female with past medical history of Stage III small cell lung cancer diagnosed in December 2016 Anemia History of breast cancer COPD Coronary artery disease Hypertension Hyperlipidemia Atrial fibrillation Outpatient medications Symbicort Lorazepam 0.5 mg every 8 hours as needed Reglan as needed Zofran as needed Phenergan as needed Coreg 25 mg twice a day Zyrtec 10 mg daily Vitamin B12 1000 mcg daily Ferrous sulfate 325 mg twice a day Folic acid 1 mg daily Hydrochlorothiazide 25 mg daily Singulair 10 mg daily Pantoprazole 20 mg daily Simvastatin 20 mg daily Vesicare 10 mg daily Coreg 25 mg PO BID She reports feeling weak and not well for the past 2 days. Family reports 2 episodes of passing out in the past 2 weeks where she was weak and EMS was called and she possibly had a left-sided facial droop which was transient. Her daughter states that her blood pressure has been low recently at home with systolic in the 80s. Her p.o. intake has been poor. Earlier today she felt nauseated and had a headache and there was 30 sec episode of shaking of the right upper extremity with no loss of consciousness. There was no tongue biting or incontinence. Had one episode of vomiting. Denies fevers chills cough shortness of breath chest pain abdominal pain. The emergency room CAT scan of the head was unremarkable. She was loaded with Keppra and was given IV dexamethasone due to concerns for possible metastatic disease to the brain with edema. MRI of the brain with and without contrast showed ribbonlike restricted diffusion involving the subcortical white matter of the left occipital and posterior hips with additional scattered tiny foci of restricted diffusion involving the bilateral posterior frontal lobes compatible with acute infarction presumably watershed distribution. No large territory infarct identified. No hemorrhage or mass lesions identified. The ER physician ordered aspirin. This history was reviewed and confirmed with patient and her daughter who is at the bedside. In addition have reviewed patient's chart and also talked with medical attending. It seems patient does have a history of paroxysmal atrial fibrillation. During her this hospitalization however patient noted to have in sinus rhythm. Short run of paroxysmal atrial tachycardia noted with some ventricular ectopy but cannot rule out short run of paroxysmal atrial fibrillation. On repeated questioning patient denied any chest pain but does feels very fatigued and tired. She does have shortness of breath on exertion. Several years ago patient admitted to having multiple admissions with shortness of breath, pneumonia, CHF etc. Past Medical History Cardiac Medical History: Reports: Congestive Heart Failure - secondary to "double pneumonia", Coronary Artery Disease, Hyperlipidema, Hypertension Denies: Myocardial Infarction Pulmonary Medical History: Reports: Chronic Obstructive Pulmonary Disease (COPD) , Pneumonia Denies: Asthma, Bronchitis Neurological Medical History: Denies: Seizures Endocrine Medical History: Denies: Diabetes Mellitus Type 2, Hypothyroidism Renal/ Medical History: Denies: Chronic Kidney Disease Malignancy Medical History: Reports: Breast Cancer, Lung Cancer Musculoskeltal Medical History: Denies: Arthritis Hematology: Reports: Anemia Past Surgical History Past Surgical History: Reports: Cholecystectomy, Mastectomy - left, Tubal Ligation Social History Information Source: Patient Lives with: Family Smoking Status: Current Every Day Smoker Cigarettes Packs Per Day: 20 Frequency of Alcohol Use: None Hx Recreational Drug Use: No Drugs: None Hx Prescription Drug Abuse: No - Advance Directive Resuscitation Status: Full Code Surrogate healthcare decision maker:: Patient's is the surrogate decision-maker. Patient eldest daughter does help in making medical decisions. Family History Family History: CAD, Malignancy - Mother from CAD. Father from Lung cancer. Brother who from lung cancer. Sister living with breast cancer. Parental Family History Reviewed: Yes Children Family History Reviewed: Yes Sibling(s) Family History Reviewed.: Yes Medication/Allergy Home Medications: Budesonide/Formoterol Fumarate [Symbicort Hfa 160-4.5 Mcg Inhaler 6 gm] 2 puff IH Q12 02/10/17 Carvedilol [Coreg 25 mg Tablet] 1 tab PO Q12 02/10/17 Cetirizine HCl [Zyrtec 10 mg Tablet] 1 tab PO DAILY 02/10/17 Cyanocobalamin (Vitamin B-12) [Vitamin B-12 1000 mcg Tablet] 1,000 mcg PO DAILY 02/10/17 Ferrous Sulfate [Feosol 325 mg Tablet] 325 mg PO DAILY 02/10/17 Folic Acid [Folvite 1 mg Tablet] 1 mg PO DAILY 02/10/17 Hydrochlorothiazide [Hydrodiuril 25 mg Tablet] 25 mg PO QAM 02/10/17 Ipratropium/Albuterol Sulfate [Combivent Respimat 4 gm Mdi] 1 puff IH BID Lorazepam [Ativan 0.5 mg Tablet] 0.5 mg PO BID@0800,1400 02/10/17 Montelukast Sodium [Singulair 10 mg Tablet] 10 mg PO QHS 02/10/17 Ondansetron HCl [Zofran 8 mg Tablet] 8 mg PO Q8HP PRN 02/10/17 Pantoprazole Sodium [Protonix] 20 mg PO Q6AM 02/10/17 Potassium Chloride [K-Tab ER] 20 meq PO Q12 02/10/17 Promethazine HCl [Phenergan 25 mg Tablet] 25 mg PO QHS 02/10/17 Simvastatin [Zocor 20 mg Tablet] 20 mg PO QHS 02/10/17 Solifenacin Succinate [Vesicare] 10 mg PO DAILY 02/10/17 Allergies/Adverse Reactions: pegfilgrastim [From Neulasta] Allergy (Verified 02/12/17 13:57) Review of Systems Review of Systems: Please see history of present illness and past medical history as wall. Constitutional: No fever or chills reported. Head : No recent chronic headaches, recent head injury. Eyes: No recent eye pain, diplopia, redness, discharge, acute visual changes. Ears: No recent chronic ear pain, acute hearing loss, ear discharge. Oral cavity: No recent ulcerations, bleeding, oral cavity discomfort. Neck: No recent acute neck pain reported. Hematologic: No recent easy bruising or bleeding or hematologic malignancy reported. Lymphatic: No recent lymphatic malignancy, chronic lymphadenopathy reported yet Cardiovascular system review: See history of present illness. History of paroxysmal atrial fibrillation and congestive heart failure. Respiratory system review: No recent chronic cough, hemoptysis, blood clots in the lungs reported. History of lung cancer and COPD as well as shortness of breath on exertion Gastrointestinal system review: Negative for any recent acute or chronic abdominal pain, hematemesis, melena, recent change in bowel habits. Genitourinary system review: No recent acute or chronic hematuria, flank pain, UTI etc. reported. Skin system review: Negative for any recent abnormal bruising, no rash, no pruritus reported. Neurologic: Noted to have history of prior strokes and also currently having seizure disorder.. Psychologic: No history of major psychosis or major depression reported. Musculoskeletal: Minor aches and pains reported. No acute joint swelling reported. Endocrine: No recent polyuria, polydipsia, recent heat or cold intolerance. Patient does have history of breast cancer. Physical Exam Vital Signs: Temp Pulse Resp BP Pulse Ox 98.2 F 73 17 135/82 H 97 02/13/17 19:03 02/13/17 19:03 02/13/17 19:03 02/13/17 19:03 02/13/17 19:03 Intake & Output 02/12/17 02/13/17 02/14/17 06:59 06:59 06:59 Intake Total 1850 1260 850 Output Total 350 Balance 1850 1260 500 Weight 107.2 kg 73.5 kg Exam: GENERAL: well-nourished and in no acute distress. Alert and oriented x3. Patient however noted to be lethargic. HEAD: Atraumatic, normocephalic. EYES: Pupils equal round and reactive to light, extraocular movements intact, sclera anicteric, conjunctiva are normal. ENT: TMs normal, nares patent, oropharynx clear without exudates. Moist mucous membranes. No oral ulcerations or bleeding gums noted NECK: supple without lymphadenopathy. Trachea is central. No cervical or axillary lymphadenopathy noted. Carotids are 2+, JVD WNL LUNGS: Respiration seems nonlabored, no significant accessory muscle action noted. Breath sounds clear to auscultation bilaterally and equal noted. No wheezes rales or rhonchi noted. No significant dullness noted on percussion. CHEST: Palpation of the chest wall shows no significant chest wall tenderness. No other significant abnormalities noted. 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 ABDOMEN: Soft, no significant tenderness appreciated, normoactive bowel sounds. No guarding, no rebound. No rigidity noted . No masses appreciated. EXTREMITIES: Pedal pulses are 1-2+, no calf tenderness noted. No clubbing or cyanosis.trace to 1+ pedal edema noted NEUROLOGICAL: Focused neurological exam showed no significant neurologic deficit. Normal speech, no focal weakness appreciated. PSYCH: Normal mood, normal affect. Judgment and insight within normal limits. SKIN: No significant ecchymosis, rash, ulcerations or signs of pruritus noted. MUSCULOSKELETAL EXAM: No significant joint swelling noted. Results Laboratory Results: 02/13/17 04:00 02/13/17 04:00 02/12/17 02/12/17 02/13/17 22:22 22:22 04:00 WBC 4.5 RBC 3.18 L Hgb 10.0 L Hct 29.3 L MCV 92 MCH 31.5 MCHC 34.2 RDW 15.9 H Plt Count 257 Seg Neutrophils % 51.2 Lymphocytes % 32.7 Monocytes % 15.0 H Eosinophils % 0.3 Basophils % 0.8 Absolute Neutrophils 2.3 Absolute Lymphocytes 1.5 Absolute Monocytes 0.7 Absolute Eosinophils 0.0 Absolute Basophils 0.0 Sodium Potassium Chloride Carbon Dioxide Anion Gap BUN Creatinine Est GFR ( Amer) Est GFR (Non-Af Amer) Glucose Calcium Magnesium Urine Color STRAW Urine Appearance CLEAR Urine pH 7.0 Ur Specific [place] 1.009 Urine Protein NEGATIVE Urine Glucose (UA) NEGATIVE Urine Ketones NEGATIVE Urine Blood NEGATIVE Urine Nitrite NEGATIVE Ur Leukocyte Esterase TRACE H Urine WBC (Auto) 16 Urine RBC (Auto) 1 Stool Occult Blood NEGATIVE 02/13/17 04:00 WBC RBC Hgb Hct MCV MCH MCHC RDW Plt Count Seg Neutrophils % Lymphocytes % Monocytes % Eosinophils % Basophils % Absolute Neutrophils Absolute Lymphocytes Absolute Monocytes Absolute Eosinophils Absolute Basophils Sodium 141.3 Potassium 3.3 L Chloride 103 Carbon Dioxide 29 Anion Gap 9 BUN 7 Creatinine 0.64 Est GFR ( Amer) > 60 Est GFR (Non-Af Amer) > 60 Glucose 84 Calcium 8.8 Magnesium 1.7 Urine Color Urine Appearance Urine pH Ur Specific [place] Urine Protein Urine Glucose (UA) Urine Ketones Urine Blood Urine Nitrite Ur Leukocyte Esterase Urine WBC (Auto) Urine RBC (Auto) Stool Occult Blood EKG Comments: Sinus rhythm, no acute ST-T wave changes noted. Telemetry strips reviewed. Please see description in HPI. Impressions: Head CTA 02/10/17 00:00 IMPRESSION: NO CTA EVIDENCE OF STENOSIS OR ANEURYSM OF THE [place]. Neck CTA 02/10/17 00:00 IMPRESSION: NORMAL CTA OF THE EXTRA-CRANIAL CAROTID AND VERTEBRAL ARTERIES. Head CT 02/10/17 11:52 IMPRESSION: NO ACUTE INTRACRANIAL PROCESS. NO SIGNIFICANT CHANGE FROM PRIOR STUDY. EVIDENCE OF ACUTE STROKE: NO. Chest X-Ray 02/10/17 13:08 IMPRESSION: LEFT LOWER LOBE CONSOLIDATION PRESUMABLY REPRESENTING PNEUMONIA. RECOMMEND FOLLOWUP RADIOGRAPHS 4 TO 6 WEEKS TO ENSURE RESOLUTION. Head MRI 02/10/17 13:21 IMPRESSION: ACUTE INFARCT INVOLVING THE LEFT POSTERIOR PARIETAL AND OCCIPITAL LOBES WITH ADDITIONAL SCATTERED FOCI OF RESTRICTED DIFFUSION INVOLVING THE BILATERAL FRONTAL LOBES FAVORING WATERSHED TYPE INFARCTION. NO LARGE TERRITORY INFARCTION IDENTIFIED. NO HEMORRHAGE OR ENHANCING LESIONS. EVIDENCE OF ACUTE STROKE: YES. WATERSHED ABOVE. Chest CT 02/12/17 00:00 IMPRESSION: Persistent left lower lobe collapse and consolidation from postobstructive change at the left hilum Trace bilateral pleural effusions, increased compared to previous studies Stable trace pericardial effusion Assessment & Plan - Diagnosis (1) Paroxysmal atrial fibrillation Is this a current diagnosis for this admission?: Yes (2) CVA (cerebral vascular accident) Qualifiers: CVA mechanism: unspecified Qualified Code(s): I63.9 - Cerebral infarction, unspecified Is this a current diagnosis for this admission?: Yes (3) Lung cancer Qualifiers: Laterality: left Lung location: hilum of lung Qualified Code(s): C34.02 - Malignant neoplasm of left main bronchus Is this a current diagnosis for this admission?: Yes (4) New onset seizure Is this a current diagnosis for this admission?: Yes (5) COPD (chronic obstructive pulmonary disease) Qualifiers: Emphysema type: centrilobular Is this a current diagnosis for this admission?: Yes (6) Tobacco abuse Is this a current diagnosis for this admission?: Yes (7) Mitral regurgitation Qualifiers: Cardiac valve disease etiology: etiology unspecified Qualified Code(s): I34.0 - Nonrheumatic mitral (valve) insufficiency Is this a current diagnosis for this admission?: Yes Plan: I - Notes Notes: Paroxysmal atrial fibrillation: Although no definite atrial fibrillation noted on review of current telemetry strips but from chart review, I see it being noted by the sleeve sewer. Patient's echocardiogram reviewed. Patient does have enlarged left atrium and does have mitral regurgitation therefore at risk for recurrent atrial fibrillation. Also reviewed CTA of the neck, head and carotid artery showing no carotid artery disease. MRI shows multiple areas of subacute to acute infarct. Although reported to as being watershed area lesion , possible embolic lesions cannot be ruled out. Feel that risk benefits ratio does favor on the whole chronic anticoagulation with Eliquis however patient does have history of falls therefore would need very close observation and reassessment of chronic anticoagulation as needed. At this point feel that starting patient on chronic anticoagulation may have more benefit. Will discuss this with all attending informed especially Saul Tejada MD. Lung cancer: Currently being treated with with chemotherapy and radiation. New onset seizures: Possibly related to cerebrovascular accident. COPD: Patient unfortunately continues to smoke. Mitral regurgitation: Reported to be severe by another reviewer but on my review it is probably more towards moderate and between moderate to severe. Patient felt however a poor candidate for any surgical intervention at this point. Would recommend vasodilator therapy. However would recommend very cautious escalation of antihypertensive in view of history of recent hypotension and also suspicion of watershed strokes. Pulmonary hypertension: Patient noted to have significant pulmonary hypertension. Possibly related to hypoxemia, COPD. Recommend oxygen supplementation, tobacco cessation etc. General debility and history of falls, patient will benefit from physical therapy and rehabilitation. - Time Time Spent: 50 to 70 Minutes - CODE STATUS was discussed, patient remains full code. Surrogate decision-maker patient's . Multiple medical problems were addressed. More than 50% of the time spent coordinating care, discussing management plans with involved caregivers. Management plans discussed with involved personnels. Medical decision making was of moderate to high complexity , patient's has multiple comorbidities. Medications reviewed and adjusted accordingly: Yes
[2017-02-13] MEDS: SIMVASTATIN 10 MG TABLET PO SCH (21:33)
[2017-02-13] MEDS: MONTELUKAST SODIUM 10 MG TABLET PO SCH (21:34)
[2017-02-13] MEDS: PROMETHAZINE HCL 25 MG TABLET PO SCH (21:34)
[2017-02-14] MEDS: LORAZEPAM INJ 2 MG/1 ML VIAL IV PRN (03:20)
[2017-02-14 06:50] LABS: HEMATOCRIT 32.1 % (36.0-47.0); HEMOGLOBIN 11.1 g/dL (12.0-15.5); MEAN CORPUSCULAR HEMOGLOBIN 31.5 pg (27.0-33.4); MEAN CORPUSCULAR HGB CONC 34.5 g/dL (32.0-36.0); MEAN CORPUSCULAR VOLUME 91 fl (80-97); PLATELET COUNT 276 10^3/uL (150-450); RED BLOOD COUNT 3.52 10^6/uL (3.72-5.28); RED CELL DISTRIBUTION WIDTH 15.7 % (11.5-14.0); WHITE BLOOD COUNT 5.1 10^3/uL (4.0-10.5)
[2017-02-14] MEDS: LANSOPRAZOLE 15 MG TAB.RAP.DR PO SCH (07:05)
[2017-02-14] MEDS: ENOXAPARIN SODIUM INJ 80 MG/0.8 ML DISP.SYRIN SUBCUT SCH (07:05)
--- NOTE | 2017-02-14 08:52 | PDOC PROGRESS REPORT ---
Subjective Progress Note for:: 02/14/17 Subjective:: Seems better over last 24 hours both neurologically and physically, family and pt agreeable for rehab placement Reason For Visit: SEIZURES Physical Exam Vital Signs: Temp Pulse Resp BP Pulse Ox 98.2 F 69 17 140/71 H 98 02/14/17 03:11 02/14/17 07:00 02/14/17 04:00 02/14/17 04:00 02/14/17 04:00 Intake & Output 02/13/17 02/14/17 02/15/17 06:59 06:59 06:59 Intake Total 1260 1068 Output Total 350 Balance 1260 718 Weight 73.5 kg 72.9 kg General appearance: PRESENT: no acute distress, well-developed, well-nourished Head exam: PRESENT: atraumatic, normocephalic Eye exam: PRESENT: conjunctiva pink, EOMI, PERRLA. ABSENT: scleral icterus Ear exam: PRESENT: normal external ear exam Mouth exam: PRESENT: moist, tongue midline Neck exam: ABSENT: carotid bruit, JVD, lymphadenopathy, thyromegaly Respiratory exam: PRESENT: clear to auscultation stacia. ABSENT: rales, rhonchi, wheezes Cardiovascular exam: PRESENT: RRR. ABSENT: diastolic murmur, rubs, systolic murmur Pulses: PRESENT: normal dorsalis pedis pul Vascular exam: PRESENT: normal capillary refill GI/Abdominal exam: PRESENT: normal bowel sounds, soft. ABSENT: distended, guarding, mass, organolmegaly, rebound, tenderness Rectal exam: PRESENT: deferred Extremities exam: PRESENT: full ROM. ABSENT: calf tenderness, clubbing, pedal edema Neurological exam: PRESENT: alert, awake, oriented to person, oriented to place , oriented to time, oriented to situation, CN II-XII grossly intact. ABSENT: motor sensory deficit Psychiatric exam: PRESENT: appropriate affect, normal mood. ABSENT: homicidal ideation, suicidal ideation Skin exam: PRESENT: dry, intact, warm. ABSENT: cyanosis, rash Results Laboratory Results: 02/14/17 06:10 02/13/17 04:00 02/14/17 06:10 WBC 5.1 RBC 3.52 L Hgb 11.1 L Hct 32.1 L MCV 91 MCH 31.5 MCHC 34.5 RDW 15.7 H Plt Count 276 Impressions: Head CTA 02/10/17 00:00 IMPRESSION: NO CTA EVIDENCE OF STENOSIS OR ANEURYSM OF THE [place]. Neck CTA 02/10/17 00:00 IMPRESSION: NORMAL CTA OF THE EXTRA-CRANIAL CAROTID AND VERTEBRAL ARTERIES. Head CT 02/10/17 11:52 IMPRESSION: NO ACUTE INTRACRANIAL PROCESS. NO SIGNIFICANT CHANGE FROM PRIOR STUDY. EVIDENCE OF ACUTE STROKE: NO. Chest X-Ray 02/10/17 13:08 IMPRESSION: LEFT LOWER LOBE CONSOLIDATION PRESUMABLY REPRESENTING PNEUMONIA. RECOMMEND FOLLOWUP RADIOGRAPHS 4 TO 6 WEEKS TO ENSURE RESOLUTION. Head MRI 02/10/17 13:21 IMPRESSION: ACUTE INFARCT INVOLVING THE LEFT POSTERIOR PARIETAL AND OCCIPITAL LOBES WITH ADDITIONAL SCATTERED FOCI OF RESTRICTED DIFFUSION INVOLVING THE BILATERAL FRONTAL LOBES FAVORING WATERSHED TYPE INFARCTION. NO LARGE TERRITORY INFARCTION IDENTIFIED. NO HEMORRHAGE OR ENHANCING LESIONS. EVIDENCE OF ACUTE STROKE: YES. WATERSHED ABOVE. Chest CT 02/12/17 00:00 IMPRESSION: Persistent left lower lobe collapse and consolidation from postobstructive change at the left hilum Trace bilateral pleural effusions, increased compared to previous studies Stable trace pericardial effusion Assessment & Plan - Diagnosis (1) CVA (cerebral vascular accident) Qualifiers: CVA mechanism: unspecified Qualified Code(s): I63.9 - Cerebral infarction, unspecified Is this a current diagnosis for this admission?: Yes Plan: Rehab placement pending, con't supportive and rehab care inpt (2) Lung cancer Qualifiers: Laterality: left Lung location: hilum of lung Qualified Code(s): C34.02 - Malignant neoplasm of left main bronchus Is this a current diagnosis for this admission?: Yes Plan: Holding all treatment until pt out of rehab care, discussed extensively this am w/ family, spent 45 min discussion - Time Time Spent with patient: 35 or more minutes
[2017-02-14] MEDS: DILTIAZEM HCL 120 MG CAP.SR.24H PO SCH (10:12)
[2017-02-14] MEDS: TOLTERODINE TARTRATE 1 MG TABLET PO SCH ×2 (10:12→21:52)
[2017-02-14] MEDS: FOLIC ACID 1 MG TABLET PO SCH (10:12)
[2017-02-14] MEDS: LEVETIRACETAM 500 MG TABLET PO SCH ×2 (10:13→21:52)
[2017-02-14] MEDS: LORAZEPAM 0.5 MG TABLET PO SCH ×2 (10:13→17:08)
[2017-02-14] MEDS: MAGNESIUM OXIDE 400 MG TABLET PO SCH ×2 (10:13→21:52)
[2017-02-14] MEDS: BUDESONIDE/FORMOTEROL 160-4.5 MCG 60 PUFF/6 GM MDI IH SCH ×2 (10:13→21:51)
[2017-02-14] MEDS: IPRATROPIUM/ALBUTEROL 120 PUFF/4 GM MDI IH SCH ×2 (10:13→17:40)
[2017-02-14] MEDS: DOCUSATE SODIUM 100 MG CAPSULE PO SCH (10:15)
[2017-02-14] MEDS: APIXABAN 5 MG TABLET PO SCH ×2 (10:24→17:40)
--- NOTE | 2017-02-14 13:39 | PDOC PROGRESS REPORT ---
Subjective Progress Note for:: 02/14/17 Subjective:: The patient states to feel slightly better. She denies any new complaints. She has received some physical therapy and occupational therapy which she is tolerating well. Reason For Visit: SEIZURES Physical Exam Vital Signs: Temp Pulse Resp BP Pulse Ox 98.1 F 82 16 127/50 H 100 02/14/17 07:25 02/14/17 07:25 02/14/17 07:25 02/14/17 07:25 02/14/17 07:25 Intake & Output 02/13/17 02/14/17 02/15/17 06:59 06:59 06:59 Intake Total 1260 1068 Output Total 350 Balance 1260 718 Weight 73.5 kg 72.9 kg General appearance: PRESENT: cooperative, mild distress Head exam: PRESENT: atraumatic Eye exam: PRESENT: conjunctiva pink Neck exam: PRESENT: carotid bruit Respiratory exam: PRESENT: rhonchi Cardiovascular exam: PRESENT: +S1, +S2 Pulses: PRESENT: +1 pedal pulses bilateral GI/Abdominal exam: PRESENT: normal bowel sounds, soft Extremities exam: PRESENT: other Musculoskeletal exam: PRESENT: other Neurological exam: PRESENT: other Additional comments: Right upper and lower extremity weakness with right-sided neglect and visual field defect Results Laboratory Results: 02/14/17 06:10 02/13/17 04:00 02/14/17 06:10 WBC 5.1 RBC 3.52 L Hgb 11.1 L Hct 32.1 L MCV 91 MCH 31.5 MCHC 34.5 RDW 15.7 H Plt Count 276 Impressions: Head CTA 02/10/17 00:00 IMPRESSION: NO CTA EVIDENCE OF STENOSIS OR ANEURYSM OF THE [place]. Neck CTA 02/10/17 00:00 IMPRESSION: NORMAL CTA OF THE EXTRA-CRANIAL CAROTID AND VERTEBRAL ARTERIES. Head CT 02/10/17 11:52 IMPRESSION: NO ACUTE INTRACRANIAL PROCESS. NO SIGNIFICANT CHANGE FROM PRIOR STUDY. EVIDENCE OF ACUTE STROKE: NO. Chest X-Ray 02/10/17 13:08 IMPRESSION: LEFT LOWER LOBE CONSOLIDATION PRESUMABLY REPRESENTING PNEUMONIA. RECOMMEND FOLLOWUP RADIOGRAPHS 4 TO 6 WEEKS TO ENSURE RESOLUTION. Head MRI 02/10/17 13:21 IMPRESSION: ACUTE INFARCT INVOLVING THE LEFT POSTERIOR PARIETAL AND OCCIPITAL LOBES WITH ADDITIONAL SCATTERED FOCI OF RESTRICTED DIFFUSION INVOLVING THE BILATERAL FRONTAL LOBES FAVORING WATERSHED TYPE INFARCTION. NO LARGE TERRITORY INFARCTION IDENTIFIED. NO HEMORRHAGE OR ENHANCING LESIONS. EVIDENCE OF ACUTE STROKE: YES. WATERSHED ABOVE. Chest CT 02/12/17 00:00 IMPRESSION: Persistent left lower lobe collapse and consolidation from postobstructive change at the left hilum Trace bilateral pleural effusions, increased compared to previous studies Stable trace pericardial effusion Assessment & Plan - Diagnosis (1) CVA (cerebral vascular accident) Qualifiers: CVA mechanism: unspecified Qualified Code(s): I63.9 - Cerebral infarction, unspecified Is this a current diagnosis for this admission?: Yes Plan: We will continue with physical therapy. Will start working on the rehab (2) Hypomagnesemia Is this a current diagnosis for this admission?: Yes Plan: Continue with current treatment (3) Lung cancer Qualifiers: Laterality: left Lung location: hilum of lung Qualified Code(s): C34.02 - Malignant neoplasm of left main bronchus Is this a current diagnosis for this admission?: Yes Plan: We will proceed with the recommendations by the oncologist (4) New onset seizure Is this a current diagnosis for this admission?: Yes (5) Atrial fibrillation Is this a current diagnosis for this admission?: Yes Plan: We will stop the Lovenox and start Eliquis as discussed with cardiology. No other sources of emboli could be identified (6) COPD (chronic obstructive pulmonary disease) Qualifiers: Emphysema type: centrilobular Is this a current diagnosis for this admission?: Yes Plan: Continue current treatment
--- NOTE | 2017-02-14 20:06 | PDOC PROGRESS REPORT ---
Subjective Progress Note for:: 02/14/17 Subjective:: Patient seems to be doing better with gradual improvement. Pt is denying any chest arm or neck discomfort. Patient denying any PND, orthopnea. Patient denied any sustained palpitations, dizziness, syncope, near syncope. Patient denying any fever chills. Patient denying any other significant discomfort. Patient claims weakness and some general debility. Patient is maintaining sinus rhythm. Occasional APCs and VPCs noted. Review of systems: Rest review of systems negative. Medications: Medications have been reviewed. Reason For Visit: SEIZURES Physical Exam Vital Signs: Temp Pulse Resp BP Pulse Ox 97.8 F 76 16 127/80 H 96 02/14/17 16:31 02/14/17 16:31 02/14/17 16:31 02/14/17 16:31 02/14/17 16:31 Intake & Output 02/13/17 02/14/17 02/15/17 06:59 06:59 06:59 Intake Total 1260 1068 686 Output Total 350 Balance 1260 718 686 Weight 73.5 kg 72.9 kg Exam: GENERAL: well-nourished and in no acute distress. Alert and oriented x3 HEAD: Atraumatic, normocephalic. EYES: Pupils equal round and reactive to light, extraocular movements intact, sclera anicteric, conjunctiva are normal. ENT: TMs normal, nares patent, oropharynx clear without exudates. Moist mucous membranes. No oral ulcerations or bleeding gums noted NECK: supple without lymphadenopathy. Trachea is central. No cervical or axillary lymphadenopathy noted. Carotids are 2+, JVD WNL LUNGS: Respiration seems nonlabored, no significant accessory muscle action noted. Breath sounds clear to auscultation bilaterally and equal noted. No wheezes rales or rhonchi noted. No significant dullness noted on percussion. CHEST: Palpation of the chest wall shows no significant chest wall tenderness. No other significant abnormalities noted. HEART: [place] [employer], No PSH, 2/6 RORO aortic area, 2/6 palacios systolic murmur mitral area, no rubs, no gallops. ABDOMEN: Soft, no significant tenderness appreciated, normoactive bowel sounds. No guarding, no rebound. No rigidity noted . No masses appreciated. EXTREMITIES: Pedal pulses are 1-2+, no calf tenderness noted. No clubbing or cyanosis.trace to 1+ pedal edema noted NEUROLOGICAL: Focused neurological exam showed no significant neurologic deficit. Normal speech, no focal weakness appreciated. PSYCH: Normal mood, normal affect. Judgment and insight within normal limits. SKIN: No significant ecchymosis, rash, ulcerations or signs of pruritus noted. MUSCULOSKELETAL EXAM: No significant joint swelling noted. Results Laboratory Results: 02/14/17 06:10 02/13/17 04:00 02/14/17 06:10 WBC 5.1 RBC 3.52 L Hgb 11.1 L Hct 32.1 L MCV 91 MCH 31.5 MCHC 34.5 RDW 15.7 H Plt Count 276 EKG Comments: Telemetry strips shows sinus rhythm. Occasional APCs and VPCs noted. Impressions: Head CTA 02/10/17 00:00 IMPRESSION: NO CTA EVIDENCE OF STENOSIS OR ANEURYSM OF THE [place]. Neck CTA 02/10/17 00:00 IMPRESSION: NORMAL CTA OF THE EXTRA-CRANIAL CAROTID AND VERTEBRAL ARTERIES. Head CT 02/10/17 11:52 IMPRESSION: NO ACUTE INTRACRANIAL PROCESS. NO SIGNIFICANT CHANGE FROM PRIOR STUDY. EVIDENCE OF ACUTE STROKE: NO. Chest X-Ray 02/10/17 13:08 IMPRESSION: LEFT LOWER LOBE CONSOLIDATION PRESUMABLY REPRESENTING PNEUMONIA. RECOMMEND FOLLOWUP RADIOGRAPHS 4 TO 6 WEEKS TO ENSURE RESOLUTION. Head MRI 02/10/17 13:21 IMPRESSION: ACUTE INFARCT INVOLVING THE LEFT POSTERIOR PARIETAL AND OCCIPITAL LOBES WITH ADDITIONAL SCATTERED FOCI OF RESTRICTED DIFFUSION INVOLVING THE BILATERAL FRONTAL LOBES FAVORING WATERSHED TYPE INFARCTION. NO LARGE TERRITORY INFARCTION IDENTIFIED. NO HEMORRHAGE OR ENHANCING LESIONS. EVIDENCE OF ACUTE STROKE: YES. WATERSHED ABOVE. Chest CT 02/12/17 00:00 IMPRESSION: Persistent left lower lobe collapse and consolidation from postobstructive change at the left hilum Trace bilateral pleural effusions, increased compared to previous studies Stable trace pericardial effusion Assessment & Plan - Diagnosis (1) Paroxysmal atrial fibrillation Is this a current diagnosis for this admission?: Yes (2) CVA (cerebral vascular accident) Qualifiers: CVA mechanism: unspecified Qualified Code(s): I63.9 - Cerebral infarction, unspecified Is this a current diagnosis for this admission?: Yes (3) Lung cancer Qualifiers: Laterality: left Lung location: hilum of lung Qualified Code(s): C34.02 - Malignant neoplasm of left main bronchus Is this a current diagnosis for this admission?: Yes (4) New onset seizure Is this a current diagnosis for this admission?: Yes (5) COPD (chronic obstructive pulmonary disease) Qualifiers: Emphysema type: centrilobular Is this a current diagnosis for this admission?: Yes (6) Tobacco abuse Is this a current diagnosis for this admission?: Yes (7) Mitral regurgitation Qualifiers: Cardiac valve disease etiology: etiology unspecified Qualified Code(s): I34.0 - Nonrheumatic mitral (valve) insufficiency Is this a current diagnosis for this admission?: Yes - Notes Notes: Paroxysmal atrial fibrillation: Patient currently maintaining sinus rhythm. Patient has a history of paroxysmal atrial fibrillation. In view of prior history of stroke, left atrial enlargement on echocardiogram, prior history of CHF, feel that patient will be a candidate for chronic anticoagulation and risk- benefit favors such as therapy. This was discussed last night with primary care attending. Patient did of course need to be monitored for any bleeding episodes. Cerebrovascular accident: Possibly related to atrial fibrillation most likely related to paroxysmal atrial fibrillation however could be a watershed infarct. 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 COPD: Currently stable. Patient does have some enlargement from RV. May benefit from nocturnal oximetry, pulmonary consultation etc. Tobacco abuse: Patient has smoked until hospitalization. Mitral regurgitation: This is a significant problem. Would need close cardiology follow-up. Pulmonary hypertension: Multifactorial. Periodic echocardiogram may be needed. Discussed that due to multiple comorbid problems, prognosis is therefore guarded. - Time Time with patient: Greater than 35 minutes - CODE STATUS was discussed, patient remains full code. Surrogate decision-maker unchanged. Multiple medical problems were addressed. More than 50% of the time spent coordinating care, discussing management plans with involved caregivers. Management plans discussed with involved personnels. Medical decision making was of moderate to high complexity, patient's has multiple comorbidities. Medications reviewed and adjusted accordingly: Yes
[2017-02-14] MEDS: PROMETHAZINE HCL 25 MG TABLET PO SCH (21:52)
[2017-02-14] MEDS: SIMVASTATIN 10 MG TABLET PO SCH (21:52)
[2017-02-14] MEDS: MONTELUKAST SODIUM 10 MG TABLET PO SCH (21:52)
[2017-02-15] MEDS: LANSOPRAZOLE 15 MG TAB.RAP.DR PO SCH (05:53)
--- NOTE | 2017-02-15 08:00 | PDOC PROGRESS REPORT ---
Subjective Progress Note for:: 02/15/17 Subjective:: Patient states to feel much better. She denies any new symptoms. She is tolerating Eliquis well. Reason For Visit: SEIZURES Physical Exam Vital Signs: Temp Pulse Resp BP Pulse Ox 97.7 F 62 16 129/81 H 97 02/15/17 03:33 02/15/17 03:33 02/15/17 03:33 02/15/17 03:33 02/15/17 03:33 Intake & Output 02/14/17 02/15/17 02/16/17 06:59 06:59 06:59 Intake Total 1068 906 Output Total 350 125 Balance 718 781 Weight 72.9 kg 71.5 kg General appearance: PRESENT: mild distress Head exam: PRESENT: atraumatic Eye exam: PRESENT: conjunctiva pink Neck exam: ABSENT: carotid bruit, JVD Respiratory exam: PRESENT: rhonchi Cardiovascular exam: PRESENT: +S1, +S2 GI/Abdominal exam: PRESENT: normal bowel sounds, soft Neurological exam: PRESENT: other Results Laboratory Results: 02/14/17 06:10 02/13/17 04:00 Impressions: Head CTA 02/10/17 00:00 IMPRESSION: NO CTA EVIDENCE OF STENOSIS OR ANEURYSM OF THE [place]. Neck CTA 02/10/17 00:00 IMPRESSION: NORMAL CTA OF THE EXTRA-CRANIAL CAROTID AND VERTEBRAL ARTERIES. Head CT 02/10/17 11:52 IMPRESSION: NO ACUTE INTRACRANIAL PROCESS. NO SIGNIFICANT CHANGE FROM PRIOR STUDY. EVIDENCE OF ACUTE STROKE: NO. Chest X-Ray 02/10/17 13:08 IMPRESSION: LEFT LOWER LOBE CONSOLIDATION PRESUMABLY REPRESENTING PNEUMONIA. RECOMMEND FOLLOWUP RADIOGRAPHS 4 TO 6 WEEKS TO ENSURE RESOLUTION. Head MRI 02/10/17 13:21 IMPRESSION: ACUTE INFARCT INVOLVING THE LEFT POSTERIOR PARIETAL AND OCCIPITAL LOBES WITH ADDITIONAL SCATTERED FOCI OF RESTRICTED DIFFUSION INVOLVING THE BILATERAL FRONTAL LOBES FAVORING WATERSHED TYPE INFARCTION. NO LARGE TERRITORY INFARCTION IDENTIFIED. NO HEMORRHAGE OR ENHANCING LESIONS. EVIDENCE OF ACUTE STROKE: YES. WATERSHED ABOVE. Chest CT 02/12/17 00:00 IMPRESSION: Persistent left lower lobe collapse and consolidation from postobstructive change at the left hilum Trace bilateral pleural effusions, increased compared to previous studies Stable trace pericardial effusion Assessment & Plan - Diagnosis (1) CVA (cerebral vascular accident) Qualifiers: CVA mechanism: unspecified Qualified Code(s): I63.9 - Cerebral infarction, unspecified Is this a current diagnosis for this admission?: Yes Plan: We will continue with physical therapy. Will start working on the rehab (2) Hypomagnesemia Is this a current diagnosis for this admission?: Yes Plan: Continue with current treatment (3) Lung cancer Qualifiers: Laterality: left Lung location: hilum of lung Qualified Code(s): C34.02 - Malignant neoplasm of left main bronchus Is this a current diagnosis for this admission?: Yes Plan: We will proceed with the recommendations by the oncologist (4) New onset seizure Is this a current diagnosis for this admission?: Yes (5) Atrial fibrillation Is this a current diagnosis for this admission?: Yes Plan: Tolerating Eliquis and Cardizem well. No signs of recurrence of A. fib (6) COPD (chronic obstructive pulmonary disease) Qualifiers: Emphysema type: centrilobular Is this a current diagnosis for this admission?: Yes Plan: Continue current treatment
[2017-02-15] MEDS ORDERED: OXYCODONE HCL IR 5 MG TABLET PO PRN (08:02)
--- NOTE | 2017-02-15 08:28 | PDOC PROGRESS REPORT ---
Subjective Progress Note for:: 02/15/17 Subjective:: Pt is functionally and mentally improving per nursing and family history. Per DC planning, they are working on rehab placement, likely to [facility] Reason For Visit: SEIZURES Physical Exam Vital Signs: Temp Pulse Resp BP Pulse Ox 97.9 F 78 15 147/96 H 96 02/15/17 07:16 02/15/17 07:16 02/15/17 07:16 02/15/17 07:16 02/15/17 07:16 Intake & Output 02/14/17 02/15/17 02/16/17 06:59 06:59 06:59 Intake Total 1068 906 Output Total 350 125 Balance 718 781 Weight 72.9 kg 71.5 kg General appearance: PRESENT: no acute distress, well-developed, well-nourished Head exam: PRESENT: atraumatic, normocephalic Eye exam: PRESENT: conjunctiva pink, EOMI, PERRLA. ABSENT: scleral icterus Ear exam: PRESENT: normal external ear exam Mouth exam: PRESENT: moist, tongue midline Neck exam: ABSENT: carotid bruit, JVD, lymphadenopathy, thyromegaly Respiratory exam: PRESENT: clear to auscultation [place]. ABSENT: rales, rhonchi, wheezes Cardiovascular exam: PRESENT: RRR. ABSENT: diastolic murmur, rubs, systolic murmur Pulses: PRESENT: normal dorsalis pedis pul Vascular exam: PRESENT: normal capillary refill GI/Abdominal exam: PRESENT: normal bowel sounds, soft. ABSENT: distended, guarding, mass, organolmegaly, rebound, tenderness Rectal exam: PRESENT: deferred Extremities exam: PRESENT: full ROM. ABSENT: calf tenderness, clubbing, pedal edema Neurological exam: PRESENT: alert, awake, oriented to person, oriented to place , oriented to time, oriented to situation, CN II-XII grossly intact. ABSENT: motor sensory deficit Psychiatric exam: PRESENT: appropriate affect, normal mood. ABSENT: homicidal ideation, suicidal ideation Skin exam: PRESENT: dry, intact, warm. ABSENT: cyanosis, rash Results Laboratory Results: 02/14/17 06:10 02/13/17 04:00 Impressions: Head CTA 02/10/17 00:00 IMPRESSION: NO CTA EVIDENCE OF STENOSIS OR ANEURYSM OF THE [place]. Neck CTA 02/10/17 00:00 IMPRESSION: NORMAL CTA OF THE EXTRA-CRANIAL CAROTID AND VERTEBRAL ARTERIES. Head CT 02/10/17 11:52 IMPRESSION: NO ACUTE INTRACRANIAL PROCESS. NO SIGNIFICANT CHANGE FROM PRIOR STUDY. EVIDENCE OF ACUTE STROKE: NO. Chest X-Ray 02/10/17 13:08 IMPRESSION: LEFT LOWER LOBE CONSOLIDATION PRESUMABLY REPRESENTING PNEUMONIA. RECOMMEND FOLLOWUP RADIOGRAPHS 4 TO 6 WEEKS TO ENSURE RESOLUTION. Head MRI 02/10/17 13:21 IMPRESSION: ACUTE INFARCT INVOLVING THE LEFT POSTERIOR PARIETAL AND OCCIPITAL LOBES WITH ADDITIONAL SCATTERED FOCI OF RESTRICTED DIFFUSION INVOLVING THE BILATERAL FRONTAL LOBES FAVORING WATERSHED TYPE INFARCTION. NO LARGE TERRITORY INFARCTION IDENTIFIED. NO HEMORRHAGE OR ENHANCING LESIONS. EVIDENCE OF ACUTE STROKE: YES. WATERSHED ABOVE. Chest CT 02/12/17 00:00 IMPRESSION: Persistent left lower lobe collapse and consolidation from postobstructive change at the left hilum Trace bilateral pleural effusions, increased compared to previous studies Stable trace pericardial effusion Assessment & Plan - Diagnosis (1) CVA (cerebral vascular accident) Qualifiers: CVA mechanism: unspecified Qualified Code(s): I63.9 - Cerebral infarction, unspecified Is this a current diagnosis for this admission?: Yes Plan: Rehab as outpt soon hopefully (2) Lung cancer Qualifiers: Laterality: left Lung location: hilum of lung Qualified Code(s): C34.02 - Malignant neoplasm of left main bronchus Is this a current diagnosis for this admission?: Yes Plan: Hold on chemo/rx until pt finishes rehab - Time Time Spent with patient: 15-24 minutes
[2017-02-15] MEDS: TOLTERODINE TARTRATE 1 MG TABLET PO SCH ×2 (08:42→21:48)
[2017-02-15] MEDS: APIXABAN 5 MG TABLET PO SCH ×2 (08:42→17:27)
[2017-02-15] MEDS: FOLIC ACID 1 MG TABLET PO SCH (08:42)
[2017-02-15] MEDS: DILTIAZEM HCL 120 MG CAP.SR.24H PO SCH (08:42)
[2017-02-15] MEDS: LORAZEPAM 0.5 MG TABLET PO SCH ×2 (08:42→14:26)
[2017-02-15] MEDS: MAGNESIUM OXIDE 400 MG TABLET PO SCH ×2 (08:43→21:48)
[2017-02-15] MEDS: LEVETIRACETAM 500 MG TABLET PO SCH ×2 (08:43→21:47)
[2017-02-15] MEDS: DOCUSATE SODIUM 100 MG CAPSULE PO SCH (08:43)
[2017-02-15] MEDS: IPRATROPIUM/ALBUTEROL 120 PUFF/4 GM MDI IH SCH ×2 (09:53→17:27)
[2017-02-15] MEDS: BUDESONIDE/FORMOTEROL 160-4.5 MCG 60 PUFF/6 GM MDI IH SCH ×2 (09:53→21:47)
--- NOTE | 2017-02-15 12:09 | PDOC PROGRESS REPORT ---
Subjective Progress Note for:: 02/15/17 Subjective:: Patient's condition remains same as yesterday. Blood pressure does show some improvement and will add SAHLYN inhibitor. Patient seems to be doing better with gradual improvement. Pt is denying any chest arm or neck discomfort. Patient denying any PND, orthopnea. Patient denied any sustained palpitations, dizziness, syncope, near syncope. Patient denying any fever chills. Patient denying any other significant discomfort. Patient claims weakness and some general debility. Patient is maintaining sinus rhythm. Occasional APCs and VPCs noted. Review of systems: Rest review of systems negative. Medications: Medications have been reviewed. Reason For Visit: SEIZURES Physical Exam Vital Signs: Temp Pulse Resp BP Pulse Ox 97.9 F 78 15 147/96 H 96 02/15/17 07:16 02/15/17 07:16 02/15/17 07:16 02/15/17 07:16 02/15/17 07:16 Intake & Output 02/14/17 02/15/17 02/16/17 06:59 06:59 06:59 Intake Total 1068 906 Output Total 350 125 Balance 718 781 Weight 72.9 kg 71.5 kg Exam: GENERAL: well-nourished and in no acute distress. Alert and oriented x3 HEAD: Atraumatic, normocephalic. EYES: Pupils equal round and reactive to light, extraocular movements intact, sclera anicteric, conjunctiva are normal. ENT: TMs normal, nares patent, oropharynx clear without exudates. Moist mucous membranes. No oral ulcerations or bleeding gums noted NECK: supple without lymphadenopathy. Trachea is central. No cervical or axillary lymphadenopathy noted. Carotids are 2+, JVD WNL LUNGS: Respiration seems nonlabored, no significant accessory muscle action noted. Breath sounds clear to auscultation bilaterally and equal noted. No wheezes rales or rhonchi noted. No significant dullness noted on percussion. CHEST: Palpation of the chest wall shows no significant chest wall tenderness. No other significant abnormalities noted. HEART: [place] [employer], No PSH, 1/6 RORO aortic area, 1/6 palacios systolic murmur mitral area, no rubs, no gallops. ABDOMEN: Soft, no significant tenderness appreciated, normoactive bowel sounds. No guarding, no rebound. No rigidity noted . No masses appreciated. EXTREMITIES: Pedal pulses are 1-2+, no calf tenderness noted. No clubbing or cyanosis.trace to 1+ pedal edema noted NEUROLOGICAL: Focused neurological exam showed no significant neurologic deficit. Normal speech, no focal weakness appreciated. PSYCH: Normal mood, normal affect. Judgment and insight within normal limits. SKIN: No significant ecchymosis, rash, ulcerations or signs of pruritus noted. MUSCULOSKELETAL EXAM: No significant joint swelling noted. Results Laboratory Results: 02/14/17 06:10 02/13/17 04:00 EKG Comments: Shows sinus rhythm without any sustained bradycardia or tachycardic dysrhythmia. Impressions: Head CTA 02/10/17 00:00 IMPRESSION: NO CTA EVIDENCE OF STENOSIS OR ANEURYSM OF THE [place] OF [place]. Neck CTA 02/10/17 00:00 IMPRESSION: NORMAL CTA OF THE EXTRA-CRANIAL CAROTID AND VERTEBRAL ARTERIES. Head CT 02/10/17 11:52 IMPRESSION: NO ACUTE INTRACRANIAL PROCESS. NO SIGNIFICANT CHANGE FROM PRIOR STUDY. EVIDENCE OF ACUTE STROKE: NO. Chest X-Ray 02/10/17 13:08 IMPRESSION: LEFT LOWER LOBE CONSOLIDATION PRESUMABLY REPRESENTING PNEUMONIA. RECOMMEND FOLLOWUP RADIOGRAPHS 4 TO 6 WEEKS TO ENSURE RESOLUTION. Head MRI 02/10/17 13:21 IMPRESSION: ACUTE INFARCT INVOLVING THE LEFT POSTERIOR PARIETAL AND OCCIPITAL LOBES WITH ADDITIONAL SCATTERED FOCI OF RESTRICTED DIFFUSION INVOLVING THE BILATERAL FRONTAL LOBES FAVORING WATERSHED TYPE INFARCTION. NO LARGE TERRITORY INFARCTION IDENTIFIED. NO HEMORRHAGE OR ENHANCING LESIONS. EVIDENCE OF ACUTE STROKE: YES. WATERSHED ABOVE. Chest CT 02/12/17 00:00 IMPRESSION: Persistent left lower lobe collapse and consolidation from postobstructive change at the left hilum Trace bilateral pleural effusions, increased compared to previous studies Stable trace pericardial effusion Assessment & Plan - Diagnosis (1) Paroxysmal atrial fibrillation Is this a current diagnosis for this admission?: Yes (2) CVA (cerebral vascular accident) Qualifiers: CVA mechanism: unspecified Qualified Code(s): I63.9 - Cerebral infarction, unspecified Is this a current diagnosis for this admission?: Yes (3) Lung cancer Qualifiers: Laterality: left Lung location: hilum of lung Qualified Code(s): C34.02 - Malignant neoplasm of left main bronchus Is this a current diagnosis for this admission?: Yes (4) New onset seizure Is this a current diagnosis for this admission?: Yes (5) COPD (chronic obstructive pulmonary disease) Qualifiers: Emphysema type: centrilobular Is this a current diagnosis for this admission?: Yes (6) Tobacco abuse Is this a current diagnosis for this admission?: Yes (7) Mitral regurgitation Qualifiers: Cardiac valve disease etiology: etiology unspecified Qualified Code(s): I34.0 - Nonrheumatic mitral (valve) insufficiency Is this a current diagnosis for this admission?: Yes - Notes Notes: Paroxysmal atrial fibrillation: Patient currently maintaining sinus rhythm. Patient has a history of paroxysmal atrial fibrillation. In view of prior history of stroke, left atrial enlargement on echocardiogram, prior history of CHF, feel that patient will be a candidate for chronic anticoagulation and risk- benefit favors such as therapy. Patient was started on Eliquis the evening before yesterday which she seems to be tolerating well. Continue Cardizem for rate control in view of COPD. Cerebrovascular accident: Possibly related to atrial fibrillation most likely related to paroxysmal atrial fibrillation however could be a watershed infarct. 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 COPD: Currently stable. Patient does have some enlargement from RV. May benefit from nocturnal oximetry, pulmonary consultation etc. Tobacco abuse: Patient has smoked until hospitalization. Mitral regurgitation: This is a significant problem. Would need close cardiology follow-up. Will start patient on lisinopril at 2.5 mg p.o. daily. Pulmonary hypertension: Multifactorial. Periodic echocardiogram may be needed. Patient may benefit from nocturnal oximetry and nocturnal oxygen supplementation and this can be carried out through my office. Discussed that due to multiple comorbid problems, prognosis is therefore guarded. Patient currently awaiting placement. - Time Time with patient: Greater than 35 minutes - CODE STATUS was discussed, patient remains full code. Surrogate decision-maker unchanged. Multiple medical problems were addressed. More than 50% of the time spent coordinating care, discussing management plans with involved caregivers. Management plans discussed with involved personnels. Medical decision making was of moderate to high complexity, patient's has multiple comorbidities. Medications reviewed and adjusted accordingly: Yes
[2017-02-15] MEDS ORDERED: LISINOPRIL 5 MG TABLET PO ONE (13:30)
[2017-02-15] MEDS: PROMETHAZINE HCL 25 MG TABLET PO SCH (21:48)
[2017-02-15] MEDS: SIMVASTATIN 10 MG TABLET PO SCH (21:48)
[2017-02-15] MEDS: MONTELUKAST SODIUM 10 MG TABLET PO SCH (21:48)
[2017-02-16] MEDS: LANSOPRAZOLE 15 MG TAB.RAP.DR PO SCH (05:15)
[2017-02-16 05:43] LABS: ABSOLUTE EOSINOPHILS # (AUTO) 0.1 10^3/uL (0.0-0.6); ABSOLUTE LYMPHOCYTES (AUTO) 1.4 10^3/uL (0.5-4.7); ABSOLUTE MONOCYTES (AUTO) 0.7 10^3/uL (0.1-1.4); ABSOLUTE NEUT (AUTO) 2.5 10^3/uL (1.7-8.2); BASOPHILS % (AUTO) 0.5 % (0-2); EOSINOPHILS % (AUTO) 1.6 % (0-6); HEMATOCRIT 32.1 % (36.0-47.0); LYMPHOCYTES % (AUTO) 30.9 % (13-45); MEAN CORPUSCULAR HEMOGLOBIN 31.2 pg (27.0-33.4); MEAN CORPUSCULAR HGB CONC 34.1 g/dL (32.0-36.0); MEAN CORPUSCULAR VOLUME 91 fl (80-97); MONOCYTES % (AUTO) 14.3 % (3-13); PLATELET COUNT 269 10^3/uL (150-450); RED BLOOD COUNT 3.51 10^6/uL (3.72-5.28); RED CELL DISTRIBUTION WIDTH 15.6 % (11.5-14.0); SEGMENTED NEUTROPHILS % (AUTO) 52.7 % (42-78); TOTAL CELLS COUNTED % (AUTO) 100 %; WHITE BLOOD COUNT 4.7 10^3/uL (4.0-10.5)
[2017-02-16 06:08] LABS: ALANINE AMINOTRANSFERASE 34 U/L (9-52); ALBUMIN 3.5 g/dL (3.5-5.0); ALKALINE PHOSPHATASE 82 U/L (38-126); ANION GAP 9 (5-19); ASPARTATE AMINO TRANSFERASE 31 U/L (14-36); BILIRUBIN,DIRECT 0.1 mg/dL (0.0-0.4); BILIRUBIN,TOTAL 0.6 mg/dL (0.2-1.3); BLOOD UREA NITROGEN 7 mg/dL (7-20); CALCIUM 9.6 mg/dL (8.4-10.2); CARBON DIOXIDE 32 mmol/L (22-30); CHLORIDE 100 mmol/L (98-107); GLUCOSE 83 mg/dL (75-110); MAGNESIUM 1.9 mg/dL (1.6-2.3); POTASSIUM 3.6 mmol/L (3.6-5.0)
--- NOTE | 2017-02-16 08:16 | PDOC PROGRESS REPORT ---
Subjective Progress Note for:: 02/16/17 Subjective:: Pt again did well yesterday, seems to be steadily improving, bed offer has been accepted and pt should d/c today hopefully Reason For Visit: SEIZURES Physical Exam Vital Signs: Temp Pulse Resp BP Pulse Ox 97.6 F 63 16 128/77 H 99 02/16/17 03:58 02/16/17 03:58 02/16/17 03:58 02/16/17 03:58 02/16/17 03:58 Intake & Output 02/15/17 02/16/17 02/17/17 06:59 06:59 06:59 Intake Total 906 600 Output Total 125 350 Balance 781 250 Weight 71.5 kg 72.7 kg General appearance: PRESENT: no acute distress, well-developed, well-nourished Head exam: PRESENT: atraumatic, normocephalic Eye exam: PRESENT: conjunctiva pink, EOMI, PERRLA. ABSENT: scleral icterus Ear exam: PRESENT: normal external ear exam Mouth exam: PRESENT: moist, tongue midline Neck exam: ABSENT: carotid bruit, JVD, lymphadenopathy, thyromegaly Respiratory exam: PRESENT: clear to auscultation stacia. ABSENT: rales, rhonchi, wheezes Cardiovascular exam: PRESENT: RRR. ABSENT: diastolic murmur, rubs, systolic murmur Pulses: PRESENT: normal dorsalis pedis pul Vascular exam: PRESENT: normal capillary refill GI/Abdominal exam: PRESENT: normal bowel sounds, soft. ABSENT: distended, guarding, mass, organolmegaly, rebound, tenderness Rectal exam: PRESENT: deferred Extremities exam: PRESENT: full ROM. ABSENT: calf tenderness, clubbing, pedal edema Neurological exam: PRESENT: alert, awake, oriented to person, oriented to place , oriented to time, oriented to situation, CN II-XII grossly intact. ABSENT: motor sensory deficit Psychiatric exam: PRESENT: appropriate affect, normal mood. ABSENT: homicidal ideation, suicidal ideation Skin exam: PRESENT: dry, intact, warm. ABSENT: cyanosis, rash Results Laboratory Results: 02/16/17 05:20 02/16/17 05:20 02/16/17 02/16/17 02/16/17 05:20 05:20 05:20 WBC 4.7 RBC 3.51 L Hgb 11.0 L Hct 32.1 L MCV 91 MCH 31.2 MCHC 34.1 RDW 15.6 H Plt Count 269 Seg Neutrophils % 52.7 Lymphocytes % 30.9 Monocytes % 14.3 H Eosinophils % 1.6 Basophils % 0.5 Absolute Neutrophils 2.5 Absolute Lymphocytes 1.4 Absolute Monocytes 0.7 Absolute Eosinophils 0.1 Absolute Basophils 0.0 Sodium 141.0 Potassium 3.6 Chloride 100 Carbon Dioxide 32 H Anion Gap 9 BUN 7 Creatinine 0.66 Est GFR ( Amer) > 60 Est GFR (Non-Af Amer) > 60 Glucose 83 Calcium 9.6 Magnesium 1.9 Total Bilirubin 0.6 AST 31 ALT 34 Alkaline Phosphatase 82 Total Protein 6.0 L Albumin 3.5 TSH 2.94 Impressions: Head CTA 02/10/17 00:00 IMPRESSION: NO CTA EVIDENCE OF STENOSIS OR ANEURYSM OF THE [place]. Neck CTA 02/10/17 00:00 IMPRESSION: NORMAL CTA OF THE EXTRA-CRANIAL CAROTID AND VERTEBRAL ARTERIES. Head CT 02/10/17 11:52 IMPRESSION: NO ACUTE INTRACRANIAL PROCESS. NO SIGNIFICANT CHANGE FROM PRIOR STUDY. EVIDENCE OF ACUTE STROKE: NO. Chest X-Ray 02/10/17 13:08 IMPRESSION: LEFT LOWER LOBE CONSOLIDATION PRESUMABLY REPRESENTING PNEUMONIA. RECOMMEND FOLLOWUP RADIOGRAPHS 4 TO 6 WEEKS TO ENSURE RESOLUTION. Head MRI 02/10/17 13:21 IMPRESSION: ACUTE INFARCT INVOLVING THE LEFT POSTERIOR PARIETAL AND OCCIPITAL LOBES WITH ADDITIONAL SCATTERED FOCI OF RESTRICTED DIFFUSION INVOLVING THE BILATERAL FRONTAL LOBES FAVORING WATERSHED TYPE INFARCTION. NO LARGE TERRITORY INFARCTION IDENTIFIED. NO HEMORRHAGE OR ENHANCING LESIONS. EVIDENCE OF ACUTE STROKE: YES. WATERSHED ABOVE. Chest CT 02/12/17 00:00 IMPRESSION: Persistent left lower lobe collapse and consolidation from postobstructive change at the left hilum Trace bilateral pleural effusions, increased compared to previous studies Stable trace pericardial effusion Assessment & Plan - Diagnosis (1) CVA (cerebral vascular accident) Qualifiers: CVA mechanism: unspecified Qualified Code(s): I63.9 - Cerebral infarction, unspecified Is this a current diagnosis for this admission?: Yes Plan: Improving, will have rehab placement (2) Lung cancer Qualifiers: Laterality: left Lung location: hilum of lung Qualified Code(s): C34.02 - Malignant neoplasm of left main bronchus Is this a current diagnosis for this admission?: Yes Plan: Holding all therapy until rehab completed, will see pt in about 3 wk to reassess , hopefully pt will be out of rehab by then. - Time Time Spent with patient: 35 or more minutes
--- NOTE | 2017-02-16 09:37 | PDOC DISCHARGE SUMMARY ---
General - Admit/Disc Date/PCP Admission Date/Primary Care Provider: 02/10/17 14:09 LESLY TEJADA, Discharge Date: 02/16/17 - Discharge Diagnosis (1) CVA (cerebral vascular accident) Is this a current diagnosis for this admission?: Yes Summary: Continue with anticoagulation. PT OT ST (2) Hypomagnesemia Is this a current diagnosis for this admission?: Yes Summary: Continue magnesium oxide 400 mg twice a day (3) Lung cancer Is this a current diagnosis for this admission?: Yes Summary: The chemotherapy is held for now. Follow-up with oncology as an outpatient (4) New onset seizure Is this a current diagnosis for this admission?: Yes Summary: Continue with Keppra 1000 twice a day (5) Atrial fibrillation Is this a current diagnosis for this admission?: Yes Summary: Continue Cardizem and Eliquis (6) COPD (chronic obstructive pulmonary disease) Is this a current diagnosis for this admission?: Yes Summary: Continue nebulization treatments - Additional Information Resuscitation Status: Full Code Discharge Diet: Regular Discharge Activity: Activity As Tolerated Prescriptions: Oxycodone HCl [Oxy-Ir 5 mg Tablet] 5 mg PO Q4HP PRN #60 tablet PRN Reason: Levetiracetam [Keppra 500 mg Tablet] 1,000 mg PO Q12 #60 tablet Home Medications: Budesonide/Formoterol Fumarate [Symbicort HFA 160-4.5 mcg Inhaler 6 gm] 2 puff IH Q12 02/10/17 Folic Acid [Folvite 1 mg Tablet] 1 mg PO DAILY 02/10/17 Ipratropium/Albuterol Sulfate [Combivent Respimat 4 gm Mdi] 1 puff IH BID Lorazepam [Ativan 0.5 mg Tablet] 0.5 mg PO BID@0800,1400 02/10/17 Montelukast Sodium [Singulair 10 mg Tablet] 10 mg PO QHS 02/10/17 Ondansetron HCl [Zofran 8 mg Tablet] 8 mg PO Q8HP PRN 02/10/17 Acetaminophen [Tylenol 325 mg Tablet] 650 mg PO Q6HP PRN tablet 02/16/17 Apixaban [Eliquis 5 mg Tablet] 5 mg PO BID tablet 02/16/17 Diltiazem HCl [Cardizem Cd 120 mg Capsule] 120 mg PO DAILY cap.sr.24h 02/16/17 Lansoprazole [Prevacid 15 mg Odt Tablet] 15 mg PO Q6AM tab.rap.dr 02/16/17 Levetiracetam [Keppra 500 mg Tablet] 1,000 mg PO Q12 #60 tablet 02/16/17 Lisinopril [Prinivil 5 mg Tablet] 2.5 mg PO DAILY tablet 02/16/17 Oxycodone HCl [Oxy-Ir 5 mg Tablet] 5 mg PO Q4HP PRN #60 tablet 02/16/17 Tolterodine Tartrate [Detrol 1 mg Tablet] 2 mg PO Q12 tablet 02/16/17 History of Present Illness History of Present Illness: EVE GUILLERMO is a 71 year old female Hospital Course Hospital Course: The patient was admitted with an impression of new strokes. She had a multi- infarct. No obvious cause for emboli has been identified except for possible paroxysmal atrial fibrillation. The patient was started on anticoagulation and Cardizem to maintain her in sinus rhythm. She did quite well. Because of right-sided neglect and some minimal neurological symptoms it has been suggested that the patient needs rehab with PT OT and ST. Physical Exam Vital Signs: Temp Pulse Resp BP Pulse Ox 97.6 F 65 16 128/77 H 99 02/16/17 03:58 02/16/17 07:00 02/16/17 03:58 02/16/17 03:58 02/16/17 03:58 Intake & Output 02/15/17 02/16/17 02/17/17 06:59 06:59 06:59 Intake Total 906 600 Output Total 125 350 Balance 781 250 Weight 71.5 kg 72.7 kg General appearance: PRESENT: no acute distress Head exam: PRESENT: atraumatic Eye exam: PRESENT: conjunctiva pink Neck exam: ABSENT: carotid bruit, JVD Respiratory exam: PRESENT: rhonchi Cardiovascular exam: PRESENT: RRR, +S1, +S2 Pulses: PRESENT: +1 pedal pulses bilateral GI/Abdominal exam: PRESENT: normal bowel sounds, soft Extremities exam: ABSENT: pedal edema Musculoskeletal exam: PRESENT: tenderness Neurological exam: PRESENT: other Results Laboratory Results: 02/16/17 05:20 02/16/17 05:20 02/16/17 02/16/17 02/16/17 05:20 05:20 05:20 WBC 4.7 RBC 3.51 L Hgb 11.0 L Hct 32.1 L MCV 91 MCH 31.2 MCHC 34.1 RDW 15.6 H Plt Count 269 Seg Neutrophils % 52.7 Lymphocytes % 30.9 Monocytes % 14.3 H Eosinophils % 1.6 Basophils % 0.5 Absolute Neutrophils 2.5 Absolute Lymphocytes 1.4 Absolute Monocytes 0.7 Absolute Eosinophils 0.1 Absolute Basophils 0.0 Sodium 141.0 Potassium 3.6 Chloride 100 Carbon Dioxide 32 H Anion Gap 9 BUN 7 Creatinine 0.66 Est GFR ( Amer) > 60 Est GFR (Non-Af Amer) > 60 Glucose 83 Calcium 9.6 Magnesium 1.9 Total Bilirubin 0.6 AST 31 ALT 34 Alkaline Phosphatase 82 Total Protein 6.0 L Albumin 3.5 TSH 2.94 Impressions: Head CTA 02/10/17 00:00 IMPRESSION: NO CTA EVIDENCE OF STENOSIS OR ANEURYSM OF THE [place]. Neck CTA 02/10/17 00:00 IMPRESSION: NORMAL CTA OF THE EXTRA-CRANIAL CAROTID AND VERTEBRAL ARTERIES. Head CT 02/10/17 11:52 IMPRESSION: NO ACUTE INTRACRANIAL PROCESS. NO SIGNIFICANT CHANGE FROM PRIOR STUDY. EVIDENCE OF ACUTE STROKE: NO. Chest X-Ray 02/10/17 13:08 IMPRESSION: LEFT LOWER LOBE CONSOLIDATION PRESUMABLY REPRESENTING PNEUMONIA. RECOMMEND FOLLOWUP RADIOGRAPHS 4 TO 6 WEEKS TO ENSURE RESOLUTION. Head MRI 02/10/17 13:21 IMPRESSION: ACUTE INFARCT INVOLVING THE LEFT POSTERIOR PARIETAL AND OCCIPITAL LOBES WITH ADDITIONAL SCATTERED FOCI OF RESTRICTED DIFFUSION INVOLVING THE BILATERAL FRONTAL LOBES FAVORING WATERSHED TYPE INFARCTION. NO LARGE TERRITORY INFARCTION IDENTIFIED. NO HEMORRHAGE OR ENHANCING LESIONS. EVIDENCE OF ACUTE STROKE: YES. WATERSHED ABOVE. Chest CT 02/12/17 00:00 IMPRESSION: Persistent left lower lobe collapse and consolidation from postobstructive change at the left hilum Trace bilateral pleural effusions, increased compared to previous studies Stable trace pericardial effusion Qualifiers [place] BEING DISCHARGED WITH ANY OF THE FOLLOWING DIAGNOSIS?: Stroke VTE patient discharged on overlapping Therapy?: Yes Stroke Pt being discharged on Anti-thrombolytic therapy?: Yes Stroke Pt being discharged on Anti-coagulation therapy?: Yes Stroke Pt being discharged on Statins?: Yes TX Pt being discharged on Aspirin therapy?: No TX Pt being discharged on Statins?: No TX Pt discharged ACEI/ARBS?: No HF Pt being discharged on ACEI for LVEF less than 40%?: No HF Pt being discharged on ARBS for LVEF less than 40%?: No HF Pt with Afib discharged with Warfarin?: No HF Pt discharged on evidence-based Beta Nora:: No
[2017-02-16] MEDS: ONDANSETRON HCL INJ/PF 4 MG/2 ML SDV IV PRN (09:50)
[2017-02-16] MEDS ORDERED: MAGNESIUM OXIDE 400 MG TABLET PO SCH (10:00)
[2017-02-16] MEDS ORDERED: LISINOPRIL 5 MG TABLET PO SCH (10:00)
[2017-02-16] MEDS: LORAZEPAM 0.5 MG TABLET PO SCH ×2 (10:55→13:39)
[2017-02-16] MEDS: BUDESONIDE/FORMOTEROL 160-4.5 MCG 60 PUFF/6 GM MDI IH SCH (10:56)
[2017-02-16] MEDS: FOLIC ACID 1 MG TABLET PO SCH (10:56)
[2017-02-16] MEDS: DILTIAZEM HCL 120 MG CAP.SR.24H PO SCH (10:56)
[2017-02-16] MEDS: TOLTERODINE TARTRATE 1 MG TABLET PO SCH (10:56)
[2017-02-16] MEDS: APIXABAN 5 MG TABLET PO SCH ×2 (10:56→17:06)
[2017-02-16] MEDS: LEVETIRACETAM 500 MG TABLET PO SCH (10:56)
[2017-02-16] MEDS: IPRATROPIUM/ALBUTEROL 120 PUFF/4 GM MDI IH SCH ×2 (10:56→17:06)
--- NOTE | 2017-02-16 11:25 | PDOC PROGRESS REPORT ---
Subjective Progress Note for:: 02/16/17 Subjective:: Patient's condition remains same as yesterday. Blood pressure does show some improvement and will add ASHLYN inhibitor. Patient seems to be doing better with gradual improvement. Pt is denying any chest arm or neck discomfort. Patient denying any PND, orthopnea. Patient denied any sustained palpitations, dizziness, syncope, near syncope. Patient denying any fever chills. Patient denying any other significant discomfort. Patient claims weakness and some general debility. Patient is maintaining sinus rhythm. Occasional APCs and VPCs noted. Review of systems: Rest review of systems negative. Medications: Medications have been reviewed. Reason For Visit: SEIZURES Physical Exam Vital Signs: Temp Pulse Resp BP Pulse Ox 97.6 F 65 16 128/77 H 99 02/16/17 03:58 02/16/17 07:00 02/16/17 03:58 02/16/17 03:58 02/16/17 03:58 Intake & Output 02/15/17 02/16/17 02/17/17 06:59 06:59 06:59 Intake Total 906 600 Output Total 125 350 Balance 781 250 Weight 71.5 kg 72.7 kg Exam: GENERAL: well-nourished and in no acute distress. Alert and oriented x3 HEAD: Atraumatic, normocephalic. EYES: Pupils equal round and reactive to light, extraocular movements intact, sclera anicteric, conjunctiva are normal. ENT: TMs normal, nares patent, oropharynx clear without exudates. Moist mucous membranes. No oral ulcerations or bleeding gums noted NECK: supple without lymphadenopathy. Trachea is central. No cervical or axillary lymphadenopathy noted. Carotids are 2+, JVD WNL LUNGS: Respiration seems nonlabored, no significant accessory muscle action noted. Breath sounds clear to auscultation bilaterally and equal noted. No wheezes rales or rhonchi noted. No significant dullness noted on percussion. CHEST: Palpation of the chest wall shows no significant chest wall tenderness. No other significant abnormalities noted. 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 ABDOMEN: Soft, no significant tenderness appreciated, normoactive bowel sounds. No guarding, no rebound. No rigidity noted . No masses appreciated. EXTREMITIES: Pedal pulses are 1-2+, no calf tenderness noted. No clubbing or cyanosis.trace to 1+ pedal edema noted NEUROLOGICAL: Focused neurological exam showed no significant neurologic deficit. Normal speech, no focal weakness appreciated. PSYCH: Normal mood, normal affect. Judgment and insight within normal limits. SKIN: No significant ecchymosis, rash, ulcerations or signs of pruritus noted. MUSCULOSKELETAL EXAM: No significant joint swelling noted. Results Laboratory Results: 02/16/17 05:20 02/16/17 05:20 02/16/17 02/16/17 02/16/17 05:20 05:20 05:20 WBC 4.7 RBC 3.51 L Hgb 11.0 L Hct 32.1 L MCV 91 MCH 31.2 MCHC 34.1 RDW 15.6 H Plt Count 269 Seg Neutrophils % 52.7 Lymphocytes % 30.9 Monocytes % 14.3 H Eosinophils % 1.6 Basophils % 0.5 Absolute Neutrophils 2.5 Absolute Lymphocytes 1.4 Absolute Monocytes 0.7 Absolute Eosinophils 0.1 Absolute Basophils 0.0 Sodium 141.0 Potassium 3.6 Chloride 100 Carbon Dioxide 32 H Anion Gap 9 BUN 7 Creatinine 0.66 Est GFR ( Amer) > 60 Est GFR (Non-Af Amer) > 60 Glucose 83 Calcium 9.6 Magnesium 1.9 Total Bilirubin 0.6 AST 31 ALT 34 Alkaline Phosphatase 82 Total Protein 6.0 L Albumin 3.5 TSH 2.94 EKG Comments: Telemetry strips shows patient maintaining sinus rhythm. Impressions: Head CTA 02/10/17 00:00 IMPRESSION: NO CTA EVIDENCE OF STENOSIS OR ANEURYSM OF THE [place]. Neck CTA 02/10/17 00:00 IMPRESSION: NORMAL CTA OF THE EXTRA-CRANIAL CAROTID AND VERTEBRAL ARTERIES. Head CT 02/10/17 11:52 IMPRESSION: NO ACUTE INTRACRANIAL PROCESS. NO SIGNIFICANT CHANGE FROM PRIOR STUDY. EVIDENCE OF ACUTE STROKE: NO. Chest X-Ray 02/10/17 13:08 IMPRESSION: LEFT LOWER LOBE CONSOLIDATION PRESUMABLY REPRESENTING PNEUMONIA. RECOMMEND FOLLOWUP RADIOGRAPHS 4 TO 6 WEEKS TO ENSURE RESOLUTION. Head MRI 02/10/17 13:21 IMPRESSION: ACUTE INFARCT INVOLVING THE LEFT POSTERIOR PARIETAL AND OCCIPITAL LOBES WITH ADDITIONAL SCATTERED FOCI OF RESTRICTED DIFFUSION INVOLVING THE BILATERAL FRONTAL LOBES FAVORING WATERSHED TYPE INFARCTION. NO LARGE TERRITORY INFARCTION IDENTIFIED. NO HEMORRHAGE OR ENHANCING LESIONS. EVIDENCE OF ACUTE STROKE: YES. WATERSHED ABOVE. Chest CT 02/12/17 00:00 IMPRESSION: Persistent left lower lobe collapse and consolidation from postobstructive change at the left hilum Trace bilateral pleural effusions, increased compared to previous studies Stable trace pericardial effusion Assessment & Plan - Diagnosis (1) Paroxysmal atrial fibrillation Is this a current diagnosis for this admission?: Yes (2) CVA (cerebral vascular accident) Qualifiers: CVA mechanism: unspecified Qualified Code(s): I63.9 - Cerebral infarction, unspecified Is this a current diagnosis for this admission?: Yes (3) Lung cancer Qualifiers: Laterality: left Lung location: hilum of lung Qualified Code(s): C34.02 - Malignant neoplasm of left main bronchus Is this a current diagnosis for this admission?: Yes (4) New onset seizure Is this a current diagnosis for this admission?: Yes (5) COPD (chronic obstructive pulmonary disease) Qualifiers: Emphysema type: centrilobular Is this a current diagnosis for this admission?: Yes (6) Tobacco abuse Is this a current diagnosis for this admission?: Yes (7) Mitral regurgitation Qualifiers: Cardiac valve disease etiology: etiology unspecified Qualified Code(s): I34.0 - Nonrheumatic mitral (valve) insufficiency Is this a current diagnosis for this admission?: Yes - Notes Notes: Tolerating ACEI, escalate dose as outpatient as tolerated. Paroxysmal atrial fibrillation: Patient currently maintaining sinus rhythm. Patient has a history of paroxysmal atrial fibrillation. Risk benefit assessment suggest continuation of chronic anticoagulation with close follow- up. Heart rate well controlled in sinus rhythm. Lung cancer: Treatment plans left to sheet metal helper and oncologist. COPD: Currently stable. Patient does have some enlargement from RV. May benefit from nocturnal oximetry, pulmonary consultation etc. Tobacco abuse: Patient has smoked until hospitalization. Patient will be going to [place] [facility] where she will not be allowed to smoke as well. Mitral regurgitation: This is a significant problem. Would need close cardiology follow-up. Tolerating low-dose lisinopril. Aim to gradually increase as tolerated. Pulmonary hypertension: Multifactorial. Periodic echocardiogram may be needed. Patient may benefit from nocturnal oximetry and nocturnal oxygen supplementation and this can be carried out through my office. Discussed that due to multiple comorbid problems, prognosis is therefore guarded. Patient has found a bed at a rehab facility. Will sign off. Patient may see me as an outpatient. Please reconsult if needed.. - Time Time with patient: 15-25 minutes Medications reviewed and adjusted accordingly: Yes
[2017-02-16 12:24] VITALS: BP 122/77
== END 2017-02-16 18:50 | DRG 65 ==
LOC: ER 11:46 → EH 14:09 → 3S 02-11 00:02
PROVIDERS: ADMIT Internal Medicine; ATTEND Internal Medicine
DX: I63.8 Other cerebral infarction (principal); C34.02 Malignant neoplasm of left main bronchus; R56.9 Unspecified convulsions; E83.42 Hypomagnesemia; I48.0 Paroxysmal atrial fibrillation; J43.2 Centrilobular emphysema; I25.10 Atherosclerotic heart disease of native coronary artery without angina pectoris; D64.9 Anemia, unspecified; I10 Essential (primary) hypertension; E78.5 Hyperlipidemia, unspecified; I34.0 Nonrheumatic mitral (valve) insufficiency; Z79.899 Other long term (current) drug therapy; Z90.49 Acquired absence of other specified parts of digestive tract; Z90.10 Acquired absence of unspecified breast and nipple; F17.210 Nicotine dependence, cigarettes, uncomplicated; Z88.8 Allergy status to other drugs, medicaments and biological substances
CPT/HCPCS: 36415; 70450; 70496; 70498; 70553; 71046; 71250; 80048; 80053; 80061; 81001; 82272; 83036; 83735; 84100; 84443; 85025; 85027; 93005; 93010; 93306; 96374; 99291; A9577; G8978-GP; G8979-GP; G8987-GO; G8988-GO; G9168-GN; G9169-GN; J1100; J1650; J1953; J2060; J2405; J3475; J3490; J7030

== ENCOUNTER 2017-03-13 11:52 | Outpatient (CLI) | payer MEDICARE, BC, OTHER ==
[2017-03-13 12:20] VITALS: BP 125/82
[2017-03-13] MEDS ORDERED: PROMETHAZINE HCL INJ 25 MG/1 ML VIAL IV PRN (12:58)
[2017-03-13] MEDS ORDERED: NORMAL SALINE 1000 ML 1,000 ML IV PRN (12:58)
== END 2017-03-13 14:28 | disposition home or self-care (01) ==
LOC: II 11:52 → 5TH 12:16 → II 14:28
PROVIDERS: ATTEND Internal Medicine
PROC: 3E0437Z Introduction of Electrolytic and Water Balance Substance into Central Vein, Percutaneous Approach (ICD-10-PCS; principal; 2017-03-13)
PROC: 3E043GC Introduction of Other Therapeutic Substance into Central Vein, Percutaneous Approach (ICD-10-PCS; 2017-03-13)
DX: E86.0 Dehydration (principal); R11.0 Nausea; C34.12 Malignant neoplasm of upper lobe, left bronchus or lung
CPT/HCPCS: 96374; 96361; J2550; 96360; 96375

== ENCOUNTER 2017-03-15 14:54 | Outpatient (CLI) | payer MEDICARE, BC, OTHER ==
[2017-03-15 15:47] VITALS: BP 128/81
== END 2017-03-15 16:26 | disposition home or self-care (01) ==
LOC: II 14:54 → 5TH 14:57 → II 16:26
PROVIDERS: ATTEND Internal Medicine
PROC: 3E0437Z Introduction of Electrolytic and Water Balance Substance into Central Vein, Percutaneous Approach (ICD-10-PCS; principal; 2017-03-15)
DX: E86.0 Dehydration (principal); C34.12 Malignant neoplasm of upper lobe, left bronchus or lung
CPT/HCPCS: 96360; 96374

== ENCOUNTER 2017-03-16 11:01 | Outpatient (CLI) | payer MEDICARE, BC, OTHER ==
[2017-03-16 13:51] VITALS: BP 100/32
== END 2017-03-16 13:54 | disposition home or self-care (01) ==
LOC: II 11:01 → 5TH 11:56 → II 13:54
PROVIDERS: ATTEND Internal Medicine
PROC: 3E0437Z Introduction of Electrolytic and Water Balance Substance into Central Vein, Percutaneous Approach (ICD-10-PCS; principal; 2017-03-16)
DX: E86.0 Dehydration (principal); C34.12 Malignant neoplasm of upper lobe, left bronchus or lung
CPT/HCPCS: 96360; 96374

== ENCOUNTER 2017-03-20 09:55 | Emergency (ER) | payer MEDICARE, BC, OTHER ==
--- NOTE | 2017-03-20 10:35 | ER Document Report ---
ED Medical Screen (RME) - General Chief Complaint: Weakness Stated Complaint: WEAKNESS Time Seen by Provider: 03/20/17 10:28 Notes: RME DISCLOSURE I have seen this patient as part of a Rapid Medical Evaluation and, if applicable, placed any initially appropriate orders. The patient will be seen and fully evaluated, including a full history and physical exam, by a provider ( in Main ED or Fast Track) when a room becomes available. 71-year-old female past medical history lung cancer sent here by her physician for lightheadedness dehydration and confusion. Family also reports that she has been suffering from a cough and has been very anxious. The referring physician has requested head, chest, and abdomen pelvis CT scans as well as workup. EXAM Minimally tachypneic, but appears anxious TRAVEL OUTSIDE OF THE [place] IN LAST 30 DAYS: No - Related Data Allergies/Adverse Reactions: pegfilgrastim [From Neulasta] Allergy (Verified 03/20/17 09:56) Past Medical History - Social History Frequency of alcohol use: None Drug Abuse: None - Past Medical History Cardiac Medical History: Reports: Hx Atrial Fibrillation, Hx Congestive Heart Failure - secondary to "double pneumonia", Hx Coronary Artery Disease, Hx Hypercholesterolemia, Hx Hypertension Denies: Hx Heart Attack Pulmonary Medical History: Reports: Hx COPD, Hx Pneumonia Denies: Hx Asthma, Hx Bronchitis Neurological Medical History: Denies: Hx Cerebrovascular Accident, Hx Seizures Endocrine Medical History: Denies: Hx Diabetes Mellitus Type 2, Hx Hypothyroidism Renal/ Medical History: Denies: Hx Peritoneal Dialysis Malignancy Medical History: Reports: Hx Breast Cancer, Hx Lung Cancer Musculoskeltal Medical History: Denies Hx Arthritis Past Surgical History: Reports: Hx Breast Surgery - reconstruction, Hx Cholecystectomy, Hx Mastectomy - left, Hx Tubal Ligation - Immunizations Hx Diphtheria, Pertussis, Tetanus Vaccination: No History of Influenza Vaccine for 11/2016 - 04/2017 Season: Refused Physical Exam - Vital signs Vitals: Temp Pulse Resp BP Pulse Ox 97.9 F 104 H 24 H 113/77 99 03/20/17 10:04 03/20/17 10:04 03/20/17 10:04 03/20/17 10:04 03/20/17 10:04 Course - Vital Signs Vital signs: Temp Pulse Resp BP Pulse Ox 97.9 F 104 H 24 H 113/77 99 03/20/17 10:04 03/20/17 10:04 03/20/17 10:04 03/20/17 10:04 03/20/17 10:04
[2017-03-20 11:09] LABS: ABSOLUTE MONOCYTES (AUTO) 0.2 10^3/uL (0.1-1.4); ABSOLUTE NEUT (AUTO) 4.6 10^3/uL (1.7-8.2); BASOPHILS % (AUTO) 0.4 % (0-2); EOSINOPHILS % (AUTO) 0.8 % (0-6); HEMATOCRIT 37.8 % (36.0-47.0); HEMOGLOBIN 12.7 g/dL (12.0-15.5); LYMPHOCYTES % (AUTO) 16.9 % (13-45); MEAN CORPUSCULAR HEMOGLOBIN 30.3 pg (27.0-33.4); MEAN CORPUSCULAR HGB CONC 33.7 g/dL (32.0-36.0); MEAN CORPUSCULAR VOLUME 90 fl (80-97); PLATELET COUNT 168 10^3/uL (150-450); RED BLOOD COUNT 4.21 10^6/uL (3.72-5.28); RED CELL DISTRIBUTION WIDTH 15.5 % (11.5-14.0); SEGMENTED NEUTROPHILS % (AUTO) 77.9 % (42-78); TOTAL CELLS COUNTED % (AUTO) 100 %; WHITE BLOOD COUNT 5.9 10^3/uL (4.0-10.5)
[2017-03-20 11:26] LABS: ANION GAP 14 (5-19); BLOOD UREA NITROGEN 6 mg/dL (7-20); CARBON DIOXIDE 28 mmol/L (22-30); CHLORIDE 101 mmol/L (98-107); GLUCOSE 130 mg/dL (75-110); MAGNESIUM 1.3 mg/dL (1.6-2.3); PHOSPHORUS 3.1 mg/dL (2.5-4.5); POTASSIUM 3.1 mmol/L (3.6-5.0); SODIUM 142.5 mmol/L (137-145)
[2017-03-20] MEDS ORDERED: NORMAL SALINE 1000 ML 1,000 ML IV ONE (12:38)
[2017-03-20] MEDS ORDERED: MAGNESIUM SULFATE/D5W 1 GM/100 ML RTUPB IV ONE (12:48)
[2017-03-20] MEDS ORDERED: ONDANSETRON HCL INJ/PF 4 MG/2 ML SDV IV ONE (13:07)
[2017-03-20] MEDS ORDERED: FENTANYL CITRATE INJ/PF 100 MCG/2 ML AMPUL IV ONE (13:07)
[2017-03-20] MEDS ORDERED: HYDROMORPHONE HCL INJ/PF 2 MG/ML AMPULE IV ONE (13:37)
--- NOTE | 2017-03-20 14:03 | RADIOLOGY REPORT (SQ) ---
EXAM DESCRIPTION: CT HEAD WITHOUT COMPLETED DATE/TIME: 03/20/2017 1:43 pm REASON FOR STUDY: recent strokes, now confusion COMPARISON: MRI of the brain 02/10/2017 TECHNIQUE: Axial images acquired through the brain without intravenous contrast. Images reviewed wi th bone, brain and subdural windows. Images stored on PACS. All CT scanners at this facility use dose modulation, iterative reconstruction, and/or weight based d osing when appropriate to reduce radiation dose to as low as reasonably achievable (ALARA). [facility]: Dose Right [facility]: CareDose [facility]: Dose Right [facility]: Teradose 4D [facility]: [employer] RADIATION DOSE: CT Rad equipment meets quality standard of care and radiation dose reduction techniq ues were employed. CTDIvol: 64.6 mGy. DLP: 1163 mGy-cm. mGy. LIMITATIONS: None. FINDINGS: VENTRICLES: Normal size and contour. CEREBRUM: No intracranial hemorrhage. No mass effect. Periventricular white matter infarction. The acute infarct noted on the previous MRI the brain involving the left posterior parietal and occipita l lobes not identified on the current examination. Normal ledezma/white matter differentiation. No areas of low density in the white matter. CEREBELLUM: No masses. No hemorrhage. No alteration of density. No evidence for acute infarction. EXTRAAXIAL SPACES: No fluid collections. No masses. ORBITS AND GLOBE: No intra- or extraconal masses. Normal contour of globe without masses. CALVARIUM: No fracture. PARANASAL SINUSES: No fluid or mucosal thickening. SOFT TISSUES: No mass or hematoma. OTHER: No other significant finding. IMPRESSION: Periventricular white matter infarction. No other infarction identified including the l eft posterior parietal and occipital lobes that were identified with acute infarction on the previous MRI of the brain 02/10/2017. No acute findings. EVIDENCE OF ACUTE STROKE: NO. COMMENT: Quality ID # [id number]: Final reports with documentation of one or more dose reduction techniques (e.g., Automated exposure control, adjustment of the mA and/or kV according to patient size, use of iterative reconstruction technique) TECHNICAL DOCUMENTATION: JOB ID: [id number] [employer]- All Rights Reserved
--- NOTE | 2017-03-20 14:32 | ER Document Report ---
ED General - General Chief Complaint: Weakness Stated Complaint: WEAKNESS Time Seen by Provider: 03/20/17 10:28 TRAVEL OUTSIDE OF THE [place] IN LAST 30 DAYS: No - HPI Patient complains to provider of: Generalized weakness nausea vomiting dizziness Notes: Patient coming in for the above-stated symptoms. Patient has a history of small cell lung cancer currently undergoing chemotherapy. Patient has also had issues with dehydration has been seen by her oncologist last few days for IV fluids. Patient upon my evaluation resting comfortably states she has some mild nausea and also complaining of some back pain. Family states that since last admission where she was found to have instructed her condition is worsening or she is weak and fatigued complaining of dizziness. Denies any fevers chills shortness of breath chest pain abdominal pain diarrhea. - Related Data Allergies/Adverse Reactions: pegfilgrastim [From Neulasta] Allergy (Verified 03/20/17 09:56) Past Medical History - Social History Smoking Status: Current Every Day Smoker Frequency of alcohol use: None Drug Abuse: None Family History: CAD, Malignancy - Mother from CAD. Father from Lung cancer. Brother who from lung cancer. Sister living with breast cancer. Patient has suicidal ideation: No Patient has homicidal ideation: No - Past Medical History Cardiac Medical History: Reports: Hx Atrial Fibrillation, Hx Congestive Heart Failure - secondary to "double pneumonia", Hx Coronary Artery Disease, Hx Hypercholesterolemia, Hx Hypertension Denies: Hx Heart Attack Pulmonary Medical History: Reports: Hx COPD, Hx Pneumonia Denies: Hx Asthma, Hx Bronchitis Neurological Medical History: Denies: Hx Cerebrovascular Accident, Hx Seizures Endocrine Medical History: Denies: Hx Diabetes Mellitus Type 2, Hx Hypothyroidism Renal/ Medical History: Denies: Hx Peritoneal Dialysis Malignancy Medical History: Reports: Hx Breast Cancer, Hx Lung Cancer Musculoskeltal Medical History: Denies Hx Arthritis Past Surgical History: Reports: Hx Breast Surgery - reconstruction, Hx Cholecystectomy, Hx Mastectomy - left, Hx Tubal Ligation - Immunizations Hx Diphtheria, Pertussis, Tetanus Vaccination: No Review of Systems - Review of Systems Constitutional: Weakness EENT: No symptoms reported Cardiovascular: No symptoms reported Respiratory: No symptoms reported Gastrointestinal: Nausea, Vomiting Genitourinary: No symptoms reported Female Genitourinary: No symptoms reported Musculoskeletal: No symptoms reported Skin: No symptoms reported Hematologic/Lymphatic: No symptoms reported Neurological/Psychological: No symptoms reported -: Yes All other systems reviewed and negative Physical Exam - Vital signs Vitals: Temp Pulse Resp BP Pulse Ox 97.9 F 104 H 24 H 113/77 99 03/20/17 10:04 03/20/17 10:04 03/20/17 10:04 03/20/17 10:04 03/20/17 10:04 Interpretation: Normal - General General appearance: Appears well, Alert - HEENT Head: Normocephalic, Atraumatic Eyes: Normal Pupils: PERRL - Respiratory Respiratory status: No respiratory distress Chest status: Nontender Breath sounds: Normal Chest palpation: Normal Notes: Port in her right upper chest no signs of infection - Cardiovascular Rhythm: Regular Heart sounds: Normal auscultation Murmur: No - Abdominal Inspection: Normal Distension: No distension Bowel sounds: Normal Tenderness: Nontender Organomegaly: No organomegaly - Back Back: Normal, Nontender - Extremities General upper extremity: Normal inspection, Nontender, Normal color, Normal ROM , Normal temperature General lower extremity: Normal inspection, Nontender, Normal color, Normal ROM , Normal temperature, Normal weight bearing. No: Jyotsna's sign - Neurological Neuro grossly intact: Yes Cognition: Normal Orientation: AAOx4 Basia Coma Scale Eye Opening: Spontaneous Basia Coma Scale Verbal: Oriented Siler Coma Scale Motor: Obeys Commands Siler Coma Scale Total: 15 Speech: Normal Motor strength normal: LUE, RUE, LLE, RLE Sensory: Normal - Psychological Associated symptoms: Normal affect, Normal mood - Skin Skin Temperature: Warm Skin Moisture: Dry Skin Color: Normal Course - Re-evaluation Re-evalutation: 03/20/17 14:31 Patient's electrolytes are abnormal we will replace via IV. Patient was given nausea and pain medication. Currently waiting for CT scan results. Did discuss the patient's case with Dr. Cole prior to arrival requesting CT of the head chest abdomen pelvis be performed. 03/20/17 14:31 03/20/17 15:45 Patient's evaluation does show low potassium and low magnesium which will be replaced IV. Discussed with Dr. Kirill Tejada MD at this time patient does not admit any admission criteria. Discussed with family members also agree and patient agrees that she like to go home at this time. After magnesium and potassium replaced patient will be discharged otherwise at this time no acute pathology normal vital signs. - Vital Signs Vital signs: Temp Pulse Resp BP Pulse Ox 97.9 F 104 H 24 H 119/80 98 03/20/17 10:04 03/20/17 10:04 03/20/17 14:01 03/20/17 14:01 03/20/17 14:01 - Laboratory Result Diagrams: 03/20/17 10:53 03/20/17 10:53 Laboratory results interpreted by me: 03/20/17 03/20/17 03/20/17 10:53 10:53 10:53 RDW 15.5 H Potassium 3.1 L BUN 6 L Glucose 130 H Lactic Acid 2.7 H Magnesium 1.3 L Ammonia 03/20/17 10:53 RDW Potassium BUN Glucose Lactic Acid Magnesium Ammonia < 8.7 L Discharge - Discharge Clinical Impression: Hypokalemia, Hypomagnesemia, cigarette use Lung cancer Qualifiers: Laterality: unspecified laterality Lung location: unspecified part of lung Qualified Code(s): C34.90 - Malignant neoplasm of unspecified part of unspecified bronchus or lung Condition: Good Disposition: HOME, SELF-CARE Instructions: Hypokalemia ([facility]), Weakness ([facility]) Additional Instructions: There are many factors to why you are feeling weak and sick however at this time your CAT scan does not show any further progression of your disease. No signs of acute infections. Your potassium and your magnesium are low with the replace these. I did discuss your case with your oncologist Dr. Cole and your primary care physician Saul Tejada MD both agree with discharge home with follow-up in their clinics. Prescriptions: Magnesium Oxide [Mag-Ox 400 mg Tablet] 400 mg PO DAILY #30 tablet Potassium Chloride [Klor-Con 10] 10 meq PO DAILY #30 tablet.er Promethazine HCl [Phenergan 25 mg Supp.rect] 1 supp GA Q6H #20 supp.rect Referrals: SAUL TEJADA MD [Primary Care Provider] - Follow up as needed
--- NOTE | 2017-03-20 14:32 | RADIOLOGY REPORT (SQ) ---
EXAM DESCRIPTION: CT CHEST WITH COMPLETED DATE/TIME: 03/20/2017 1:43 pm REASON FOR STUDY: coughing, cancer; eval PE vs pneumonia COMPARISON: 02/12/2017 and 11/27/2016. TECHNIQUE: CT scan of the chest performed using helical scanning technique with dynamic intravenous contrast injection. Images reviewed with lung, soft tissue and bone windows. Reconstructed coronal and sagittal MPR images reviewed. All images stored on PACS. All CT scanners at this facility use dose modulation, iterative reconstruction, and/or weight based d osing when appropriate to reduce radiation dose to as low as reasonably achievable (ALARA). [facility]: Dose Right [facility]: CareDose [facility]: Dose Right [facility]: Teradose 4D [facility]: [employer] CONTRAST TYPE AND DOSE: contrast/concentration: Isovue 300.00 mg/ml; Total Contrast Delivered: 75.0 ml; Total Saline Delivered: 62.6 ml RENAL FUNCTION: BUN 6 creatinine 0.76. RADIATION DOSE: CT Rad equipment meets quality standard of care and radiation dose reduction techniq ues were employed. CTDIvol: 8.3 - 12.8 mGy. DLP: 1284 mGy-cm. . LIMITATIONS: None. FINDINGS: LUNGS AND PLEURA: There is now complete collapse of the left upper lobe and lingula with v olume loss. There is improved aeration in the left lower lobe with an irregular 12 mm nodule. Left pleural effusion unchanged. Right pleural effusion has decreased. Right lung clear. Minimal vague subpleural nodularity. HILAR AND MEDIASTINAL STRUCTURES: Left hilar mass measuring 3.4 cm. This is located between the left pulmonary artery and pulmonary vein. There is occlusion of the bronchus to the left upper lobe and narrowing of the bronchus to the left lower lobe. HEART AND VASCULAR STRUCTURES: No aneurysm or dissection. No central pulmonary emboli. No pericardi al effusion. HARDWARE: Vascular access port. Breast implants. UPPER ABDOMEN: No significant findings. Limited exam. THYROID AND OTHER SOFT TISSUES: No masses. No adenopathy. BONES: No significant finding. OTHER: No other significant finding. IMPRESSION: 1. INTERVAL DEVELOPMENT OF COMPLETE COLLAPSE OF THE LEFT UPPER LOBE SECONDARY TO OBSTRUCTING LEFT HIL AR MASS. 2. IMPROVED AERATION IN THE LEFT LOWER LOBE. 12 MM NODULE SUSPICIOUS FOR PRIMARY TUMOR VERSUS METAST ASIS. 3. 3.4 CM LEFT HILAR MASS. 4. LEFT PLEURAL EFFUSION UNCHANGED. RIGHT PLEURAL EFFUSION HAS DECREASED IN SIZE. TECHNICAL DOCUMENTATION: JOB ID: [id number] Quality ID # [id number]: Final reports with documentation of one or more dose reduction techniques (e.g., Au tomated exposure control, adjustment of the mA and/or kV according to patient size, use of iterative reconstruction technique) 2010 [employer]- All Rights Reserved
--- NOTE | 2017-03-20 14:45 | RADIOLOGY REPORT (SQ) ---
EXAM DESCRIPTION: CT ABD/PELVIS WITH IV ONLY COMPLETED DATE/TIME: 03/20/2017 1:43 pm REASON FOR STUDY: cancer; eval metastatic burden COMPARISON: 01/24/2017. TECHNIQUE: CT scan of the abdomen and pelvis performed using helical scanning technique with dynamic intravenous contrast injection. No oral contrast. Images reviewed with lung, soft tissue, and bone windows. Reconstructed coronal and sagittal MPR images reviewed. Delayed images for evaluation of the urinary system also acquired. All images stored on PACS. All CT scanners at this facility use dose modulation, iterative reconstruction, and/or weight based d osing when appropriate to reduce radiation dose to as low as reasonably achievable (ALARA). [facility]: Dose Right [facility]: CareDose [facility]: Dose Right [facility]: Teradose 4D [facility]: [employer] CONTRAST TYPE AND DOSE: C5 mL Isovue 300- low osmolar. RENAL FUNCTION: BUN 6 creatinine 0.76. RADIATION DOSE: . LIMITATIONS: None. FINDINGS: LOWER CHEST: See separate report of the CT of the chest. LIVER: Normal size. Mild fatty infiltration. No masses. No dilated ducts. SPLEEN: Normal size. No focal lesions. PANCREAS: No masses. No significant calcifications. No adjacent inflammation or peripancreatic fluid collections. Pancreatic duct not dilated. GALLBLADDER: Surgically absent. ADRENAL GLANDS: No significant masses or asymmetry. RIGHT KIDNEY AND URETER: No solid masses. No significant calcifications. No hydronephrosis or hyd roureter. LEFT KIDNEY AND URETER: Severe chronic atrophy. No solid masses. No significant calcifications. No hydronephrosis or hydroureter. AORTA AND VESSELS: 4.7 cm infrarenal abdominal aortic aneurysm unchanged. No dissection. Renal arteri es, SMA, celiac without stenosis. RETROPERITONEUM: No retroperitoneal adenopathy, hemorrhage or masses. BOWEL AND PERITONEAL CAVITY: No masses or inflammatory changes. No free fluid or peritoneal masses. APPENDIX: Normal. PELVIS: No mass. No free fluid. Normal bladder. ABDOMINAL WALL: No masses. No hernias. BONES: No significant or acute findings. OTHER: No other significant finding. IMPRESSION: 1. 4.7 CM INFRARENAL ABDOMINAL AORTIC ANEURYSM, UNCHANGED. 2. SEVERE CHRONIC ATROPHY OF THE LEFT KIDNEY. 3. NO OTHER SIGNIFICANT OR ACUTE FINDING IN THE ABDOMEN OR PELVIS ON CT SCAN WITH IV CONTRAST. TECHNICAL DOCUMENTATION: JOB ID: [id number] Quality ID # [id number]: Final reports with documentation of one or more dose reduction techniques (e.g., Au tomated exposure control, adjustment of the mA and/or kV according to patient size, use of iterative reconstruction technique) 2010 [employer]- All Rights Reserved
[2017-03-20] MEDS: POTASSI CL 20 MEQ/50 ML RIDER 20 MEQ/50 ML RTUPB IV SCH ×2 (16:00→18:38)
[2017-03-20 20:31] VITALS: BP 122/76
--- NOTE | 2017-03-21 09:25 | EKG REPORT ---
SEVERITY:- ABNORMAL ECG - SINUS RHYTHM LOW VOLTAGE IN FRONTAL LEADS NONSPECIFIC T ABNORMALITIES, LATERAL LEADS BORDERLINE PROLONGED QT INTERVAL : Confirmed by: Miguel Harmon 21-Mar-2017 09:25:22
== END 2017-03-20 20:15 | disposition home or self-care (01) ==
LOC: ER 09:55
DX: E87.6 Hypokalemia (principal); E83.42 Hypomagnesemia; R53.1 Weakness; R11.2 Nausea with vomiting, unspecified; R42 Dizziness and giddiness; M54.9 Dorsalgia, unspecified; C34.90 Malignant neoplasm of unspecified part of unspecified bronchus or lung; F17.210 Nicotine dependence, cigarettes, uncomplicated; I25.10 Atherosclerotic heart disease of native coronary artery without angina pectoris; I10 Essential (primary) hypertension; J44.9 Chronic obstructive pulmonary disease, unspecified; Z88.8 Allergy status to other drugs, medicaments and biological substances; Z80.1 Family history of malignant neoplasm of trachea, bronchus and lung; Z80.3 Family history of malignant neoplasm of breast; Z82.49 Family history of ischemic heart disease and other diseases of the circulatory system; Z85.3 Personal history of malignant neoplasm of breast
CPT/HCPCS: 93005; 36591; 99285; 96361; 96375; 96365; 36415; 87040; 82140; 83735; 84100; 85025; 80048; 83605; 70450; 71260; 74177; 93010; J1170; J3475; J2405; J3480; J7030

== ENCOUNTER 2017-03-21 13:06 | Outpatient (CLI) | payer MEDICARE, BC, OTHER ==
[2017-03-21 13:40] VITALS: BP 137/78
== END 2017-03-21 14:29 | disposition home or self-care (01) ==
LOC: II 13:06 → 5TH 13:10 → II 14:29
PROVIDERS: ATTEND Internal Medicine
PROC: 3E0437Z Introduction of Electrolytic and Water Balance Substance into Central Vein, Percutaneous Approach (ICD-10-PCS; principal; 2017-03-21)
DX: E86.0 Dehydration (principal); C34.12 Malignant neoplasm of upper lobe, left bronchus or lung
CPT/HCPCS: 96360; 96374

== ENCOUNTER 2017-03-23 08:49 | Outpatient (CLI) | payer MEDICARE, BC, OTHER ==
[2017-03-23] MEDS ORDERED: NORMAL SALINE 1000 ML 1,000 ML IV PRN (09:07)
[2017-03-23 09:36] VITALS: BP 117/84
== END 2017-03-23 10:21 | disposition home or self-care (01) ==
LOC: II 08:49 → 5TH 09:28 → II 10:21
PROVIDERS: ATTEND Internal Medicine
PROC: 3E0437Z Introduction of Electrolytic and Water Balance Substance into Central Vein, Percutaneous Approach (ICD-10-PCS; principal; 2017-03-23)
DX: E86.0 Dehydration (principal); C34.12 Malignant neoplasm of upper lobe, left bronchus or lung
CPT/HCPCS: 96360

== ENCOUNTER 2017-03-27 09:47 | Outpatient (CLI) | payer MEDICARE, BC, OTHER ==
[2017-03-27 10:25] VITALS: BP 114/75
== END 2017-03-27 11:27 | disposition home or self-care (01) ==
LOC: II 09:47 → 5TH 09:49 → II 11:27
PROVIDERS: ATTEND Internal Medicine
PROC: 3E0437Z Introduction of Electrolytic and Water Balance Substance into Central Vein, Percutaneous Approach (ICD-10-PCS; principal; 2017-03-27)
DX: E86.0 Dehydration (principal); C34.12 Malignant neoplasm of upper lobe, left bronchus or lung
CPT/HCPCS: 96360; 96374

== ENCOUNTER 2017-03-28 09:51 | Outpatient (CLI) | payer MEDICARE, BC, OTHER | END 2017-03-28 12:34 | disposition home or self-care (01) | LOC: II 09:51 → 5TH 10:18 → II 12:34 | PROVIDERS: ATTEND Internal Medicine | PROC: 3E0437Z Introduction of Electrolytic and Water Balance Substance into Central Vein, Percutaneous Approach (ICD-10-PCS; principal; 2017-03-28) | DX: E86.0 Dehydration (principal); C34.12 Malignant neoplasm of upper lobe, left bronchus or lung | CPT/HCPCS: 96360; 96374 ==

== ENCOUNTER 2017-03-30 08:50 | Outpatient (CLI) | payer MEDICARE, BC, OTHER ==
[2017-03-30 09:54] VITALS: BP 100/58
== END 2017-03-30 10:51 | disposition home or self-care (01) ==
LOC: II 08:50 → 5TH 08:51 → II 10:51
PROVIDERS: ATTEND Internal Medicine
PROC: 3E0437Z Introduction of Electrolytic and Water Balance Substance into Central Vein, Percutaneous Approach (ICD-10-PCS; principal; 2017-03-30)
DX: E86.0 Dehydration (principal); C34.12 Malignant neoplasm of upper lobe, left bronchus or lung
CPT/HCPCS: 96360; 96374

== ENCOUNTER 2017-04-03 09:43 | Outpatient (CLI) | payer MEDICARE, BC, OTHER ==
[2017-04-03 10:35] VITALS: BP 122/77
== END 2017-04-03 11:18 | disposition home or self-care (01) ==
LOC: II 09:43 → 5TH 09:47 → II 11:18
PROVIDERS: ATTEND Internal Medicine
PROC: 3E0437Z Introduction of Electrolytic and Water Balance Substance into Central Vein, Percutaneous Approach (ICD-10-PCS; principal; 2017-04-03)
DX: E86.0 Dehydration (principal); C34.12 Malignant neoplasm of upper lobe, left bronchus or lung
CPT/HCPCS: 96360; 96374

== ENCOUNTER 2017-04-04 09:49 | Outpatient (CLI) | payer MEDICARE, BC, OTHER ==
[2017-04-04 10:32] VITALS: BP 136/54
[2017-04-04 12:02] LABS: APPEARANCE,URINE CLEAR; BILIRUBIN,URINE NEGATIVE (NEGATIVE); COLOR,URINE STRAW; GLUCOSE, URINE NEGATIVE (NEGATIVE); KETONES,URINE NEGATIVE (NEGATIVE); LEUKOCYTE ESTERASE,URINE MODERATE (NEGATIVE); NITRITE,URINE NEGATIVE (NEGATIVE); PROTEIN,URINE NEGATIVE (NEGATIVE); URINE SPECIFIC GRAVITY 1.006; UROBILINOGEN,URINE NEGATIVE mg/dL (<2.0)
== END 2017-04-04 11:54 | disposition home or self-care (01) ==
LOC: II 09:49 → 5TH 09:53 → II 11:54
PROVIDERS: ATTEND Internal Medicine
PROC: 3E0437Z Introduction of Electrolytic and Water Balance Substance into Central Vein, Percutaneous Approach (ICD-10-PCS; principal; 2017-04-04)
DX: E86.0 Dehydration (principal); C34.12 Malignant neoplasm of upper lobe, left bronchus or lung; R30.0 Dysuria
CPT/HCPCS: 81001; 87086; 87088; 87186; 96360; 96374

== ENCOUNTER 2017-04-04 22:37 | Inpatient (IN) | payer MEDICARE, BC, OTHER ==
--- NOTE | 2017-04-04 23:16 | ER Document Report ---
ED General - General Mode of Arrival: Ambulatory Information source: Patient TRAVEL OUTSIDE OF THE [place] IN LAST 30 DAYS: No <SCAR WEBBER - Last Filed: 04/05/17 00:55> <DIANNA MARRERO - Last Filed: 04/05/17 02:30> - General Chief Complaint: Cough Stated Complaint: COUGHING BLOOD Time Seen by Provider: 04/04/17 23:14 Notes: Patient is a 71 year old female with a history of pneumonia, small cell lung cancer and strokes presents to the emergency department complaining of hemoptysis onset today. Daughters who are at bedside state the patient has previously coughed up blood clots although they were smaller in size. Patients associated symptoms include fatigue and general malaise. Patient denies any fevers or any other bleeding. Patient is currently prescribed Eloquis Daughter states a tumor was previously found around her bronchus. Daughter also states she has had recent discussions with the patients PCP about placing the patient on hospice. (SCAR WEBBER) - Related Data Allergies/Adverse Reactions: pegfilgrastim [From Neulasta] Allergy (Verified 03/20/17 09:56) Past Medical History - General Information source: Patient, Relative - Social History Smoking Status: Current Every Day Smoker Family History: CAD, Malignancy - Mother from CAD. Father from Lung cancer. Brother who from lung cancer. Sister living with breast cancer. - Past Medical History Cardiac Medical History: Reports: Hx Atrial Fibrillation, Hx Congestive Heart Failure - secondary to "double pneumonia", Hx Coronary Artery Disease, Hx Hypercholesterolemia, Hx Hypertension Pulmonary Medical History: Reports: Hx COPD, Hx Pneumonia Malignancy Medical History: Reports: Hx Breast Cancer, Hx Lung Cancer Past Surgical History: Reports: Hx Breast Surgery - reconstruction, Hx Cholecystectomy, Hx Mastectomy - left, Hx Tubal Ligation - Immunizations Hx Diphtheria, Pertussis, Tetanus Vaccination: No <SCAR WEBBER - Last Filed: 04/05/17 00:55> Review of Systems - Review of Systems Constitutional: See HPI, Malaise EENT: No symptoms reported Cardiovascular: No symptoms reported Respiratory: See HPI, Cough Gastrointestinal: No symptoms reported Genitourinary: No symptoms reported Female Genitourinary: No symptoms reported Musculoskeletal: No symptoms reported Skin: No symptoms reported Hematologic/Lymphatic: No symptoms reported Neurological/Psychological: No symptoms reported -: Yes All other systems reviewed and negative <SCAR WEBBER - Last Filed: 04/05/17 00:55> Physical Exam <SCAR WEBBER - Last Filed: 04/05/17 00:55> <DIANNA MARRERO - Last Filed: 04/05/17 02:30> - Vital signs Vitals: Temp Pulse Resp BP Pulse Ox 98.4 F 100 28 H 132/91 H 96 04/04/17 22:43 04/04/17 22:43 04/04/17 22:43 04/04/17 22:43 04/04/17 22:43 - Notes Notes: GENERAL: Alert, interacts well. Chronically ill appearing. HEAD: Normocephalic, atraumatic. EYES: Pupils equal, round, and reactive to light. Extraocular movements intact. ENT: Oral mucosa moist, tongue midline. NECK: Full range of motion. Supple. Trachea midline. LUNGS: Decreased breath sounds in the entire left long. HEART: Regular rate and rhythm. No murmurs, gallops, or rubs. ABDOMEN: Soft, non-tender. Non-distended. Bowel sounds present in all 4 quadrants. EXTREMITIES: Moves all 4 extremities spontaneously. NEUROLOGICAL: Alert and oriented x3. Normal speech. Cranial nerves intact. PSYCH: Normal affect, normal mood. SKIN: Pale. Warm, dry, normal turgor. No rashes or lesions noted. (SCAR WEBBER) Course - Laboratory Result Diagrams: 04/05/17 00:37 04/05/17 00:37 <SCAR WEBBER - Last Filed: 04/05/17 00:55> - Laboratory Result Diagrams: 04/05/17 00:37 04/05/17 00:37 <DIANNA MARRERO - Last Filed: 04/05/17 02:30> - Re-evaluation Re-evalutation: 04/05/17 00:26 Consulted an associate from patients oncologist office, agreed patient is not a candidate for intervention and to place a consult for Dr. Luna to see patient in the morning. 04/05/17 00:42 (SCAR WEBBER) Patient is a 71-year-old female with a history of small cell lung cancer who comes in tonight with hemoptysis. Patient had been on chemotherapy. Patient had biopsies of her lung but never had a lobectomy. Patient was recently admitted for pneumonia and tumor was seen to have invaded into her left bronchus causing partial collapse of her left lung. Patient is on Eliquis due to a history of stroke. Unfortunately derrick, it appears that the patient has had complete collapse of her left lung. patient's daughters states that the patient was likely going to be started on hospice soon. Patient has not wanted to have CPR. She does not want any tubes of any kind. At this point, I do not think that the patient requires emergent intervention nor do her or her family want intervention. Patient has been more confused recently which could be from hypoxia. No acute findings on CT of head that show brain metastases or bleeding. Have discussed with the family that at this point anticoagulation will likely be held due to the patient's hemoptysis. She has been discussed with Dr. Donald from oncology. Patient's family would like Dr. Luna to discuss with the patient end-of-life issues. Social work consult has been placed for hospice. Patient is going to fill out her end-of-life orders in healthcare proxy with her daughter derrick. She will be admitted to the hospitalist service at this time. (DIANNA MARRERO) - Vital Signs Vital signs: Temp Pulse Resp BP Pulse Ox 98.4 F 100 21 H 139/98 H 96 04/04/17 22:43 04/04/17 22:43 04/05/17 01:01 04/05/17 00:01 04/05/17 00:01 - Laboratory Laboratory results interpreted by me: 04/05/17 04/05/17 04/05/17 00:37 00:37 00:37 Hgb 11.7 L Hct 34.4 L RDW 16.2 H Plt Count 118 L PT 16.2 H APTT 37.3 H VBG pH VBG pCO2 Carbon Dioxide 20 L Total Protein 5.9 L Ur Leukocyte Esterase 04/05/17 04/05/17 00:37 00:49 Hgb Hct RDW Plt Count PT APTT VBG pH 7.44 H VBG pCO2 32.6 L Carbon Dioxide Total Protein Ur Leukocyte Esterase MODERATE H Critical Care Note - Critical Care Note Total time excluding time spent on procedures (mins): 35 - Evaluation and management of hemoptysis, discussion of end-of-life issues with family, consultation with specialist, coordination of admission, multiple re-evaluations <DIANNA MARRERO - Last Filed: 04/05/17 02:30> Discharge <SCAR WEBBER - Last Filed: 04/05/17 00:55> - Discharge Admitting Provider: [facility] Unit Admitted: Medical Floor <DIANNA MARRERO - Last Filed: 04/05/17 02:30> - Discharge Clinical Impression: Cough with hemoptysis Lung cancer Qualifiers: Laterality: left Lung location: unspecified part of lung Qualified Code(s): C34.92 - Malignant neoplasm of unspecified part of left bronchus or lung Condition: Fair Disposition: ADMITTED INPATIENT Scribe Attestation: 04/05/17 02:30 I personally performed the services described in the documentation, reviewed and edited the documentation which was dictated to the scribe in my presence, and it accurately records my words and actions. (DIANNA MARRERO) Scribe Documentation - Scribe Written by Asime:: Chelsea Dow, 04/05/2017 00:21 acting as scribe for :: Som <SCAR WEBBER - Last Filed: 04/05/17 00:55>
--- NOTE | 2017-04-04 23:41 | RADIOLOGY REPORT (SQ) ---
EXAM DESCRIPTION: CHEST SINGLE VIEW CLINICAL HISTORY: 71 years Female, cough COMPARISON: 01/24/2017. CT, 03/20/2017. NUMBER OF VIEWS/TECHNIQUE: 1/AP LIMITATIONS: None. FINDINGS: Interval complete "white out " of the left hemithorax, left-sided shift of the cardiac silhouette partially secured, increased right lung volume, right jugular central line tip at the cavoatrial junction, surgical clips of the left upper-mid hemithorax. IMPRESSION: Worsened obscuration/collapse of the left lung.
[2017-04-05 00:56] LABS: ABSOLUTE EOSINOPHILS # (AUTO) 0.1 10^3/uL (0.0-0.6); ABSOLUTE LYMPHOCYTES (AUTO) 1.3 10^3/uL (0.5-4.7); ABSOLUTE MONOCYTES (AUTO) 0.4 10^3/uL (0.1-1.4); ABSOLUTE NEUT (AUTO) 2.8 10^3/uL (1.7-8.2); BASOPHILS % (AUTO) 0.5 % (0-2); EOSINOPHILS % (AUTO) 1.2 % (0-6); HEMATOCRIT 34.4 % (36.0-47.0); HEMOGLOBIN 11.7 g/dL (12.0-15.5); LYMPHOCYTES % (AUTO) 28.3 % (13-45); MEAN CORPUSCULAR HEMOGLOBIN 31.1 pg (27.0-33.4); MEAN CORPUSCULAR HGB CONC 33.9 g/dL (32.0-36.0); MEAN CORPUSCULAR VOLUME 92 fl (80-97); MONOCYTES % (AUTO) 9.4 % (3-13); PLATELET COUNT 118 10^3/uL (150-450); RED BLOOD COUNT 3.75 10^6/uL (3.72-5.28); RED CELL DISTRIBUTION WIDTH 16.2 % (11.5-14.0); SEGMENTED NEUTROPHILS % (AUTO) 60.6 % (42-78); TOTAL CELLS COUNTED % (AUTO) 100 %; WHITE BLOOD COUNT 4.6 10^3/uL (4.0-10.5)
[2017-04-05 01:09] LABS: VENOUS BLOOD BASE EXCESS -0.9 mmol/L; VENOUS BLOOD HCO3 21.8 mmol/L (20-32); VENOUS BLOOD PCO2 32.6 mmHg (35-63); VENOUS BLOOD PH 7.44 (7.30-7.42)
--- NOTE | 2017-04-05 01:09 | RADIOLOGY REPORT (SQ) ---
EXAM DESCRIPTION: CT HEAD WITHOUT CLINICAL HISTORY: 71 years Female, confusion COMPARISON: 03/20/2017 TECHNIQUE: No contrast. This exam was performed according to our departmental dose-optimization program, which includes automated exposure control, adjustment of the mA and/or kV according to patient size and/or use of iterative reconstruction technique. FINDINGS: No hemorrhage or infarct. No mass, mass effect, or midline shift. Mild cerebral volume loss, mild white matter microangiopathy. Brain and extra-axial structures appear otherwise intact. IMPRESSION: No acute findings.
--- NOTE | 2017-04-05 01:14 | RADIOLOGY REPORT (SQ) ---
EXAM DESCRIPTION: CT CHEST WITHOUT CLINICAL HISTORY: 71 years Female, hemoptysis COMPARISON: 03/20/2017. CR, same day. TECHNIQUE: No contrast. Coronal and sagittal reformat. This exam was performed according to our departmental dose-optimization program, which includes automated exposure control, adjustment of the mA and/or kV according to patient size and/or use of iterative reconstruction technique. Limitation: No contrast. FINDINGS: Moderate right pleural effusion. Complete collapse-consolidate of the left lung. Moderate to severe left-sided shift of the heart and mediastinum. Emphysematous hyperexpansion of the right lung. Bilateral mammary prostheses. Moderate coronary arterial calcification. Severe atrophy of left kidney. Atherosclerosis. Right jugular central line tip at the cavoatrial junction. Left axillary clips. Inferior neck, mediastinum, airway, lymphatics, heart, vasculature, upper abdomen, and musculoskeleton appear otherwise unremarkable. IMPRESSION: Interval worsening includes complete collapse/consolidate of the left lung.
[2017-04-05 01:15] LABS: ALANINE AMINOTRANSFERASE 42 U/L (9-52); ALBUMIN 3.7 g/dL (3.5-5.0); ALKALINE PHOSPHATASE 64 U/L (38-126); ANION GAP 13 (5-19); ASPARTATE AMINO TRANSFERASE 17 U/L (14-36); BILIRUBIN,DIRECT 0.1 mg/dL (0.0-0.4); BILIRUBIN,TOTAL 0.6 mg/dL (0.2-1.3); BLOOD UREA NITROGEN 11 mg/dL (7-20); CALCIUM 9.7 mg/dL (8.4-10.2); CARBON DIOXIDE 20 mmol/L (22-30); CHLORIDE 106 mmol/L (98-107); GLUCOSE 97 mg/dL (75-110); POTASSIUM 3.8 mmol/L (3.6-5.0); SODIUM 138.7 mmol/L (137-145); TOTAL PROTEIN 5.9 g/dL (6.3-8.2)
[2017-04-05 01:24] LABS: INTERNATIONAL RATION (INR) 1.22; PROTHROMBIN TIME 16.2 SEC (11.4-15.4)
[2017-04-05 01:25] LABS: PARTIAL THROMBOPLASTIN TIME 37.3 SEC (23.5-35.8)
[2017-04-05 01:35] LABS: APPEARANCE,URINE SLIGHTLY-CLOUDY; BILIRUBIN,URINE NEGATIVE (NEGATIVE); COLOR,URINE YELLOW; GLUCOSE, URINE NEGATIVE (NEGATIVE); KETONES,URINE NEGATIVE (NEGATIVE); LEUKOCYTE ESTERASE,URINE MODERATE (NEGATIVE); NITRITE,URINE NEGATIVE (NEGATIVE); PROTEIN,URINE NEGATIVE (NEGATIVE); URINE SPECIFIC GRAVITY 1.008; UROBILINOGEN,URINE NEGATIVE mg/dL (<2.0)
[2017-04-05] MEDS ORDERED: ACETAMINOPHEN 325 MG TABLET PO PRN (01:47)
[2017-04-05] MEDS ORDERED: LORAZEPAM 0.5 MG TABLET PO PRN ×2 (01:47→07:30)
[2017-04-05] MEDS ORDERED: ONDANSETRON HCL INJ/PF 4 MG/2 ML SDV IV PRN ×2 (01:51→14:03)
[2017-04-05] MEDS ORDERED: IPRATROPIUM/ALBUTEROL 0.5-2.5 MG/3 ML AMPUL NEB PRN (01:51)
[2017-04-05] MEDS ORDERED: MAGNESIUM HYDROXIDE SUSP 30 ML UDCUP PO PRN (01:51)
[2017-04-05] MEDS ORDERED: OXYCODONE HCL SR 10 MG TABLET PO PRN (03:29)
[2017-04-05] MEDS ORDERED: HYDROMORPHONE HCL INJ/PF 2 MG/ML AMPULE INJ ONE (03:45)
[2017-04-05] MEDS: HEPARIN SOD (PORCINE) 5,000 UNIT/ML 1 ML SYRINGE SUBCUT SCH ×3 (05:27→22:24)
[2017-04-05] MEDS ORDERED: FENTANYL 50 MCG/HR PATCH.TD72 TD ONE (06:19)
[2017-04-05] MEDS ORDERED: INFLUENZA ADLT QUAD (36MOS+) 2017-18 VAC 0.5 ML SYR IM PRN (06:19)
--- NOTE | 2017-04-05 06:53 | PDOC H&P ---
History of Present Illness Admission Date/PCP: 04/05/17 01:01 LESLY TEJADA, Patient complains of: Coughing blood History of Present Illness: EVE GUILLERMO is a 71 year old female with a past medical history of palliative care for stage IV small cell lung cancer not currently on chemotherapy secondary to toxicity, recent CVA and recurrent postobstructive pneumonia. Patient presents after several episodes of coughing blood, intractable pain and consideration of hospice. In the emergency room she receives pain control and referred to the hospitalist for admission. Patient is currently sedated and unable to participate in history. Patient's daughter at bedside verifies hospice interest. Past Medical History Cardiac Medical History: Reports: Atrial Fibrillation, Congestive Heart Failure - secondary to "double pneumonia", Coronary Artery Disease, Hyperlipidema, Hypertension Denies: Myocardial Infarction Pulmonary Medical History: Reports: Chronic Obstructive Pulmonary Disease (COPD) , Pneumonia Denies: Asthma, Bronchitis Neurological Medical History: Denies: Seizures Endocrine Medical History: Denies: Diabetes Mellitus Type 2, Hypothyroidism Malignancy Medical History: Reports: Breast Cancer, Lung Cancer Musculoskeltal Medical History: Denies: Arthritis Psychiatric Medical History: Reports: Depression Hematology: Reports: Anemia Past Surgical History Past Surgical History: Reports: Cholecystectomy, Mastectomy - left, Tubal Ligation Social History Information Source: Relative, [facility] Records Smoking Status: Current Some Day Smoker Cigarettes Packs Per Day: 1 Frequency of Alcohol Use: None Hx Recreational Drug Use: No Drugs: None Hx Prescription Drug Abuse: No - Advance Directive Resuscitation Status: Do Not Resuscitate Family History Family History: CAD, Malignancy - Mother from CAD. Father from Lung cancer. Brother who from lung cancer. Sister living with breast cancer. Parental Family History Reviewed: Yes Children Family History Reviewed: Yes Sibling(s) Family History Reviewed.: Yes Medication/Allergy Home Medications: Budesonide/Formoterol Fumarate [Symbicort HFA 160-4.5 mcg Inhaler 6 gm] 2 puff IH Q12 02/10/17 Folic Acid [Folvite 1 mg Tablet] 1 mg PO DAILY 02/10/17 Ipratropium/Albuterol Sulfate [Combivent Respimat 4 gm Mdi] 1 puff IH BID Lorazepam [Ativan 0.5 mg Tablet] 0.5 mg PO Q8 PRN 02/10/17 Ondansetron HCl [Zofran 8 mg Tablet] 8 mg PO Q8HP PRN 02/10/17 Acetaminophen [Tylenol 325 mg Tablet] 650 mg PO Q6HP PRN tablet 02/16/17 Apixaban [Eliquis 5 mg Tablet] 5 mg PO BID tablet 02/16/17 Diltiazem HCl [Cardizem Cd 120 mg Capsule] 120 mg PO DAILY cap.sr.24h 02/16/17 Lansoprazole [Prevacid 15 mg Odt Tablet] 15 mg PO Q6AM tab.rap.dr 02/16/17 Levetiracetam [Keppra 500 mg Tablet] 1,000 mg PO Q12 #60 tablet 02/16/17 Lisinopril [Prinivil 5 mg Tablet] 2.5 mg PO DAILY tablet 02/16/17 Oxycodone HCl [Oxy-Ir 5 mg Tablet] 5 mg PO Q4HP PRN #60 tablet 02/16/17 Tolterodine Tartrate [Detrol 1 mg Tablet] 2 mg PO Q12 tablet 02/16/17 Magnesium Oxide [Mag-Ox 400 mg Tablet] 400 mg PO DAILY #30 tablet 03/20/17 Potassium Chloride [Klor-Con 10] 10 meq PO DAILY #30 tablet.er 03/20/17 Promethazine HCl [Phenergan 25 mg Supp.rect] 1 supp W[place] Q6H #20 supp.rect Allergies/Adverse Reactions: pegfilgrastim [From Neulasta] Allergy (Verified 03/20/17 09:56) Review of Systems ROS unobtainable: Due to mental status Physical Exam Vital Signs: Temp Pulse Resp BP Pulse Ox 97.1 F 87 22 H 144/93 H 98 04/05/17 03:11 04/05/17 03:11 04/05/17 03:11 04/05/17 03:11 04/05/17 03:11 Intake & Output 04/03/17 04/04/17 04/05/17 11:59 11:59 11:59 Intake Total 0 Balance 0 Weight 67 kg General appearance: PRESENT: disheveled, mild distress, thin Head exam: PRESENT: atraumatic, normocephalic Eye exam: PRESENT: conjunctiva pink, EOMI, PERRLA. ABSENT: scleral icterus Ear exam: PRESENT: normal external ear exam Mouth exam: PRESENT: moist, tongue midline Neck exam: ABSENT: carotid bruit, JVD, lymphadenopathy, thyromegaly Respiratory exam: PRESENT: accessory muscle use, crackles, prolonged expiratory phas, rales, retraction Cardiovascular exam: PRESENT: RRR. ABSENT: diastolic murmur, rubs, systolic murmur Pulses: PRESENT: normal dorsalis pedis pul Vascular exam: PRESENT: normal capillary refill GI/Abdominal exam: PRESENT: normal bowel sounds, soft. ABSENT: distended, guarding, mass, organolmegaly, rebound, tenderness Rectal exam: PRESENT: deferred Extremities exam: PRESENT: full ROM. ABSENT: calf tenderness, clubbing, pedal edema Neurological exam: PRESENT: altered Psychiatric exam: PRESENT: unusual affect Skin exam: PRESENT: dry, intact, warm. ABSENT: cyanosis, rash Results Impressions: Chest X-Ray 04/04/17 23:15 IMPRESSION: Worsened obscuration/collapse of the left lung. Head CT 04/05/17 00:17 IMPRESSION: No acute findings. Chest CT 04/05/17 00:18 IMPRESSION: Interval worsening includes complete collapse/consolidate of the left lung. Assessment & Plan - Diagnosis (1) Lung cancer Qualifiers: Laterality: left Lung location: unspecified part of lung Qualified Code(s ): C34.92 - Malignant neoplasm of unspecified part of left bronchus or lung Is this a current diagnosis for this admission?: Yes Plan: End-stage small cell lung cancer with hemoptysis. Patient is appropriate candidate for hospice though desires consultation with oncology. (2) Cough with hemoptysis Is this a current diagnosis for this admission?: Yes Plan: Secondary to lung mass complicated by hypercoagulable state and Xarelto currently on hold. Supportive care, hospice consult. (3) Intractable pain Is this a current diagnosis for this admission?: Yes Plan: Fentanyl and as needed IV Dilaudid in addition to home regiment. - Time Time Spent: 30 to 50 Minutes - Inpatient Certification Medical Necessity: Need for Pain Control
[2017-04-05] MEDS ORDERED: OXYCODONE HCL IR 5 MG TABLET PO PRN (07:10)
[2017-04-05] MEDS: OXYCODONE HCL IR 5 MG TABLET PO PRN ×2 (07:40→13:40)
--- NOTE | 2017-04-05 08:36 | PDOC PROGRESS REPORT ---
Subjective Progress Note for:: 04/05/17 Subjective:: The patient is awake. She is having a lot of cough. She is short of breath. Long discussion with the family and the patient about the DNR and comfort measures. Reason For Visit: TERMINAL LUNG CA Physical Exam Vital Signs: Temp Pulse Resp BP Pulse Ox 97.6 F 80 16 137/81 H 94 04/05/17 07:31 04/05/17 07:31 04/05/17 07:31 04/05/17 07:31 04/05/17 07:31 Intake & Output 04/04/17 04/05/17 04/06/17 06:59 06:59 06:59 Intake Total 0 Balance 0 Weight 67 kg General appearance: PRESENT: mild distress Head exam: PRESENT: atraumatic Eye exam: PRESENT: conjunctival injection Neck exam: ABSENT: carotid bruit Respiratory exam: PRESENT: decreased breath sounds Cardiovascular exam: PRESENT: +S1, +S2 Pulses: PRESENT: +1 pedal pulses bilateral GI/Abdominal exam: PRESENT: normal bowel sounds, soft Neurological exam: PRESENT: alert Results Impressions: Chest X-Ray 04/04/17 23:15 IMPRESSION: Worsened obscuration/collapse of the left lung. Head CT 04/05/17 00:17 IMPRESSION: No acute findings. Chest CT 04/05/17 00:18 IMPRESSION: Interval worsening includes complete collapse/consolidate of the left lung. Assessment & Plan - Diagnosis (1) Cough with hemoptysis Is this a current diagnosis for this admission?: Yes Plan: We will stop the blood thinners (2) Lung cancer Qualifiers: Laterality: left Lung location: unspecified part of lung Qualified Code(s ): C34.92 - Malignant neoplasm of unspecified part of left bronchus or lung Is this a current diagnosis for this admission?: Yes Plan: We will continue with nebulizer treatments. Because of advanced cancer the patient wants to be DNR and wants comfort measures. (3) COPD (chronic obstructive pulmonary disease) Qualifiers: Emphysema type: centrilobular Is this a current diagnosis for this admission?: Yes Plan: Continue nebulization treatments (4) CVA (cerebral vascular accident) Qualifiers: CVA mechanism: unspecified Qualified Code(s): I63.9 - Cerebral infarction, unspecified Is this a current diagnosis for this admission?: Yes Plan: Continue medications to prevent seizures
[2017-04-05] MEDS: IPRATROPIUM/ALBUTEROL 0.5-2.5 MG/3 ML AMPUL NEB SCH ×2 (08:54→16:27)
--- NOTE | 2017-04-05 09:09 | PDOC CONSULTATION ---
Consultation Consult Date: 04/05/17 Attending physician:: LESLY TEJADA Consult reason:: Small cell lung ca History of Present Illness Admission Date/PCP: 04/05/17 01:01 LESLY TEJADA, Patient complains of: Hemoptysis History of Present Illness: 71 y/o F well known to our oncology clinic w/ known hx of prev limited stage SCLC, now w/ extensive stage SCLC, hx of recent stroke, post hospitalization in feb, pt was in rehab, she improved and d/c'd home but still has not improved functional status post stroke, still has considerable dizziness, movement difficulties, we only were able to give 2 cycles chemo prior to stroke, we saw her about 2 weeks ago after restaging and there was progression of disease in lung but we could not initiate chemo 2nd performance status, at that time I discussed hospice but pt and family were not ready. Since being at home, last 2 days, more confusion, weakness and then diffuse hemoptysis noted, seen in ED, CT chest now w/ complete white out and collapse of L lung, likely cause of hemoptysis, CT head w/ no new findings. Today I had long discussion w/ pt and family and discussed hospice, end of life care, and they have agreed to comfort care and DNR status. I have contacted [facility] who will be meeting family later today. Past Medical History Cardiac Medical History: Reports: Atrial Fibrillation, Congestive Heart Failure - secondary to "double pneumonia", Coronary Artery Disease, Hyperlipidema, Hypertension Denies: Myocardial Infarction Pulmonary Medical History: Reports: Chronic Obstructive Pulmonary Disease (COPD) , Pneumonia Denies: Asthma, Bronchitis Neurological Medical History: Denies: Seizures Endocrine Medical History: Denies: Diabetes Mellitus Type 2, Hypothyroidism Malignancy Medical History: Reports: Breast Cancer, Lung Cancer Musculoskeltal Medical History: Denies: Arthritis Psychiatric Medical History: Reports: Depression Hematology: Reports: Anemia Past Surgical History Past Surgical History: Reports: Cholecystectomy, Mastectomy - left, Tubal Ligation Social History Smoking Status: Current Some Day Smoker Cigarettes Packs Per Day: 1 Frequency of Alcohol Use: None Hx Recreational Drug Use: No Drugs: None Hx Prescription Drug Abuse: No - Advance Directive Resuscitation Status: Do Not Resuscitate Family History Family History: CAD, Malignancy - Mother from CAD. Father from Lung cancer. Brother who from lung cancer. Sister living with breast cancer. Parental Family History Reviewed: Yes Children Family History Reviewed: Yes Sibling(s) Family History Reviewed.: Yes Medication/Allergy Allergies/Adverse Reactions: pegfilgrastim [From Neulasta] Allergy (Verified 03/20/17 09:56) Review of Systems Constitutional: PRESENT: anorexia, fatigue, weakness Cardiovascular: PRESENT: dyspnea on exertion Respiratory: PRESENT: cough, hemoptysis Gastrointestinal: ABSENT: abdominal pain, constipation, diarrhea, hematemesis, hematochezia, nausea, vomiting Genitourinary: PRESENT: difficulty urinating Musculoskeletal: ABSENT: joint swelling Neurological: PRESENT: confusion, lack of coordination, vertigo, weakness Physical Exam Vital Signs: Temp Pulse Resp BP Pulse Ox 97.6 F 80 16 137/81 H 94 04/05/17 07:31 04/05/17 07:31 04/05/17 07:31 04/05/17 07:31 04/05/17 07:31 Intake & Output 04/04/17 04/05/17 04/06/17 06:59 06:59 06:59 Intake Total 0 Balance 0 Weight 67 kg General appearance: PRESENT: no acute distress Head exam: PRESENT: atraumatic Mouth exam: PRESENT: dry mucosa Respiratory exam: PRESENT: decreased breath sounds, stridor Cardiovascular exam: PRESENT: RRR. ABSENT: diastolic murmur, rubs, systolic murmur GI/Abdominal exam: PRESENT: normal bowel sounds, soft. ABSENT: distended, guarding, mass, organolmegaly, rebound, tenderness Rectal exam: PRESENT: deferred Neurological exam: PRESENT: alert, altered, awake, oriented to person, oriented to place Results Impressions: Chest X-Ray 04/04/17 23:15 IMPRESSION: Worsened obscuration/collapse of the left lung. Head CT 04/05/17 00:17 IMPRESSION: No acute findings. Chest CT 04/05/17 00:18 IMPRESSION: Interval worsening includes complete collapse/consolidate of the left lung. Status: Image reviewed by me Assessment & Plan - Diagnosis (1) Lung cancer Qualifiers: Laterality: left Lung location: overlapping sites Qualified Code(s): C34.82 - Malignant neoplasm of overlapping sites of left bronchus and lung Is this a current diagnosis for this admission?: Yes Plan: Had long discussion, plan comfort care, put in orders, likely d/c to home hospice once pain controlled and pt has items in place at home. Will need to monitor likely until tomorrow and hopeful d/c tomorrow if medically stable, pain controlled and home hospice in place. - Time Time Spent: Greater than 70 Minutes Anticipated discharge: Hospice Within: within 24 hours - Inpatient Certification Based on my medical assessment, after consideration of the patient's comorbidities, presenting symptoms, or acuity I expect that the services needed warrant INPATIENT care.: Yes I certify that my determination is in accordance with my understanding of Medicare's requirements for reasonable and necessary INPATIENT services [42 CFR 412.3e].: Yes Medical Necessity: Need for Pain Control, Risk of Complication if Not Cared For in Hospital
--- NOTE | 2017-04-05 09:23 | EKG REPORT ---
SEVERITY:- ABNORMAL ECG - SINUS RHYTHM CONSIDER OLD ANTEROSEPTAL AR : Confirmed by: Mirza Mejia MD 05-Apr-2017 09:23:08
[2017-04-05] MEDS: HYDROMORPHONE HCL INJ/PF 2 MG/ML AMPULE IV PRN ×3 (09:28→22:32)
[2017-04-05] MEDS: LEVETIRACETAM 500 MG TABLET PO SCH ×2 (09:37→22:32)
[2017-04-05] MEDS: DILTIAZEM HCL 120 MG CAP.SR.24H PO SCH (09:37)
[2017-04-05] MEDS: ONDANSETRON HCL INJ/PF 4 MG/2 ML SDV IV PRN ×2 (09:41→13:42)
[2017-04-05] MEDS: PHENAZOPYRIDINE HCL 200 MG TABLET PO PRN ×2 (10:31→14:22)
[2017-04-05] MEDS: BUDESONIDE/FORMOTEROL 160-4.5 MCG 60 PUFF/6 GM MDI IH SCH ×2 (10:53→22:32)
[2017-04-05] MEDS: MAGNESIUM OXIDE 400 MG TABLET PO SCH (10:53)
[2017-04-05] MEDS: DOCUSATE SODIUM 100 MG CAPSULE PO SCH ×2 (10:53→17:32)
[2017-04-05] MEDS ORDERED: FLUCONAZOLE 100 MG TABLET PO ONE (16:00)
[2017-04-05] MEDS ORDERED: CEFTRIAXONE 1 GM/D5W RTU 1 GM/50 ML RTUPB IV ONE (16:00)
[2017-04-05] MEDS ORDERED: CEFTRIAXONE SODIUM 1,000 MG in NORMAL SALINE 100 ML IV ONE (17:00)
[2017-04-05] MEDS: NYSTATIN CREAM 15 GM TP SCH ×2 (17:31→22:02)
[2017-04-05] MEDS: TOLTERODINE TARTRATE 1 MG TABLET PO SCH (17:33)
[2017-04-05] MEDS: LIDOCAINE 2% URO-JET 5 ML KIT MM PRN ×2 (17:34→22:02)
[2017-04-06] MEDS: IPRATROPIUM/ALBUTEROL 0.5-2.5 MG/3 ML AMPUL NEB SCH ×2 (00:08→08:20)
[2017-04-06] MEDS: LIDOCAINE 2% URO-JET 5 ML KIT MM PRN ×2 (03:36→10:22)
[2017-04-06 04:13] LABS: ABSOLUTE EOSINOPHILS # (AUTO) 0.1 10^3/uL (0.0-0.6); ABSOLUTE LYMPHOCYTES (AUTO) 1.3 10^3/uL (0.5-4.7); ABSOLUTE MONOCYTES (AUTO) 0.5 10^3/uL (0.1-1.4); ABSOLUTE NEUT (AUTO) 3.9 10^3/uL (1.7-8.2); BASOPHILS % (AUTO) 0.5 % (0-2); EOSINOPHILS % (AUTO) 0.9 % (0-6); HEMATOCRIT 34.9 % (36.0-47.0); HEMOGLOBIN 11.8 g/dL (12.0-15.5); MEAN CORPUSCULAR HGB CONC 33.8 g/dL (32.0-36.0); MEAN CORPUSCULAR VOLUME 92 fl (80-97); PLATELET COUNT 124 10^3/uL (150-450); SEGMENTED NEUTROPHILS % (AUTO) 68.6 % (42-78); TOTAL CELLS COUNTED % (AUTO) 100 %; WHITE BLOOD COUNT 5.8 10^3/uL (4.0-10.5)
[2017-04-06 04:16] LABS: ANION GAP 11 (5-19); BLOOD UREA NITROGEN 14 mg/dL (7-20); CALCIUM 9.4 mg/dL (8.4-10.2); CARBON DIOXIDE 23 mmol/L (22-30); CHLORIDE 105 mmol/L (98-107); GLUCOSE 103 mg/dL (75-110); POTASSIUM 3.8 mmol/L (3.6-5.0); SODIUM 138.5 mmol/L (137-145)
[2017-04-06] MEDS: HEPARIN SOD (PORCINE) 5,000 UNIT/ML 1 ML SYRINGE SUBCUT SCH (06:03)
[2017-04-06] MEDS: HYDROMORPHONE HCL INJ/PF 2 MG/ML AMPULE IV PRN ×2 (08:21→13:37)
[2017-04-06] MEDS: PHENAZOPYRIDINE HCL 200 MG TABLET PO PRN (08:24)
--- NOTE | 2017-04-06 08:24 | PDOC PROGRESS REPORT ---
Subjective Progress Note for:: 04/06/17 Subjective:: Today had long end of life conversation w/ patient, she understands her prognosis and next steps of comfort care, dc home today on hospice, spent >45 min in discussion w/ family and pt today Reason For Visit: TERMINAL LUNG CA Physical Exam Vital Signs: Temp Pulse Resp BP Pulse Ox 98.9 F 84 24 H 139/89 H 95 04/06/17 04:05 04/06/17 04:05 04/06/17 04:05 04/06/17 04:05 04/06/17 04:05 Intake & Output 04/05/17 04/06/17 04/07/17 06:59 06:59 06:59 Intake Total 0 764 Output Total 670 Balance 0 94 Weight 67 kg 74.9 kg General appearance: PRESENT: no acute distress, well-developed, well-nourished Head exam: PRESENT: atraumatic, normocephalic Eye exam: PRESENT: conjunctiva pink, EOMI, PERRLA. ABSENT: scleral icterus Ear exam: PRESENT: normal external ear exam Mouth exam: PRESENT: moist, tongue midline Neck exam: ABSENT: carotid bruit, JVD, lymphadenopathy, thyromegaly Respiratory exam: PRESENT: clear to auscultation stacia. ABSENT: rales, rhonchi, wheezes Cardiovascular exam: PRESENT: RRR. ABSENT: diastolic murmur, rubs, systolic murmur Pulses: PRESENT: normal dorsalis pedis pul Vascular exam: PRESENT: normal capillary refill GI/Abdominal exam: PRESENT: normal bowel sounds, soft. ABSENT: distended, guarding, mass, organolmegaly, rebound, tenderness Rectal exam: PRESENT: deferred Extremities exam: PRESENT: full ROM. ABSENT: calf tenderness, clubbing, pedal edema Neurological exam: PRESENT: alert, awake, oriented to person, oriented to place , oriented to time, oriented to situation, CN II-XII grossly intact. ABSENT: motor sensory deficit Psychiatric exam: PRESENT: appropriate affect, normal mood. ABSENT: homicidal ideation, suicidal ideation Skin exam: PRESENT: dry, intact, warm. ABSENT: cyanosis, rash Results Laboratory Results: 04/06/17 03:50 04/06/17 03:50 04/06/17 04/06/17 03:50 03:50 WBC 5.8 RBC 3.80 Hgb 11.8 L Hct 34.9 L MCV 92 MCH 31.0 MCHC 33.8 RDW 16.0 H Plt Count 124 L Seg Neutrophils % 68.6 Lymphocytes % 22.0 Monocytes % 8.0 Eosinophils % 0.9 Basophils % 0.5 Absolute Neutrophils 3.9 Absolute Lymphocytes 1.3 Absolute Monocytes 0.5 Absolute Eosinophils 0.1 Absolute Basophils 0.0 Sodium 138.5 Potassium 3.8 Chloride 105 Carbon Dioxide 23 Anion Gap 11 BUN 14 Creatinine 0.87 Est GFR ( Amer) > 60 Est GFR (Non-Af Amer) > 60 Glucose 103 Calcium 9.4 Impressions: Chest X-Ray 04/04/17 23:15 IMPRESSION: Worsened obscuration/collapse of the left lung. Head CT 04/05/17 00:17 IMPRESSION: No acute findings. Chest CT 04/05/17 00:18 IMPRESSION: Interval worsening includes complete collapse/consolidate of the left lung. Assessment & Plan - Diagnosis (1) Lung cancer Qualifiers: Laterality: left Lung location: overlapping sites Qualified Code(s): C34.82 - Malignant neoplasm of overlapping sites of left bronchus and lung Is this a current diagnosis for this admission?: Yes Plan: Home hospice today (2) End of life care Is this a current diagnosis for this admission?: Yes Plan: Discussion done w/ pt - Time Time Spent with patient: 35 or more minutes
[2017-04-06] MEDS: NYSTATIN CREAM 15 GM TP SCH ×2 (08:30→13:18)
--- NOTE | 2017-04-06 08:35 | PDOC DISCHARGE SUMMARY ---
General - Admit/Disc Date/PCP Admission Date/Primary Care Provider: 04/05/17 01:01 LESLY TEJADA, Discharge Date: 04/06/17 - Discharge Diagnosis (1) Cough with hemoptysis Is this a current diagnosis for this admission?: Yes Summary: Resolved with stopping of anticoagulation (2) Lung cancer Is this a current diagnosis for this admission?: Yes Summary: Advanced with poor prognosis (3) COPD (chronic obstructive pulmonary disease) Is this a current diagnosis for this admission?: Yes (4) CVA (cerebral vascular accident) Is this a current diagnosis for this admission?: Yes Summary: Stable continue current treatment (5) End of life care Is this a current diagnosis for this admission?: Yes Summary: Discussed by the hematology oncology with the patient and the family and arrangements were made for home discharge with hospice - Additional Information Resuscitation Status: Do Not Resuscitate Discharge Diet: As Tolerated Discharge Activity: Activity As Tolerated Home Medications: Acetaminophen [Tylenol 325 mg Tablet] 650 mg PO Q6HP PRN tablet 04/06/17 Budesonide/Formoterol Fumarate [Symbicort HFA 160-4.5 mcg Inhaler 6 gm] 2 puff IH Q12 inhaler 04/06/17 Diltiazem HCl [Cardizem Cd 120 mg Capsule] 120 mg PO DAILY cap.sr.24h 04/06/17 Docusate Sodium [Colace 100 mg Capsule] 100 mg PO BID capsule 04/06/17 History of Present Illness History of Present Illness: EVE GUILLERMO is a 71 year old female Hospital Course Hospital Course: The patient was admitted because of shortness of breath of hemoptysis. Because of advanced lung cancer with complete collapse of the lung long discussion with the patient and the family about end-of-life and hospice which they have agreed upon. All arrangements have been made with hospice and pain management Physical Exam Vital Signs: Temp Pulse Resp BP Pulse Ox 98.9 F 72 14 139/89 H 96 04/06/17 04:05 04/06/17 08:20 04/06/17 08:20 04/06/17 04:05 04/06/17 08:20 Intake & Output 04/05/17 04/06/17 04/07/17 06:59 06:59 06:59 Intake Total 0 764 Output Total 670 Balance 0 94 Weight 67 kg 74.9 kg General appearance: PRESENT: mild distress Head exam: PRESENT: atraumatic Eye exam: PRESENT: conjunctiva pink Respiratory exam: PRESENT: decreased breath sounds, rhonchi Cardiovascular exam: PRESENT: +S1, +S2 GI/Abdominal exam: PRESENT: normal bowel sounds, soft Neurological exam: PRESENT: alert, awake Results Laboratory Results: 04/06/17 03:50 04/06/17 03:50 04/06/17 04/06/17 03:50 03:50 WBC 5.8 RBC 3.80 Hgb 11.8 L Hct 34.9 L MCV 92 MCH 31.0 MCHC 33.8 RDW 16.0 H Plt Count 124 L Seg Neutrophils % 68.6 Lymphocytes % 22.0 Monocytes % 8.0 Eosinophils % 0.9 Basophils % 0.5 Absolute Neutrophils 3.9 Absolute Lymphocytes 1.3 Absolute Monocytes 0.5 Absolute Eosinophils 0.1 Absolute Basophils 0.0 Sodium 138.5 Potassium 3.8 Chloride 105 Carbon Dioxide 23 Anion Gap 11 BUN 14 Creatinine 0.87 Est GFR ( Amer) > 60 Est GFR (Non-Af Amer) > 60 Glucose 103 Calcium 9.4 Impressions: Chest X-Ray 04/04/17 23:15 IMPRESSION: Worsened obscuration/collapse of the left lung. Head CT 04/05/17 00:17 IMPRESSION: No acute findings. Chest CT 04/05/17 00:18 IMPRESSION: Interval worsening includes complete collapse/consolidate of the left lung. Qualifiers - * PATEINT BEING DISCHARGED WITH ANY OF THE FOLLOWING DIAGNOSIS?: No VTE patient discharged on overlapping Therapy?: No Reason(s) for not prescribing Overlap Therapy:: Medical Contraindication, Hospice Care Stroke Pt being discharged on Anti-thrombolytic therapy?: No Reason(s) for not prescribing Anti-thrombolytic therapy:: Medical Contraindication, Hospice Care Stroke Pt being discharged on Anti-coagulation therapy?: No Reason(s) for not prescribing Anti-coagulation therapy:: Medical Contraindication, Hospice Care Stroke Pt being discharged on Statins?: No Reason(s) for not prescribing Statins therapy:: Hospice Care Reason(s) for not prescribing Aspirin therapy:: Hospice Care Reason(s) for not prescribing Statin therapy:: Hospice Care Reason(s) for not prescribing ACEI/ARBS:: Hospice Care Reason(s) for not prescribing ACEI:: Hospice Care Reason(s) for not prescribing ARBS:: Hospice Care Reason(s) for not prescribing Warfarin:: Hospice Care HF Pt discharged on evidence-based Beta Nora:: Yes Reason(s) for not prescribing evidence-based Beta Nora:: Hospice Care
[2017-04-06] MEDS: DILTIAZEM HCL 120 MG CAP.SR.24H PO SCH (10:13)
[2017-04-06] MEDS: MAGNESIUM OXIDE 400 MG TABLET PO SCH (10:13)
[2017-04-06] MEDS: DOCUSATE SODIUM 100 MG CAPSULE PO SCH (10:14)
[2017-04-06] MEDS: TOLTERODINE TARTRATE 1 MG TABLET PO SCH (10:15)
[2017-04-06] MEDS: LEVETIRACETAM 500 MG TABLET PO SCH (10:15)
[2017-04-06] MEDS: BUDESONIDE/FORMOTEROL 160-4.5 MCG 60 PUFF/6 GM MDI IH SCH (10:21)
[2017-04-06] MEDS: OXYCODONE HCL IR 5 MG TABLET PO PRN (10:25)
[2017-04-06 12:53] VITALS: BP 144/93
[2017-04-06] MEDS ORDERED: FENTANYL 50 MCG/HR PATCH.TD72 TD ONE (13:15)
== END 2017-04-06 14:20 | disposition hospice, home (50) | DRG 181 ==
LOC: ER 22:37 → EH 04-05 01:01 → 3W 04-05 02:47
PROVIDERS: ADMIT Internal Medicine; ATTEND Internal Medicine
PROC: 3E0F73Z Introduction of Anti-inflammatory into Respiratory Tract, Via Natural or Artificial Opening (ICD-10-PCS; principal; 2017-04-05)
DX: C34.82 Malignant neoplasm of overlapping sites of left bronchus and lung (principal); J98.19 Other pulmonary collapse; G89.3 Neoplasm related pain (acute) (chronic); I69.398 Other sequelae of cerebral infarction; Z51.5 Encounter for palliative care; Z66 Do not resuscitate; I48.91 Unspecified atrial fibrillation; J44.9 Chronic obstructive pulmonary disease, unspecified; I10 Essential (primary) hypertension; T45.515A Adverse effect of anticoagulants, initial encounter; F17.210 Nicotine dependence, cigarettes, uncomplicated; I50.9 Heart failure, unspecified; F32.9 Major depressive disorder, single episode, unspecified; Z85.3 Personal history of malignant neoplasm of breast; Z90.49 Acquired absence of other specified parts of digestive tract; Z90.12 Acquired absence of left breast and nipple; Z79.899 Other long term (current) drug therapy; Z82.49 Family history of ischemic heart disease and other diseases of the circulatory system
CPT/HCPCS: 36415; 70450; 71045; 71250; 80048; 80053; 81001; 82803; 82962; 83605; 83735; 85025; 85610; 85730; 87040; 87077; 87086; 87088; 87186; 93005; 93010; 99291; J0696; J1170; J2405; J3490; J7620